=== PATIENT | female | born 1935 | race Caucasian/White ===

== ENCOUNTER 2016-08-17 09:11 | Inpatient (IN) | payer MEDICARE, OTHER ==
[2016-08-17 09:40] LABS: Mean Cell Volume 95.2 fl (78-100); Mean Corpuscular Hemoglobin 29.4 pg (26-32); Mean Platelet Volume 11.5 fl (6-9.5); Platelet Count 160 K/mm3 (150-450); Red Blood Count 3.57 M/mm3 (4.1-5.4); Red Cell Distribution Width 16.1 % (11.5-14.0); White Blood Count 6.3 K/mm3 (4.0-10.5)
--- NOTE | 2016-08-17 09:50 | XRAY ---
Indication: Cough and wheezing. Decreased oxygenation. Comparison: October 02, 2014 Portable chest again demonstrates cardiomegaly with left-sided AICD. There are now bibasilar infiltrates/atelectasis/effusion. Upper lungs clear. Bony thorax intact again with osteopenia and degenerative changes. Impression: New bibasilar infiltrates/atelectasis/effusion with stable cardiomegaly.
[2016-08-17 09:56] LABS: ALBUMIN 3.4 g/dL (3.4-5.0); ANION GAP 12.3 MEQ/L (5-15); BILIRUBIN,TOTAL 0.5 mg/dL (0.2-1.0); Carbon Dioxide 30.9 mEq/L (21-32); MAGNESIUM 1.6 mg/dL (1.8-2.4); Potassium 3.6 mEq/L (3.5-5.1); Total Protein 7.3 gm/dL (6.4-8.2)
[2016-08-17] MEDS ORDERED: PROVENTIL 2.5 MG/3 ML NEB IH PRN (10:42)
[2016-08-17] MEDS: PROVENTIL 2.5 MG/3 ML NEB IH SCH ×3 (11:00→20:15)
[2016-08-17] MEDS ORDERED: MEDICATION INTERVENTION MC PRN (11:35)
[2016-08-17] MEDS: ROCEPHIN 1 Gm-D5w 50 ml Bag** 1 G/50 ML IVPB IV SCH (11:38)
[2016-08-17] MEDS ORDERED: BUMEX 1 MG PO SCH (11:45)
[2016-08-17] MEDS: Zithromax 500 MG/ 250 ML NaCl Premix 250 ML IV SCH (12:12)
[2016-08-17] MEDS ORDERED: Lasix 40 MG/4 ML IV SCH (12:30)
[2016-08-17] MEDS: SYNTHROID 100 MCG PO SCH (12:58)
[2016-08-17] MEDS: Ditropan 5 MG PO SCH ×2 (12:58→21:41)
[2016-08-17] MEDS: ELIQUIS PO SCH ×2 (12:58→21:41)
[2016-08-17] MEDS: ZYLOPRIM 300 MG PO SCH (12:58)
[2016-08-17] MEDS: Actos 30 MG PO SCH (12:59)
[2016-08-17 13:43] LABS: ADD URINE CULTURE? NO (NO); COMPLETE URINE MICROSCOPIC? NO; Collection Type CLEAN CATCH; Ph 7.5 (5-6)
[2016-08-17] MEDS: solu-MEDROL 40 MG IV SCH ×2 (16:19→21:42)
--- NOTE | 2016-08-17 18:31 | PCM.HP ---
History of Present Illness - Chief Complaint Chief Complaint: Hypoxemia, CHF, cough History of Present Illness: is a 81 year old female who c/o 4-5 days of cough and wheezing. Last night she was unable to sleep due to the cough and she came to [facility], where she was noted to have an initial pulse ox of around 87% on RA, increased to 89% with a breathing treatment. she is feeling better now with her O2 on nasal cannula. Her CXR showed infiltrate vs atelectasis vs effusion. BNP was elevated. 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, she is unsure how), No Fever Respiratory: Cough, Short Of Breath, Wheezing All Other Systems: Reviewed and Negative Medications & Allergies Home Medications: Home Medication List Allopurinol 300 mg [Zyloprim 300 mg] 300 mg PO DAILY 09/30/12 [History Confirmed 08/17/16] Carvedilol 6.25 mg [Coreg 6.25 MG] 12.5 mg PO DAILY 09/30/12 [History Confirmed 08/17/16] Glipizide 5 mg PO DAILY 09/30/12 [History Confirmed 08/17/16] Potassium Chloride 20 Meq [Klor-Con 20 MEQ] 10 meq PO DAILY 09/30/12 [History Confirmed 08/17/16] Multivitamin W-Minerals/Lutein [Centrum Silver Tablet] 1 each PO DAILY 10/02/14 [History Confirmed 08/17/16] Perphenazine/Amitriptyline HCl [Perphen-Amitrip 2 mg-25 mg Tab] 1 each PO HS 01/08 [History Confirmed 08/17/16] Pioglitazone HCl [Actos] 15 mg PO DAILY 10/02/14 [History Confirmed 08/17/16] Solifenacin Succinate [Vesicare] 10 mg PO DAILY 10/02/14 [History Confirmed ] Bumetanide 1 mg PO DAILY 04/08/16 [History Confirmed 08/17/16] Apixaban [Eliquis] 2.5 mg PO BID 08/17/16 [History Confirmed 08/17/16] Levothyroxine Sodium 100 Mcg [Synthroid 100 Mcg] 100 mcg PO DAILY 08/17/16 [History Confirmed 08/17/16] Rosuvastatin Calcium [Crestor] 10 mg PO DAILY 08/17/16 [History Confirmed ] Allergies/Adverse Reactions: Allergies Allergy/AdvReac Type Severity Reaction Status Date / Time No Known Drug Allergies Allergy Verified 04/13/16 06:25 - Past Medical History Past Medical History: Yes Neurological History: No Pertinent History ENT History: Cataracts Cardiac History: Arrhythmia, Coronary Artery Disease, Hypertension Respiratory History: No Pertinent History Endocrine Medical History: Diabetes Type II, Hypothyroidism Musculoskelatal History: Arthritis GI Medical History: No Pertinent History History: Renal Disease Pyscho-Social History: No Pertinent History Reproductive Disorders: No Pertinent History Comment: Pt to see kidney doctor next month for possible kidney failure - Female History Are you now?: No - Past Surgical History Past Surgical History: Yes Neuro Surgical History: No Pertinent History Cardiac History: Internal Defibrillator, Pacemaker Respiratory Surgery: No Pertinent History GI Surgical History: Appendectomy Genitourinary Surgical Hx: No Pertinent History Musculskeletal Surgical Hx: No Pertinent History Female Surgical History: Tubal Ligation - Social History Smoking Status: Never smoker Exposure to second hand smoke: No Alcohol: None Drug Use: none - Physical Exam Vital Signs: Vital Signs - 24 hr Temp Pulse Resp BP BP Pulse Ox 08/17/16 16:25 60 132/65 08/17/16 15:31 97.8 F 82 20 147/68 78 L 08/17/16 14:40 84 20 96 08/17/16 11:48 97.8 F 90 18 145/67 7 L 08/17/16 10:43 90 18 96 08/17/16 10:30 163/70 08/17/16 10:12 97.9 F 99 H 20 88 L General Appearance: no apparent distress Neurologic Exam: alert, oriented x 3, cooperative, normal mood/affect Eye Exam: eyes nml inspection Neck Exam: normal inspection, No lymphadenopathy Respiratory Exam: diminished breath sounds, wheezing (exp throughout), No crackles/rales, No rhonchi Cardiovascular Exam: regular rate/rhythm, normal heart sounds, No murmur Back Exam: normal inspection, No CVA tenderness Extremity Exam: pedal edema (tr LE edema bilat) Results - Labs Lab/Micro Results: Accuchecks Date 08/17/16 Time 16:24 Accucheck Value: 122 Accucheck Value: 132 Lab Results-Last 24 Hours 08/17/16 08/17/16 08/17/16 Range/Units 06:00 09:18 09:18 WBC 6.3 (4.0-10.5) K/mm3 RBC 3.57 L (4.1-5.4) M/mm3 Hgb 10.5 L (12.0-16.0) gm/dl Hct 34.0 L (35-47) % MCV 95.2 (78-100) fl MCH 29.4 (26-32) pg MCHC 30.9 L (32-36) g/dl RDW 16.1 H (11.5-14.0) % Plt Count 160 (150-450) K/mm3 MPV 11.5 H (6-9.5) fl Sodium 143 (136-145) mEq/L Potassium 3.6 (3.5-5.1) mEq/L Chloride 103 (98-107) mEq/L Carbon Dioxide 30.9 (21-32) mEq/L Anion Gap 12.3 (5-15) MEQ/L BUN 19 (9-20) mg/dL Creatinine 1.24 (0.55-1.30) mg/dl Estimated GFR 44 ML/MIN Glucose 168 H (70-110) MG/DL Hemoglobin A1c (4.5-6.2) Calcium 8.5 (8.5-10.1) mg/dL Magnesium 1.6 L (1.8-2.4) mg/dL Total Bilirubin 0.5 (0.2-1.0) mg/dL AST 33 (15-37) U/L ALT 19 (12-78) U/L Alkaline Phosphatase 131 H (46-116) U/L NT-Pro-B Natriuret Pep 1351 H (0-450) pg/ml Serum Total Protein 7.3 (6.4-8.2) gm/dL Albumin 3.4 (3.4-5.0) g/dL Ur Collection Type Urine Color (YELLOW) Urine Appearance (CLEAR) Urine pH (5-6) Ur Specific [place] (1.005-1.025) Urine Protein (Negative) Urine Glucose (UA) (NEGATIVE) mg/dL Urine Ketones (NEGATIVE) Urine Nitrite (NEGATIVE) Urine Bilirubin (NEGATIVE) Urine Urobilinogen (0-1) mg/dL Urine WBC (Auto) (NEGATIVE) Urine RBC (Auto) (0-5) Allan/ul Specimen Received 08/17/16 08/17/16 Range/Units 10:00 12:47 WBC (4.0-10.5) K/mm3 RBC (4.1-5.4) M/mm3 Hgb (12.0-16.0) gm/dl Hct (35-47) % MCV (78-100) fl MCH (26-32) pg MCHC (32-36) g/dl RDW (11.5-14.0) % Plt Count (150-450) K/mm3 MPV (6-9.5) fl Sodium (136-145) mEq/L Potassium (3.5-5.1) mEq/L Chloride (98-107) mEq/L Carbon Dioxide (21-32) mEq/L Anion Gap (5-15) MEQ/L BUN (9-20) mg/dL Creatinine (0.55-1.30) mg/dl Estimated GFR ML/MIN Glucose (70-110) MG/DL Hemoglobin A1c 6.8 H (4.5-6.2) Calcium (8.5-10.1) mg/dL Magnesium (1.8-2.4) mg/dL Total Bilirubin (0.2-1.0) mg/dL AST (15-37) U/L ALT (12-78) U/L Alkaline Phosphatase (46-116) U/L NT-Pro-B Natriuret Pep (0-450) pg/ml Serum Total Protein (6.4-8.2) gm/dL Albumin (3.4-5.0) g/dL Ur Collection Type CLEAN CATCH Urine Color YELLOW (YELLOW) Urine Appearance CLEAR (CLEAR) Urine pH 7.5 (5-6) Ur Specific [place] 1.015 (1.005-1.025) Urine Protein NEGATIVE (Negative) Urine Glucose (UA) NEGATIVE (NEGATIVE) mg/dL Urine Ketones NEGATIVE (NEGATIVE) Urine Nitrite NEGATIVE (NEGATIVE) Urine Bilirubin NEGATIVE (NEGATIVE) Urine Urobilinogen 0.2 (0-1) mg/dL Urine WBC (Auto) NEGATIVE (NEGATIVE) Urine RBC (Auto) NEGATIVE (0-5) Allan/ul Specimen Received [id number] Accuchecks Date 08/17/16 Time 16:24 Accucheck Value: 122 Accucheck Value: 132 - Radiology Impressions Radiology Exams & Impressions: Radiology Procedures Category Date Time Status CHEST 2 VIEWS (PA AND LAT) Routine Exams 08/17/16 Completed CHEST 2 VIEWS (PA AND LAT) Routine Exams 08/18/16 12:00 Ordered ECHO W/2D AND DOPPLER [US] Routine Exams 08/17/16 11:30 Taken - Other Procedures and Tests Respiratory Therapy 08/17/16 10:14 Oxygen NASAL CANNULA 2 lpm 08/17/16 10:42 Respiratory Nebulizer Q4H 08/17/16 10:43 Respiratory Nebulizer PRN 08/17/16 11:06 RT Screen per Nursing Assess Assessment/Plan (1) Pneumonia Current Visit: Yes Status: Acute Qualifiers: Pneumonia type: due to unspecified organism Laterality: bilateral Lung location: lower lobe of lung Qualified Code(s): J18.9 - Pneumonia, unspecified organism Assessment & Plan: On IV rocephin and zithromax with IV solumedrol. On O2. Feeling better. Advised will probably be in for 2-3 days, depending on how she progresses. Code(s): J18.9 - PNEUMONIA, UNSPECIFIED ORGANISM (2) Congestive heart failure Current Visit: No Status: Acute Qualifiers: Congestive heart failure type: unspecified congestive heart failure type Congestive heart failure chronicity: acute on chronic Qualified Code(s): I50.9 - Heart failure, unspecified Assessment & Plan: at home takes Bumex. BNP was elevated. Will check bnp and CXR again tomorrow. IV lasix 40mg daily. Code(s): I50.9 - HEART FAILURE, UNSPECIFIED
[2016-08-17] MEDS: Zocor 10MG PO SCH (21:41)
[2016-08-17] MEDS ORDERED: PERPHENAZINE PO SCH (22:00)
[2016-08-17] MEDS ORDERED: [UNRECOGNIZED DRUG - OTHER] PO SCH (22:00)
[2016-08-17] MEDS ORDERED: AMITRIPTYLINE HCL PO SCH (22:00)
[2016-08-17] MEDS ORDERED: NON-FORMULARY ITEM (Apixaban [Eliquis] 2.5 MG) PO SCH (22:00)
[2016-08-17] MEDS: NovoLOG Insulin SQ PRN (22:36)
[2016-08-18 05:47] LABS: Mean Platelet Volume 11.4 fl (6-9.5); Platelet Count 161 K/mm3 (150-450); Red Blood Count 3.38 M/mm3 (4.1-5.4)
[2016-08-18 06:00] LABS: Mean Corpuscular Hemoglobin 29.2 pg (26-32)
[2016-08-18 06:08] LABS: ANION GAP 13.2 MEQ/L (5-15); Carbon Dioxide 29.5 mEq/L (21-32); Potassium 3.7 mEq/L (3.5-5.1)
[2016-08-18] MEDS: PROVENTIL 2.5 MG/3 ML NEB IH SCH ×4 (06:51→20:13)
[2016-08-18 07:24] LABS: Total Cells Counted 100
[2016-08-18 07:26] LABS: ANISOCYTOSIS 1+; Platelet Estimate NORMAL (NORMAL); Poikilocytosis 1+
[2016-08-18 07:28] LABS: Basophilic Stippling 1+
[2016-08-18] MEDS: NovoLOG Insulin SQ PRN ×2 (08:14→16:45)
--- NOTE | 2016-08-18 09:00 | PCM.NOTE ---
Date and Time: 08/18/16 0855 Subjective Assessment: She is having shortness of breath, increased. wheezing. carol po although she was unable to swallow her first bite of toast. - Review of Systems Constitutional: No Fever Respiratory: Cough, Wheezing Objective Exam General Appearance: no apparent distress, obese Neurologic Exam: alert, oriented x 3, cooperative Skin Exam: normal color, warm, dry Respiratory Exam: diminished breath sounds, wheezing (throughout), No crackles/ rales, No rhonchi Cardiovascular Exam: regular rate/rhythm, normal heart sounds, No murmur Extremity Exam: No pedal edema, No swelling OBJECTIVE DATA Vital Signs: Vital Signs - 24 hr Temp Pulse Resp BP BP Pulse Ox 08/18/16 07:43 98.4 F 106 H 24 145/67 96 08/18/16 06:53 108 H 24 98 08/18/16 05:39 98 H 22 94 L 08/18/16 04:00 98.0 F 102 H 22 172/72 93 L 08/18/16 00:00 98.5 F 100 H 26 H 189/87 95 08/17/16 20:18 97 H 22 97 08/17/16 20:00 97.8 F 93 H 22 157/71 145/67 92 L 08/17/16 16:25 60 132/65 08/17/16 15:31 97.8 F 82 20 147/68 78 L 08/17/16 14:40 84 20 96 08/17/16 11:48 97.8 F 90 18 145/67 7 L 08/17/16 10:43 90 18 96 08/17/16 10:30 163/70 08/17/16 10:12 97.9 F 99 H 20 88 L Oxygen-Last 24 hours O2 Percentage 2 Liters = 28% O2 Percentage 2 Liters = 28% O2 Percentage 2 Liters = 28% O2 Percentage 2 Liters = 28% Pain Assessment - Last Documented Pain Intensity 0 Pain Scale Used 0-10 Pain Scale Intake and Output: Intake & Output 08/15/16 08/16/16 08/17/16 08/18/16 11:59 11:59 11:59 11:59 Intake Total 1000 Output Total 2250 Balance -1250 Weight 82.236 kg 83.96 kg Lab Results: Accuchecks Date 08/17/16 Date 04/24/17 Time 22:00 Time 16:24 Accucheck Value: 236 Accucheck Value: 122 Accucheck Value: 132 Lab Results-Last 24 Hours 08/17/16 08/17/16 08/17/16 Range/Units 06:00 09:18 09:18 WBC 6.3 (4.0-10.5) K/mm3 RBC 3.57 L (4.1-5.4) M/mm3 Hgb 10.5 L (12.0-16.0) gm/dl Hct 34.0 L (35-47) % MCV 95.2 (78-100) fl MCH 29.4 (26-32) pg MCHC 30.9 L (32-36) g/dl RDW 16.1 H (11.5-14.0) % Plt Count 160 (150-450) K/mm3 MPV 11.5 H (6-9.5) fl Segmented Neutrophils (36.0-66.0) % Lymphocytes (Manual) (24-44) % Platelet Estimate (NORMAL) Poikilocytosis Basophilic Stippling Anisocytosis Sodium 143 (136-145) mEq/L Potassium 3.6 (3.5-5.1) mEq/L Chloride 103 (98-107) mEq/L Carbon Dioxide 30.9 (21-32) mEq/L Anion Gap 12.3 (5-15) MEQ/L BUN 19 (9-20) mg/dL Creatinine 1.24 (0.55-1.30) mg/dl Estimated GFR 44 ML/MIN Glucose 168 H (70-110) MG/DL Hemoglobin A1c (4.5-6.2) Calcium 8.5 (8.5-10.1) mg/dL Magnesium 1.6 L (1.8-2.4) mg/dL Total Bilirubin 0.5 (0.2-1.0) mg/dL AST 33 (15-37) U/L ALT 19 (12-78) U/L Alkaline Phosphatase 131 H (46-116) U/L NT-Pro-B Natriuret Pep 1351 H (0-450) pg/ml Serum Total Protein 7.3 (6.4-8.2) gm/dL Albumin 3.4 (3.4-5.0) g/dL Ur Collection Type Urine Color (YELLOW) Urine Appearance (CLEAR) Urine pH (5-6) Ur Specific [place] (1.005-1.025) Urine Protein (Negative) Urine Glucose (UA) (NEGATIVE) mg/dL Urine Ketones (NEGATIVE) Urine Nitrite (NEGATIVE) Urine Bilirubin (NEGATIVE) Urine Urobilinogen (0-1) mg/dL Urine WBC (Auto) (NEGATIVE) Urine RBC (Auto) (0-5) Allan/ul Specimen Received 08/17/16 08/17/16 08/18/16 Range/Units 10:00 12:47 05:25 WBC 5.0 (4.0-10.5) K/mm3 RBC 3.38 L (4.1-5.4) M/mm3 Hgb 9.9 L (12.0-16.0) gm/dl Hct 32.1 L (35-47) % MCV 95.0 (78-100) fl MCH 29.2 (26-32) pg MCHC 30.8 L (32-36) g/dl RDW 16.0 H (11.5-14.0) % Plt Count 161 (150-450) K/mm3 MPV 11.4 H (6-9.5) fl Segmented Neutrophils 94 H (36.0-66.0) % Lymphocytes (Manual) 6 L (24-44) % Platelet Estimate NORMAL (NORMAL) Poikilocytosis 1+ Basophilic Stippling 1+ Anisocytosis 1+ Sodium (136-145) mEq/L Potassium (3.5-5.1) mEq/L Chloride (98-107) mEq/L Carbon Dioxide (21-32) mEq/L Anion Gap (5-15) MEQ/L BUN (9-20) mg/dL Creatinine (0.55-1.30) mg/dl Estimated GFR ML/MIN Glucose (70-110) MG/DL Hemoglobin A1c 6.8 H (4.5-6.2) Calcium (8.5-10.1) mg/dL Magnesium (1.8-2.4) mg/dL Total Bilirubin (0.2-1.0) mg/dL AST (15-37) U/L ALT (12-78) U/L Alkaline Phosphatase (46-116) U/L NT-Pro-B Natriuret Pep (0-450) pg/ml Serum Total Protein (6.4-8.2) gm/dL Albumin (3.4-5.0) g/dL Ur Collection Type CLEAN CATCH Urine Color YELLOW (YELLOW) Urine Appearance CLEAR (CLEAR) Urine pH 7.5 (5-6) Ur Specific [place] 1.015 (1.005-1.025) Urine Protein NEGATIVE (Negative) Urine Glucose (UA) NEGATIVE (NEGATIVE) mg/dL Urine Ketones NEGATIVE (NEGATIVE) Urine Nitrite NEGATIVE (NEGATIVE) Urine Bilirubin NEGATIVE (NEGATIVE) Urine Urobilinogen 0.2 (0-1) mg/dL Urine WBC (Auto) NEGATIVE (NEGATIVE) Urine RBC (Auto) NEGATIVE (0-5) Allan/ul Specimen Received [id number] 08/18/16 Range/Units 05:25 WBC (4.0-10.5) K/mm3 RBC (4.1-5.4) M/mm3 Hgb (12.0-16.0) gm/dl Hct (35-47) % MCV (78-100) fl MCH (26-32) pg MCHC (32-36) g/dl RDW (11.5-14.0) % Plt Count (150-450) K/mm3 MPV (6-9.5) fl Segmented Neutrophils (36.0-66.0) % Lymphocytes (Manual) (24-44) % Platelet Estimate (NORMAL) Poikilocytosis Basophilic Stippling Anisocytosis Sodium 141 (136-145) mEq/L Potassium 3.7 (3.5-5.1) mEq/L Chloride 102 (98-107) mEq/L Carbon Dioxide 29.5 (21-32) mEq/L Anion Gap 13.2 (5-15) MEQ/L BUN 22 H (9-20) mg/dL Creatinine 1.11 (0.55-1.30) mg/dl Estimated GFR 50 ML/MIN Glucose 200 H (70-110) MG/DL Hemoglobin A1c (4.5-6.2) Calcium 8.0 L (8.5-10.1) mg/dL Magnesium (1.8-2.4) mg/dL Total Bilirubin (0.2-1.0) mg/dL AST (15-37) U/L ALT (12-78) U/L Alkaline Phosphatase (46-116) U/L NT-Pro-B Natriuret Pep 1752 H (0-450) pg/ml Serum Total Protein (6.4-8.2) gm/dL Albumin (3.4-5.0) g/dL Ur Collection Type Urine Color (YELLOW) Urine Appearance (CLEAR) Urine pH (5-6) Ur Specific [place] (1.005-1.025) Urine Protein (Negative) Urine Glucose (UA) (NEGATIVE) mg/dL Urine Ketones (NEGATIVE) Urine Nitrite (NEGATIVE) Urine Bilirubin (NEGATIVE) Urine Urobilinogen (0-1) mg/dL Urine WBC (Auto) (NEGATIVE) Urine RBC (Auto) (0-5) Allan/ul Specimen Received Radiology Exams: Radiology Procedures Category Date Time Status CHEST 2 VIEWS (PA AND LAT) Routine Exams 08/17/16 Completed CHEST 2 VIEWS (PA AND LAT) Routine Exams 08/18/16 12:00 Ordered ECHO W/2D AND DOPPLER [US] Routine Exams 08/17/16 11:30 Taken Assessment/Plan (1) Pneumonia Current Visit: Yes Status: Acute Qualifiers: Pneumonia type: due to unspecified organism Laterality: bilateral Lung location: lower lobe of lung Qualified Code(s): J18.9 - Pneumonia, unspecified organism Assessment & Plan: with excessive wheezing; will increase the steroid. on IV rocephina nd zithromax. Code(s): J18.9 - PNEUMONIA, UNSPECIFIED ORGANISM (2) Congestive heart failure Current Visit: No Status: Acute Qualifiers: Congestive heart failure type: unspecified congestive heart failure type Congestive heart failure chronicity: acute on chronic Qualified Code(s): I50.9 - Heart failure, unspecified Assessment & Plan: BNP elevated; will change IV lasix to IV bumex. Code(s): I50.9 - HEART FAILURE, UNSPECIFIED (3) Urinary retention Current Visit: Yes Status: Acute Assessment & Plan: possible; has not had much urine out. check u/s bladder, place trivedi if > 150cc urine present. If less than 150 cc present will consult urology. Code(s): R33.9 - RETENTION OF URINE, UNSPECIFIED
[2016-08-18] MEDS ORDERED: Ativan 1 MG PO PRN (09:01)
[2016-08-18] MEDS: Zithromax 500 MG/ 250 ML NaCl Premix 250 ML IV SCH (09:46)
[2016-08-18] MEDS: ELIQUIS PO SCH ×2 (09:46→21:17)
[2016-08-18] MEDS: Actos 30 MG PO SCH (09:46)
[2016-08-18] MEDS: Ditropan 5 MG PO SCH ×2 (09:47→21:17)
[2016-08-18] MEDS: ZYLOPRIM 300 MG PO SCH (09:47)
[2016-08-18] MEDS: COREG 12.5 MG PO SCH ×2 (09:47→21:17)
[2016-08-18] MEDS: SYNTHROID 100 MCG PO SCH (09:47)
[2016-08-18] MEDS ORDERED: Coreg 6.25 MG PO SCH (10:00)
[2016-08-18] MEDS ORDERED: NON-FORMULARY ITEM (Solifenacin Succinate [Vesicare] 10 MG) PO SCH (10:00)
[2016-08-18] MEDS ORDERED: NON-FORMULARY ITEM (Pioglitazone Hcl [Actos] 15 MG) PO SCH (10:00)
[2016-08-18] MEDS ORDERED: COREG 12.5 MG PO SCH (10:00)
[2016-08-18] MEDS ORDERED: NON-FORMULARY ITEM (Rosuvastatin Calcium [Crestor] 10 MG) PO SCH (10:00)
[2016-08-18] MEDS: BUMEX 1 MG IV SCH ×2 (10:02→16:45)
[2016-08-18] MEDS: Mucinex 600MG ER Tabs PO SCH ×2 (10:02→21:15)
[2016-08-18] MEDS: solu-MEDROL 125 MG IV SCH ×3 (10:03→21:18)
--- NOTE | 2016-08-18 12:30 | XRAY ---
Indication: Severe cough. Comparison: One day earlier. PA/lateral chest demonstrates slight worsening bibasilar infiltrates/atelectasis/effusion with stable cardiomegaly and left-sided AICD. No new cardiopulmonary abnormalities.
[2016-08-18] MEDS: ROCEPHIN 1 Gm-D5w 50 ml Bag** 1 G/50 ML IVPB IV SCH (12:33)
--- NOTE | 2016-08-18 13:33 | XRAY ---
Indication: Oliguria. Two-dimensional ultrasound of the urinary bladder performed. Comparison: None Urinary bladder normally distended with prevoid volume 338 cc. No suspicious bladder mass or wall thickening. Postvoid image demonstrates complete emptying. Impression: Negative urinary bladder sonogram.
[2016-08-18] MEDS ORDERED: BUMEX 1 MG IV ONE (16:45)
[2016-08-18] MEDS: Zocor 10MG PO SCH (21:17)
[2016-08-18] MEDS: PATIENT OWN MEDICATION PO SCH (21:23)
[2016-08-19] MEDS: solu-MEDROL 125 MG IV SCH ×3 (05:35→17:11)
[2016-08-19] MEDS: PROVENTIL 2.5 MG/3 ML NEB IH SCH ×4 (05:40→19:13)
[2016-08-19] MEDS: NovoLOG Insulin SQ PRN ×3 (08:08→22:40)
--- NOTE | 2016-08-19 10:00 | PCM.NOTE ---
Date and Time: 08/19/16954 Subjective Assessment: She is breathing better, off of her O2. Adolfo po. - Review of Systems Constitutional: No Fever Respiratory: Cough Objective Exam General Appearance: no apparent distress Neurologic Exam: alert, oriented x 3, cooperative Skin Exam: normal color, warm, dry Respiratory Exam: diminished breath sounds, No crackles/rales, No rhonchi, No wheezing Cardiovascular Exam: regular rate/rhythm, normal heart sounds, No murmur Gastrointestinal/Abdomen Exam: soft, normal bowel sounds, No tenderness OBJECTIVE DATA Vital Signs: Vital Signs - 24 hr Temp Pulse Resp BP Pulse Ox 08/19/16 08:56 92 L 08/19/16 08:00 23 08/19/16 07:59 97.8 F 82 23 145/76 95 08/19/16 05:40 16 08/19/16 04:00 98.7 F 98 H 21 145/73 92 L 08/19/16 00:00 98.1 F 58 L 17 120/60 91 L 08/18/16 20:13 84 22 95 08/18/16 20:00 97.9 F 86 17 154/69 94 L 08/18/16 16:08 86 18 93 L 08/18/16 16:00 18 08/18/16 15:20 98.2 F 62 18 134/63 93 L 08/18/16 12:00 22 08/18/16 11:42 98.2 F 91 H 18 139/67 94 L 08/18/16 10:30 95 H 22 96 Oxygen-Last 24 hours O2 Percentage 2 Liters = 28% O2 Percentage 2 Liters = 28% O2 Percentage 2 Liters = 28% O2 Percentage 2 Liters = 28% Pain Assessment - Last Documented Pain Intensity 0 Pain Scale Used 0-10 Pain Scale Intake and Output: Intake & Output 08/16/16 08/17/16 08/18/16 08/19/16 11:59 11:59 11:59 11:59 Intake Total 1480 1680 Output Total 2450 1488 Balance -970 192 Weight 82.236 kg 83.96 kg 82.962 kg Lab Results: Accuchecks Date 08/19/16 Date 08/19/16 Date 08/18/16 Date 08/18/16 Time 16:30 Time 11:30 Accucheck Value: 230 Accucheck Value: 200 Accucheck Value: 258 Accucheck Value: 190 Radiology Exams: Radiology Procedures Category Date Time Status BLADDER [US] Urgent Exams 08/18/16 09:00 Completed CHEST 2 VIEWS (PA AND LAT) Routine Exams 08/18/16 12:00 Completed ECHO W/2D AND DOPPLER [US] Routine Exams 08/17/16 11:30 Taken Assessment/Plan (1) Pneumonia Current Visit: Yes Status: Acute Qualifiers: Pneumonia type: due to unspecified organism Laterality: bilateral Lung location: lower lobe of lung Qualified Code(s): J18.9 - Pneumonia, unspecified organism Assessment & Plan: Finally starting to improve. Will leave steroid at current dose today and start decreasing tomorrow. I expect she will be here several more days. Code(s): J18.9 - PNEUMONIA, UNSPECIFIED ORGANISM (2) Congestive heart failure Current Visit: No Status: Acute Qualifiers: Congestive heart failure type: unspecified congestive heart failure type Congestive heart failure chronicity: acute on chronic Qualified Code(s): I50.9 - Heart failure, unspecified Assessment & Plan: Actually had quite a bit of urine out yesterday. Keep taking bumex BID IV here and recheck BNP in the morning. Code(s): I50.9 - HEART FAILURE, UNSPECIFIED
[2016-08-19] MEDS: Ditropan 5 MG PO SCH ×2 (10:01→21:57)
[2016-08-19] MEDS: ELIQUIS PO SCH ×2 (10:01→21:58)
[2016-08-19] MEDS: BUMEX 1 MG IV SCH ×2 (10:01→17:11)
[2016-08-19] MEDS: Actos 30 MG PO SCH (10:02)
[2016-08-19] MEDS: ZYLOPRIM 300 MG PO SCH (10:02)
[2016-08-19] MEDS: ROCEPHIN 1 Gm-D5w 50 ml Bag** 1 G/50 ML IVPB IV SCH (10:02)
[2016-08-19] MEDS: SYNTHROID 100 MCG PO SCH (10:02)
[2016-08-19] MEDS: Mucinex 600MG ER Tabs PO SCH ×2 (10:02→21:58)
[2016-08-19] MEDS: COREG 12.5 MG PO SCH ×2 (10:02→21:58)
[2016-08-19] MEDS: Zithromax 500 MG/ 250 ML NaCl Premix 250 ML IV SCH (10:03)
[2016-08-19] MEDS: Klor Con 10 MEQ PO SCH (11:22)
[2016-08-19] MEDS: Zocor 10MG PO SCH (21:59)
[2016-08-19] MEDS: PATIENT OWN MEDICATION PO SCH (21:59)
[2016-08-20] MEDS: solu-MEDROL 125 MG IV SCH ×4 (00:11→21:25)
[2016-08-20 06:07] LABS: BASOPHIL % 0.2 % (0.0-0.4); Granulocytes % 91.2 % (36.0-66.0); Lymphocytes % 6.6 % (24.0-44.0); Mean Cell Volume 95.5 fl (78-100); Mean Corpuscular Hemoglobin 29.9 pg (26-32); Platelet Count 199 K/mm3 (150-450); Red Blood Count 3.34 M/mm3 (4.1-5.4)
[2016-08-20 06:29] LABS: ANION GAP 11.1 MEQ/L (5-15); Carbon Dioxide 32.3 mEq/L (21-32); Potassium 3.6 mEq/L (3.5-5.1)
[2016-08-20] MEDS: PROVENTIL 2.5 MG/3 ML NEB IH SCH ×4 (06:32→19:39)
[2016-08-20] MEDS: NovoLOG Insulin SQ PRN ×3 (07:32→21:26)
--- NOTE | 2016-08-20 08:55 | PCM.NOTE ---
Date and Time: 08/20/16 0854 Subjective Assessment: States her breathing is better. Back on O2 per NC this morning. - Review of Systems Constitutional: No Fever Respiratory: Cough Objective Exam General Appearance: no apparent distress, obese Neurologic Exam: alert, oriented x 3, cooperative Skin Exam: normal color, warm, dry Respiratory Exam: diminished breath sounds, wheezing (faint, scattered), No crackles/rales, No rhonchi Cardiovascular Exam: regular rate/rhythm, normal heart sounds, No murmur Extremity Exam: No pedal edema, No swelling Back Exam: normal inspection OBJECTIVE DATA Vital Signs: Vital Signs - 24 hr Temp Pulse Resp BP Pulse Ox 08/20/16 08:00 97.5 F 74 20 134/61 96 08/20/16 06:33 75 20 97 08/20/16 04:00 98.7 F 74 15 131/66 94 L 08/20/16 00:00 98.5 F 87 16 132/67 94 L 08/19/16 20:00 98.1 F 93 H 17 128/61 94 L 08/19/16 19:13 92 H 24 95 08/19/16 16:00 97.6 F 88 18 130/62 97 08/19/16 15:53 18 08/19/16 14:51 87 18 94 L 08/19/16 11:49 97.5 F 88 18 142/73 91 L 08/19/16 11:05 91 H 20 92 L 08/19/16 08:56 92 L Oxygen-Last 24 hours O2 Percentage 3 Liters = 32% O2 Percentage 2 Liters = 28% O2 Percentage 2 Liters = 28% O2 Percentage 2 Liters = 28% O2 Percentage 2 Liters = 28% O2 Percentage 2 Liters = 28% Pain Assessment - Last Documented Pain Intensity 0 Pain Scale Used 0-10 Pain Scale Intake and Output: Intake & Output 08/17/16 08/18/16 08/19/16 08/20/16 11:59 11:59 11:59 11:59 Intake Total 1480 1680 1620 Output Total 2450 1488 1900 Balance -970 192 -280 Weight 82.236 kg 83.96 kg 82.962 kg 83.37 kg Lab Results: Accuchecks Date 08/20/16 Date 08/19/16 Date 08/19/16 Date 08/19/16 Time 07:33 Accucheck Value: 251 Accucheck Value: 272 Accucheck Value: 189 Accucheck Value: 265 Lab Results-Last 24 Hours 08/18/16 08/20/16 08/20/16 Range/Units 05:25 05:35 05:35 WBC 5.0 10.0 (4.0-10.5) K/mm3 RBC 3.38 L 3.34 L (4.1-5.4) M/mm3 Hgb 9.9 L 10.0 L (12.0-16.0) gm/dl Hct 32.1 L 31.9 L (35-47) % MCV 95.0 95.5 (78-100) fl MCH 29.2 29.9 (26-32) pg MCHC 30.8 L 31.3 L (32-36) g/dl RDW 16.0 H 16.0 H (11.5-14.0) % Plt Count 161 199 (150-450) K/mm3 MPV 11.4 H 12.0 H (6-9.5) fl Gran % 91.2 H (36.0-66.0) % Lymphocytes % 6.6 L (24.0-44.0) % Monocytes % 2.0 (0.0-12.0) % Eosinophils % 0.0 (0.00-5.0) % Basophils % 0.2 (0.0-0.4) % Segmented Neutrophils 94 H (36.0-66.0) % Lymphocytes (Manual) 6 L (24-44) % Basophils # 0.02 (0-0.4) Differential Comment ABNORMAL Platelet Estimate NORMAL (NORMAL) Poikilocytosis 1+ Basophilic Stippling 1+ Anisocytosis 1+ Sodium 143 (136-145) mEq/L Potassium 3.6 (3.5-5.1) mEq/L Chloride 103 (98-107) mEq/L Carbon Dioxide 32.3 H (21-32) mEq/L Anion Gap 11.1 (5-15) MEQ/L BUN 36 H (9-20) mg/dL Creatinine 1.17 (0.55-1.30) mg/dl Estimated GFR 47 ML/MIN Glucose 245 H (70-110) MG/DL Calcium 7.9 L (8.5-10.1) mg/dL NT-Pro-B Natriuret Pep 0391 H (0-450) pg/ml Radiology Exams: Radiology Procedures Category Date Time Status BLADDER [US] Urgent Exams 08/18/16 09:00 Completed CHEST 2 VIEWS (PA AND LAT) Routine Exams 08/18/16 12:00 Completed Assessment/Plan (1) Pneumonia Current Visit: Yes Status: Acute Qualifiers: Pneumonia type: due to unspecified organism Laterality: bilateral Lung location: lower lobe of lung Qualified Code(s): J18.9 - Pneumonia, unspecified organism Assessment & Plan: Will start decreasing the steroid. Lalyley here 2 more days. Code(s): J18.9 - PNEUMONIA, UNSPECIFIED ORGANISM (2) Congestive heart failure Current Visit: No Status: Acute Qualifiers: Congestive heart failure type: unspecified congestive heart failure type Congestive heart failure chronicity: acute on chronic Qualified Code(s): I50.9 - Heart failure, unspecified Assessment & Plan: Will return to her normal bumex dose of 1mg po daily; clinically she is doing well. Code(s): I50.9 - HEART FAILURE, UNSPECIFIED
[2016-08-20] MEDS: SYNTHROID 100 MCG PO SCH (09:09)
[2016-08-20] MEDS: Mucinex 600MG ER Tabs PO SCH ×2 (09:09→21:26)
[2016-08-20] MEDS: ZYLOPRIM 300 MG PO SCH (09:10)
[2016-08-20] MEDS: Ditropan 5 MG PO SCH ×2 (09:10→21:25)
[2016-08-20] MEDS: Klor Con 10 MEQ PO SCH (09:10)
[2016-08-20] MEDS: ELIQUIS PO SCH ×2 (09:11→21:23)
[2016-08-20] MEDS: COREG 12.5 MG PO SCH ×2 (09:16→21:24)
[2016-08-20] MEDS: BUMEX 1 MG PO SCH (09:16)
[2016-08-20] MEDS: ROCEPHIN 1 Gm-D5w 50 ml Bag** 1 G/50 ML IVPB IV SCH (09:17)
[2016-08-20] MEDS: Zithromax 500 MG/ 250 ML NaCl Premix 250 ML IV SCH (09:23)
[2016-08-20] MEDS: Actos 30 MG PO SCH (10:26)
[2016-08-20] MEDS: PATIENT OWN MEDICATION PO SCH (21:21)
[2016-08-20] MEDS: Zocor 10MG PO SCH (21:26)
[2016-08-21] MEDS ORDERED: TRANDATE 20 MG/5 ML SYRINGE IV ONE ×2 (04:55→09:45)
[2016-08-21] MEDS: solu-MEDROL 125 MG IV SCH (05:37)
[2016-08-21 05:52] LABS: Mean Cell Volume 94.8 fl (78-100); Mean Corpuscular Hemoglobin 29.2 pg (26-32); Mean Platelet Volume 12.3 fl (6-9.5); Platelet Count 195 K/mm3 (150-450); Red Blood Count 3.49 M/mm3 (4.1-5.4); Red Cell Distribution Width 16.3 % (11.5-14.0); White Blood Count 9.7 K/mm3 (4.0-10.5)
[2016-08-21 06:10] LABS: ANION GAP 13.8 MEQ/L (5-15); Carbon Dioxide 30.5 mEq/L (21-32); Potassium 3.4 mEq/L (3.5-5.1)
[2016-08-21] MEDS: PROVENTIL 2.5 MG/3 ML NEB IH SCH ×2 (07:04→10:40)
[2016-08-21] MEDS: NovoLOG Insulin SQ PRN (07:23)
[2016-08-21] MEDS ORDERED: Lantus Insulin SQ SCH (08:00)
[2016-08-21] MEDS: Klor Con 10 MEQ PO SCH (08:50)
[2016-08-21] MEDS: ZYLOPRIM 300 MG PO SCH (08:50)
[2016-08-21] MEDS: ELIQUIS PO SCH (08:51)
[2016-08-21] MEDS: BUMEX 1 MG PO SCH (08:51)
[2016-08-21] MEDS: Ditropan 5 MG PO SCH (08:51)
[2016-08-21] MEDS: SYNTHROID 100 MCG PO SCH (08:51)
[2016-08-21] MEDS: Actos 30 MG PO SCH (08:51)
[2016-08-21] MEDS: Mucinex 600MG ER Tabs PO SCH (08:52)
[2016-08-21] MEDS: COREG 12.5 MG PO SCH (08:52)
[2016-08-21] MEDS: Zithromax 500 MG/ 250 ML NaCl Premix 250 ML IV SCH (08:56)
--- NOTE | 2016-08-21 09:50 | XRAY ---
Indication: Short of breath. CHF. Comparison: July 29, 2016. PA/lateral chest demonstrates moderate clearing of the right lung base with tiny residual and stable left base infiltrate/atelectasis/effusion. Stable borderline cardiomegaly with left-sided AICD. No new cardiopulmonary abnormalities. Comment: Preliminary interpretation was made by [facility]. No discrepancy.
[2016-08-21] MEDS ORDERED: MORPHINE SULFATE 4 MG INJ IV ONE (10:48)
[2016-08-21 11:15] VITALS: O2SAT 97
[2016-08-21 13:44] VITALS: BP 80/46; PULSE 121
--- NOTE | 2016-08-24 11:25 | DS ---
ADMISSION DIAGNOSES: 1) Pneumonia. 2) Congestive heart failure. DISCHARGE DIAGNOSES: 1) BRADYCARDIA. 2) PNEUMONIA. 3) CONGESTIVE HEART FAILURE. HOSPITAL COURSE: This is an 81 year-old female patient of mine from [facility] who came into the hospital with the diagnosis of pneumonia. She was quite wheezy and after a couple of days of IV antibiotic and steroids she started to sound better. She had seen the nurse practitioner at [facility] and was hypoxemic during her visit. Her steroids were initially increased up to 125 mg IV and after a day of being stable they were to be decreased. That night she had a heart rate up into the 160's. Telemetry was put on the patient and EKG was done. It was notable that her pacemaker only fired once during the EKG. Heart rate at time was about 120. Her blood pressure was stable so she was given labetalol 10 mg x1 with a decrease in heart rate to around 100. She was stable until morning when I dropped by to discuss the situation with her. She did have some palpitations but otherwise no syncope. During the morning she was noted to have an elevated heart rate again up to about 136 beats/minute. IV labetalol was ordered again. When 5 mg of the labetalol had been given her heart rate dropped down to 38 and the labetalol was discontinued. Shortly after that the heart rate was 111. Blood pressures were in the 140's systolic. I discussed the situation briefly with Dr. Lanza, her almond huller, and he agreed that the pacemaker was likely malfunctioning. The patient was moved to the ICU and external pacing at 60 beats/minute was performed. However, her heart rate stayed in the 80's. She was quite comfortable. I spoke with the hospitalist from [facility] and he agreed to take the patient on transfer. Dr. Portillo, the patient's steam heating installer, was also notified. DISCHARGE PHYSICAL: Afebrile. Vital signs stable. Blood pressure 145 systolic. GENERAL: She is awake, alert, in no acute distress. No oxygen per nasal cannula. SKIN: Normal color, warm and dry. Normal turgor. HEENT: Head atraumatic, normocephalic. Eyes normal inspection. LUNGS: Respirations are easy. No respiratory distress. EXTREMITIES: Normal inspection. DISPOSITION: [facility]. DISCHARGE CONDITION: Fair.
== END 2016-08-21 12:10 | disposition short-term general hospital (02) | DRG 308 ==
LOC: LAB 09:11 → MED SURG 10:00 → OBSVTOIN 08-18 09:30 → ICU 08-21 10:40
PROVIDERS: ADMIT Family Medicine; ATTEND Family Medicine
DX: R00.1 Bradycardia, unspecified (principal); J18.9 Pneumonia, unspecified organism; I50.23 Acute on chronic systolic (congestive) heart failure; I10 Essential (primary) hypertension; I25.10 Atherosclerotic heart disease of native coronary artery without angina pectoris; E03.9 Hypothyroidism, unspecified; M19.90 Unspecified osteoarthritis, unspecified site; Z95.810 Presence of automatic (implantable) cardiac defibrillator; R33.9 Retention of urine, unspecified
CPT/HCPCS: 36415; 71020; 76705; 80048; 80053; 81002; 82962; 83036; 83735; 83880; 84484; 85025; 85027; 93005; 93306; 94640; 94760; G0378; J0456; J0696; J1940; J2270; J2920; J2930; A9270-GY

== ENCOUNTER 2016-12-01 09:58 | Emergency (ER) | payer MEDICARE, OTHER ==
--- NOTE | 2016-12-01 11:01 | ERPHSYRPT ---
- History of Present Illness Time Seen by Provider: 12/01/16 10:51 Source: patient, family Exam Limitations: no limitations Patient Subjective Stated Complaint: PT REPORTS FEELING SICK ALL OVER ET WEAK BEGINNING LAST NIGHT-STATES SHE STARTED ON INSULIN 2 DAYS AGO-REPORTS HER BLOOD SUGAR IS USUALLY OVER 200 BUT THIS MORNING WAS 187-DENIES FEVER-DENIES N/V/D- DENIES PAIN-REPORTS HER KIDNEY LABS HAVE BEEN ABNORMAL WELL Triage Nursing Assessment: PT PALE WARM ET [id number] QUESTIONS CORRECTLY-PUPILS RESPONSIVE-PT ABLE TO TRANSFER WITH ASSISTANCE OF ONE-MOVING ALL EXTREMITIES WITH MILD WEAKNESS-HAND COCOA ROOM OPERATOR EQUAL BILATERALLY-NO FACIAL DROOP NOTED-NO ARM DRIFT NOTED-RESP EASY ET NONLABORED-SPEAKING IN COMPLETE SENTENCES WITH EASE-ABD SOFT ET NONTENDER TO PALP Physician History: The patient is an 81-year-old female with her family complaining that she has been weak for about one day. She is diabetic and her blood sugar is usually over 200 but today it is 187. She denies nausea vomiting or diarrhea. Her past medical history is significant for high cholesterol, diabetes, gout, hypothyroidism, asthma, cardiac pacer, and congestive heart failure. Allergies/Adverse Reactions: No Known Drug Allergies Allergy (Verified 12/01/16 10:25) Home Medications: Allopurinol 300 mg [Zyloprim 300 mg] 300 mg PO DAILY 09/30/12 [History] Carvedilol 6.25 mg [Coreg 6.25 MG] 12.5 mg PO DAILY 09/30/12 [History] Glipizide 5 mg PO DAILY 09/30/12 [History] Potassium Chloride 20 Meq [Klor-Con 20 MEQ] 10 meq PO DAILY 09/30/12 [History] Multivitamin W-Minerals/Lutein [Centrum Silver Tablet] 1 each PO DAILY 10/02/14 [History] Perphenazine/Amitriptyline HCl [Perphen-Amitrip 2 mg-25 mg Tab] 1 each PO HS 01/08 [History] Bumetanide 1 mg PO DAILY 04/08/16 [History] Apixaban [Eliquis] 2.5 mg PO BID 08/17/16 [History] Levothyroxine Sodium 100 Mcg [Synthroid 100 Mcg] 100 mcg PO DAILY 08/17/16 [History] Rosuvastatin Calcium [Crestor] 10 mg PO DAILY 08/17/16 [History] Albuterol 2.5 mg/3 ml Neb [Proventil 2.5 mg/3 ml Neb] 2.5 mg IH UD [History] Buspirone HCl 5 mg [Buspar 5 mg] 5 mg PO BID 12/01/16 [History] Digoxin [Lanoxin] 125 mcg PO DAILY 12/01/16 [History] Furosemide 40 mg [Lasix 40 MG] 40 mg PO DAILY 12/01/16 [History] Oxybutynin Chloride 5 mg PO BID 12/01/16 [History] Sitagliptin Phosphate 50 MG [Januvia 50 MG] 50 mg PO DAILY 12/01/16 [ History] Hx Tetanus, Diphtheria Vaccination/Date Given: Yes Hx Influenza Vaccination/Date Given: No Hx Pneumococcal Vaccination/Date Given: No Immunizations Up to Date: Yes - Review of Systems Constitutional: Weakness Eyes: No Symptoms Ears, Nose, & Throat: No Symptoms Respiratory: No Cough, No Dyspnea Cardiac: No Chest Pain, No Edema, No Syncope Abdominal/Gastrointestinal: No Abdominal Pain, No Nausea, No Vomiting, No Diarrhea Genitourinary Symptoms: No Dysuria Musculoskeletal: No Back Pain, No Neck Pain Skin: No Rash Neurological: No Dizziness, No Focal Weakness, No Sensory Changes Psychological: No Symptoms Endocrine: No Symptoms Hematologic/Lymphatic: No Symptoms Immunological/Allergic: No Symptoms All Other Systems: Reviewed and Negative - Past Medical History Pertinent Past Medical History: Yes Neurological History: No Pertinent History ENT History: Cataracts Cardiac History: Arrhythmia, Coronary Artery Disease, Hypertension Respiratory History: No Pertinent History Endocrine Medical History: Diabetes Type II, Hypothyroidism Musculoskeletal History: Arthritis GI Medical History: No Pertinent History History: Renal Disease Psycho-Social History: No Pertinent History Female Reproductive Disorders: No Pertinent History Other Medical History: Pt to see kidney doctor next month for possible kidney failure - Past Surgical History Past Surgical History: Yes Neuro Surgical History: No Pertinent History Cardiac: Internal Defibrillator, Pacemaker Respiratory: No Pertinent History Gastrointestinal: Appendectomy Genitourinary: No Pertinent History Musculoskeletal: No Pertinent History Female Surgical History: Tubal Ligation - Social History Smoking Status: Never smoker Exposure to second hand smoke: No Drug Use: none Patient Lives Alone: No - Female History Hx Now: No - Nursing Vital Signs Nursing Vital Signs: Initial Vital Signs Pulse Rate 80 12/01/16 10:18 Respiratory Rate 20 12/01/16 10:18 Blood Pressure 144/65 12/01/16 10:18 O2 Sat by Pulse Oximetry 95 12/01/16 10:18 Pain Scale Pain Intensity 0 - Physical Exam General Appearance: no apparent distress, alert Eye Exam: PERRL/EOMI, eyes nml inspection Ears, Nose, Throat Exam: normal ENT inspection, TMs normal, pharynx normal, moist mucous membranes Neck Exam: normal inspection, non-tender, supple, full range of motion Respiratory Exam: normal breath sounds, lungs clear, No respiratory distress Cardiovascular Exam: regular rate/rhythm, normal heart sounds, normal peripheral pulses Gastrointestinal/Abdomen Exam: soft, normal bowel sounds, No tenderness, No mass Pelvic Exam: not done Rectal Exam: not done Back Exam: normal inspection, normal range of motion, No CVA tenderness, No vertebral tenderness Extremity Exam: normal inspection, normal range of motion, pelvis stable Neurologic Exam: alert, oriented x 3, cooperative, normal mood/affect, nml cerebellar function, nml station & gait, sensation nml, No motor deficits Skin Exam: normal color, warm, dry, No rash Lymphatic Exam: No adenopathy SpO2 Interpretation: normal SpO2: 95 Oxygen Delivery: Room Air - Course EKG Interpreted by Me: RATE (paced) - Radiology Exams Abdomen X-ray Interpretation: Teleradiologist Report (fecal stasis without obstruction per DR Lo.) Ordered Tests: Active Orders 24 hr Category Date Time Status EKG-ER Only STAT Care 12/01/16 11:01 Active IV Insertion STAT Care 12/01/16 11:01 Active KUB Stat Exams 12/01/16 11:02 Completed CBC W DIFF Stat Lab 12/01/16 12:15 Completed CMP Routine Lab 12/01/16 12:15 Completed CULTURE,URINE Stat Lab 12/01/16 13:45 Received LIPASE Routine Lab 12/01/16 12:15 Completed Lactic Acid Stat Lab 12/01/16 12:15 Completed Lactic Acid Stat Lab 12/01/16 14:40 Results Manual Differential NC Stat Lab 12/01/16 12:15 Completed TROPONIN Q3H Lab 12/01/16 12:15 Completed TROPONIN Q3H Lab 12/01/16 14:39 Received TROPONIN Q3H Lab 12/01/16 17:15 Ordered TROPONIN Q3H Lab 12/01/16 20:15 Ordered TROPONIN Q3H Lab 12/01/16 23:15 Ordered UA W/ MICROSCOPIC Stat Lab 12/01/16 13:45 Completed Medication Summary Generic Name Dose Route Start Last Admin Trade Name Yesica PRN Reason Stop Dose Admin Sodium Chloride 1,000 mls @ 100 mls/hr 12/01/16 11:15 12/01/16 12:08 Sodium Chloride 0.9% 1000 Ml IV 12/31/16 11:14 100 mls/hr .Q10H RAMYA Administration Lab/Rad Data: Laboratory Result Diagrams 12/01/16 12:15 12/01/16 12:15 Laboratory Results 12/01/16 12/01/16 12/01/16 Range/Units 14:40 13:45 12:15 WBC (4.0-10.5) K/mm3 RBC (4.1-5.4) M/mm3 Hgb (12.0-16.0) gm/dl Hct (35-47) % MCV (78-100) fl MCH (26-32) pg MCHC (32-36) g/dl RDW (11.5-14.0) % Plt Count (150-450) K/mm3 MPV (6-9.5) fl Segmented Neutrophils (36.0-66.0) % Band Neutrophils (0.0-2.0) % Lymphocytes (Manual) (24-44) % Monocytes (Manual) (0.0-12.0) % Eosinophils (Manual) (0.00-3.0) % Basophils (Manual) (0.0-1.0) % Differential Comment Platelet Estimate (NORMAL) Polychromasia Anisocytosis Sodium 140 (136-145) mEq/L Potassium 3.8 (3.5-5.1) mEq/L Chloride 101 (98-107) mEq/L Carbon Dioxide 31.5 (21-32) mEq/L Anion Gap 11.7 (5-15) MEQ/L BUN 13 (9-20) mg/dL Creatinine 1.42 H (0.55-1.30) mg/dl Estimated GFR 38 ML/MIN Glucose 265 H (70-110) MG/DL Lactic Acid 2.0 (0.4-2.0) Calcium 9.5 (8.5-10.1) mg/dL Total Bilirubin 0.50 (0.2-1.0) mg/dL AST 40 H (15-37) U/L ALT 32 (12-78) U/L Alkaline Phosphatase 106 (46-116) U/L Troponin I 0.021 (0.000-0.056) ng/ml Serum Total Protein 6.6 (6.4-8.2) gm/dL Albumin 3.1 L (3.4-5.0) g/dL Lipase 51 L (73-393) U/L Ur Collection Type CCMS Urine Color YELLOW (YELLOW) Urine Appearance CLEAR (CLEAR) Urine pH 7.0 (5-6) Ur Specific [place] 1.010 (1.005-1.025) Urine Protein NEGATIVE (Negative) Urine Ketones NEGATIVE (NEGATIVE) Urine Blood 5-10 (0-5) Allan/ul Urine Nitrite NEGATIVE (NEGATIVE) Urine Bilirubin NEGATIVE (NEGATIVE) Urine Urobilinogen NORMAL (0-1) mg/dL Ur Leukocyte Esterase 2+ (NEGATIVE) Urine Microscopic RBC 0-2 (0-2) /HPF Urine Microscopic WBC 5-10 (0-5) /HPF Ur Epithelial Cells FEW (FEW) /HPF Urine Bacteria FEW (NEGATIVE) /HPF Urine Glucose 250 (NEGATIVE) mg/dL Specimen Received 12-01-16 1355 12/01/16 12/01/16 Range/Units 12:15 12:15 WBC 9.6 (4.0-10.5) K/mm3 RBC 3.97 L (4.1-5.4) M/mm3 Hgb 10.7 L (12.0-16.0) gm/dl Hct 35.6 (35-47) % MCV 89.7 (78-100) fl MCH 26.9 (26-32) pg MCHC 30.1 L (32-36) g/dl RDW 17.5 H (11.5-14.0) % Plt Count 195 (150-450) K/mm3 MPV 12.1 H (6-9.5) fl Segmented Neutrophils 81 H (36.0-66.0) % Band Neutrophils 1 (0.0-2.0) % Lymphocytes (Manual) 11 L (24-44) % Monocytes (Manual) 2 (0.0-12.0) % Eosinophils (Manual) 3 (0.00-3.0) % Basophils (Manual) 2 H (0.0-1.0) % Differential Comment ABNORMAL Platelet Estimate NORMAL (NORMAL) Polychromasia 1+ Anisocytosis 1+ Sodium (136-145) mEq/L Potassium (3.5-5.1) mEq/L Chloride (98-107) mEq/L Carbon Dioxide (21-32) mEq/L Anion Gap (5-15) MEQ/L BUN (9-20) mg/dL Creatinine (0.55-1.30) mg/dl Estimated GFR ML/MIN Glucose (70-110) MG/DL Lactic Acid 2.6 H (0.4-2.0) Calcium (8.5-10.1) mg/dL Total Bilirubin (0.2-1.0) mg/dL AST (15-37) U/L ALT (12-78) U/L Alkaline Phosphatase (46-116) U/L Troponin I (0.000-0.056) ng/ml Serum Total Protein (6.4-8.2) gm/dL Albumin (3.4-5.0) g/dL Lipase (73-393) U/L Ur Collection Type Urine Color (YELLOW) Urine Appearance (CLEAR) Urine pH (5-6) Ur Specific [place] (1.005-1.025) Urine Protein (Negative) Urine Ketones (NEGATIVE) Urine Blood (0-5) Allan/ul Urine Nitrite (NEGATIVE) Urine Bilirubin (NEGATIVE) Urine Urobilinogen (0-1) mg/dL Ur Leukocyte Esterase (NEGATIVE) Urine Microscopic RBC (0-2) /HPF Urine Microscopic WBC (0-5) /HPF Ur Epithelial Cells (FEW) /HPF Urine Bacteria (NEGATIVE) /HPF Urine Glucose (NEGATIVE) mg/dL Specimen Received - Progress Progress: improved Counseled pt/family regarding: lab results, diagnosis, need for follow-up, rad results - Departure Time of Disposition: 14:59 Departure Disposition: Home Clinical Impression: Weakness Condition: Stable Critical Care Time: No Additional Instructions: You have weakness. You were given 250 ML of fluids by IV in the ER. Follow-up in one to 2 days.
[2016-12-01] MEDS ORDERED: Sodium Chloride 0.9% 1000 ML 1,000 ML IV SCH (11:15)
[2016-12-01] MEDS ORDERED: Sodium Chloride 0.9% 1000 ML 1,000 ML ONE (11:26)
--- NOTE | 2016-12-01 12:06 | XRAY ---
Indication: Intermittent left abdominal pain. Impression: None KUB demonstrates mild fecal debris predominantly in the transverse colon. No focal bowel dilatation, obstruction, or free air. Solid organs unremarkable. Scattered vascular calcifications. Osseous structures intact with osteopenia, multilevel degenerative spondylosis, and mild double curvature scoliosis. Lung bases demonstrates blunting of the left costophrenic angle and cardiomegaly with partially visualized pacer leads. Impression: Mild fecal stasis without obstruction. Incidental chronic findings detailed above.
[2016-12-01 12:21] LABS: Lactic Acid 2.6 (0.4-2.0); Mean Cell Volume 89.7 fl (78-100); Mean Corpuscular Hemoglobin 26.9 pg (26-32); Mean Platelet Volume 12.1 fl (6-9.5); Platelet Count 195 K/mm3 (150-450); Red Blood Count 3.97 M/mm3 (4.1-5.4); Red Cell Distribution Width 17.5 % (11.5-14.0); White Blood Count 9.6 K/mm3 (4.0-10.5)
[2016-12-01 12:54] LABS: ALBUMIN 3.1 g/dL (3.4-5.0); ANION GAP 11.7 MEQ/L (5-15); BILIRUBIN,TOTAL 0.5 mg/dL (0.2-1.0); Carbon Dioxide 31.5 mEq/L (21-32); Potassium 3.8 mEq/L (3.5-5.1); TROPONIN 0.021 ng/ml (0.000-0.056); Total Protein 6.6 gm/dL (6.4-8.2)
[2016-12-01 13:12] LABS: BAND 1 % (0.0-2.0); Basophil 2 % (0.0-1.0); Eosinophil 3 % (0.00-3.0); Total Cells Counted 100
[2016-12-01 13:13] LABS: ANISOCYTOSIS 1+; Platelet Estimate NORMAL (NORMAL); Polychromasia 1+
[2016-12-01 13:56] LABS: Collection Type CCMS
[2016-12-01 13:57] LABS: Bilirubin NEGATIVE (NEGATIVE); COMPLETE URINE MICROSCOPIC? YES; Glucose 250 mg/dL (NEGATIVE); Leukocyte Esterase 2+ (NEGATIVE)
[2016-12-01 13:58] LABS: ADD URINE CULTURE? YES (NO); Bacteria FEW /HPF (NEGATIVE); Epithelial Cells FEW /HPF (FEW)
[2016-12-01 14:26] VITALS: BP 143/62; PULSE 70
[2016-12-01 14:59] VITALS: O2SAT 95
== END 2016-12-01 15:16 | disposition home or self-care (01) ==
LOC: ED 09:58
DX: R53.1 Weakness (principal); E11.9 Type 2 diabetes mellitus without complications; E78.00 Pure hypercholesterolemia, unspecified; E03.9 Hypothyroidism, unspecified; I50.9 Heart failure, unspecified; Z95.0 Presence of cardiac pacemaker; J45.909 Unspecified asthma, uncomplicated; M1A.9XX0 Chronic gout, unspecified, without tophus (tophi); Z79.899 Other long term (current) drug therapy; Z79.84 Long term (current) use of oral hypoglycemic drugs; Z79.4 Long term (current) use of insulin; Z79.01 Long term (current) use of anticoagulants
CPT/HCPCS: 36000; 36415; 74000; 80053; 81000; 83605; 83690; 84484; 85025; 87086; 93005; 96360; 99284

== ENCOUNTER 2016-12-03 12:22 | Inpatient (IN) | payer MEDICARE, OTHER ==
[2016-12-03] MEDS: Sodium Chloride 0.9% 1000 ML 1,000 ML IV SCH ×2 (13:09→23:10)
[2016-12-03 13:21] LABS: Lactic Acid 2.9 (0.4-2.0)
[2016-12-03 13:45] LABS: Mean Cell Volume 89.5 fl (78-100); Mean Platelet Volume 11.8 fl (6-9.5); Platelet Count 214 K/mm3 (150-450); Red Blood Count 4.27 M/mm3 (4.1-5.4)
[2016-12-03 13:49] LABS: Mean Corpuscular Hemoglobin 27.1 pg (26-32)
[2016-12-03 14:23] LABS: ALBUMIN 3.4 g/dL (3.4-5.0); ANION GAP 16.8 MEQ/L (5-15); BILIRUBIN,TOTAL 0.7 mg/dL (0.2-1.0); Carbon Dioxide 28.6 mEq/L (21-32); Potassium 4.1 mEq/L (3.5-5.1)
[2016-12-03 14:26] LABS: Total Cells Counted 100
[2016-12-03 14:27] LABS: ANISOCYTOSIS 1+; Platelet Estimate NORMAL (NORMAL); Poikilocytosis 1+
--- NOTE | 2016-12-03 14:45 | XRAY ---
Exam: Two-view chest from 12/03/2016. Comparison: Two-view chest from 08/21/2016. Indication: Weakness, malaise. Findings: Upright PA and lateral chest films are submitted for evaluation. The heart size appears borderline to minimally enlarged representing no significant change. A left-sided cardiac pacemaker/AICD is seen with [address] One lead tip is in the projection of the right atrium, a second within the projection of the apex of the right ventricle, and a third within the projection of the coronary sinus. This is unchanged. Some granulomatous calcifications are seen within the jing, more prominent on the right than left. No other significant finding is seen within the jing or mediastinal structures. The pulmonary vascularity is within normal limits. The lungs are well expanded and appear mildly hyperinflated. No air space infiltrates, pneumothorax, or pleural fluid is seen. Prior bibasilar airspace disease on 08/21/2016 has resolved. There appears to be an old fracture deformity of the lateral aspect of the right first rib. It is also possible this represents a chronic rib anomaly. Some arthritic changes are seen within both shoulders representing no change. There is calcification within a lower thoracic disc. Diffuse bone demineralization, mild mid dorsal kyphosis, and some mild lower thoracic spondylosis are seen. Impression: 1. Prior bibasilar airspace disease, left greater than right, on 08/21/2016 has resolved. No acute cardiopulmonary disease is seen currently. 2. Borderline to minimal cardiomegaly without evidence of acute cardiac decompensation/heart failure. This is unchanged. I again see a left-sided cardiac pacemaker/AICD, as described above. 3. There is some mild hyperinflation of the lungs. Correlate clinically regarding COPD. 4. Skeletal findings as described above.
[2016-12-03 16:21] LABS: Lactic Acid 2.1 (0.4-2.0)
[2016-12-03] MEDS ORDERED: MEDICATION INTERVENTION MC PRN (16:42)
[2016-12-03] MEDS: NovoLOG Insulin SQ PRN (17:19)
[2016-12-03] MEDS ORDERED: Tums EX 750 MG PO PRN ×2 (19:16→19:39)
[2016-12-03] MEDS ORDERED: NON-FORMULARY ITEM (Apixaban [Eliquis] 2.5 MG) PO SCH (22:00)
[2016-12-03] MEDS ORDERED: [UNRECOGNIZED DRUG - OTHER] PO SCH (22:00)
[2016-12-03] MEDS ORDERED: PERPHENAZINE PO SCH (22:00)
[2016-12-03] MEDS ORDERED: AMITRIPTYLINE HCL PO SCH (22:00)
[2016-12-03] MEDS: ELIQUIS PO SCH (23:14)
[2016-12-03] MEDS: ZOCOR 20MG PO SCH (23:14)
[2016-12-03] MEDS: Coreg 6.25 MG PO SCH (23:15)
[2016-12-04 00:23] LABS: Bilirubin NEGATIVE (NEGATIVE); Blood TRACE NON-HEM Ery/ul (0-5); COMPLETE URINE MICROSCOPIC? YES; Collection Type CLEAN CATCH; Glucose NEGATIVE (NEGATIVE); Leukocyte Esterase 2+ (NEGATIVE)
[2016-12-04 00:32] LABS: Bacteria FEW /HPF (NEGATIVE); Epithelial Cells MODERATE /HPF (FEW); WBC >100 /HPF (0-5)
[2016-12-04 05:35] LABS: Mean Cell Volume 90.2 fl (78-100); Mean Platelet Volume 11.1 fl (6-9.5); Platelet Count 182 K/mm3 (150-450); Red Blood Count 3.67 M/mm3 (4.1-5.4); Red Cell Distribution Width 18.1 % (11.5-14.0); White Blood Count 10.3 K/mm3 (4.0-10.5)
[2016-12-04 05:39] LABS: Mean Corpuscular Hemoglobin 26.9 pg (26-32)
[2016-12-04 06:18] LABS: ANION GAP 11.8 MEQ/L (5-15); Carbon Dioxide 30.4 mEq/L (21-32); Potassium 3.7 mEq/L (3.5-5.1)
[2016-12-04] MEDS ORDERED: Tums EX 750 MG PO PRN (06:45)
[2016-12-04] MEDS: ROCEPHIN 1 Gm-D5w 50 ml Bag** 1 G/50 ML IVPB IV SCH ×2 (08:32→09:06)
--- NOTE | 2016-12-04 09:03 | PCM.NOTE ---
Date and Time: 12/04/16 08 Subjective Assessment: Admitted from office yesterday with increasing weakness and falls. Found to have worsening renal failure. Has not seen outpatient nephrology yet. She states she needs 2 sleeping pills at night instead of one. carol po. Has no other complaints. - Review of Systems Constitutional: Weakness, No Fever Objective Exam General Appearance: no apparent distress Neurologic Exam: alert, oriented x 3, cooperative, other ([place] as usual) Skin Exam: normal color, warm, dry Respiratory Exam: normal breath sounds, lungs clear, No crackles/rales, No rhonchi, No wheezing Cardiovascular Exam: regular rate/rhythm, normal heart sounds, No murmur Gastrointestinal/Abdomen Exam: soft, normal bowel sounds, No tenderness Extremity Exam: swelling (trace pretibial edema bilat) Back Exam: normal inspection OBJECTIVE DATA Vital Signs: Vital Signs - 24 hr Temp Pulse Resp BP Pulse Ox 12/04/16 08:05 98.9 F 77 17 117/54 95 12/04/16 04:00 97.7 F 79 24 127/60 91 L 12/04/16 00:00 98.0 F 80 20 104/62 93 L 12/03/16 20:00 98.7 F 72 16 106/54 93 L 12/03/16 16:00 97.5 F 70 17 107/59 92 L 12/03/16 12:55 97.7 F 80 20 112/57 92 L Pain Assessment - Last Documented Pain Intensity 0 Pain Scale Used 0-10 Pain Scale Intake and Output: Intake & Output 12/01/16 12/02/16 12/03/16 12/04/16 11:59 11:59 11:59 11:59 Intake Total 2586 Output Total 225 Balance 2361 Weight 79.197 kg Lab Results: Accuchecks Date 12/04/16 Date 12/04/16 Date 12/03/16 Time 07:30 Time 21:30 Time 16:57 Accucheck Value: 163 Accucheck Value: 175 Accucheck Value: 310 Lab Results-Last 24 Hours 12/03/16 12/03/16 12/03/16 Range/Units 13:00 13:00 13:01 WBC 13.0 H (4.0-10.5) K/mm3 RBC 4.27 (4.1-5.4) M/mm3 Hgb 11.6 L (12.0-16.0) gm/dl Hct 38.2 (35-47) % MCV 89.5 (78-100) fl MCH 27.1 (26-32) pg MCHC 30.4 L (32-36) g/dl RDW 18.0 H (11.5-14.0) % Plt Count 214 (150-450) K/mm3 MPV 11.8 H (6-9.5) fl Segmented Neutrophils 77 H (36.0-66.0) % Lymphocytes (Manual) 21 L (24-44) % Monocytes (Manual) 2 (0.0-12.0) % Differential Comment ABNORMAL Platelet Estimate NORMAL (NORMAL) Poikilocytosis 1+ Anisocytosis 1+ Sodium 139 (136-145) mEq/L Potassium 4.1 (3.5-5.1) mEq/L Chloride 98 (98-107) mEq/L Carbon Dioxide 28.6 (21-32) mEq/L Anion Gap 16.8 H (5-15) MEQ/L BUN 19 (9-20) mg/dL Creatinine 1.93 H (0.55-1.30) mg/dl Estimated GFR 26 ML/MIN Glucose 353 H (70-110) MG/DL Lactic Acid 2.9 H (0.4-2.0) Calcium 9.4 (8.5-10.1) mg/dL Total Bilirubin 0.70 (0.2-1.0) mg/dL AST 42 H (15-37) U/L ALT 30 (12-78) U/L Alkaline Phosphatase 107 (46-116) U/L Serum Total Protein 7.0 (6.4-8.2) gm/dL Albumin 3.4 (3.4-5.0) g/dL Ur Collection Type Urine Color (YELLOW) Urine Appearance (CLEAR) Urine pH (5-6) Ur Specific [place] (1.005-1.025) Urine Protein (Negative) Urine Ketones (NEGATIVE) Urine Blood (0-5) Allan/ul Urine Nitrite (NEGATIVE) Urine Bilirubin (NEGATIVE) Urine Urobilinogen (0-1) mg/dL Ur Leukocyte Esterase (NEGATIVE) Urine Microscopic RBC (0-2) /HPF Urine Microscopic WBC (0-5) /HPF Ur Epithelial Cells (FEW) /HPF Urine Bacteria (NEGATIVE) /HPF Urine Glucose (NEGATIVE) mg/dL Specimen Received 12/03/16 12/03/16 12/04/16 Range/Units 16:15 23:40 05:25 WBC 10.3 (4.0-10.5) K/mm3 RBC 3.67 L (4.1-5.4) M/mm3 Hgb 9.9 L (12.0-16.0) gm/dl Hct 33.1 L (35-47) % MCV 90.2 (78-100) fl MCH 26.9 (26-32) pg MCHC 29.9 L (32-36) g/dl RDW 18.1 H (11.5-14.0) % Plt Count 182 (150-450) K/mm3 MPV 11.1 H (6-9.5) fl Segmented Neutrophils (36.0-66.0) % Lymphocytes (Manual) (24-44) % Monocytes (Manual) (0.0-12.0) % Differential Comment Platelet Estimate (NORMAL) Poikilocytosis Anisocytosis Sodium (136-145) mEq/L Potassium (3.5-5.1) mEq/L Chloride (98-107) mEq/L Carbon Dioxide (21-32) mEq/L Anion Gap (5-15) MEQ/L BUN (9-20) mg/dL Creatinine (0.55-1.30) mg/dl Estimated GFR ML/MIN Glucose (70-110) MG/DL Lactic Acid 2.1 H (0.4-2.0) Calcium (8.5-10.1) mg/dL Total Bilirubin (0.2-1.0) mg/dL AST (15-37) U/L ALT (12-78) U/L Alkaline Phosphatase (46-116) U/L Serum Total Protein (6.4-8.2) gm/dL Albumin (3.4-5.0) g/dL Ur Collection Type CLEAN CATCH Urine Color YELLOW (YELLOW) Urine Appearance SLIGHTLY CLOUDY (CLEAR) Urine pH 5.0 (5-6) Ur Specific [place] 1.015 (1.005-1.025) Urine Protein NEGATIVE (Negative) Urine Ketones NEGATIVE (NEGATIVE) Urine Blood TRACE NON-HEM (0-5) Allan/ul Urine Nitrite NEGATIVE (NEGATIVE) Urine Bilirubin NEGATIVE (NEGATIVE) Urine Urobilinogen NORMAL (0-1) mg/dL Ur Leukocyte Esterase 2+ (NEGATIVE) Urine Microscopic RBC 0-2 (0-2) /HPF Urine Microscopic WBC >100 (0-5) /HPF Ur Epithelial Cells MODERATE (FEW) /HPF Urine Bacteria FEW (NEGATIVE) /HPF Urine Glucose NEGATIVE (NEGATIVE) mg/dL Specimen Received 12/03/16 5914 12/04/16 Range/Units 05:25 WBC (4.0-10.5) K/mm3 RBC (4.1-5.4) M/mm3 Hgb (12.0-16.0) gm/dl Hct (35-47) % MCV (78-100) fl MCH (26-32) pg MCHC (32-36) g/dl RDW (11.5-14.0) % Plt Count (150-450) K/mm3 MPV (6-9.5) fl Segmented Neutrophils (36.0-66.0) % Lymphocytes (Manual) (24-44) % Monocytes (Manual) (0.0-12.0) % Differential Comment Platelet Estimate (NORMAL) Poikilocytosis Anisocytosis Sodium 143 (136-145) mEq/L Potassium 3.7 (3.5-5.1) mEq/L Chloride 104 (98-107) mEq/L Carbon Dioxide 30.4 (21-32) mEq/L Anion Gap 11.8 (5-15) MEQ/L BUN 23 H (9-20) mg/dL Creatinine 1.66 H (0.55-1.30) mg/dl Estimated GFR 31 ML/MIN Glucose 163 H (70-110) MG/DL Lactic Acid (0.4-2.0) Calcium 8.9 (8.5-10.1) mg/dL Total Bilirubin (0.2-1.0) mg/dL AST (15-37) U/L ALT (12-78) U/L Alkaline Phosphatase (46-116) U/L Serum Total Protein (6.4-8.2) gm/dL Albumin (3.4-5.0) g/dL Ur Collection Type Urine Color (YELLOW) Urine Appearance (CLEAR) Urine pH (5-6) Ur Specific [place] (1.005-1.025) Urine Protein (Negative) Urine Ketones (NEGATIVE) Urine Blood (0-5) Allan/ul Urine Nitrite (NEGATIVE) Urine Bilirubin (NEGATIVE) Urine Urobilinogen (0-1) mg/dL Ur Leukocyte Esterase (NEGATIVE) Urine Microscopic RBC (0-2) /HPF Urine Microscopic WBC (0-5) /HPF Ur Epithelial Cells (FEW) /HPF Urine Bacteria (NEGATIVE) /HPF Urine Glucose (NEGATIVE) mg/dL Specimen Received Radiology Exams: Radiology Procedures Category Date Time Status CHEST 2 VIEWS (PA AND LAT) Urgent Exams 12/03/16 13:01 Completed Multi-Disciplinary Progress Notes: Multi-Disciplinary Progress Notes 12/03/16 16:25 (created 12/03/16 16:41) Respiratory Note by Jocelyne Lopez REFLEX LACTIC ACID CALLED TO DR. BROWN. NO ADDITIONAL LACTIC ORDERED AT THIS TIME. Initialized on 12/03/16 16:41 - END OF NOTE 12/03/16 13:25 (created 12/03/16 16:40) Respiratory Note by Jocelyne Lopez LACTIC ACID REPORTED TO DR. BROWN. REPEAT LACTIC TO BE DONE AFTER FLUID BOLUS. Initialized on 12/03/16 16:40 - END OF NOTE Assessment/Plan (1) Renal failure Current Visit: Yes Status: Acute Assessment & Plan: Some improvement in creatinine this morning. Nephrology was consulted; there have been EMR changes so apparently the consult did not go through last night. To consult today. (2) UTI (urinary tract infection) Current Visit: Yes Status: Acute Qualifiers: Urinary tract infection type: acute cystitis Assessment & Plan: Neg nitrites but many WBC on UA; will go ahead and treat while culture is pending. Could be contributing to weakness and falls. Code(s): N39.0 - URINARY TRACT INFECTION, SITE NOT SPECIFIED (3) Falls Current Visit: Yes Status: Acute Qualifiers: Encounter type: subsequent encounter Qualified Code(s): W19.XXXD - Unspecified fall, subsequent encounter Assessment & Plan: PT to eval today. I have discussed wiht pt's sons (ok on chart to discuss with ) that they would like pt to receive 24 hr in home care. They can afford this. pt and are quite resistant. i think this would be a huge benefit to both. Code(s): W19.XXXA - UNSPECIFIED FALL, INITIAL ENCOUNTER (4) Congestive heart failure Current Visit: No Status: Chronic Qualifiers: Congestive heart failure type: unspecified congestive heart failure type Congestive heart failure chronicity: chronic Qualified Code(s): I50.9 - Heart failure, unspecified Assessment & Plan: Rehydrating gently. I did stop her diuretic here. Code(s): I50.9 - HEART FAILURE, UNSPECIFIED (5) Weakness Current Visit: No Status: Acute Code(s): R53.1 - WEAKNESS
[2016-12-04] MEDS: ELAVIL 25 MG PO SCH ×2 (09:20→21:31)
[2016-12-04] MEDS: ELIQUIS PO SCH ×2 (09:59→21:30)
[2016-12-04] MEDS: ZYLOPRIM 300 MG PO SCH (09:59)
[2016-12-04] MEDS: Coreg 6.25 MG PO SCH ×2 (09:59→21:31)
[2016-12-04] MEDS: Klor Con 10 MEQ PO SCH (09:59)
[2016-12-04] MEDS: SYNTHROID 100 MCG PO SCH (09:59)
[2016-12-04] MEDS ORDERED: NON-FORMULARY ITEM (Rosuvastatin Calcium [Crestor] 10 MG) PO SCH (10:00)
[2016-12-04] MEDS: NovoLOG Insulin SQ PRN ×3 (11:50→21:37)
[2016-12-04] MEDS: Sodium Chloride 0.9% 1000 ML 1,000 ML IV SCH (11:50)
[2016-12-04] MEDS ORDERED: Artificial Tears 15 ML OP PRN (17:47)
[2016-12-04] MEDS: ZOCOR 20MG PO SCH (21:31)
[2016-12-05] MEDS: Sodium Chloride 0.9% 1000 ML 1,000 ML IV SCH ×2 (00:29→17:25)
[2016-12-05] MEDS: SYNTHROID 100 MCG PO SCH (09:48)
[2016-12-05] MEDS: ELIQUIS PO SCH ×2 (09:48→21:45)
[2016-12-05] MEDS: ZYLOPRIM 300 MG PO SCH (09:48)
[2016-12-05] MEDS: Klor Con 10 MEQ PO SCH (09:48)
[2016-12-05] MEDS: ROCEPHIN 1 Gm-D5w 50 ml Bag** 1 G/50 ML IVPB IV SCH (09:48)
[2016-12-05] MEDS: Coreg 6.25 MG PO SCH ×2 (09:48→21:45)
[2016-12-05 11:56] LABS: ANION GAP 13.6 MEQ/L (5-15); Carbon Dioxide 25.6 mEq/L (21-32); Potassium 3.9 mEq/L (3.5-5.1)
[2016-12-05] MEDS: NovoLOG Insulin SQ PRN ×3 (12:01→21:50)
[2016-12-05] MEDS: Colace 100 MG PO SCH ×2 (12:03→21:44)
--- NOTE | 2016-12-05 15:18 | PCM.NOTE ---
Date and Time: 12/05/16 1513 Subjective Assessment: She reports that she is weak and she is agreeable to going for rehab after discussion with Lexi Noble, physical therapist. Her son is at the bedside this AM and does not think she would be able to take care of herself at home. She reports she has not had a stool her since arriving. The ware cleaner reports he cannot see her until Wednesday here at [facility]. - Review of Systems Constitutional: Weakness Eyes: No Symptoms Ears, Nose, & Throat: No Symptoms Respiratory: No Symptoms Cardiac: No Symptoms Abdominal/Gastrointestinal: Constipation Genitourinary Symptoms: No Symptoms Musculoskeletal: No Symptoms Objective Exam General Appearance: no apparent distress, alert Neurologic Exam: alert, cooperative, normal mood/affect Skin Exam: normal color, warm, dry, No rash Respiratory Exam: normal breath sounds, lungs clear, No crackles/rales, No rhonchi, No wheezing Cardiovascular Exam: regular rate/rhythm, normal heart sounds, No murmur, No friction rub, No gallop Gastrointestinal/Abdomen Exam: soft, normal bowel sounds, No tenderness, No distention, No mass, No guarding Extremity Exam: other (no c/c/e) OBJECTIVE DATA Vital Signs: Vital Signs - 24 hr Temp Pulse Resp BP Pulse Ox 12/05/16 12:00 97.7 F 73 18 133/63 94 L 12/05/16 07:39 98.1 F 77 18 130/68 90 L 12/05/16 04:00 97.6 F 81 24 139/64 93 L 12/05/16 00:00 97.8 F 76 17 129/64 93 L 12/04/16 19:46 98.4 F 72 17 127/58 94 L 12/04/16 16:00 97.9 F 77 17 107/57 93 L Pain Assessment - Last Documented Pain Intensity 0 Pain Scale Used 0-10 Pain Scale Intake and Output: Intake & Output 12/03/16 12/04/16 12/05/16 12/06/16 06:59 06:59 06:59 06:59 Intake Total 2586 2145 240 Output Total 225 550 Balance 2361 1595 240 Weight 79.197 kg 79.197 kg Lab Results: Accuchecks Date 12/04/16 Date 12/04/16 Time 21:38 Time 16:30 Accucheck Value: 208 Accucheck Value: 150 Accucheck Value: 214 Accucheck Value: 237 Lab Results-Last 24 Hours 12/05/16 Range/Units 11:15 Sodium 142 (136-145) mEq/L Potassium 3.9 (3.5-5.1) mEq/L Chloride 107 (98-107) mEq/L Carbon Dioxide 25.6 (21-32) mEq/L Anion Gap 13.6 (5-15) MEQ/L BUN 18 (9-20) mg/dL Creatinine 1.30 (0.55-1.30) mg/dl Estimated GFR 42 ML/MIN Glucose 222 H (70-110) MG/DL Calcium 8.1 L (8.5-10.1) mg/dL Radiology Exams: Radiology Procedures Category Date Time Status Renal Ultrasound [KIDNEY] [US] Routine Exams 12/07/16 08:00 Ordered Multi-Disciplinary Progress Notes: Multi-Disciplinary Progress Notes 12/04/16 17:09 Case Management Note by Adeline Menon LEXI ARABELLA TALKED WITH PT ABOUT GOING TO A NH FOR REHAB AFTER HER STAY HERE TO MAKE HER STRONGER, AND THEN BE ABLE TO GO BACK HOME WITH HOME HEALTH CARE. SHE STATES SHE WOULD BE WILLING TO DO THAT IF WE THOUGHT IT WOULD HELP. BLAINERR PAPERWORK DONE AND IN CHART. Initialized on 12/04/16 17:09 - END OF NOTE Assessment/Plan (1) CKD (chronic kidney disease) stage 3, GFR 30-59 ml/min Current Visit: Yes Status: Acute Code(s): N18.3 - CHRONIC KIDNEY DISEASE, STAGE 3 (MODERATE) (2) Weakness Current Visit: Yes Status: Acute Code(s): R53.1 - WEAKNESS (3) Acute renal failure Current Visit: Yes Status: Acute Assessment & Plan: Improved with IV fluids. Still poor urine output. Will continue to monitor ins and outs. (4) Diabetes type 2, controlled Current Visit: Yes Status: Acute Qualifiers: Diabetes mellitus complication status: without complication Diabetes mellitus half-way insulin use: without half-way use Qualified Code(s): E11.9 - Type 2 diabetes mellitus without complications Assessment & Plan: Will check hgb A1C. Continue with sliding scale. If Hgb A1C is elevated, consider starting daily lantus. Code(s): E11.9 - TYPE 2 DIABETES MELLITUS WITHOUT COMPLICATIONS
[2016-12-05] MEDS: ZOCOR 20MG PO SCH (21:44)
[2016-12-05] MEDS: ELAVIL 25 MG PO SCH (21:45)
[2016-12-06] MEDS: Sodium Chloride 0.9% 1000 ML 1,000 ML IV SCH (05:59)
[2016-12-06 06:18] LABS: ANION GAP 11.7 MEQ/L (5-15); Carbon Dioxide 25.8 mEq/L (21-32); Potassium 3.9 mEq/L (3.5-5.1)
[2016-12-06] MEDS ORDERED: PROVENTIL COMMON CANISTER IH PRN (09:09)
[2016-12-06] MEDS ORDERED: Senokot-S Tablet PO PRN (09:09)
--- NOTE | 2016-12-06 09:18 | PCM.NOTE ---
Date and Time: 12/06/16912 Subjective Assessment: She states she still hasn't had a stool. She denies feeling like her chest is tight or wheezing. She continues to have weakness and trouble moving around her room without help. - Review of Systems Constitutional: No Symptoms Eyes: No Symptoms Ears, Nose, & Throat: No Symptoms Respiratory: No Symptoms Cardiac: No Symptoms Abdominal/Gastrointestinal: Constipation Genitourinary Symptoms: No Symptoms Musculoskeletal: No Symptoms Objective Exam General Appearance: no apparent distress, alert Neurologic Exam: alert, cooperative, normal mood/affect Skin Exam: normal color, warm, dry, No rash Respiratory Exam: normal breath sounds, lungs clear, airway intact, other (few scattered wheezes, equal breath sounds, no tachypnea), No crackles/rales, No rhonchi Cardiovascular Exam: regular rate/rhythm, normal heart sounds, No murmur, No friction rub, No gallop Gastrointestinal/Abdomen Exam: soft, normal bowel sounds, No tenderness, No distention, No mass, No guarding Extremity Exam: other (no c/c/e) OBJECTIVE DATA Vital Signs: Vital Signs - 24 hr Temp Pulse Resp BP Pulse Ox 12/06/16 07:13 98.1 F 88 18 135/65 100 12/06/16 04:00 97.8 F 83 24 126/60 96 12/05/16 23:38 97.6 F 84 24 127/60 92 L 12/05/16 19:59 97.8 F 73 18 123/65 94 L 12/05/16 16:00 97.6 F 70 20 121/63 96 12/05/16 12:00 97.7 F 73 18 133/63 94 L Pain Assessment - Last Documented Pain Intensity 0 Pain Scale Used 0-10 Pain Scale Intake and Output: Intake & Output 12/04/16 12/05/16 12/06/16 12/07/16 06:59 06:59 06:59 06:59 Intake Total 9997 2145 1693 Output Total 225 550 Balance 2361 1595 1693 Weight 79.197 kg 79.197 kg Lab Results: Accuchecks Date 12/05/16 Time 21:30 Accucheck Value: 169 Accucheck Value: 229 Accucheck Value: 224 Accucheck Value: 208 Lab Results-Last 24 Hours 12/05/16 12/06/16 12/06/16 Range/Units 11:15 05:25 05:25 Sodium 142 (136-145) mEq/L Potassium 3.9 (3.5-5.1) mEq/L Chloride 107 (98-107) mEq/L Carbon Dioxide 25.6 (21-32) mEq/L Anion Gap 13.6 (5-15) MEQ/L BUN 18 (9-20) mg/dL Creatinine 1.30 (0.55-1.30) mg/dl Estimated GFR 42 ML/MIN Glucose 222 H (70-110) MG/DL Hemoglobin A1c 8.0 H (4.5-6.2) Calcium 8.1 L (8.5-10.1) mg/dL Iron 42 L (50-175) ug/dl TIBC 380 (250-450) ug/dl Iron Saturation 11.6 L (20-39) % 12/06/16 Range/Units 05:25 Sodium 143 (136-145) mEq/L Potassium 3.9 (3.5-5.1) mEq/L Chloride 109 H (98-107) mEq/L Carbon Dioxide 25.8 (21-32) mEq/L Anion Gap 11.7 (5-15) MEQ/L BUN 15 (9-20) mg/dL Creatinine 1.02 (0.55-1.30) mg/dl Estimated GFR 55 ML/MIN Glucose 169 H (70-110) MG/DL Hemoglobin A1c (4.5-6.2) Calcium 7.7 L (8.5-10.1) mg/dL Iron (50-175) ug/dl TIBC (250-450) ug/dl Iron Saturation (20-39) % Radiology Exams: Radiology Procedures Category Date Time Status Renal Ultrasound [KIDNEY] [US] Routine Exams 12/07/16 08:00 Ordered Multi-Disciplinary Progress Notes: Multi-Disciplinary Progress Notes 12/05/16 16:26 Case Management Note by Adeline Menon DISCHARGE PLAN CONTINUES TO BE REHAB, SON STATES AT [facility]. CALLED AND SPOKE TO BILINGUAL MEDICAL ASSISTANT AT [facility] AND SHE STATES THAT NO ONE WILL BE ABLE TO COME TO VISIT PT UNTIL WEDNESDAY MORNING WILL CONTACT AGAIN ON WEDNESDAY AND SEND PAPERWORK. PRIMARY NURSE NOTIFIED. Initialized on 12/05/16 16:26 - END OF NOTE Assessment/Plan (1) CKD (chronic kidney disease) stage 3, GFR 30-59 ml/min Current Visit: Yes Status: Acute Assessment & Plan: Renal US ordered for tomorrow. Berry Picker Machine Operator consulted and said this weekend that he would see her Wednesday. Decrease IV fluids. Code(s): N18.3 - CHRONIC KIDNEY DISEASE, STAGE 3 (MODERATE) (2) Weakness Current Visit: Yes Status: Acute Assessment & Plan: Continue PT and plan for short term rehab stay at [facility]. Code(s): R53.1 - WEAKNESS (3) Acute renal failure Current Visit: Yes Status: Acute Assessment & Plan: Improved with IV fluids. (4) Diabetes type 2, controlled Current Visit: Yes Status: Acute Qualifiers: Diabetes mellitus complication status: without complication Diabetes mellitus exterminator helper termite insulin use: without correction use Qualified Code(s): E11.9 - Type 2 diabetes mellitus without complications Assessment & Plan: Restart glipizide 5 mg daily. Continue accu checks and sliding scale if needed. Code(s): E11.9 - TYPE 2 DIABETES MELLITUS WITHOUT COMPLICATIONS (5) Iron deficiency anemia Current Visit: Yes Status: Acute Assessment & Plan: ferrous sulfate 325 mg po bid started. Code(s): D50.9 - IRON DEFICIENCY ANEMIA, UNSPECIFIED (6) Constipation Current Visit: Yes Status: Acute Assessment & Plan: Tried docusate yesterday. Try docusate with senna today. Code(s): K59.00 - CONSTIPATION, UNSPECIFIED
[2016-12-06] MEDS: Glucotrol Xl 5 MG PO SCH (09:30)
[2016-12-06] MEDS: ZYLOPRIM 300 MG PO SCH (09:30)
[2016-12-06] MEDS: ELIQUIS PO SCH ×2 (09:30→21:04)
[2016-12-06] MEDS: SYNTHROID 100 MCG PO SCH (09:30)
[2016-12-06] MEDS: Klor Con 10 MEQ PO SCH (09:30)
[2016-12-06] MEDS: Coreg 6.25 MG PO SCH ×2 (09:30→21:10)
[2016-12-06] MEDS: FEOSOL 325 MG PO SCH ×3 (09:30→21:04)
[2016-12-06] MEDS: NovoLOG Insulin SQ PRN ×3 (12:51→22:43)
[2016-12-06] MEDS: ELAVIL 25 MG PO SCH (21:10)
[2016-12-06] MEDS: ZOCOR 20MG PO SCH (21:11)
[2016-12-07 05:43] LABS: ANION GAP 14.3 MEQ/L (5-15); Carbon Dioxide 23.5 mEq/L (21-32); Potassium 3.9 mEq/L (3.5-5.1)
[2016-12-07 07:43] VITALS: O2SAT 94
[2016-12-07] MEDS: NovoLOG Insulin SQ PRN (07:57)
--- NOTE | 2016-12-07 08:42 | PCM.DS ---
Discharge Summary Date of Admission: 12/03/16 12:24 Admitting Physician: FE BROWN Consults: Consults on Case 12/03/16 13:01 Consult Nephrology ROUTINE Primary Care Provider: FE BROWN Allergies Allergies No Known Drug Allergies Allergy (Verified 12/03/16 13:17) Hospital Summary - Hospital Course Hospital Course: Pt admitted with weakness and falls, renal failure (failed OP therapy) - also found to have possible UTI in hospital. She received therapy here but is still requiring assistance to be up out of bed. Her renal failure has improved with IV fluids. She is urinating quite frequently but unable to get accurate I/O. She is feeling better. She did agree to go to rehab at [place] and will be evaluated for same today. - Vitals & Intake/Output Vital Signs: Vital Signs Temperature 98.2 F 12/07/16 07:42 Pulse Rate 86 12/07/16 07:42 Respiratory Rate 18 12/07/16 07:42 Blood Pressure 158/81 12/07/16 07:42 O2 Sat by Pulse Oximetry 94 L 12/07/16 07:42 Intake & Output: Intake & Output 12/04/16 12/05/16 12/06/16 12/07/16 11:59 11:59 11:59 11:59 Intake Total 2586 2385 1453 883 Output Total 225 077 706 2797 Balance 2361 1835 1153 -167 Weight 79.197 kg 79.197 kg - Lab Result Diagrams: 12/04/16 05:25 12/07/16 05:23 Lab Results-Last 24 Hrs: Accuchecks Date 12/06/16 Date 12/06/16 Date 12/06/16 Time 21:30 Accucheck Value: 221 Accucheck Value: 225 Accucheck Value: 230 Lab Results-Last 24 Hours 12/07/16 Range/Units 05:23 Sodium 142 (136-145) mEq/L Potassium 3.9 (3.5-5.1) mEq/L Chloride 108 H (98-107) mEq/L Carbon Dioxide 23.5 (21-32) mEq/L Anion Gap 14.3 (5-15) MEQ/L BUN 14 (9-20) mg/dL Creatinine 0.95 (0.55-1.30) mg/dl Estimated GFR 60 ML/MIN Glucose 204 H (70-110) MG/DL Calcium 7.7 L (8.5-10.1) mg/dL Micro Results-Entire Visit: Microbiology 12/03/16 00:00 Urine Culture - Final Clean Catch Midstream MIXED HARSH; 3 OR MORE TYPES. NO PREDOMINANT ORGANISM. NO FURTHER WORKUP. PLEASE RESUBMIT IF CLINICALLY INDICATED. Accuchecks Date 12/06/16 Date 12/06/16 Date 12/06/16 Time 21:30 Accucheck Value: 221 Accucheck Value: 225 Accucheck Value: 230 - Radiology Exams Ordered Rad Exams-Entire Visit: Radiology Procedures Category Date Time Status Renal Ultrasound [KIDNEY] [US] Routine Exams 12/07/16 08:00 Ordered - Procedures and Test Procedures and Tests throughout Hospitalization: Therapy Orders & Screens 12/04/16 07:43 PT Eval & Treat (MD Order) Evaluate: Yes Treat: Yes Reason for Eval:: weakness Diagnosis: renal failure, DM, weakness, falls 12/06/16 10:48 Respiratory MDI PRN Comment: Diagnosis: renal failure, DM, weakness, falls Discharge Exam General Appearance: no apparent distress, obese Neurologic Exam: alert, oriented x 3 (when she awakes), cooperative, other ( initially somnolent; wakes to touch) Skin Exam: normal color, warm, dry Eye Exam: eyes nml inspection Respiratory Exam: normal breath sounds, lungs clear, No crackles/rales, No rhonchi, No wheezing Cardiovascular Exam: regular rate/rhythm, normal heart sounds, No murmur Gastrointestinal/Abdomen Exam: soft, No tenderness Extremity Exam: swelling (trace LE edema bilat. L hand edematous.) Final Diagnosis/Problem List - Final Discharge Diagnosis/Problem (1) Renal failure Current Visit: Yes Status: Acute Assessment & Plan: Acute on chronic, likely due to dehydration superimposed on hypertension; however pt to have renal u/s this morning. Much improved with IV fluids. Nephrology to consult today OR IF unable to come today, pt has appointment outpatient. (2) UTI (urinary tract infection) Current Visit: Yes Status: Resolved (3) Falls Current Visit: Yes Status: Acute Assessment & Plan: To rehab for therapy. (4) Congestive heart failure Current Visit: No Status: Chronic Assessment & Plan: stable. Decreasing her home bumex from 1mg po daily to 0.5mg po daily as dehydration seems to have played a part in the renal failure. (5) Weakness Current Visit: Yes Status: Acute - Discharge Disposition: Skilled Care @ [facility] Condition: Stable Prescriptions: New Polyvinyl Alcohol [Artificial Tears] 1 ml OP PRN PRN drops PRN Reason: Dry eyes Ferrous Sulfate 325 mg [Feosol 325 mg] 325 mg PO DAILY #30 tablet Albuterol Common Canister [Proventil Common Canister] 2 puff IH Q4H PRN PRN #1 unit PRN Reason: Shortness Of Breath Continue Glipizide 5 mg PO DAILY Allopurinol 300 mg [Zyloprim 300 mg] 300 mg PO DAILY Carvedilol 6.25 mg [Coreg 6.25 MG] 6.25 mg PO BID Perphenazine/Amitriptyline HCl [Perphen-Amitrip 2 mg-25 mg Tab] 1 each PO HS Multivitamin W-Minerals/Lutein [Centrum Silver Tablet] 1 each PO DAILY Rosuvastatin Calcium [Crestor] 10 mg PO DAILY Levothyroxine Sodium 100 Mcg [Synthroid 100 Mcg] 100 mcg PO DAILY Apixaban [Eliquis] 2.5 mg PO BID Potassium Chloride 10 Meq Tab* [Klor Con 10 MEQ] 10 meq PO DAILY Solifenacin Succinate [Vesicare] 10 mg PO DAILY Changed Bumetanide 0.5 mg PO DAILY #15 tablet Follow up with: FE BROWN [Primary Care Provider] - 1 Week Forms: Patient Portal Information
[2016-12-07] MEDS ORDERED: Ambien 10 MG PO SCH (10:15)
[2016-12-07] MEDS: ELIQUIS PO SCH (10:40)
[2016-12-07] MEDS: Glucotrol Xl 5 MG PO SCH (10:40)
[2016-12-07] MEDS: Klor Con 10 MEQ PO SCH (10:40)
[2016-12-07] MEDS: FEOSOL 325 MG PO SCH (10:40)
[2016-12-07] MEDS: SYNTHROID 100 MCG PO SCH (10:40)
[2016-12-07] MEDS: Coreg 6.25 MG PO SCH (10:40)
[2016-12-07] MEDS: ZYLOPRIM 300 MG PO SCH (10:40)
[2016-12-07 11:38] VITALS: BP 146/79; PULSE 93
--- NOTE | 2016-12-07 12:12 | XRAY ---
Indication: Renal failure. Two-dimensional renal sonogram performed. Comparison: May 01, 2016. Right kidney measures 9.6 x 4.8 x 5.0 cm and the left measures 9.7 x 4.7 x 5.0 cm. Again a few bilateral renal cysts, largest in the left lower pole measuring 2.9 cm. Largest right renal cyst is mid-lower pole measuring 2.6 cm. No solid renal mass, hydronephrosis, or perinephric fluid. Cortical medullary differentiation maintained without cortical thinning. Images of urinary bladder unremarkable. Ureteral jets not seen within the allotted exam time. Again incidental 2.3 cm gallstone. Impression: 1. Stable bilateral renal cysts. No solid renal mass or hydronephrosis. 2. Again gallstone.
== END 2016-12-07 14:50 | DRG 683 ==
LOC: MED SURG 12:24
PROVIDERS: ADMIT Family Medicine; ATTEND Family Medicine
DX: N17.9 Acute kidney failure, unspecified (principal); N39.0 Urinary tract infection, site not specified; I12.9 Hypertensive chronic kidney disease with stage 1 through stage 4 chronic kidney disease, or unspecified chronic kidney disease; N18.3 Chronic kidney disease, stage 3 (moderate); R29.6 Repeated falls; I50.9 Heart failure, unspecified; E86.0 Dehydration; R53.1 Weakness; E11.9 Type 2 diabetes mellitus without complications; M10.9 Gout, unspecified; M17.9 Osteoarthritis of knee, unspecified; E03.9 Hypothyroidism, unspecified; D50.9 Iron deficiency anemia, unspecified; K59.00 Constipation, unspecified; Z79.01 Long term (current) use of anticoagulants; Z79.899 Other long term (current) drug therapy
CPT/HCPCS: 36415; 71020; 76770; 80048; 80053; 81000; 82962; 83036; 83540; 83550; 83605; 85025; 85027; 87086; 94760; J0696; 97110-GP; A9270-GY

== ENCOUNTER 2017-01-22 08:25 | Inpatient (IN) | payer MEDICARE, OTHER ==
[2017-01-22] MEDS ORDERED: DUONEB 0.5-3 MG/3 ml Neb IH ONE ×2 (08:46→08:50)
[2017-01-22] MEDS ORDERED: CAPTOPRIL 25 MG PO ONE (08:46)
[2017-01-22] MEDS ORDERED: NITRO-BID 2% UD PACKETS ONE (08:47)
[2017-01-22] MEDS ORDERED: CAPTOPRIL 25 MG ONE (08:47)
[2017-01-22] MEDS ORDERED: NITRO-BID 2% UD PACKETS TOP ONE (08:49)
--- NOTE | 2017-01-22 08:55 | ERPHSYRPT ---
- History of Present Illness Time Seen by Provider: 01/22/17 08:43 Source: patient, family, old records Exam Limitations: clinical condition (dyspnes) Physician History: Patient with shortness progressing over the past 3 days; unable to sleep; no productive cough; sweats but no documented fever; no chest pain or nausea or vomiting; legs have been swelling; increased orthopnea; history of congestive heart failure; no travel; no exposures Timing/Duration: today (Worse), day(s) (3onset), worse Activities at Onset: rest Severity of Dyspnea-Max: severe Severity of Dyspnea-Current: severe Possible Cause: occasional episodes Modifying Factors: Improves With: nothing, lying down (exacerbates), oxygen ( helps) Associated Symptoms: constant, edema, insomnia, wheezing, ankle swelling, heaviness, sweating International travel in last 2 weeks: No Allergies/Adverse Reactions: No Known Drug Allergies Allergy (Verified 01/22/17 08:53) Home Medications: Allopurinol 300 mg [Zyloprim 300 mg] 300 mg PO DAILY 09/30/12 [History] Carvedilol 6.25 mg [Coreg 6.25 MG] 6.25 mg PO BID 09/30/12 [History] Glipizide 5 mg PO DAILY 09/30/12 [History] Multivitamin W-Minerals/Lutein [Centrum Silver Tablet] 1 each PO DAILY 10/02/14 [History] Perphenazine/Amitriptyline HCl [Perphen-Amitrip 2 mg-25 mg Tab] 1 each PO HS 01/08 [History] Apixaban [Eliquis] 2.5 mg PO BID 08/17/16 [History] Levothyroxine Sodium 100 Mcg [Synthroid 100 Mcg] 100 mcg PO DAILY 08/17/16 [History] Rosuvastatin Calcium [Crestor] 10 mg PO DAILY 08/17/16 [History] Potassium Chloride 10 Meq Tab* [Klor Con 10 MEQ] 10 meq PO DAILY 12/03/16 [ History] Solifenacin Succinate [Vesicare] 10 mg PO DAILY 12/03/16 [History] Hx Tetanus, Diphtheria Vaccination/Date Given: Yes Hx Influenza Vaccination/Date Given: No Hx Pneumococcal Vaccination/Date Given: No - Review of Systems Constitutional: No Symptoms Eyes: No Symptoms Ears, Nose, & Throat: No Symptoms Respiratory: Cyanosis, Dyspnea, Wheezing, No Cough Cardiac: Edema, Palpitations, Orthopnea, No Chest Pain, No Syncope Abdominal/Gastrointestinal: No Abdominal Pain, No Nausea, No Vomiting, No Diarrhea Genitourinary Symptoms: No Symptoms Musculoskeletal: Arthralgias, No Fall, No Injury Skin: No Symptoms Neurological: No Symptoms Psychological: No Symptoms Endocrine: No Symptoms Hematologic/Lymphatic: No Symptoms Immunological/Allergic: No Symptoms - Past Medical History Pertinent Past Medical History: Yes Neurological History: No Pertinent History ENT History: Cataracts Cardiac History: Arrhythmia, Coronary Artery Disease, Hypertension Respiratory History: No Pertinent History Endocrine Medical History: Diabetes Type II, Hypothyroidism Musculoskeletal History: Arthritis GI Medical History: No Pertinent History History: Renal Disease Psycho-Social History: No Pertinent History Female Reproductive Disorders: No Pertinent History Other Medical History: Pt to see kidney doctor next month for possible kidney failure - Past Surgical History Past Surgical History: Yes Neuro Surgical History: No Pertinent History Cardiac: Internal Defibrillator, Pacemaker Respiratory: No Pertinent History Gastrointestinal: Appendectomy Genitourinary: No Pertinent History Musculoskeletal: No Pertinent History Female Surgical History: Tubal Ligation - Social History Smoking Status: Never smoker Exposure to second hand smoke: No Alcohol Use: None Drug Use: none Patient Lives Alone: No Significant Family History: heart disease, hypertension - Female History Hx Now: No - Nursing Vital Signs Nursing Vital Signs: Initial Vital Signs Temperature 98.6 F 01/22/17 08:45 Pulse Rate 111 H 01/22/17 08:45 Respiratory Rate 28 H 01/22/17 08:45 Blood Pressure 172/96 01/22/17 08:45 O2 Sat by Pulse Oximetry 88 L 01/22/17 08:45 Pain Scale Pain Intensity 0 - Physical Exam General Appearance: severe distress (respiratory), alert, anxiety, obese Eye Exam: PERRL/EOMI, eyes nml inspection, No photophobia Ears, Nose, Throat Exam: hearing grossly normal, normal ENT inspection, normal pharynx Neck Exam: normal inspection, non-tender, supple, full range of motion, JVD, No meningismus, No carotid bruit Respiratory Exam: respiratory distress, airway intact, diminished breath sounds , crackles/rales, wheezing, No normal breath sounds, No chest tenderness, No lungs clear, No rhonchi, No stridor, No pleural rub Cardiovascular/Chest Exam: edema, JVD, tachycardia, irregular, No normal heart sounds (muffled), No regular rate/rhythm, No murmur Abdominal/Gastrointestinal Exam: soft, normal bowel sounds, No tenderness, No guarding, No rebound, No organomegaly Rectal Exam: deferred Extremity Exam: non-tender, normal range of motion, normal inspection, no calf tenderness, pedal edema (2+), slow capillary refill, No sylwia's sign Peripheral Pulses Exam: carotid (R): 3+, carotid (L): 3+, femoral (R): 3+, femoral (L): 3+, dorsalis-pedis (R): 2+, dorsalis-pedis (L): 2+ Neurologic Exam: alert, oriented x 3, cooperative, 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 technician II-XII nml as tested, normal mood/affect, sensation nml Skin Exam: normal color, warm, dry, cyanosis (initially; improved with oxygen), No rash Lymphatic Exam: No adenopathy SpO2 Interpretation: hypoxic, O2 applied SpO2: 88 (95 after O2) Oxygen Delivery: Nasal Cannula - Course Nursing assessment & vital signs reviewed: Yes EKG Interpreted by Me: A-fib, Left [place] Deviation, Left Bundle Branch Block ( ICLBBB), Non-specific ST Changes, Other (AF W RVR at 160) Rhythm Strip: Rate (160), Atrial Fibrillation, Atrial Flutter (WRVR) - Radiology Exams Chest X-ray Interpretation: Interpreted by me, Other (CHF and florrid Pulm Edema and pacemaker) Ordered Tests: Active Orders 24 hr Category Date Time Status Bedrest TOLERATED Activity 01/22/17 09:55 Ordered Up With Assistance TOLERATED Activity 01/22/17 09:51 Ordered Accucheck ACHS Care 01/22/17 09:51 Ordered Admission/Status Order ROUTINE Care 01/22/17 09:51 Ordered Floor Covering Contractor STAT Care 01/22/17 08:47 Active Catheter-Vallonia Husain Q6H Care 01/22/17 09:54 Ordered Code Status Order ROUTINE Care 01/22/17 09:51 Ordered EKG-ER Only STAT Care 01/22/17 08:46 Active Fall Protocol Q1H Care 01/22/17 09:55 Ordered IV Care Q6H Care 01/22/17 09:51 Ordered IV Insertion STAT Care 01/22/17 08:46 Active Implement CHF Pathway ROUTINE Care 01/22/17 09:51 Ordered Oxygen-ED Only NASAL CANNULA 2 lpm Care 01/22/17 08:46 Active Pulse Oximetry (ED) STAT Care 01/22/17 08:46 Active Telemetry ROUTINE Care 01/22/17 09:51 Ordered Weight,Daily 0600 Care 01/22/17 09:51 Ordered Consult Cardiology ROUTINE Cons 01/22/17 09:55 Ordered 1800 Calorie ADA Diet 01/22/17 Lunch Ordered CHEST 1 VIEW (PORTABLE) IN AM Exams 01/23/17 06:00 Ordered CHEST 1 VIEW (PORTABLE) Stat Exams 01/22/17 08:47 Completed BLOOD CULTURE Stat Lab 01/22/17 08:46 Received BMP AM.LAB Lab 01/23/17 04:00 Ordered CBC AM.LAB Lab 01/23/17 04:00 Ordered CBC W DIFF Stat Lab 01/22/17 09:00 Completed CMP Stat Lab 01/22/17 09:00 Completed D-DIMER QUANTITATION Stat Lab 01/22/17 09:00 Completed Lactic Acid Stat Lab 01/22/17 Results MAGNESIUM Stat Lab 01/22/17 09:00 Completed Manual Differential NC Stat Lab 01/22/17 09:00 Completed NT PRO BNP AM.LAB Lab 01/23/17 04:00 Ordered NT PRO BNP Stat Lab 01/22/17 09:00 Completed PROTIME WITH INR Stat Lab 01/22/17 09:00 Completed TROPONIN Q3H Lab 01/22/17 09:00 Completed TROPONIN Q3H Lab 01/22/17 12:00 Ordered TROPONIN Q3H Lab 01/22/17 15:00 Ordered TROPONIN Q3H Lab 01/22/17 18:00 Ordered TROPONIN Q3H Lab 01/22/17 21:00 Ordered Oxygen NASAL CANNULA 2 lpm RT 01/22/17 09:51 Ordered Peak Expiratory Flow Rate ONCE RT 01/22/17 08:46 Completed Respiratory Nebulizer STAT RT 01/22/17 08:48 Completed Transfer Order Routine Transfer 01/22/17 Ordered Medication Summary Generic Name Dose Route Start Last Admin Trade Name Freq PRN Reason Stop Dose Admin Sodium Chloride 1,000 mls @ 50 mls/hr 01/22/17 09:00 01/22/17 09:35 Sodium Chloride 0.9% 1000 Ml IV 02/21/17 08:59 50 mls/hr .Q20H RAMYA Administration Diltiazem HCl 100 mls @ 5 mls/hr 01/22/17 09:15 01/22/17 09:22 Cardizem Drip 100 Mg/100 Ml D5w IV 02/21/17 09:14 5 mg/hr .Q20H PRN 5 mls/hr HEART RATE/ A-FIB Administration Protocol 5 MG/HR Discontinued Medications Generic Name Dose Route Start Last Admin Trade Name Freq PRN Reason Stop Dose Admin Albuterol/Ipratropium 3 ml 01/22/17 08:46 01/22/17 08:55 Duoneb 0.5-3 Mg/3 Ml Neb IH 01/22/17 08:47 3 ml STAT ONE Administration Albuterol/Ipratropium Confirm 01/22/17 08:50 Duoneb 0.5-3 Mg/3 Ml Neb Administered 01/22/17 08:51 Dose 3 ml IH .STK-MED ONE Captopril 25 mg 01/22/17 08:46 01/22/17 09:00 Captopril 25 Mg PO 01/22/17 08:47 25 mg STAT ONE Administration Captopril Confirm 01/22/17 08:47 Captopril 25 Mg Administered 01/22/17 08:48 Dose 25 mg .ROUTE .STK-MED ONE Diltiazem HCl Confirm 01/22/17 09:08 Cardizem Iv 50 Mg/10 Ml Administered 01/22/17 09:09 Dose 50 mg IV .STK-MED ONE Diltiazem HCl 5 mg 01/22/17 09:15 01/22/17 09:23 Cardizem Iv 50 Mg/10 Ml IV 01/22/17 09:16 5 mg STAT ONE Administration Diltiazem HCl 5 mg 01/22/17 09:24 01/22/17 09:14 Cardizem Iv 50 Mg/10 Ml IV 01/22/17 09:25 5 mg STAT ONE Administration Diltiazem HCl Confirm 01/22/17 09:08 Cardizem Drip 100 Mg/100 Ml D5w Administered 01/22/17 09:09 Dose 100 mls @ ud IV .STK-MED ONE Nitroglycerin Confirm 01/22/17 08:47 Nitro-Bid 2% Ud Packets Administered 01/22/17 08:48 Dose 1 gm .ROUTE .STK-MED ONE Nitroglycerin 1 gm 01/22/17 08:49 01/22/17 08:53 Nitro-Bid 2% Ud Packets TOP 01/22/17 08:50 1 gm STAT ONE Administration Lab/Rad Data: Laboratory Result Diagrams 01/22/17 09:00 01/22/17 09:00 Laboratory Results 01/22/17 01/22/17 01/22/17 Range/Units Unknown 09:00 09:00 WBC (4.0-10.5) K/mm3 RBC (4.1-5.4) M/mm3 Hgb (12.0-16.0) gm/dl Hct (35-47) % MCV (78-100) fl MCH (26-32) pg MCHC (32-36) g/dl RDW (11.5-14.0) % Plt Count (150-450) K/mm3 MPV (6-9.5) fl Segmented Neutrophils (36.0-66.0) % Band Neutrophils (0.0-2.0) % Lymphocytes (Manual) (24-44) % Eosinophils (Manual) (0.00-3.0) % Differential Comment Platelet Estimate (NORMAL) INR 1.68 (0.8-3.0) D-Dimer 1177 H* (0-500) ng/mL Sodium (136-145) mEq/L Potassium (3.5-5.1) mEq/L Chloride (98-107) mEq/L Carbon Dioxide (21-32) mEq/L Anion Gap (5-15) MEQ/L BUN (9-20) mg/dL Creatinine (0.55-1.30) mg/dl Estimated GFR ML/MIN Glucose (70-110) MG/DL Lactic Acid 3.1 H (0.4-2.0) Calcium (8.5-10.1) mg/dL Magnesium (1.8-2.4) mg/dL Total Bilirubin (0.2-1.0) mg/dL AST (15-37) U/L ALT (12-78) U/L Alkaline Phosphatase (46-116) U/L Troponin I < 0.017 (0.000-0.056) ng/ml NT-Pro-B Natriuret Pep (0-450) pg/ml Serum Total Protein (6.4-8.2) gm/dL Albumin (3.4-5.0) g/dL 01/22/17 01/22/17 Range/Units 09:00 09:00 WBC 12.2 H (4.0-10.5) K/mm3 RBC 3.63 L (4.1-5.4) M/mm3 Hgb 10.2 L (12.0-16.0) gm/dl Hct 33.6 L (35-47) % MCV 92.6 (78-100) fl MCH 28.0 (26-32) pg MCHC 30.4 L (32-36) g/dl RDW 19.2 H (11.5-14.0) % Plt Count 227 (150-450) K/mm3 MPV 12.6 H (6-9.5) fl Segmented Neutrophils 84 H (36.0-66.0) % Band Neutrophils 2 (0.0-2.0) % Lymphocytes (Manual) 13 L (24-44) % Eosinophils (Manual) 1 (0.00-3.0) % Differential Comment NORMAL Platelet Estimate NORMAL (NORMAL) INR (0.8-3.0) D-Dimer (0-500) ng/mL Sodium 140 (136-145) mEq/L Potassium 4.8 (3.5-5.1) mEq/L Chloride 105 (98-107) mEq/L Carbon Dioxide 26.7 (21-32) mEq/L Anion Gap 13.3 (5-15) MEQ/L BUN 19 (9-20) mg/dL Creatinine 1.33 H (0.55-1.30) mg/dl Estimated GFR 41 ML/MIN Glucose 332 H (70-110) MG/DL Lactic Acid (0.4-2.0) Calcium 9.3 (8.5-10.1) mg/dL Magnesium 1.5 L (1.8-2.4) mg/dL Total Bilirubin 0.60 (0.2-1.0) mg/dL AST 33 (15-37) U/L ALT 27 (12-78) U/L Alkaline Phosphatase 108 (46-116) U/L Troponin I (0.000-0.056) ng/ml NT-Pro-B Natriuret Pep 2421 H (0-450) pg/ml Serum Total Protein 7.1 (6.4-8.2) gm/dL Albumin 3.3 L (3.4-5.0) g/dL reviewed - Progress Progress: improved (after meds), re-examined Air Movement: good (after treatment and meds), poor Progress Note: 01/22/17 09:00 placed on O2; IV started; Meds given; sats 88 on RA placed on 2 l O2 and improved to 95%; lactate 3.1; patient in florid PUlm Edema clincially and EKG shows AF w RVR so cannot push fluids at this time; family at bedside; will need to convert; will monitor and recheck ; labs and cxr pending 01/22/17 09:12 CXR shows CHF and Pul Edema; still in AF with RVR; will give Cardizem IV and monitor; prior EKG 12-01-16 was paced at 65; 01/22/17 09:14 gave resp treatment; helped a little sats 96% on 2 l after , peak flow pre 90; post 100 01/22/17 09:41 rechecked and much improved after Cardizem- pulse down to 98 and pacemaker kicked in; looking and feeling much better; D Dimer up at 1197 but renal function prevent CT for PE at this time; She is on anticoagulant already so shuld be ok; pBNP up at 2421; lytes ok BS up 332; Will continue to monitor and recheck; will consult Dr Soto for admission 01/22/17 09:58 Dr Soto consulted and will admit to ICU; bed requested; CArdizem drip reduced form 10 to 5 mg rate; patient much improved; Monitor paced at 98; color and BS much improved; VS improved; family at bedside; notified of admission Blood Culture(s) Obtained: Yes Discussed with : Charles (consulted and will admit to ICU) Will see patient in: hospital (full admit) Counseled pt/family regarding: lab results, diagnosis, need for follow-up, rad results - Departure Time of Disposition: 10:00 Departure Disposition: In-patient Admission (to ICU) Clinical Impression: Atrial fibrillation with RVR, CKD (chronic kidney disease) stage 3, GFR 30-59 ml/min, Diabetes type 2, controlled, Congestive heart failure, Elevated d-dimer , Elevated lactic acid level Condition: Critical Critical Care Time: Yes Critical Care Time(excluding separately billable procedures): 30-74 minutes Referrals: FE SOTO [Primary Care Provider] - Instructions: Heart Failure
[2017-01-22 08:57] LABS: Lactic Acid 3.1 (0.4-2.0)
[2017-01-22] MEDS ORDERED: CARDIZEM DRIP 100 MG/100 ML D5W 100 ML IV ONE (09:08)
[2017-01-22] MEDS ORDERED: Cardizem IV 50 MG/10 ML IV ONE ×3 (09:08→09:24)
[2017-01-22 09:13] LABS: Mean Cell Volume 92.6 fl (78-100); Mean Platelet Volume 12.6 fl (6-9.5); Platelet Count 227 K/mm3 (150-450); Red Blood Count 3.63 M/mm3 (4.1-5.4); Red Cell Distribution Width 19.2 % (11.5-14.0); White Blood Count 12.2 K/mm3 (4.0-10.5)
[2017-01-22] MEDS ORDERED: CARDIZEM DRIP 100 MG/100 ML D5W 100 ML IV PRN (09:15)
[2017-01-22 09:20] LABS: INR 1.68 (0.8-3.0); PROTIME 18.8 SECONDS (9.95-12.35)
--- NOTE | 2017-01-22 09:20 | XRAY ---
Exam: AP upright portable chest film from 0855 hours on 01/22/2017. Comparison: Two-view chest from 12/03/2016. Indication: Shortness of breath. Findings: The heart size is mildly enlarged. There is mild bilateral perihilar vascular prominence/congestion. Both hemidiaphragms are obscured which represents a new unfavorable change and appears to be due to bibasilar airspace disease and/or effusions. Overall, I believe the findings are consistent with development of mild CHF. However, I cannot exclude the possibility of pneumonia at the lung bases. The remainder of the lung roque appears clear. I again see a left-sided cardiac pacemaker/AICD representing no change. Some arthritic changes are noted within both shoulders. Impression: 1. Overall findings are consistent with interval development of mild CHF. Concomitant bibasilar pneumonic infiltrates cannot be excluded.
[2017-01-22 09:34] LABS: ALBUMIN 3.3 g/dL (3.4-5.0); ANION GAP 13.3 MEQ/L (5-15); BILIRUBIN,TOTAL 0.6 mg/dL (0.2-1.0); Carbon Dioxide 26.7 mEq/L (21-32); MAGNESIUM 1.5 mg/dL (1.8-2.4); Potassium 4.8 mEq/L (3.5-5.1); Total Protein 7.1 gm/dL (6.4-8.2)
[2017-01-22] MEDS: Sodium Chloride 0.9% 1000 ML 1,000 ML IV SCH (09:35)
[2017-01-22 09:45] LABS: BAND 2 % (0.0-2.0); Eosinophil 1 % (0.00-3.0); Platelet Estimate NORMAL (NORMAL); Total Cells Counted 100
[2017-01-22] MEDS ORDERED: Furosemide 100mg/10 ml Vial IV ONE ×2 (09:51→13:00)
[2017-01-22 13:52] LABS: Collection Type CATH; Leukocyte Esterase NEGATIVE (NEGATIVE)
[2017-01-22 13:53] LABS: Bacteria RARE /HPF (NEGATIVE); Bilirubin NEGATIVE (NEGATIVE); COMPLETE URINE MICROSCOPIC? YES; Epithelial Cells FEW /HPF (FEW); Glucose 250 mg/dL (NEGATIVE); Mucus SLIGHT /HPF (NEGATIVE)
[2017-01-22] MEDS ORDERED: POLYVINYL ALCOHOL OP PRN (14:51)
[2017-01-22] MEDS ORDERED: MEDICATION INTERVENTION MC PRN (15:09)
[2017-01-22] MEDS ORDERED: Artificial Tears 15 ML OP PRN (15:10)
[2017-01-22] MEDS: NITRO-BID 2% UD PACKETS TOP SCH ×2 (15:26→22:33)
[2017-01-22] MEDS ORDERED: PROVENTIL 2.5 MG/3 ML NEB IH PRN (16:56)
[2017-01-22] MEDS: ELIQUIS PO SCH (20:41)
[2017-01-22] MEDS: Lopressor 50 MG PO SCH (20:42)
[2017-01-22] MEDS: Ditropan 5 MG PO SCH (20:42)
[2017-01-22] MEDS: PATIENT OWN MEDICATION PO SCH ×2 (20:44→20:45)
[2017-01-22] MEDS ORDERED: BUSPAR 5 MG PO SCH (22:00)
[2017-01-22] MEDS ORDERED: NON-FORMULARY ITEM (Apixaban [Eliquis] 2.5 MG) PO SCH (22:00)
[2017-01-22] MEDS ORDERED: Coreg 6.25 MG PO SCH (22:00)
[2017-01-22] MEDS ORDERED: AMITRIPTYLINE HCL PO SCH (22:00)
[2017-01-22] MEDS ORDERED: BUSPIRONE HCL 7.5 MG PO SCH (22:00)
[2017-01-22] MEDS ORDERED: PERPHENAZINE PO SCH (22:00)
[2017-01-22] MEDS ORDERED: ZOCOR 20MG PO SCH (22:00)
[2017-01-22] MEDS ORDERED: [UNRECOGNIZED DRUG - OTHER] PO SCH (22:00)
[2017-01-23] MEDS: Sodium Chloride 0.9% 1000 ML 1,000 ML IV SCH (05:04)
[2017-01-23 06:05] LABS: Mean Platelet Volume 12.2 fl (6-9.5); Platelet Count 192 K/mm3 (150-450); Red Blood Count 3.17 M/mm3 (4.1-5.4); Red Cell Distribution Width 19.3 % (11.5-14.0); White Blood Count 11.1 K/mm3 (4.0-10.5)
[2017-01-23 06:23] LABS: Mean Corpuscular Hemoglobin 28.3 pg (26-32)
[2017-01-23 06:40] LABS: ANION GAP 10.7 MEQ/L (5-15); Carbon Dioxide 28.4 mEq/L (21-32); Potassium 4.1 mEq/L (3.5-5.1)
[2017-01-23] MEDS: NITRO-BID 2% UD PACKETS TOP SCH ×3 (06:52→20:50)
[2017-01-23] MEDS ORDERED: NON-FORMULARY ITEM (Rosuvastatin Calcium [Crestor] 10 MG) PO SCH (10:00)
[2017-01-23] MEDS ORDERED: FLUZONE HIGH-DOSE 2017-18 SYR IM ONE (10:00)
--- NOTE | 2017-01-23 10:22 | PCM.HP ---
History of Present Illness - Chief Complaint Chief Complaint: A-fib with RVR; CHF; elevated D-Dimer History of Present Illness: is a 81 year old female pt from [facility], recently at [facility] for rehab, who came into ER c/o 3d of not sleeping due to SOB. She was found to be in afib with RVR and with CHF exacerbation. Lasix was given x 1 and she was started on a cardizem drip, which decreased her heart rate quickly. She was admitted to the ICU and Dr. Lanza was consulted. He started her on metoprolol 50mg 1 po BID and she converted to sinus rhythm at 2200 last night. Pt had some chest pain last night, 8/10 L sided wiht SOB and diaphoresis. This morning she denies CP and SOB. Her d-dimer was elevated in the ER but a CT of the chest with contrast was not done due to her renal function. She does take Eliquis 5mg po BID faithfully at home. - Review of Systems Respiratory: Cough, Short Of Breath, Wheezing Cardiac: Chest Pain, Palpitations Musculoskeletal: Arthralgias Psychological: Anxiety All Other Systems: Reviewed and Negative Medications & Allergies Home Medications: Home Medication List Allopurinol 300 mg [Zyloprim 300 mg] 300 mg PO DAILY 09/30/12 [History Confirmed 01/22/17] Carvedilol 6.25 mg [Coreg 6.25 MG] 6.25 mg PO BID 09/30/12 [History Confirmed 01/22/17] Glipizide 10 mg PO DAILY 09/30/12 [History Confirmed 01/22/17] Multivitamin W-Minerals/Lutein [Centrum Silver Tablet] 1 each PO DAILY 10/02/14 [History Confirmed 01/22/17] Perphenazine/Amitriptyline HCl [Perphen-Amitrip 2 mg-25 mg Tab] 1 each PO HS 01/08 [History Confirmed 01/22/17] Apixaban [Eliquis] 2.5 mg PO BID 08/17/16 [History Confirmed 01/22/17] Levothyroxine Sodium 100 Mcg [Synthroid 100 Mcg] 100 mcg PO DAILY 08/17/16 [History Confirmed 01/22/17] Rosuvastatin Calcium [Crestor] 10 mg PO DAILY 08/17/16 [History Confirmed ] Potassium Chloride 10 Meq Tab* [Klor Con 10 MEQ] 10 meq PO DAILY 12/03/16 [ History Confirmed 01/22/17] Albuterol Common Canister [Proventil Common Canister] 2 puff IH Q4H PRN PRN #1 unit 12/07/16 [Rx Confirmed 01/22/17] Bumetanide 0.5 mg PO DAILY #15 tablet 12/07/16 [Rx Confirmed 01/22/17] Polyvinyl Alcohol [Artificial Tears] 1 ml OP PRN PRN drops 12/07/16 [Rx Confirmed 01/22/17] Liraglutide [Victoza 2-Thong] 1.2 mg SQ DAILY 01/22/17 [History Confirmed 01/22/17 ] Metformin HCl 500 mg [Glucophage 500 MG] 500 mg PO BIDWM 01/22/17 [ History Confirmed 01/22/17] Oxybutynin Chloride 1 tab PO BID 01/22/17 [History Confirmed 01/22/17] Sitagliptin Phosphate 50 MG [Januvia 50 MG] 100 mg PO DAILY 01/22/17 [ History Confirmed 01/22/17] Allergies/Adverse Reactions: Allergies Allergy/AdvReac Type Severity Reaction Status Date / Time No Known Drug Allergies Allergy Verified 01/22/17 08:53 - Past Medical History Past Medical History: Yes Neurological History: No Pertinent History ENT History: Cataracts Cardiac History: Arrhythmia, Coronary Artery Disease, Hypertension Respiratory History: CHF Endocrine Medical History: Diabetes Type II, Hypothyroidism Musculoskelatal History: Arthritis GI Medical History: No Pertinent History History: Renal Disease Pyscho-Social History: No Pertinent History Reproductive Disorders: No Pertinent History Comment: Pt to see kidney doctor next month for possible kidney failure - Female History Hx Last Menstrual Period: N/A - Past Surgical History Past Surgical History: Yes Neuro Surgical History: No Pertinent History Cardiac History: Internal Defibrillator, Pacemaker Respiratory Surgery: No Pertinent History GI Surgical History: Appendectomy Genitourinary Surgical Hx: No Pertinent History Musculskeletal Surgical Hx: No Pertinent History Female Surgical History: Tubal Ligation - Social History Smoking Status: Never smoker Exposure to second hand smoke: No Alcohol: None Drug Use: none Significant Family History: heart disease, hypertension - Physical Exam Vital Signs: Vital Signs - 24 hr Temp Pulse Resp BP Pulse Ox 01/23/17 08:33 88 01/23/17 07:47 87 20 95 01/23/17 07:00 87 24 125/70 98 01/23/17 06:54 73 20 114/62 96 01/23/17 04:00 98 F 69 16 112/62 95 01/23/17 02:00 98.2 F 78 20 91/54 93 L 01/23/17 00:01 81 01/22/17 22:00 77 18 99/61 96 01/22/17 20:00 97.9 F 109 H 20 132/69 95 01/22/17 16:56 78 20 97 01/22/17 16:00 98.3 F 95 H 27 H 118/72 97 01/22/17 12:00 97.5 F 98 H 28 H 105/74 97 01/22/17 11:15 97.5 F 106 H 23 100/58 94 L Oxygen-Last 24 hours O2 Percentage 2 Liters = 28% O2 Percentage 2 Liters = 28% O2 Percentage 2 Liters = 28% O2 Percentage 2 Liters = 28% O2 Percentage 2 Liters = 28% O2 Percentage 2 Liters = 28% O2 Percentage 2 Liters = 28% O2 Percentage 2 Liters = 28% O2 Percentage 2 Liters = 28% Oxygen Flowrate (L/min)-RT 2 Oxygen Flowrate (L/min)-RT 2 Oxygen Flowrate (L/min)-RT 2 Oxygen Flowrate (L/min)-RT 2 Oxygen Flowrate (L/min)-RT 2 Oxygen Flowrate (L/min)-RT 2 General Appearance: no apparent distress, alert, other (somewhat somnolent) Neurologic Exam: oriented x 3, cooperative Eye Exam: eyes nml inspection Ears, Nose, Throat Exam: moist mucous membranes Neck Exam: normal inspection, non-tender, No lymphadenopathy Respiratory Exam: lungs clear, diminished breath sounds, other (increased expiratory phase), No crackles/rales, No rhonchi, No wheezing Cardiovascular Exam: regular rate/rhythm, normal heart sounds, No murmur Gastrointestinal/Abdomen Exam: soft, normal bowel sounds, No tenderness, No distention, No mass Extremity Exam: swelling (trace pretibial edema bilaterally) Skin Exam: normal color, warm, dry Results - Labs Lab/Micro Results: Accuchecks Date 01/23/17 Date 01/22/17 Date 01/22/17 Date 01/22/17 Time 05:30 Time 21:00 Time 16:46 Time 12:16 Accucheck Value: 156 Accucheck Value: 156 Accucheck Value: 210 Lab Results-Last 24 Hours 01/22/17 01/22/17 01/22/17 Range/Units 10:57 12:15 12:21 WBC (4.0-10.5) K/mm3 RBC (4.1-5.4) M/mm3 Hgb (12.0-16.0) gm/dl Hct (35-47) % MCV (78-100) fl MCH (26-32) pg MCHC (32-36) g/dl RDW (11.5-14.0) % Plt Count (150-450) K/mm3 MPV (6-9.5) fl Sodium (136-145) mEq/L Potassium (3.5-5.1) mEq/L Chloride (98-107) mEq/L Carbon Dioxide (21-32) mEq/L Anion Gap (5-15) MEQ/L BUN (9-20) mg/dL Creatinine (0.55-1.30) mg/dl Estimated GFR ML/MIN Glucose (70-110) MG/DL Lactic Acid 1.8 (0.4-2.0) Calcium (8.5-10.1) mg/dL Troponin I 0.024 (0.000-0.056) ng/ml NT-Pro-B Natriuret Pep (0-450) pg/ml Ur Collection Type CATH Urine Color YELLOW (YELLOW) Urine Appearance CLEAR (CLEAR) Urine pH 5.0 (5-6) Ur Specific Weston 1.020 (1.005-1.025) Urine Protein NEGATIVE (Negative) Urine Ketones NEGATIVE (NEGATIVE) Urine Blood 5-10 (0-5) Allan/ul Urine Nitrite NEGATIVE (NEGATIVE) Urine Bilirubin NEGATIVE (NEGATIVE) Urine Urobilinogen NORMAL (0-1) mg/dL Ur Leukocyte Esterase NEGATIVE (NEGATIVE) Urine Microscopic RBC 0-2 (0-2) /HPF Urine Microscopic WBC 2-5 (0-5) /HPF Ur Epithelial Cells FEW (FEW) /HPF Urine Bacteria RARE (NEGATIVE) /HPF Hyaline Casts 5-10 (0-2) /LPF Urine Mucus SLIGHT (NEGATIVE) /HPF Urine Glucose 250 (NEGATIVE) mg/dL Digoxin (0.5-1.5) ng/ml Specimen Received 01/22/17 1300 01/22/17 01/22/17 01/22/17 Range/Units 15:25 15:25 18:05 WBC (4.0-10.5) K/mm3 RBC (4.1-5.4) M/mm3 Hgb (12.0-16.0) gm/dl Hct (35-47) % MCV (78-100) fl MCH (26-32) pg MCHC (32-36) g/dl RDW (11.5-14.0) % Plt Count (150-450) K/mm3 MPV (6-9.5) fl Sodium (136-145) mEq/L Potassium (3.5-5.1) mEq/L Chloride (98-107) mEq/L Carbon Dioxide (21-32) mEq/L Anion Gap (5-15) MEQ/L BUN (9-20) mg/dL Creatinine (0.55-1.30) mg/dl Estimated GFR ML/MIN Glucose (70-110) MG/DL Lactic Acid (0.4-2.0) Calcium (8.5-10.1) mg/dL Troponin I 0.026 0.023 (0.000-0.056) ng/ml NT-Pro-B Natriuret Pep (0-450) pg/ml Ur Collection Type Urine Color (YELLOW) Urine Appearance (CLEAR) Urine pH (5-6) Ur Specific Weston (1.005-1.025) Urine Protein (Negative) Urine Ketones (NEGATIVE) Urine Blood (0-5) Allan/ul Urine Nitrite (NEGATIVE) Urine Bilirubin (NEGATIVE) Urine Urobilinogen (0-1) mg/dL Ur Leukocyte Esterase (NEGATIVE) Urine Microscopic RBC (0-2) /HPF Urine Microscopic WBC (0-5) /HPF Ur Epithelial Cells (FEW) /HPF Urine Bacteria (NEGATIVE) /HPF Hyaline Casts (0-2) /LPF Urine Mucus (NEGATIVE) /HPF Urine Glucose (NEGATIVE) mg/dL Digoxin < 0.20 L (0.5-1.5) ng/ml Specimen Received 01/22/17 01/23/17 01/23/17 Range/Units 21:00 05:13 05:13 WBC 11.1 H (4.0-10.5) K/mm3 RBC 3.17 L (4.1-5.4) M/mm3 Hgb 9.0 L (12.0-16.0) gm/dl Hct 29.8 L (35-47) % MCV 94.0 (78-100) fl MCH 28.3 (26-32) pg MCHC 30.2 L (32-36) g/dl RDW 19.3 H (11.5-14.0) % Plt Count 192 (150-450) K/mm3 MPV 12.2 H (6-9.5) fl Sodium 143 (136-145) mEq/L Potassium 4.1 (3.5-5.1) mEq/L Chloride 108 H (98-107) mEq/L Carbon Dioxide 28.4 (21-32) mEq/L Anion Gap 10.7 (5-15) MEQ/L BUN 21 H (9-20) mg/dL Creatinine 1.10 (0.55-1.30) mg/dl Estimated GFR 51 ML/MIN Glucose 191 H (70-110) MG/DL Lactic Acid (0.4-2.0) Calcium 8.3 L (8.5-10.1) mg/dL Troponin I 0.031 (0.000-0.056) ng/ml NT-Pro-B Natriuret Pep 1338 H (0-450) pg/ml Ur Collection Type Urine Color (YELLOW) Urine Appearance (CLEAR) Urine pH (5-6) Ur Specific Weston (1.005-1.025) Urine Protein (Negative) Urine Ketones (NEGATIVE) Urine Blood (0-5) Allan/ul Urine Nitrite (NEGATIVE) Urine Bilirubin (NEGATIVE) Urine Urobilinogen (0-1) mg/dL Ur Leukocyte Esterase (NEGATIVE) Urine Microscopic RBC (0-2) /HPF Urine Microscopic WBC (0-5) /HPF Ur Epithelial Cells (FEW) /HPF Urine Bacteria (NEGATIVE) /HPF Hyaline Casts (0-2) /LPF Urine Mucus (NEGATIVE) /HPF Urine Glucose (NEGATIVE) mg/dL Digoxin (0.5-1.5) ng/ml Specimen Received Genterprets Date 01/23/17 Date 01/22/17 Date 01/22/17 Date 01/22/17 Time 05:30 Time 21:00 Time 16:46 Time 12:16 Accucheck Value: 156 Accucheck Value: 156 Accucheck Value: 210 - Other Procedures and Tests Respiratory Therapy 01/22/17 09:51 Oxygen NASAL CANNULA 2 lpm 01/22/17 16:56 Respiratory Nebulizer PRN Assessment/Plan (1) Atrial fibrillation with RVR Current Visit: Yes Status: Acute Assessment & Plan: Rate is controlled on metoprolol 50mg po BID; will keep her on this dose and transfer to [facility] floor for further treatment. Code(s): I48.91 - UNSPECIFIED ATRIAL FIBRILLATION (2) Elevated d-dimer Current Visit: Yes Status: Acute Assessment & Plan: Elevated and CT not done due to renal function. I did discuss the nonspecific nature of the d-dimer wiht the family. In my opinion, her SOB and CP were related to afib and CHF and we should not do the CT particularly since she is at high risk for renal damage from the dye and she has been faithfully taking her blood thinner. The family agrees. Code(s): R79.89 - OTHER SPECIFIED ABNORMAL FINDINGS OF BLOOD CHEMISTRY (3) Congestive heart failure Current Visit: Yes Status: Chronic Qualifiers: Congestive heart failure chronicity: acute on chronic Assessment & Plan: Better this morning but BNP still elevated; recheck her BNP tomorrow. Code(s): I50.9 - HEART FAILURE, UNSPECIFIED (4) CKD (chronic kidney disease) stage 3, GFR 30-59 ml/min Current Visit: Yes Status: Chronic Assessment & Plan: Seeing nephrology next week. Renal function has improved somewhat with IV fluids (Cr today 1.10; yesterday 1.33). Code(s): N18.3 - CHRONIC KIDNEY DISEASE, STAGE 3 (MODERATE) (5) Diabetes type 2, controlled Current Visit: Yes Status: Chronic Qualifiers: Diabetes mellitus complication status: with kidney complications Diabetes mellitus complication detail: with chronic kidney disease Diabetes mellitus half-way insulin use: without half-way use Chronic kidney disease stage: stage 3 (moderate) Qualified Code(s): E11.22 - Type 2 diabetes mellitus with diabetic chronic kidney disease; N18.3 - Chronic kidney disease, stage 3 ( moderate) Assessment & Plan: BS have been elevated at home, 200s, will observe here. After d/c she will keep a log and f/u with me in office (discussed with her son Luis Enrique today). Code(s): E11.9 - TYPE 2 DIABETES MELLITUS WITHOUT COMPLICATIONS (6) Elevated lactic acid level Current Visit: Yes Status: Resolved Code(s): R79.89 - OTHER SPECIFIED ABNORMAL FINDINGS OF BLOOD CHEMISTRY
[2017-01-23] MEDS: Januvia 50 MG PO SCH (10:44)
[2017-01-23] MEDS: Lopressor 50 MG PO SCH ×2 (10:44→20:50)
[2017-01-23] MEDS: Klor Con 10 MEQ PO SCH (10:44)
[2017-01-23] MEDS: Ditropan 5 MG PO SCH ×2 (10:44→20:50)
[2017-01-23] MEDS: SYNTHROID 100 MCG PO SCH (10:44)
[2017-01-23] MEDS: ELIQUIS PO SCH ×2 (10:44→20:49)
[2017-01-23] MEDS: ZYLOPRIM 300 MG PO SCH (10:45)
[2017-01-23] MEDS: BUMEX 1 MG PO SCH (10:52)
[2017-01-23] MEDS: NovoLOG Insulin SQ PRN (11:39)
--- NOTE | 2017-01-23 20:15 | XRAY ---
Indication: Short of breath. Comparison: One day earlier. Portable chest again demonstrates CHF as evidenced by cardiomegaly and vascular congestion unchanged. Bibasilar effusions appear minimally improved especially on the right. New subtle right upper lung airspace opacity.
[2017-01-23] MEDS: PATIENT OWN MEDICATION PO SCH ×2 (20:50→20:51)
[2017-01-24] MEDS: Sodium Chloride 0.9% 1000 ML 1,000 ML IV SCH (00:14)
[2017-01-24] MEDS: NITRO-BID 2% UD PACKETS TOP SCH ×3 (05:58→20:03)
[2017-01-24 07:09] LABS: Mean Cell Volume 95.4 fl (78-100); Mean Platelet Volume 12.3 fl (6-9.5); Platelet Count 200 K/mm3 (150-450); Red Blood Count 3.29 M/mm3 (4.1-5.4); Red Cell Distribution Width 19.3 % (11.5-14.0); White Blood Count 10.6 K/mm3 (4.0-10.5)
[2017-01-24 07:16] LABS: ANION GAP 12.1 MEQ/L (5-15); Carbon Dioxide 26.4 mEq/L (21-32); MAGNESIUM 1.6 mg/dL (1.8-2.4); Potassium 4.2 mEq/L (3.5-5.1)
[2017-01-24 07:19] LABS: Mean Corpuscular Hemoglobin 28.5 pg (26-32)
[2017-01-24] MEDS: Januvia 50 MG PO SCH (10:02)
[2017-01-24] MEDS: Lopressor 50 MG PO SCH ×2 (10:02→20:03)
[2017-01-24] MEDS: SYNTHROID 100 MCG PO SCH (10:02)
[2017-01-24] MEDS: ZYLOPRIM 300 MG PO SCH (10:02)
[2017-01-24] MEDS: Klor Con 10 MEQ PO SCH (10:03)
[2017-01-24] MEDS: ELIQUIS PO SCH ×2 (10:03→20:04)
[2017-01-24] MEDS: BUMEX 1 MG PO SCH (10:03)
[2017-01-24] MEDS: Ditropan 5 MG PO SCH ×2 (10:04→20:03)
--- NOTE | 2017-01-24 12:03 | PCM.NOTE ---
Date and Time: 01/24/17 1158 Subjective Assessment: She is feeling better this morning. Still on O2 per NC. Eating well. - Review of Systems Constitutional: No Fever Abdominal/Gastrointestinal: No Vomiting Objective Exam General Appearance: no apparent distress, alert Neurologic Exam: oriented x 3, cooperative Skin Exam: normal color, warm, dry Respiratory Exam: diminished breath sounds (fair to good air exchange), wheezing (faint scattered), No crackles/rales, No rhonchi Cardiovascular Exam: regular rate/rhythm, normal heart sounds, No murmur Gastrointestinal/Abdomen Exam: soft, normal bowel sounds, No tenderness OBJECTIVE DATA Vital Signs: Vital Signs - 24 hr Temp Pulse Resp BP Pulse Ox 01/24/17 11:30 97.9 F 84 25 H 112/65 95 01/24/17 08:00 97.3 F 90 24 128/76 92 L 01/24/17 07:32 80 20 98 01/24/17 05:00 98.3 F 92 H 21 121/81 98 01/24/17 03:00 86 21 123/70 94 L 01/23/17 23:00 88 27 H 122/80 98 01/23/17 19:00 84 209 H 116/71 97 01/23/17 15:00 98.0 F 92 H 12 103/61 97 Oxygen-Last 24 hours O2 Percentage 2 Liters = 28% O2 Percentage 2 Liters = 28% O2 Percentage 2 Liters = 28% O2 Percentage 2 Liters = 28% O2 Percentage 2 Liters = 28% O2 Percentage 2 Liters = 28% Pain Assessment - Last Documented Pain Scale Used 0-10 Pain Scale Intake and Output: Intake & Output 01/21/17 01/22/17 01/23/17 01/24/17 11:59 11:59 11:59 11:59 Intake Total 1795 Output Total 850 Balance 945 Weight 85.638 kg Lab Results: Accuchecks Date 01/24/17 Date 01/24/17 Date 01/23/17 Date 01/23/17 Time 11:29 Time 06:47 Time 22:09 Time 16:25 Accucheck Value: 182 Accucheck Value: 194 Accucheck Value: 170 Accucheck Value: 163 Lab Results-Last 24 Hours 01/23/17 01/24/17 01/24/17 Range/Units 14:10 05:20 05:20 WBC 10.6 H (4.0-10.5) K/mm3 RBC 3.29 L (4.1-5.4) M/mm3 Hgb 9.4 L (12.0-16.0) gm/dl Hct 31.4 L (35-47) % MCV 95.4 (78-100) fl MCH 28.5 (26-32) pg MCHC 29.9 L (32-36) g/dl RDW 19.3 H (11.5-14.0) % Plt Count 200 (150-450) K/mm3 MPV 12.3 H (6-9.5) fl Sodium 142 (136-145) mEq/L Potassium 4.2 (3.5-5.1) mEq/L Chloride 108 H (98-107) mEq/L Carbon Dioxide 26.4 (21-32) mEq/L Anion Gap 12.1 (5-15) MEQ/L BUN 23 H (9-20) mg/dL Creatinine 0.96 (0.55-1.30) mg/dl Estimated GFR 59 ML/MIN Glucose 204 H (70-110) MG/DL Calcium 7.8 L (8.5-10.1) mg/dL Magnesium 1.6 L (1.8-2.4) mg/dL Troponin I 0.018 (0.000-0.056) ng/ml NT-Pro-B Natriuret Pep 1502 H (0-450) pg/ml Assessment/Plan (1) Atrial fibrillation with RVR Current Visit: Yes Status: Acute Assessment & Plan: NSR now, on metoprolol BID. Code(s): I48.91 - UNSPECIFIED ATRIAL FIBRILLATION (2) Congestive heart failure Current Visit: Yes Status: Chronic Qualifiers: Congestive heart failure chronicity: acute on chronic Assessment & Plan: BNP elevated this morning. Discussed with pt and her the balance between hydrating the kidneys and avoiding CHF. Will increase bumex to 1 mg po daily and give lasix 20mg IV today x 1. If her CHF is improved, she may be well enough in the morning to go home tomorrow. Code(s): I50.9 - HEART FAILURE, UNSPECIFIED (3) CKD (chronic kidney disease) stage 3, GFR 30-59 ml/min Current Visit: Yes Status: Chronic Assessment & Plan: Cr 0.96 this morning. 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
[2017-01-24] MEDS ORDERED: Dulcolax 10 MG SUPP PR PRN (12:36)
[2017-01-24] MEDS ORDERED: Lasix 20 MG/2 ML IV ONE (13:00)
[2017-01-24] MEDS: Colace 100 MG PO PRN (13:29)
[2017-01-24] MEDS: PATIENT OWN MEDICATION PO SCH ×2 (20:05→20:06)
[2017-01-24] MEDS: NovoLOG Insulin SQ PRN (22:06)
[2017-01-25 06:19] LABS: Mean Cell Volume 92.9 fl (78-100); Mean Corpuscular Hemoglobin 28.8 pg (26-32); Mean Platelet Volume 11.9 fl (6-9.5); Platelet Count 208 K/mm3 (150-450); Red Cell Distribution Width 18.9 % (11.5-14.0); White Blood Count 12.2 K/mm3 (4.0-10.5)
[2017-01-25 06:57] LABS: ANION GAP 12.2 MEQ/L (5-15); Potassium 3.9 mEq/L (3.5-5.1)
[2017-01-25] MEDS: NITRO-BID 2% UD PACKETS TOP SCH (07:24)
[2017-01-25] MEDS: NovoLOG Insulin SQ PRN (08:11)
[2017-01-25] MEDS ORDERED: Lasix 40 MG/4 ML IV ONE (08:40)
--- NOTE | 2017-01-25 08:49 | PCM.DS ---
Discharge Summary Date of Admission: 01/22/17 10:28 Admitting Physician: FE BROWN Consults: Consults on Case 01/22/17 09:55 Consult Cardiology ROUTINE Primary Care Provider: FE BROWN Allergies Allergies No Known Drug Allergies Allergy (Verified 01/22/17 08:53) Hospital Summary - Hospital Course Hospital Course: Pt admitted through ER with 3 d of shortness of breath which prevented her from sleeping. She was found to be in afib with RVR. Initially she was on a cardizem drip, but Dr. Salazar ordered metoprolol 50mg po BID and she has been in normal sinus rhythm since then. She does have some CHF but clinically has improved - this morning she is feeling well, up and walking since yesterday with minimal shortness of breath. Her BNP is still elevated so I will give her 40mg IV lasix this morning and recheck a CXR. Plan is to send her home on higher dose of bumex (1mg po BID instead of 0.5mg po daily). - Vitals & Intake/Output Vital Signs: Vital Signs Temperature 98 F 01/25/17 04:00 Pulse Rate 84 01/25/17 04:00 Respiratory Rate 25 H 01/25/17 04:00 Blood Pressure 123/84 01/25/17 00:00 O2 Sat by Pulse Oximetry 97 01/25/17 04:00 Oxygen-Last Documented O2 Percentage 2 Liters = 28% Intake & Output: Intake & Output 01/22/17 01/23/17 01/24/17 01/25/17 11:59 11:59 11:59 11:59 Intake Total 1633 1795 1720 Output Total 0806 469 7735 Balance -317 945 160 Weight 81.828 kg 82.418 kg 85.638 kg 86.7 kg - Lab Result Diagrams: 01/25/17 05:45 01/25/17 05:45 Lab Results-Last 24 Hrs: Accuchecks Date 01/25/17 Date 01/24/17 Date 01/24/17 Date 01/24/17 Time 05:30 Time 21:50 Time 16:01 Time 11:29 Accucheck Value: 226 Accucheck Value: 193 Accucheck Value: 182 Lab Results-Last 24 Hours 01/25/17 01/25/17 Range/Units 05:45 05:45 WBC 12.2 H (4.0-10.5) K/mm3 RBC 3.40 L (4.1-5.4) M/mm3 Hgb 9.8 L (12.0-16.0) gm/dl Hct 31.6 L (35-47) % MCV 92.9 (78-100) fl MCH 28.8 (26-32) pg MCHC 31.0 L (32-36) g/dl RDW 18.9 H (11.5-14.0) % Plt Count 208 (150-450) K/mm3 MPV 11.9 H (6-9.5) fl Sodium 140 (136-145) mEq/L Potassium 3.9 (3.5-5.1) mEq/L Chloride 105 (98-107) mEq/L Carbon Dioxide 27.0 (21-32) mEq/L Anion Gap 12.2 (5-15) MEQ/L BUN 20 (9-20) mg/dL Creatinine 0.99 (0.55-1.30) mg/dl Estimated GFR 57 ML/MIN Glucose 203 H (70-110) MG/DL Calcium 8.1 L (8.5-10.1) mg/dL NT-Pro-B Natriuret Pep 2041 H (0-450) pg/ml Micro Results-Entire Visit: Microbiology 01/22/17 12:45 - Final Urine, Catheterized NO GROWTH Accuchecks Date 01/25/17 Date 01/24/17 Date 01/24/17 Date 01/24/17 Time 05:30 Time 21:50 Time 16:01 Time 11:29 Accucheck Value: 226 Accucheck Value: 193 Accucheck Value: 182 - Radiology Exams Ordered Rad Exams-Entire Visit: Radiology Procedures Category Date Time Status CHEST 1 VIEW (PORTABLE) Stat Exams 01/25/17 08:39 Ordered - Procedures and Test Procedures and Tests throughout Hospitalization: Therapy Orders & Screens 01/22/17 09:51 Oxygen NASAL CANNULA 2 lpm Comment: Diagnosis: Shortness of Breath 01/22/17 13:44 OT Screen per Nursing Assess Comment: Protocol Order Physician Instructions: Greater than 3 points order OT Admission Screening Reason For Exam: Triggered on Admission Diagnosis: A-fib with RVR; CHF; elevated D-Dimer Open Wound/Cellutlitis/Pressure Ulcers: No Acute Fx/ORIF/Change in wt bearing status: No Severe MUSCULOSKELETAL pain: No ADL Dysfunction: Yes Acute CVA w/Hemiparesis/Hemiplegia: No Decreased Functional Mobility/Strength: Yes Sprain/Strain: No Acute Post-op Mobility Dysfunction: No Total Points: 4 PT Screen per Nursing Assess ONCE Comment: Protocol Order Physician Instructions: Greater than 3 points order PT Admission Screenin Reason For Exam: Triggered on Admission Diagnosis: A-fib with RVR; CHF; elevated D-Dimer Open Wound/Cellutlitis/Pressure Ulcers: No Acute Fx/ORIF/Change in wt bearing status: No Severe MUSCULOSKELETAL pain: No ADL Dysfunction: Yes Acute CVA w/Hemiparesis/Hemiplegia: No Decreased Functional Mobility/Strength: Yes Sprain/Strain: No Acute Post-op Mobility Dysfunction: No Total Points: 4 RT Screen per Nursing Assess ONCE Comment: Protocol Order Physician Instructions: Greater than 3 points order RT Admission Screen Reason For Exam: Triggered on Admission Diagnosis: A-fib with RVR; CHF; elevated D-Dimer Diagnosis: A-fib with RVR; CHF; elevated D-Dimer Pneumonia: No Home O2: No Asthma: No CHF: Yes Home CPAP/BIPAP: No Home Nebs/MDI: Yes Total Points: 8 ST Screen per Nursing Assess once Comment: Protocol Order Physician Instructions: Greater than [address] Admission Screening Reason For Exam: Triggered on Admission Diagnosis: A-fib with RVR; CHF; elevated D-Dimer CVA/Dyshpagia/Aphasia: Yes Cognitive Deficits: No Dehydration/Nutrition Deficit: No Reflux: Yes Oral-Motor Difficulties: No Pneumonia: No Alf Resident: No Total Points: 8 01/22/17 16:56 Respiratory Nebulizer PRN Comment: Diagnosis: A-fib with RVR; CHF; elevated D-Dimer 01/24/17 12:37 PT Eval & Treat (MD Order) ROUTINE Evaluate: Yes Treat: Yes Reason for Eval:: deconditioning Diagnosis: A-fib with RVR; CHF; elevated D-Dimer Discharge Exam General Appearance: no apparent distress, alert Neurologic Exam: oriented x 3, cooperative Skin Exam: normal color, warm, dry Respiratory Exam: normal breath sounds, lungs clear, No crackles/rales, No rhonchi, No wheezing Cardiovascular Exam: regular rate/rhythm, normal heart sounds, No murmur Gastrointestinal/Abdomen Exam: soft, No tenderness, No distention Extremity Exam: swelling (1+ le edema bilat), No pedal edema Back Exam: normal inspection Final Diagnosis/Problem List - Final Discharge Diagnosis/Problem (1) Atrial fibrillation with RVR Current Visit: Yes Status: Acute Assessment & Plan: She is doing well on metoprolol. (2) Congestive heart failure Current Visit: Yes Status: Chronic Assessment & Plan: increase bumex to 1mg po BID at home. Check BMP and Mg on Wed or this week. 40mg IV lasix now. There was a question of R upper airspace opacity on CXR this weekend so will recheck that. (3) CKD (chronic kidney disease) stage 3, GFR 30-59 ml/min Current Visit: Yes Status: Chronic Assessment & Plan: Cr very good today and yesterday. (4) Diabetes type 2, controlled Current Visit: Yes Status: Chronic (5) Elevated lactic acid level Current Visit: Yes Status: Resolved - Discharge Disposition: Home, Self-Care Condition: Critical Prescriptions: New Metoprolol Tartrate 50 mg [Lopressor 50 MG] 50 mg PO BID #60 tablet Continue Glipizide 10 mg PO DAILY Allopurinol 300 mg [Zyloprim 300 mg] 300 mg PO DAILY Perphenazine/Amitriptyline HCl [Perphen-Amitrip 2 mg-25 mg Tab] 1 each PO HS Multivitamin W-Minerals/Lutein [Centrum Silver Tablet] 1 each PO DAILY Rosuvastatin Calcium [Crestor] 10 mg PO DAILY Levothyroxine Sodium 100 Mcg [Synthroid 100 Mcg] 100 mcg PO DAILY Apixaban [Eliquis] 2.5 mg PO BID Potassium Chloride 10 Meq Tab* [Klor Con 10 MEQ] 10 meq PO DAILY Polyvinyl Alcohol [Artificial Tears] 1 ml OP PRN PRN drops PRN Reason: Dry eyes Albuterol Common Canister [Proventil Common Canister] 2 puff IH Q4H PRN PRN #1 unit PRN Reason: Shortness Of Breath Liraglutide [Victoza 2-Thong] 1.2 mg SQ DAILY Metformin HCl 500 mg [Glucophage 500 MG] 500 mg PO BIDWM Oxybutynin Chloride 1 tab PO BID Sitagliptin Phosphate 50 MG [Apruvia 50 MG] 100 mg PO DAILY Changed Bumetanide 1 mg PO BID #60 tablet Discontinued Carvedilol 6.25 mg [Coreg 6.25 MG] 6.25 mg PO BID Instructions: Heart Failure Follow up with: NORI SALAZAR [ACTIVE STAFF] - 02/04/17 3:30 pm (At [facility] FE BROWN [Primary Care Provider] -
--- NOTE | 2017-01-25 09:00 | XRAY ---
Indication: Short of breath. CHF. Comparison: January 23, 2017. Portable chest again demonstrates cardiomegaly with interval slight worsening bibasilar effusions again favoring CHF. Previous right upper lung airspace opacity has cleared. No new cardiopulmonary abnormalities.
[2017-01-25] MEDS: ZYLOPRIM 300 MG PO SCH (09:38)
[2017-01-25] MEDS: ELIQUIS PO SCH (09:38)
[2017-01-25] MEDS: SYNTHROID 100 MCG PO SCH (09:38)
[2017-01-25] MEDS: Lopressor 50 MG PO SCH (09:38)
[2017-01-25] MEDS: Colace 100 MG PO PRN (09:38)
[2017-01-25] MEDS: Klor Con 10 MEQ PO SCH (09:38)
[2017-01-25] MEDS: Ditropan 5 MG PO SCH (09:38)
[2017-01-25] MEDS: Januvia 50 MG PO SCH (09:39)
[2017-01-25] MEDS ORDERED: BUMEX 1 MG PO SCH (10:00)
--- NOTE | 2017-01-25 10:34 | CONS ---
CONSULT DATE: 01/24/2017 BRIEF HISTORY: This is an 81 year-old female who was seen because of atrial fibrillation and also shortness of breath. The patient states that for the last three days prior to this admission she has been unable to sleep. She was also getting short of breath. The symptoms got worse for which reason she was brought to the emergency room of [facility] and subsequently admitted. On initial evaluation it was noted that she was in atrial fibrillation with rapid ventricular response. She was started on beta blockers and heart rate slowed down. At the time of examination she was feeling better. She is less short of breath. She denies any chest pains. Her initial BNP was elevated at 2,421 and after being given some diuretics this came down. Her troponin is insignificantly elevated. The patient has a history of atrial fibrillation and is currently anticoagulated. She has a pacemaker defibrillator in place. MEDICATIONS: Her home medications are Allopurinol, Eliquis, carvedilol which was changed to Lopressor, Glipizide, levothyroxine, Victoza, Metformin, oxybutynin, potassium, Crestor, Januvia. REVIEW OF SYSTEMS: PSYCHIATRIC NURSE PRACTITIONER: No prior history of stroke or seizure. RESPIRATORY: Occasional cough but no hemoptysis. GI: No history of peptic ulcer or colon disorder. : She has mild renal insufficiency. PERIPHERAL VASCULAR: No history of DVT or claudication. SOCIAL HISTORY: She is still pretty much independent but lives with her family. PHYSICAL EXAMINATION: Blood pressure 120/68 with a heart rate of 95, respirations 14. GENERAL: The patient is an elderly female who is alert and oriented who is not in any form of distress. HEENT: Nonicteric sclera. Pinkish conjunctivae. NECK: No significant JVD. CHEST: There are some basilar crackles. No rhonchi. CARDIAC: Heart tones are normal. There is a grade 2/6 mid systolic murmur. The rhythm is irregular. ABDOMEN: Soft with normal bowel sounds. EXTREMITIES: There is trace edema with decreased distal pulses. LAB DATA AND DIAGNOSTIC TESTS: EKG done on 01/22/2017 shows atrial fibrillation with rapid ventricular response. IMPRESSION: In essence the patient present with: 1) SHORTNESS OF BREATH ASSOCIATED WITH TACHYCARDIA: This most likely is secondary to congestive heart failure. Her left ventricular systolic function is normal since last echocardiogram so there may be some component of a diastolic dysfunction. She is currently compensated. Her heart rate is better control. Continue with beta blockers. Continue with anticoagulation. 2) DIABETES. 3) CHRONIC RENAL INSUFFICIENCY. 4) STATUS POST AICD DEFIBRILLATOR.
[2017-01-25 11:43] VITALS: BP 135/83; PULSE 98; O2SAT 98
== END 2017-01-25 11:45 | disposition home or self-care (01) | DRG 310 ==
LOC: ED 08:25 → ICU 10:28 → UNDOADMIN 10:28 → ICU 01-23 11:53 → UNDOADMIN 01-23 11:53
PROVIDERS: ADMIT Family Medicine; ATTEND Family Medicine
DX: I48.91 Unspecified atrial fibrillation (principal); I50.9 Heart failure, unspecified; I12.9 Hypertensive chronic kidney disease with stage 1 through stage 4 chronic kidney disease, or unspecified chronic kidney disease; N18.3 Chronic kidney disease, stage 3 (moderate); E11.9 Type 2 diabetes mellitus without complications; R74.0 Nonspecific elevation of levels of transaminase and lactic acid dehydrogenase [LDH]; R00.0 Tachycardia, unspecified; E03.9 Hypothyroidism, unspecified; F41.9 Anxiety disorder, unspecified; I25.10 Atherosclerotic heart disease of native coronary artery without angina pectoris; R79.89 Other specified abnormal findings of blood chemistry; Z95.810 Presence of automatic (implantable) cardiac defibrillator; Z79.01 Long term (current) use of anticoagulants; Z79.899 Other long term (current) drug therapy
CPT/HCPCS: 36000; 36415; 71010; 80048; 80053; 80162; 81000; 82962; 83605; 83735; 83880; 84484; 85025; 85027; 85379; 85610; 87040; 87086; 87631; 93005; 93041; 94150; 94640; 94760; 96360; 96365; 96374; 96375; 99285; G0008; J1940; 90662; A9270-GY

== ENCOUNTER 2017-01-31 16:48 | Emergency (ER) | payer MEDICARE, OTHER ==
--- NOTE | 2017-01-31 17:28 | ERPHSYRPT ---
- History of Present Illness Time Seen by Provider: 01/31/17 17:21 Source: patient, family Exam Limitations: no limitations Patient Subjective Stated Complaint: states has swelling to right side of neck since yesterday. also having dry mouth. Triage Nursing Assessment: right side of neck tender to touch. moderate swelling to right side of neck. Physician History: The patient is an 81-year-old female with her son complaining of worsening pain and swelling in her right jaw and neck since yesterday. She states that she has chronic dry mouth. She denies fever. Her past medical history is significant for chronic kidney disease, diabetes, anemia, a fit, congestive heart failure. Timing/Duration: yesterday Severity: moderate Modifying Factors: Improves With: nothing Associated Symptoms: denies symptoms Allergies/Adverse Reactions: No Known Drug Allergies Allergy (Verified 01/31/17 17:07) Home Medications: Allopurinol 300 mg [Zyloprim 300 mg] 300 mg PO DAILY 09/30/12 [History] Glipizide 10 mg PO DAILY 09/30/12 [History] Multivitamin W-Minerals/Lutein [Centrum Silver Tablet] 1 each PO DAILY 10/02/14 [History] Apixaban [Eliquis] 2.5 mg PO BID 08/17/16 [History] Levothyroxine Sodium 100 Mcg [Synthroid 100 Mcg] 100 mcg PO DAILY 08/17/16 [History] Rosuvastatin Calcium [Crestor] 10 mg PO DAILY 08/17/16 [History] Potassium Chloride 10 Meq Tab* [Klor Con 10 MEQ] 10 meq PO DAILY 12/03/16 [ History] Liraglutide [Victoza 2-Thong] 1.2 mg SQ DAILY 01/22/17 [History] Metformin HCl 500 mg [Glucophage 500 MG] 500 mg PO BIDWM 01/22/17 [History ] Oxybutynin Chloride 1 tab PO BID 01/22/17 [History] Sitagliptin Phosphate 50 MG [Januvia 50 MG] 100 mg PO DAILY 01/22/17 [ History] AMITRIPTYLINE HCL 50 mg Tab [AMITRIPTYLINE HCL 50 mg Tablet] 50 mg PO HS [History] Bumetanide 2 mg PO BID 01/31/17 [History] Magnesium Oxide 400 mg [Mag-Ox 400] 400 mg PO BID 01/31/17 [History] Hx Tetanus, Diphtheria Vaccination/Date Given: Yes Hx Influenza Vaccination/Date Given: Yes Hx Pneumococcal Vaccination/Date Given: Yes - Review of Systems Constitutional: No Symptoms, No Fever Eyes: No Symptoms Ears, Nose, & Throat: Other (jaw pain) Respiratory: No Cough, No Dyspnea Cardiac: No Chest Pain, No Edema, No Syncope Abdominal/Gastrointestinal: No Abdominal Pain, No Nausea, No Vomiting, No Diarrhea Genitourinary Symptoms: No Dysuria Musculoskeletal: No Back Pain, No Neck Pain Skin: No Rash Neurological: No Dizziness, No Focal Weakness, No Sensory Changes Psychological: No Symptoms Endocrine: No Symptoms Hematologic/Lymphatic: No Symptoms Immunological/Allergic: No Symptoms All Other Systems: Reviewed and Negative - Past Medical History Pertinent Past Medical History: Yes Neurological History: No Pertinent History ENT History: Cataracts Cardiac History: Arrhythmia, Coronary Artery Disease, Hypertension Respiratory History: CHF Endocrine Medical History: Diabetes Type II, Hypothyroidism Musculoskeletal History: Arthritis GI Medical History: No Pertinent History History: Renal Disease Psycho-Social History: No Pertinent History Female Reproductive Disorders: No Pertinent History Other Medical History: Pt to see kidney doctor next month for possible kidney failure - Past Surgical History Past Surgical History: Yes Neuro Surgical History: No Pertinent History Cardiac: Internal Defibrillator, Pacemaker Respiratory: No Pertinent History Gastrointestinal: Appendectomy Genitourinary: No Pertinent History Musculoskeletal: No Pertinent History Female Surgical History: Tubal Ligation - Social History Smoking Status: Never smoker Exposure to second hand smoke: No Alcohol Use: None Drug Use: none Patient Lives Alone: No Significant Family History: heart disease, hypertension - Female History Hx Now: No - Nursing Vital Signs Nursing Vital Signs: Initial Vital Signs Temperature 98.4 F 01/31/17 17:04 Pulse Rate 102 H 01/31/17 17:04 Respiratory Rate 18 01/31/17 17:04 Blood Pressure 107/56 01/31/17 17:04 O2 Sat by Pulse Oximetry 96 01/31/17 17:04 Pain Scale Pain Intensity [Right Neck] 10 Pain Intensity 10 - Physical Exam General Appearance: no apparent distress, alert Eye Exam: PERRL/EOMI, eyes nml inspection Ears, Nose, Throat Exam: pharynx normal, dry mucous membranes, other ( Examination of the oral cavity is unremarkable. Examination of the exterior region of the right lower jaw and right lateral neck reveals an area extending from the right mandible down the right neck about 3 cm with swelling and tenderness. The area is not erythematous.) Respiratory Exam: normal breath sounds, lungs clear, No respiratory distress Cardiovascular Exam: irregular Gastrointestinal/Abdomen Exam: soft, normal bowel sounds, No tenderness, No mass Pelvic Exam: not done Rectal Exam: not done Back Exam: normal inspection, normal range of motion, No CVA tenderness, No vertebral tenderness Extremity Exam: normal inspection, normal range of motion, pelvis stable Neurologic Exam: alert, oriented x 3, cooperative, normal mood/affect, nml cerebellar function, nml station & gait, sensation nml, No motor deficits Skin Exam: normal color, warm, dry, No rash Lymphatic Exam: No adenopathy SpO2 Interpretation: normal SpO2: 96 Oxygen Delivery: Room Air - Departure Time of Disposition: 17:37 Departure Disposition: Home Clinical Impression: Sialolithiasis of submandibular gland Condition: Stable Critical Care Time: No Referrals: FE BROWN [Primary Care Provider] - Additional Instructions: You have a plugged salivary gland on the right side. Use hard candy as often as possible today as well as apply a warm compress to the side of your face and neck. If the condition worsens, follow-up with your local doctor tomorrow or return to the ER.
[2017-01-31 18:03] VITALS: BP 129/76; PULSE 76; O2SAT 100
== END 2017-01-31 18:03 | disposition home or self-care (01) ==
LOC: ED 16:48
DX: K11.5 Sialolithiasis (principal)
CPT/HCPCS: 99281; 99283

== ENCOUNTER 2017-02-08 11:19 | Inpatient (IN) | payer MEDICARE, OTHER ==
[2017-02-08] MEDS ORDERED: Sodium Chloride 0.9% 10 ML FLUSH Syringe IV PRN (12:02)
[2017-02-08 13:10] LABS: Mean Cell Volume 91.6 fl (78-100); Mean Platelet Volume 11.3 fl (6-9.5); Platelet Count 263 K/mm3 (150-450); Red Blood Count 3.58 M/mm3 (4.1-5.4); Red Cell Distribution Width 17.7 % (11.5-14.0)
[2017-02-08 13:33] LABS: ALBUMIN 2.9 g/dL (3.4-5.0); ANION GAP 13.7 MEQ/L (5-15); BILIRUBIN,TOTAL 0.4 mg/dL (0.2-1.0); Carbon Dioxide 28.7 mEq/L (21-32); Potassium 4.1 mEq/L (3.5-5.1); Total Protein 6.5 gm/dL (6.4-8.2)
--- NOTE | 2017-02-08 13:37 | XRAY ---
Indication: CHF. Weakness. Comparison: February 05, 2017. PA/lateral chest again hyperinflated and clear with cardiomegaly and left-sided AICD/leads. No new/acute findings.
--- NOTE | 2017-02-08 13:40 | XRAY ---
Indication: Right facial swelling. Multiple contiguous images obtained through the neck without contrast as ordered. Cutaneous marker was placed over the region of interest. Comparison: None Patient is edentulous. Right cutaneous marker corresponds to enlarged edematous parotid gland with some stranding favoring parotiditis. A few centimeter/subcentimeter reactive right cervical lymph nodes. No pathologic cervical/supraclavicular lymphadenopathy. Submandibular glands are bilaterally symmetric. Supra-and infraglottic airway widely patent. Normal epiglottis. Visualized cervical spine intact with minimal C5-C6 degenerative changes. Visualized paranasal sinuses clear. Base of the brain and lung apices unremarkable. Partially visualized left cardiac pacer lead. Impression: Right parotiditis with a few reactive cervical lymph nodes. CT DI 11.47
[2017-02-08 13:50] LABS: Mean Corpuscular Hemoglobin 27.3 pg (26-32)
[2017-02-08 13:59] LABS: Eosinophil 1 % (0.00-3.0); Platelet Estimate NORMAL (NORMAL); Total Cells Counted 100
[2017-02-08] MEDS ORDERED: PHARMACY DOSING REQUIRED: VANCOMYCIN IV ONE (14:26)
[2017-02-08] MEDS ORDERED: VANCOCIN 1 GM VIAL*** 1 GM in Sodium Chloride 0.9% 250 ML 250 ML IV ONE (14:45)
[2017-02-08] MEDS: Sodium Chloride 0.9% 10 ML FLUSH Syringe IV SCH ×2 (15:32→21:27)
[2017-02-08] MEDS: FLAGYL 500 MG IVPB 500 MG/100 ML BAG IV SCH ×2 (17:08→21:25)
[2017-02-08] MEDS: Sodium Chloride 0.9% 1000 ML 1,000 ML IV SCH (17:08)
[2017-02-08] MEDS: Furosemide 100mg/10 ml Vial IV SCH (17:11)
[2017-02-08] MEDS ORDERED: PROVENTIL COMMON CANISTER IH PRN (18:00)
[2017-02-08] MEDS ORDERED: POLYVINYL ALCOHOL OP PRN (18:00)
[2017-02-08] MEDS ORDERED: Artificial Tears 15 ML OP PRN (18:09)
[2017-02-08 19:09] LABS: Collection Type CCMS
[2017-02-08 19:10] LABS: Bilirubin NEGATIVE (NEGATIVE); Blood NEGATIVE Ery/ul (0-5); COMPLETE URINE MICROSCOPIC? YES; Glucose NEGATIVE (NEGATIVE); Leukocyte Esterase 2+ (NEGATIVE); WBC 50-100 /HPF (0-5)
[2017-02-08 19:11] LABS: Bacteria FEW /HPF (NEGATIVE); Epithelial Cells FEW /HPF (FEW)
[2017-02-08] MEDS: Lopressor 50 MG PO SCH (21:26)
[2017-02-08] MEDS: MAG-OX 400 PO SCH (21:27)
[2017-02-08] MEDS: Ditropan 5 MG PO SCH (21:27)
[2017-02-09] MEDS ORDERED: Norco 10/325 MG Tablet PO PRN (00:38)
[2017-02-09] MEDS ORDERED: TYLENOL 325 MG PO PRN (00:40)
[2017-02-09 05:48] LABS: Mean Cell Volume 91.9 fl (78-100); Mean Corpuscular Hemoglobin 27.5 pg (26-32); Mean Platelet Volume 11.3 fl (6-9.5); Platelet Count 255 K/mm3 (150-450); Red Blood Count 3.45 M/mm3 (4.1-5.4); White Blood Count 13.9 K/mm3 (4.0-10.5)
[2017-02-09 06:01] LABS: ANION GAP 8.7 MEQ/L (5-15); Carbon Dioxide 31.3 mEq/L (21-32); Potassium 4.2 mEq/L (3.5-5.1)
[2017-02-09] MEDS: Sodium Chloride 0.9% 1000 ML 1,000 ML IV SCH (07:25)
[2017-02-09] MEDS: PROVENTIL COMMON CANISTER IH SCH (08:00)
--- NOTE | 2017-02-09 08:38 | PCM.NOTE ---
Date and Time: 02/09/17832 Subjective Assessment: Pt admitted from office yesterday with weakness and swelling of R neck. Found to have parotiditis with elevated WBC count and started on IV vancomycin and flagyl. She also has chronic CHF with elevated BNP. This morning she feels better, but has not been up out of bed. Tolerating po well. - Review of Systems Constitutional: No Fever Ears, Nose, & Throat: Throat Pain Objective Exam General Appearance: no apparent distress, alert Neurologic Exam: oriented x 3, cooperative Skin Exam: normal color, warm, dry Neck Exam: other (visible enlargement R preauricular area - hard to palpation with tenderness. no erythema or fluctuance. no exudate o rlesions.) Respiratory Exam: diminished breath sounds, No crackles/rales, No rhonchi, No wheezing Cardiovascular Exam: regular rate/rhythm, No murmur Gastrointestinal/Abdomen Exam: soft, normal bowel sounds, No tenderness, No distention, No mass Extremity Exam: normal inspection, No pedal edema, No swelling Back Exam: normal inspection OBJECTIVE DATA Vital Signs: Vital Signs - 24 hr Temp Pulse Resp BP Pulse Ox 02/09/17 07:33 98.1 F 83 17 115/59 97 02/09/17 04:00 98.8 F 80 18 118/86 99 02/09/17 00:00 98.4 F 87 18 115/57 100 02/08/17 20:00 97.7 F 84 19 111/61 98 02/08/17 19:51 87 20 99 02/08/17 16:00 98.1 F 76 18 117/58 99 02/08/17 13:50 97.8 F 86 20 115/58 98 02/08/17 11:46 98.2 F 94 H 20 128/75 97 Oxygen-Last 24 hours O2 Percentage 2 Liters = 28% O2 Percentage 2 Liters = 28% O2 Percentage 2 Liters = 28% O2 Percentage 2 Liters = 28% O2 Percentage 2 Liters = 28% O2 Percentage 2 Liters = 28% Pain Assessment - Last Documented Pain Intensity 8 Pain Scale Used 0-10 Pain Scale Intake and Output: Intake & Output 02/06/17 02/07/17 02/08/17 02/09/17 11:59 11:59 11:59 11:59 Intake Total 600 Output Total 1100 Balance -500 Weight 77.564 kg Lab Results: Accuchecks Date 02/08/17 Date 02/08/17 Time 16:20 Time 16:20 Accucheck Value: 195 Accucheck Value: 161 Accucheck Value: 144 Lab Results-Last 24 Hours 02/08/17 02/08/17 02/08/17 Range/Units 12:50 12:50 12:50 WBC 15.0 H (4.0-10.5) K/mm3 RBC 3.58 L (4.1-5.4) M/mm3 Hgb 9.8 L (12.0-16.0) gm/dl Hct 32.8 L (35-47) % MCV 91.6 (78-100) fl MCH 27.3 (26-32) pg MCHC 29.9 L (32-36) g/dl RDW 17.7 H (11.5-14.0) % Plt Count 263 (150-450) K/mm3 MPV 11.3 H (6-9.5) fl Segmented Neutrophils 90 H (36.0-66.0) % Lymphocytes (Manual) 6 L (24-44) % Monocytes (Manual) 3 (0.0-12.0) % Eosinophils (Manual) 1 (0.00-3.0) % Differential Comment NORMAL Platelet Estimate NORMAL (NORMAL) Sodium 139 (136-145) mEq/L Potassium 4.1 (3.5-5.1) mEq/L Chloride 101 (98-107) mEq/L Carbon Dioxide 28.7 (21-32) mEq/L Anion Gap 13.7 (5-15) MEQ/L BUN 23 H (9-20) mg/dL Creatinine 1.32 H (0.55-1.30) mg/dl Estimated GFR 41 ML/MIN Glucose 207 H (70-110) MG/DL Hemoglobin A1c 8.9 H (4.5-6.2) Calcium 8.6 (8.5-10.1) mg/dL Total Bilirubin 0.40 (0.2-1.0) mg/dL AST 30 (15-37) U/L ALT 24 (12-78) U/L Alkaline Phosphatase 135 H (46-116) U/L Troponin I (0.000-0.056) ng/ml NT-Pro-B Natriuret Pep 2167 H (0-450) pg/ml Serum Total Protein 6.5 (6.4-8.2) gm/dL Albumin 2.9 L (3.4-5.0) g/dL Ur Collection Type Urine Color (YELLOW) Urine Appearance (CLEAR) Urine pH (5-6) Ur Specific [place] (1.005-1.025) Urine Protein (Negative) Urine Ketones (NEGATIVE) Urine Blood (0-5) Allan/ul Urine Nitrite (NEGATIVE) Urine Bilirubin (NEGATIVE) Urine Urobilinogen (0-1) mg/dL Ur Leukocyte Esterase (NEGATIVE) Urine Microscopic WBC (0-5) /HPF Ur Epithelial Cells (FEW) /HPF Urine Bacteria (NEGATIVE) /HPF Urine Glucose (NEGATIVE) mg/dL Specimen Received 02/08/17 02/08/17 02/09/17 Range/Units 12:51 18:31 05:10 WBC 13.9 H (4.0-10.5) K/mm3 RBC 3.45 L (4.1-5.4) M/mm3 Hgb 9.5 L (12.0-16.0) gm/dl Hct 31.7 L (35-47) % MCV 91.9 (78-100) fl MCH 27.5 (26-32) pg MCHC 30.0 L (32-36) g/dl RDW 18.0 H (11.5-14.0) % Plt Count 255 (150-450) K/mm3 MPV 11.3 H (6-9.5) fl Segmented Neutrophils (36.0-66.0) % Lymphocytes (Manual) (24-44) % Monocytes (Manual) (0.0-12.0) % Eosinophils (Manual) (0.00-3.0) % Differential Comment Platelet Estimate (NORMAL) Sodium (136-145) mEq/L Potassium (3.5-5.1) mEq/L Chloride (98-107) mEq/L Carbon Dioxide (21-32) mEq/L Anion Gap (5-15) MEQ/L BUN (9-20) mg/dL Creatinine (0.55-1.30) mg/dl Estimated GFR ML/MIN Glucose (70-110) MG/DL Hemoglobin A1c (4.5-6.2) Calcium (8.5-10.1) mg/dL Total Bilirubin (0.2-1.0) mg/dL AST (15-37) U/L ALT (12-78) U/L Alkaline Phosphatase (46-116) U/L Troponin I < 0.017 (0.000-0.056) ng/ml NT-Pro-B Natriuret Pep (0-450) pg/ml Serum Total Protein (6.4-8.2) gm/dL Albumin (3.4-5.0) g/dL Ur Collection Type CCMS Urine Color YELLOW (YELLOW) Urine Appearance SLIGHTLY CLOUDY (CLEAR) Urine pH 6.0 (5-6) Ur Specific [place] 1.015 (1.005-1.025) Urine Protein NEGATIVE (Negative) Urine Ketones NEGATIVE (NEGATIVE) Urine Blood NEGATIVE (0-5) Allan/ul Urine Nitrite NEGATIVE (NEGATIVE) Urine Bilirubin NEGATIVE (NEGATIVE) Urine Urobilinogen NORMAL (0-1) mg/dL Ur Leukocyte Esterase 2+ (NEGATIVE) Urine Microscopic WBC 50-100 (0-5) /HPF Ur Epithelial Cells FEW (FEW) /HPF Urine Bacteria FEW (NEGATIVE) /HPF Urine Glucose NEGATIVE (NEGATIVE) mg/dL Specimen Received 02-08-17 1900 02/09/17 02/09/17 Range/Units 05:10 05:10 WBC (4.0-10.5) K/mm3 RBC (4.1-5.4) M/mm3 Hgb (12.0-16.0) gm/dl Hct (35-47) % MCV (78-100) fl MCH (26-32) pg MCHC (32-36) g/dl RDW (11.5-14.0) % Plt Count (150-450) K/mm3 MPV (6-9.5) fl Segmented Neutrophils (36.0-66.0) % Lymphocytes (Manual) (24-44) % Monocytes (Manual) (0.0-12.0) % Eosinophils (Manual) (0.00-3.0) % Differential Comment Platelet Estimate (NORMAL) Sodium 139 (136-145) mEq/L Potassium 4.2 (3.5-5.1) mEq/L Chloride 103 (98-107) mEq/L Carbon Dioxide 31.3 (21-32) mEq/L Anion Gap 8.7 (5-15) MEQ/L BUN 27 H (9-20) mg/dL Creatinine 1.39 H (0.55-1.30) mg/dl Estimated GFR 39 ML/MIN Glucose 147 H (70-110) MG/DL Hemoglobin A1c (4.5-6.2) Calcium 8.3 L (8.5-10.1) mg/dL Total Bilirubin (0.2-1.0) mg/dL AST (15-37) U/L ALT (12-78) U/L Alkaline Phosphatase (46-116) U/L Troponin I (0.000-0.056) ng/ml NT-Pro-B Natriuret Pep 1793 H (0-450) pg/ml Serum Total Protein (6.4-8.2) gm/dL Albumin (3.4-5.0) g/dL Ur Collection Type Urine Color (YELLOW) Urine Appearance (CLEAR) Urine pH (5-6) Ur Specific [place] (1.005-1.025) Urine Protein (Negative) Urine Ketones (NEGATIVE) Urine Blood (0-5) Allan/ul Urine Nitrite (NEGATIVE) Urine Bilirubin (NEGATIVE) Urine Urobilinogen (0-1) mg/dL Ur Leukocyte Esterase (NEGATIVE) Urine Microscopic WBC (0-5) /HPF Ur Epithelial Cells (FEW) /HPF Urine Bacteria (NEGATIVE) /HPF Urine Glucose (NEGATIVE) mg/dL Specimen Received Radiology Exams: Radiology Procedures Category Date Time Status CHEST 2 VIEWS (PA AND LAT) Routine Exams 02/08/17 12:50 Completed NECK WO CONTRAST [CT] Routine Exams 02/08/17 12:45 Completed Assessment/Plan (1) Parotiditis Current Visit: Yes Status: Acute Assessment & Plan: On IV vancomycin and flagyl. She will likely be here several more days. Code(s): K11.20 - SIALOADENITIS, UNSPECIFIED (2) UTI (urinary tract infection) Current Visit: Yes Status: Acute Qualifiers: Urinary tract infection type: acute cystitis Hematuria presence: without hematuria Qualified Code(s): N30.00 - Acute cystitis without hematuria Assessment & Plan: urine culture pending. Code(s): N39.0 - URINARY TRACT INFECTION, SITE NOT SPECIFIED (3) CHF (congestive heart failure) Current Visit: No Status: Acute Qualifiers: Congestive heart failure chronicity: acute on chronic Assessment & Plan: pro BNP is improved since admission. lung sounds are good. Code(s): I50.9 - HEART FAILURE, UNSPECIFIED (4) Weakness Current Visit: No Status: Acute Assessment & Plan: will have PT eval today. Code(s): R53.1 - WEAKNESS (5) CKD (chronic kidney disease) stage 3, GFR 30-59 ml/min Current Visit: No Status: Chronic Assessment & Plan: renal function is worse since we are diuresing her. If it worsens considerably we could consult Dr. Lee her territory business manager. She does have an outpatient appointment next week. Code(s): N18.3 - CHRONIC KIDNEY DISEASE, STAGE 3 (MODERATE) (6) Diabetes type 2, controlled Current Visit: No Status: Chronic Qualifiers: Diabetes mellitus complication status: with kidney complications Diabetes mellitus complication detail: with chronic kidney disease Diabetes mellitus buttermilk drier operator insulin use: without buttermilk drier operator use Chronic kidney disease stage: stage 3 (moderate) Qualified Code(s): E11.22 - Type 2 diabetes mellitus with diabetic chronic kidney disease; N18.3 - Chronic kidney disease, stage 3 ( moderate); N18.3 - Chronic kidney disease, stage 3 (moderate) Assessment & Plan: BS [id number] here. Code(s): E11.9 - TYPE 2 DIABETES MELLITUS WITHOUT COMPLICATIONS
[2017-02-09] MEDS ORDERED: OXYCODONE-ACETAMINOPHEN 10-325 PO PRN (09:00)
[2017-02-09] MEDS: Lopressor 50 MG PO SCH ×2 (09:26→21:21)
[2017-02-09] MEDS: Januvia 50 MG PO SCH (09:26)
[2017-02-09] MEDS: SYNTHROID 100 MCG PO SCH (09:26)
[2017-02-09] MEDS: ZYLOPRIM 300 MG PO SCH (09:26)
[2017-02-09] MEDS: MAG-OX 400 PO SCH ×2 (09:26→21:20)
[2017-02-09] MEDS: FLAGYL 500 MG IVPB 500 MG/100 ML BAG IV SCH ×4 (09:26→21:22)
[2017-02-09] MEDS: Ditropan 5 MG PO SCH ×2 (09:26→21:21)
[2017-02-09] MEDS: Klor Con 10 MEQ PO SCH (09:26)
[2017-02-09] MEDS: Furosemide 100mg/10 ml Vial IV SCH (09:28)
[2017-02-09] MEDS: ENOXAPARIN SODIUM SQ SCH (09:28)
[2017-02-09] MEDS: VANCOCIN 1 GM VIAL*** 0.75 GM in Sodium Chloride 0.9% 250 ML 250 ML IV SCH (11:20)
[2017-02-09] MEDS: Sodium Chloride 0.9% 10 ML FLUSH Syringe IV SCH ×3 (13:46→21:28)
[2017-02-10] MEDS: NovoLOG Insulin SQ PRN ×2 (00:07→17:59)
[2017-02-10] MEDS: Sodium Chloride 0.9% 1000 ML 1,000 ML IV SCH ×2 (01:30→16:33)
[2017-02-10] MEDS: PROVENTIL COMMON CANISTER IH SCH (07:09)
[2017-02-10 08:08] LABS: Mean Cell Volume 90.7 fl (78-100); Mean Corpuscular Hemoglobin 27.5 pg (26-32); Mean Platelet Volume 11.1 fl (6-9.5); Platelet Count 259 K/mm3 (150-450); Red Blood Count 3.67 M/mm3 (4.1-5.4); White Blood Count 11.9 K/mm3 (4.0-10.5)
[2017-02-10 08:15] LABS: Carbon Dioxide 27.8 mEq/L (21-32); Potassium 4.1 mEq/L (3.5-5.1)
--- NOTE | 2017-02-10 08:39 | PCM.NOTE ---
Date and Time: 02/10/17 0836 Subjective Assessment: Breathing is good. Still c/o throat pain. Thinks her neck feels a little bit better. Objective Exam General Appearance: no apparent distress, alert Neurologic Exam: oriented x 3, cooperative Skin Exam: normal color, warm, dry Neck Exam: other (Hard indistinct mass R neck, preauricular extending inferior to mandible. ttp) Respiratory Exam: normal breath sounds, No crackles/rales, No rhonchi, No wheezing Cardiovascular Exam: regular rate/rhythm, normal heart sounds, No murmur Extremity Exam: No pedal edema, No swelling OBJECTIVE DATA Vital Signs: Vital Signs - 24 hr Temp Pulse Resp BP Pulse Ox 02/10/17 07:35 97.3 F 95 H 16 118/57 94 L 02/10/17 07:14 92 H 18 94 L 02/10/17 04:00 97.6 F 96 H 18 98/56 94 L 02/10/17 00:00 97.6 F 90 14 123/68 92 L 02/09/17 20:20 98 02/09/17 20:00 97.8 F 88 18 115/60 96 02/09/17 16:00 98.3 F 96 H 18 123/69 96 02/09/17 11:25 97.9 F 86 18 105/56 96 Oxygen-Last 24 hours O2 Percentage 2 Liters = 28% O2 Percentage 2 Liters = 28% O2 Percentage 2 Liters = 28% O2 Percentage 2 Liters = 28% Pain Assessment - Last Documented Pain Intensity 8 Pain Scale Used 0-10 Pain Scale Intake and Output: Intake & Output 02/07/17 02/08/17 02/09/17 02/10/17 11:59 11:59 11:59 11:59 Intake Total 600 4786 Output Total 1100 750 Balance -500 4036 Weight 77.564 kg 78.789 kg 83.263 kg Lab Results: Accuchecks Date 02/10/17 Date 02/09/17 Time 07:30 Time 22:00 Accucheck Value: 165 Accucheck Value: 217 Accucheck Value: 200 Accucheck Value: 188 Lab Results-Last 24 Hours 02/10/17 Range/Units 07:45 WBC 11.9 H (4.0-10.5) K/mm3 RBC 3.67 L (4.1-5.4) M/mm3 Hgb 10.1 L (12.0-16.0) gm/dl Hct 33.3 L (35-47) % MCV 90.7 (78-100) fl MCH 27.5 (26-32) pg MCHC 30.3 L (32-36) g/dl RDW 18.0 H (11.5-14.0) % Plt Count 259 (150-450) K/mm3 MPV 11.1 H (6-9.5) fl Radiology Exams: Radiology Procedures Category Date Time Status CHEST 2 VIEWS (PA AND LAT) Routine Exams 02/08/17 12:50 Completed NECK WO CONTRAST [CT] Routine Exams 02/08/17 12:45 Completed Multi-Disciplinary Progress Notes: Multi-Disciplinary Progress Notes 02/09/17 09:55 (created 02/09/17 14:05) Case Management Note by Zoie Mejia DISCHARGE PLAN REVIEWED WITH PT AND . PT REPORTS THAT SHE COMPLETES ADL' S WITH ASSIST OF . REPORTS THAT PT IS ABLE TO GET IN/OUT OF BATH INDEPENDENTLY. HE DOES ASSIST WITH DRESSING. PT REPORTS THAT SHE TOILETS HERSELF. PT HAS ROLLATOR WALKER WITH SEAT AT HOME AND USES FOR AMBULATION. PT ALSO REPORTS THAT THEY HAVE A HIRED CAREGIVER THAT ASSISTS DAILY WELL. DISCUSSED AND ENCOURAGED C SERVICES FOR [facility] SUPPORT. DECLINED NEED AT THIS TIME. PT/ REPORTS THAT THEY PLAN TO RETURN HOME TO PRE EPISODIC LEVEL OF [facility]. DECLINED [facility] NEEDS FOR DISCHARGE. WILL CONTINUE TO FOLLOW AND ASSESS FOR ALL DC NEEDS. Initialized on 02/09/17 14:05 - END OF NOTE Assessment/Plan (1) Parotiditis Current Visit: Yes Status: Acute Assessment & Plan: Some minimal improvement. on vancomycin and flagyl. Code(s): K11.20 - SIALOADENITIS, UNSPECIFIED (2) UTI (urinary tract infection) Current Visit: Yes Status: Acute Qualifiers: Urinary tract infection type: acute cystitis Hematuria presence: without hematuria Qualified Code(s): N30.00 - Acute cystitis without hematuria Assessment & Plan: culture is pending. Code(s): N39.0 - URINARY TRACT INFECTION, SITE NOT SPECIFIED (3) CHF (congestive heart failure) Current Visit: No Status: Resolved Qualifiers: Congestive heart failure chronicity: acute on chronic Assessment & Plan: labs pending. breathing is good this morning and exam is benign. Code(s): I50.9 - HEART FAILURE, UNSPECIFIED (4) Weakness Current Visit: Yes Status: Acute Assessment & Plan: PT to get pt out of bed today Code(s): R53.1 - WEAKNESS (5) CKD (chronic kidney disease) stage 3, GFR 30-59 ml/min Current Visit: No Status: Chronic Code(s): N18.3 - CHRONIC KIDNEY DISEASE, STAGE 3 (MODERATE) (6) Diabetes type 2, controlled Current Visit: No Status: Chronic Qualifiers: Diabetes mellitus complication status: with kidney complications Diabetes mellitus complication detail: with chronic kidney disease Diabetes mellitus custodial insulin use: without exterminator termite use Chronic kidney disease stage: stage 3 (moderate) Qualified Code(s): E11.22 - Type 2 diabetes mellitus with diabetic chronic kidney disease; N18.3 - Chronic kidney disease, stage 3 ( moderate); N18.3 - Chronic kidney disease, stage 3 (moderate) Assessment & Plan: BS 144-200 Code(s): E11.9 - TYPE 2 DIABETES MELLITUS WITHOUT COMPLICATIONS
[2017-02-10] MEDS: Klor Con 10 MEQ PO SCH (08:53)
[2017-02-10] MEDS: ENOXAPARIN SODIUM SQ SCH (08:53)
[2017-02-10] MEDS: Januvia 50 MG PO SCH (08:53)
[2017-02-10] MEDS: ZYLOPRIM 300 MG PO SCH (08:53)
[2017-02-10] MEDS: Ditropan 5 MG PO SCH ×2 (08:53→22:44)
[2017-02-10] MEDS: SYNTHROID 100 MCG PO SCH (08:53)
[2017-02-10] MEDS: MAG-OX 400 PO SCH ×2 (08:53→22:44)
[2017-02-10] MEDS: Lopressor 50 MG PO SCH ×2 (08:54→22:44)
[2017-02-10] MEDS: Furosemide 100mg/10 ml Vial IV SCH (08:55)
[2017-02-10] MEDS: FLAGYL 500 MG IVPB 500 MG/100 ML BAG IV SCH ×4 (08:56→22:45)
[2017-02-10] MEDS: Nystatin SUSPENSION 60 ML PO SCH ×4 (09:07→22:45)
[2017-02-10] MEDS: VANCOCIN 1 GM VIAL*** 0.75 GM in Sodium Chloride 0.9% 250 ML 250 ML IV SCH (09:59)
[2017-02-10] MEDS: Sodium Chloride 0.9% 10 ML FLUSH Syringe IV SCH ×3 (09:59→22:54)
[2017-02-11] MEDS: Sodium Chloride 0.9% 10 ML FLUSH Syringe IV SCH (05:59)
[2017-02-11] MEDS: PROVENTIL COMMON CANISTER IH SCH (07:21)
--- NOTE | 2017-02-11 08:29 | PCM.NOTE ---
Date and Time: 02/11/17821 Subjective Assessment: Pt states she is feeling "better all over." Her son notes she was a little disoriented earlier, and had trouble handling her silverware so he fed her. She says the pain in the neck and the throat are both improved. Breathing is somewhat better. PT note states she still requires moderate assist at some activities. - Review of Systems Constitutional: No Fever Ears, Nose, & Throat: Throat Pain (improved) Objective Exam General Appearance: no apparent distress, alert Neurologic Exam: cooperative Skin Exam: warm, dry, other (mild purple macular discoloration base of mass R neck) Neck Exam: other (approx 10x6cm firm mass R lateral neck, pre-auricular extending to inferior to mandible. mildly ttp today.) Respiratory Exam: diminished breath sounds, No crackles/rales, No rhonchi, No wheezing Cardiovascular Exam: regular rate/rhythm, normal heart sounds, No murmur Gastrointestinal/Abdomen Exam: soft, normal bowel sounds, No tenderness Extremity Exam: No pedal edema, No swelling OBJECTIVE DATA Vital Signs: Vital Signs - 24 hr Temp Pulse Resp BP Pulse Ox 02/11/17 07:24 89 20 95 02/11/17 07:21 98 F 96 H 20 119/70 97 02/11/17 04:00 97.8 F 97 H 18 117/69 96 02/11/17 00:00 97.3 F 90 16 114/68 95 02/10/17 20:21 98.3 F 81 17 110/60 95 02/10/17 16:00 98.2 F 81 16 109/62 91 L 02/10/17 11:15 97.3 F 92 H 16 98/54 92 L Pain Assessment - Last Documented Pain Intensity 8 Pain Scale Used 0-10 Pain Scale Intake and Output: Intake & Output 02/08/17 02/09/17 02/10/17 02/11/17 11:59 11:59 11:59 11:59 Intake Total 600 5146 680 Output Total 1100 750 1 Balance -500 4396 679 Weight 77.564 kg 78.789 kg 83.263 kg 84.459 kg Lab Results: Accuchecks Date 02/10/17 Date 02/10/17 Date 02/10/17 Time 22:00 Time 16:30 Time 11:30 Accucheck Value: 198 Accucheck Value: 222 Accucheck Value: 181 Lab Results-Last 24 Hours 02/10/17 02/10/17 02/10/17 Range/Units 07:45 07:45 07:45 WBC 11.9 H (4.0-10.5) K/mm3 RBC 3.67 L (4.1-5.4) M/mm3 Hgb 10.1 L (12.0-16.0) gm/dl Hct 33.3 L (35-47) % MCV 90.7 (78-100) fl MCH 27.5 (26-32) pg MCHC 30.3 L (32-36) g/dl RDW 18.0 H (11.5-14.0) % Plt Count 259 (150-450) K/mm3 MPV 11.1 H (6-9.5) fl Sodium 136 (136-145) mEq/L Potassium 4.1 (3.5-5.1) mEq/L Chloride 102 (98-107) mEq/L Carbon Dioxide 27.8 (21-32) mEq/L Anion Gap 10.0 (5-15) MEQ/L BUN 26 H (9-20) mg/dL Creatinine 1.20 (0.55-1.30) mg/dl Estimated GFR 46 ML/MIN Glucose 170 H (70-110) MG/DL Calcium 8.3 L (8.5-10.1) mg/dL NT-Pro-B Natriuret Pep 1986 H (0-450) pg/ml Multi-Disciplinary Progress Notes: Multi-Disciplinary Progress Notes 02/10/17 17:19 Physical Therapy Note by Trish Louis PT. REPORTS NO C/O THIS DATE. DID NOTE DECREASED EDEMA R PAROTID AREA. PT. PERFORMED BED MOBILITY W/ MOD ASSIST. SIT TO STAND W/ MIN TO MOD ASSIST W/ MOD ASSIST TO SCOOT WELL. PT. AMBULATED ~30' X2 W/ ROLLER WALKER AND MIN/MOD ASSIST. PT. DID DEMO SHORTER STRIDE LENGTH AND TENDENCY TO SHUFFLE W/ HER GAIT TODAY MORE SO THAN YESTERDAY. CONT. W/ PT 5X/WK UNTIL D/C. TRISH LOUIS PT Initialized on 02/10/17 17:19 - END OF NOTE Assessment/Plan (1) Parotiditis Current Visit: Yes Status: Acute Assessment & Plan: day #4 of IV vancomycin and flagyl. She is having some mild improvement. No abscess on CT at admission. I will discuss with ENT today; they are willing to transfer if necessary. Code(s): K11.20 - SIALOADENITIS, UNSPECIFIED (2) UTI (urinary tract infection) Current Visit: Yes Status: Suspected Qualifiers: Urinary tract infection type: acute cystitis Hematuria presence: without hematuria Qualified Code(s): N30.00 - Acute cystitis without hematuria Assessment & Plan: UCx neg. Code(s): N39.0 - URINARY TRACT INFECTION, SITE NOT SPECIFIED (3) CHF (congestive heart failure) Current Visit: No Status: Resolved Qualifiers: Congestive heart failure chronicity: acute on chronic Assessment & Plan: Have been diuresing with 80mg IV lasix daily. Always balancing fluid status. Code(s): I50.9 - HEART FAILURE, UNSPECIFIED (4) Weakness Current Visit: Yes Status: Acute Assessment & Plan: PT recommends she come 5x/wk for therapy until discharge. She had therapy recently during short LTCF admission and was functionally doing great until this illness. Code(s): R53.1 - WEAKNESS (5) CKD (chronic kidney disease) stage 3, GFR 30-59 ml/min Current Visit: No Status: Chronic Assessment & Plan: recheck labs today. Code(s): N18.3 - CHRONIC KIDNEY DISEASE, STAGE 3 (MODERATE) (6) Diabetes type 2, controlled Current Visit: No Status: Chronic Qualifiers: Diabetes mellitus complication status: with kidney complications Diabetes mellitus complication detail: with chronic kidney disease Diabetes mellitus gang drill press operator insulin use: without gang drill press operator use Chronic kidney disease stage: stage 3 (moderate) Qualified Code(s): E11.22 - Type 2 diabetes mellitus with diabetic chronic kidney disease; N18.3 - Chronic kidney disease, stage 3 ( moderate); N18.3 - Chronic kidney disease, stage 3 (moderate) Assessment & Plan: BS 180s-200 here. Code(s): E11.9 - TYPE 2 DIABETES MELLITUS WITHOUT COMPLICATIONS
[2017-02-11 08:31] LABS: Mean Cell Volume 91.7 fl (78-100); Mean Corpuscular Hemoglobin 27.2 pg (26-32); Mean Platelet Volume 11.3 fl (6-9.5); Platelet Count 262 K/mm3 (150-450); Red Blood Count 3.75 M/mm3 (4.1-5.4); Red Cell Distribution Width 18.2 % (11.5-14.0); White Blood Count 13.5 K/mm3 (4.0-10.5)
[2017-02-11 08:50] LABS: ANION GAP 12.3 MEQ/L (5-15); Carbon Dioxide 25.2 mEq/L (21-32); Potassium 4.7 mEq/L (3.5-5.1)
[2017-02-11] MEDS ORDERED: TROUGH DRUG LEVELS IJ ONE (09:30)
[2017-02-11] MEDS: Sodium Chloride 0.9% 1000 ML 1,000 ML IV SCH (09:32)
[2017-02-11 09:40] LABS: ANISOCYTOSIS 1+; Poikilocytosis 1+; Total Cells Counted 100
[2017-02-11 09:41] LABS: Platelet Estimate NORMAL (NORMAL); Schistocytes 1+
[2017-02-11] MEDS: Furosemide 100mg/10 ml Vial IV SCH (09:52)
[2017-02-11] MEDS: MAG-OX 400 PO SCH ×2 (09:59→22:16)
[2017-02-11] MEDS: Januvia 50 MG PO SCH (09:59)
[2017-02-11] MEDS: ZYLOPRIM 300 MG PO SCH (09:59)
[2017-02-11] MEDS: Lopressor 50 MG PO SCH ×2 (09:59→22:17)
[2017-02-11] MEDS: Klor Con 10 MEQ PO SCH (10:00)
[2017-02-11] MEDS: SYNTHROID 100 MCG PO SCH (10:00)
[2017-02-11] MEDS: Ditropan 5 MG PO SCH ×2 (10:00→22:17)
[2017-02-11] MEDS: FLAGYL 500 MG IVPB 500 MG/100 ML BAG IV SCH ×4 (10:03→22:14)
[2017-02-11] MEDS: Nystatin SUSPENSION 60 ML PO SCH ×4 (10:06→22:15)
[2017-02-11] MEDS: ENOXAPARIN SODIUM SQ SCH (10:07)
[2017-02-11] MEDS: VANCOCIN 1 GM VIAL*** 0.75 GM in Sodium Chloride 0.9% 250 ML 250 ML IV SCH (11:45)
[2017-02-11] MEDS: NovoLOG Insulin SQ PRN (12:48)
[2017-02-11] MEDS ORDERED: Dulcolax 10 MG SUPP PR PRN (21:23)
[2017-02-12] MEDS: PROVENTIL COMMON CANISTER IH SCH ×3 (07:26→09:03)
--- NOTE | 2017-02-12 08:17 | PCM.NOTE ---
Date and Time: 02/12/17 08 Subjective Assessment: still with significant pain in the right neck with firm swelling no fevers tolerating po well very weak knees buckling if she tries to stand Objective Exam General Appearance: no apparent distress, obese Neurologic Exam: alert, oriented x 3 Skin Exam: warm, dry Ears, Nose, Throat Exam: dry mucous membranes (mild erythema of toungue), other (right parotid gland hard palpation of duct reveals no obvious stone the actual gland is very firm no fluctance appreciated no redness mildly warm) Neck Exam: supple Respiratory Exam: lungs clear Cardiovascular Exam: regular rate/rhythm, edema Gastrointestinal/Abdomen Exam: soft, normal bowel sounds, No tenderness Extremity Exam: pedal edema OBJECTIVE DATA Vital Signs: Vital Signs - 24 hr Temp Pulse Resp BP Pulse Ox 02/12/17 07:36 97.6 F 93 H 20 144/78 94 L 02/12/17 04:00 97.5 F 89 18 131/75 94 L 02/12/17 00:00 97.7 F 96 H 18 147/70 92 L 02/11/17 20:14 98.0 F 85 22 123/73 98 02/11/17 15:55 98.1 F 96 H 20 126/74 95 02/11/17 11:05 97.8 F 68 20 120/68 96 Pain Assessment - Last Documented Pain Intensity 8 Pain Scale Used 0-10 Pain Scale Intake and Output: Intake & Output 02/09/17 02/10/17 02/11/17 02/12/17 11:59 11:59 11:59 11:59 Intake Total 600 5146 1040 1324 Output Total 1100 750 1 1000 Balance -500 4396 1039 324 Weight 78.789 kg 83.263 kg 84.459 kg 88.904 kg Lab Results: Accuchecks Date 02/12/17 Date 02/11/17 Date 02/11/17 Date 02/11/17 Time 07:27 Time 16:30 Time 11:30 Accucheck Value: 176 Accucheck Value: 194 Accucheck Value: 168 Accucheck Value: 286 Lab Results-Last 24 Hours 02/11/17 02/11/17 02/11/17 Range/Units 08:25 08:25 08:25 WBC 13.5 H (4.0-10.5) K/mm3 RBC 3.75 L (4.1-5.4) M/mm3 Hgb 10.2 L (12.0-16.0) gm/dl Hct 34.4 L (35-47) % MCV 91.7 (78-100) fl MCH 27.2 (26-32) pg MCHC 29.7 L (32-36) g/dl RDW 18.2 H (11.5-14.0) % Plt Count 262 (150-450) K/mm3 MPV 11.3 H (6-9.5) fl Segmented Neutrophils 86 H (36.0-66.0) % Lymphocytes (Manual) 10 L (24-44) % Monocytes (Manual) 4 (0.0-12.0) % Differential Comment ABNORMAL Platelet Estimate NORMAL (NORMAL) Poikilocytosis 1+ Anisocytosis 1+ Schistocytes 1+ Sodium 137 (136-145) mEq/L Potassium 4.7 (3.5-5.1) mEq/L Chloride 104 (98-107) mEq/L Carbon Dioxide 25.2 (21-32) mEq/L Anion Gap 12.3 (5-15) MEQ/L BUN 25 H (9-20) mg/dL Creatinine 1.11 (0.55-1.30) mg/dl Estimated GFR 50 ML/MIN Glucose 175 H (70-110) MG/DL Calcium 7.9 L (8.5-10.1) mg/dL NT-Pro-B Natriuret Pep 1945 H (0-450) pg/ml Vancomycin Trough (10-20) UG/ML 02/11/17 Range/Units 08:45 WBC (4.0-10.5) K/mm3 RBC (4.1-5.4) M/mm3 Hgb (12.0-16.0) gm/dl Hct (35-47) % MCV (78-100) fl MCH (26-32) pg MCHC (32-36) g/dl RDW (11.5-14.0) % Plt Count (150-450) K/mm3 MPV (6-9.5) fl Segmented Neutrophils (36.0-66.0) % Lymphocytes (Manual) (24-44) % Monocytes (Manual) (0.0-12.0) % Differential Comment Platelet Estimate (NORMAL) Poikilocytosis Anisocytosis Schistocytes Sodium (136-145) mEq/L Potassium (3.5-5.1) mEq/L Chloride (98-107) mEq/L Carbon Dioxide (21-32) mEq/L Anion Gap (5-15) MEQ/L BUN (9-20) mg/dL Creatinine (0.55-1.30) mg/dl Estimated GFR ML/MIN Glucose (70-110) MG/DL Calcium (8.5-10.1) mg/dL NT-Pro-B Natriuret Pep (0-450) pg/ml Vancomycin Trough 10.6 (10-20) UG/ML Multi-Disciplinary Progress Notes: Multi-Disciplinary Progress Notes 02/11/17 19:26 Physical Therapy Note by Trish Dalton PT. REPORTS NO C/O PN. PT. SEEMS TO BE LESS LETHARGIC TODAY. PT. PERFORMED SIT TO STAND W/ MIN ASSIST. PT. AMBULATES ~15' W/ ROLLER WALKER AND MIN ASSIST. PT. HAS EPISODES OF LES "TREMORING" IF HER KNEES COULD BUCKLE WHEN STANDING AT TIMES. PT. WAS ABLE TO PERFORM SOME GENTLE LE STRENGTHENING AND ROM BUT HER ENDURANCE IS VERY LIMITED. WILL CONT. W/ PT 5X/WK UNTIL D/C. FEEL PT MAY EVENTUALLY NEED SNF STAY FOR REHAB D/T SLOW PROGRESS. TRISH DALTON, PT Initialized on 02/11/17 19:26 - END OF NOTE 02/11/17 10:11 Pharmacy Note by FIRER LOW PRESSURE,PHARM 02/08: Pharmacy to dose vancomycin for jaw cellulitis. Patient is a 81yof (77.6 kg SCr 1.32 CrCl 26). Loading dose 1g; maintenance 750mg q24h to produce a predicted peak of 27.2 mcg/ml and a predicted trough of 15.15 mcg/ml. Monitor BUN & SCr at least q3 days (more frequently if unstable. Trough to be checked Th02/11. Thank you! Addie education intern 02/11: Vanc trough 10.6mcg/ml. Dose increase to 1g q24h based on improved renal function (SCr 1.1). Trough to be checked on Mon 02/15 @ 0930. Thank you! bi Real intern Initialized on 02/11/17 10:11 - END OF NOTE 02/11/17 10:00 (created 02/11/17 10:55) Case Management Note by Zoie Mejia PT AND CONTINUE TO PLAN FOR PT TO RETURN HOME TO PRE EPISODIC LEVEL OF [facility]. DECLINED NEEDS FOR HHC SERVICES, THEY DO HAVE A HIRED CAREGIVER THAT COMES DAILY ON -. HAVE ALL NECESSARY EQUIP AT HOME. DECLINED ADDNL NEEDS. WILL FOLLOW FOR ALL DC NEEDS. Initialized on 02/11/17 10:55 - END OF NOTE Assessment/Plan (1) Parotiditis Current Visit: Yes Status: Acute Assessment & Plan: severe right supporitve Dr. Soto consulted Dr. Reynolds who recommended continued abx treatment will continue vanc + flagyl continue warm compressess and sour candy stop the oxybutynin and elavil to see if this can help increase secretions weight gain on lasix stop iv fluids monitor lytes Code(s): K11.20 - SIALOADENITIS, UNSPECIFIED (2) CKD (chronic kidney disease) stage 3, GFR 30-59 ml/min Current Visit: Yes Status: Chronic Code(s): N18.3 - CHRONIC KIDNEY DISEASE, STAGE 3 (MODERATE) (3) Diabetes type 2, controlled Current Visit: Yes Status: Chronic Qualifiers: Diabetes mellitus complication status: with kidney complications Diabetes mellitus complication detail: with chronic kidney disease Diabetes mellitus terminal carman insulin use: without terminal carman use Chronic kidney disease stage: stage 3 (moderate) Qualified Code(s): E11.22 - Type 2 diabetes mellitus with diabetic chronic kidney disease; N18.3 - Chronic kidney disease, stage 3 ( moderate); N18.3 - Chronic kidney disease, stage 3 (moderate) Code(s): E11.9 - TYPE 2 DIABETES MELLITUS WITHOUT COMPLICATIONS (4) Weakness Current Visit: Yes Status: Acute Code(s): R53.1 - WEAKNESS (5) Chronic congestive heart failure Current Visit: Yes Status: Chronic Qualifiers: Congestive heart failure type: diastolic Qualified Code(s): I50.32 - Chronic diastolic (congestive) heart failure Code(s): I50.9 - HEART FAILURE, UNSPECIFIED
[2017-02-12] MEDS: Sodium Chloride 0.9% 1000 ML 1,000 ML IV SCH (08:29)
[2017-02-12] MEDS: Sodium Chloride 0.9% 10 ML FLUSH Syringe IV SCH ×4 (08:29→22:09)
[2017-02-12] MEDS: Furosemide 100mg/10 ml Vial IV SCH (08:59)
[2017-02-12] MEDS: FLAGYL 500 MG IVPB 500 MG/100 ML BAG IV SCH ×4 (08:59→22:05)
[2017-02-12] MEDS: Lopressor 50 MG PO SCH ×2 (09:01→22:06)
[2017-02-12] MEDS: Klor Con 10 MEQ PO SCH (09:02)
[2017-02-12] MEDS: MAG-OX 400 PO SCH ×2 (09:02→22:06)
[2017-02-12] MEDS: Januvia 50 MG PO SCH (09:02)
[2017-02-12] MEDS: ZYLOPRIM 300 MG PO SCH (09:02)
[2017-02-12] MEDS: ENOXAPARIN SODIUM SQ SCH (09:03)
[2017-02-12] MEDS: Nystatin SUSPENSION 60 ML PO SCH ×4 (09:03→22:08)
[2017-02-12] MEDS: SYNTHROID 100 MCG PO SCH (09:03)
[2017-02-12] MEDS: VANCOCIN 1 GM VIAL*** 1 GM in Sodium Chloride 0.9% 250 ML 250 ML IV SCH (09:38)
[2017-02-12] MEDS: NovoLOG Insulin SQ PRN ×2 (17:03→23:30)
[2017-02-13 05:49] LABS: ANION GAP 12.1 MEQ/L (5-15); Carbon Dioxide 27.4 mEq/L (21-32)
[2017-02-13 05:50] LABS: Mean Cell Volume 90.7 fl (78-100); Mean Corpuscular Hemoglobin 27.5 pg (26-32); Mean Platelet Volume 11.2 fl (6-9.5); Platelet Count 270 K/mm3 (150-450); Red Blood Count 3.56 M/mm3 (4.1-5.4); Red Cell Distribution Width 18.2 % (11.5-14.0)
[2017-02-13 07:42] LABS: BAND 2 % (0.0-2.0); Total Cells Counted 100
[2017-02-13 07:43] LABS: ANISOCYTOSIS 1+; Platelet Estimate NORMAL (NORMAL); Poikilocytosis 1+; Polychromasia 1+
[2017-02-13 07:52] VITALS: BP 139/76
[2017-02-13] MEDS: Januvia 50 MG PO SCH (08:27)
[2017-02-13] MEDS: Klor Con 10 MEQ PO SCH (08:27)
[2017-02-13] MEDS: SYNTHROID 100 MCG PO SCH (08:27)
[2017-02-13] MEDS: Lopressor 50 MG PO SCH (08:27)
[2017-02-13] MEDS: Furosemide 100mg/10 ml Vial IV SCH (08:27)
[2017-02-13] MEDS: ENOXAPARIN SODIUM SQ SCH (08:28)
[2017-02-13] MEDS: FLAGYL 500 MG IVPB 500 MG/100 ML BAG IV SCH (08:28)
[2017-02-13] MEDS: ZYLOPRIM 300 MG PO SCH (08:28)
[2017-02-13] MEDS: MAG-OX 400 PO SCH (08:28)
[2017-02-13] MEDS: Nystatin SUSPENSION 60 ML PO SCH (08:29)
[2017-02-13] MEDS: VANCOCIN 1 GM VIAL*** 1 GM in Sodium Chloride 0.9% 250 ML 250 ML IV SCH (10:36)
--- NOTE | 2017-02-13 11:04 | PCM.DS ---
Discharge Summary Date of Admission: 02/08/17 11:19 Date of Discharge: 02/13/17 Admitting Physician: FE SOTO Primary Care Provider: FE SOTO Allergies Allergies No Known Drug Allergies Allergy (Verified 02/08/17 12:06) Hospital Summary - Hospital Course Hospital Course: She presented with weakness and pain in the neck and face and found to have infectious parotitis on the right. No stone identified. She had previously been evaluated and treated with warm compresses and candies but not improving and worsening and thus started on iv vanc + flagyl. CT neck showed parotitis no abscess(no contrast on CT) and some suspected reactive lymph nodes. She was reportedly improving on vanc and flagyl but still severe swelling and tenderness. Dr. Soto discussed case with ENT Dr. Reynolds who recommended continue medical therapy. We stopped her elavil and oxybutynin 02/12 and this seems to have helped her dry mouth on 02/13 will continue off for now. Will mash filter cloth changer to po flagyl and continue the vanc for now IV and swing bed for this and continued therapy for her significant weakness. - Vitals & Intake/Output Vital Signs: Vital Signs Temperature 97.4 F 02/13/17 07:51 Pulse Rate 82 02/13/17 07:51 Respiratory Rate 18 02/13/17 07:51 Blood Pressure 139/76 02/13/17 07:51 O2 Sat by Pulse Oximetry 95 02/13/17 07:51 Oxygen-Last Documented O2 Percentage 2 Liters = 28% Intake & Output: Intake & Output 02/10/17 02/11/17 02/12/17 02/13/17 11:59 11:59 11:59 11:59 Intake Total 5146 1040 2169 1350 Output Total 750 1 1000 500 Balance 4396 1039 1169 850 Weight 83.263 kg 84.459 kg 88.904 kg 89.358 kg - Lab Result Diagrams: 02/13/17 05:05 02/13/17 05:05 Lab Results-Last 24 Hrs: Accuchecks Date 02/13/17 Date 02/12/17 Date 02/12/17 Date 02/12/17 Time 07:30 Time 21:00 Time 16:30 Time 11:55 Accucheck Value: 151 Accucheck Value: 260 Accucheck Value: 275 Accucheck Value: 159 Lab Results-Last 24 Hours 02/13/17 02/13/17 Range/Units 05:05 05:05 WBC 12.0 H (4.0-10.5) K/mm3 RBC 3.56 L (4.1-5.4) M/mm3 Hgb 9.8 L (12.0-16.0) gm/dl Hct 32.3 L (35-47) % MCV 90.7 (78-100) fl MCH 27.5 (26-32) pg MCHC 30.3 L (32-36) g/dl RDW 18.2 H (11.5-14.0) % Plt Count 270 (150-450) K/mm3 MPV 11.2 H (6-9.5) fl Segmented Neutrophils 83 H (36.0-66.0) % Band Neutrophils 2 (0.0-2.0) % Lymphocytes (Manual) 8 L (24-44) % Monocytes (Manual) 7 (0.0-12.0) % Differential Comment ABNORMAL Platelet Estimate NORMAL (NORMAL) Polychromasia 1+ Poikilocytosis 1+ Anisocytosis 1+ Sodium 141 (136-145) mEq/L Potassium 4.0 (3.5-5.1) mEq/L Chloride 105 (98-107) mEq/L Carbon Dioxide 27.4 (21-32) mEq/L Anion Gap 12.1 (5-15) MEQ/L BUN 21 H (9-20) mg/dL Creatinine 1.06 (0.55-1.30) mg/dl Estimated GFR 53 ML/MIN Glucose 154 H (70-110) MG/DL Calcium 8.6 (8.5-10.1) mg/dL Micro Results-Entire Visit: Microbiology 02/08/17 18:30 Urine Culture - Final Clean Catch Midstream <10K NORMAL SKIN HARSH PROBABLE SKIN CONTAMINANT Accuchecks Date 02/13/17 Date 02/12/17 Date 02/12/17 Date 02/12/17 Time 07:30 Time 21:00 Time 16:30 Time 11:55 Accucheck Value: 151 Accucheck Value: 260 Accucheck Value: 275 Accucheck Value: 159 - Procedures and Test Procedures and Tests throughout Hospitalization: Therapy Orders & Screens 02/08/17 12:32 OT Screen per Nursing Assess Comment: Protocol Order Physician Instructions: Greater than 3 points order OT Admission Screening Reason For Exam: Triggered on Admission Diagnosis: CHF, Weakness, Neck Mass Open Wound/Cellutlitis/Pressure Ulcers: No Acute Fx/ORIF/Change in wt bearing status: Yes Severe MUSCULOSKELETAL pain: No ADL Dysfunction: Yes Acute CVA w/Hemiparesis/Hemiplegia: No Decreased Functional Mobility/Strength: Yes Sprain/Strain: No Acute Post-op Mobility Dysfunction: No Total Points: 9 PT Screen per Nursing Assess ONCE Comment: Protocol Order Physician Instructions: Greater than 3 points order PT Admission Screenin Reason For Exam: Triggered on Admission Diagnosis: CHF, Weakness, Neck Mass Open Wound/Cellutlitis/Pressure Ulcers: No Acute Fx/ORIF/Change in wt bearing status: Yes Severe MUSCULOSKELETAL pain: No ADL Dysfunction: Yes Acute CVA w/Hemiparesis/Hemiplegia: No Decreased Functional Mobility/Strength: Yes Sprain/Strain: No Acute Post-op Mobility Dysfunction: No Total Points: 9 ST Screen per Nursing Assess once Comment: Protocol Order Physician Instructions: Greater than [address] Admission Screening Reason For Exam: Triggered on Admission Diagnosis: CHF, Weakness, Neck Mass CVA/Dyshpagia/Aphasia: No Cognitive Deficits: No Dehydration/Nutrition Deficit: No Reflux: Yes Oral-Motor Difficulties: Yes Pneumonia: No Total Points: 6 02/08/17 12:45 EKG ROUTINE Comment: Diagnosis: CHF, Weakness, Neck Mass 02/08/17 14:47 Oxygen NASAL CANNULA 2 lpm Comment: Diagnosis: CHF, Weakness, Neck Mass 02/08/17 19:51 Respiratory MDI UD Comment: Diagnosis: CHF, Weakness, Neck Mass 02/09/17 08:32 PT Eval & Treat (MD Order) ROUTINE Evaluate: Yes Treat: Yes Reason for Eval:: recently rehabbed, now weak with parotid gland infection Diagnosis: CHF, Weakness, Neck Mass Discharge Exam General Appearance: no apparent distress, obese Neurologic Exam: alert, cooperative Skin Exam: warm, dry, No rash Ears, Nose, Throat Exam: moist mucous membranes, other (oral exam with mild erythema of tongue no palpable abnormality in the parotid duct and no obvious stone palpable. very firm tender right parotid gland posteriorly with no palpable abscess no warmth or redness currently.) Neck Exam: non-tender, supple Respiratory Exam: normal breath sounds Cardiovascular Exam: regular rate/rhythm Gastrointestinal/Abdomen Exam: soft, normal bowel sounds, tenderness Extremity Exam: normal inspection, No calf tenderness Final Diagnosis/Problem List - Final Discharge Diagnosis/Problem (1) Parotiditis Status: Acute (2) CKD (chronic kidney disease) stage 3, GFR 30-59 ml/min Status: Chronic (3) Diabetes type 2, controlled Status: Chronic (4) Weakness Status: Acute (5) Chronic congestive heart failure Status: Chronic - Discharge Discharge Date: 02/13/17 Disposition: Swing Bed @ [facility] Condition: Stable Prescriptions: No Action Glipizide 10 mg PO DAILY Allopurinol 300 mg [Zyloprim 300 mg] 300 mg PO DAILY Multivitamin W-Minerals/Lutein [Centrum Silver Tablet] 1 each PO DAILY Rosuvastatin Calcium [Crestor] 10 mg PO DAILY Levothyroxine Sodium 100 Mcg [Synthroid 100 Mcg] 100 mcg PO DAILY Apixaban [Eliquis] 2.5 mg PO BID Potassium Chloride 10 Meq Tab* [Klor Con 10 MEQ] 10 meq PO DAILY Polyvinyl Alcohol [Artificial Tears] 1 ml OP PRN PRN drops PRN Reason: Dry eyes Albuterol Common Canister [Proventil Common Canister] 2 puff IH Q4H PRN PRN #1 unit PRN Reason: Shortness Of Breath Liraglutide [Victoza 2-Thong] 1.2 mg SQ DAILY Metformin HCl 500 mg [Glucophage 500 MG] 500 mg PO BIDWM Oxybutynin Chloride 5 mg PO BID Sitagliptin Phosphate 50 MG [Januvia 50 MG] 100 mg PO DAILY AMITRIPTYLINE HCL 50 mg Tab [AMITRIPTYLINE HCL 50 mg Tablet] 50 mg PO HS Bumetanide 2 mg PO BID Magnesium Oxide 400 mg [Mag-Ox 400] 400 mg PO BID Metoprolol Tartrate 50 mg [Lopressor 50 MG] 75 mg PO BID Nitrofurantoin Monohyd/M-Cryst [Macrobid 100 mg Capsule] 100 mg PO BID Follow up with: FE SOTO [Primary Care Provider] - 1 Week
[2017-02-13 11:24] VITALS: PULSE 84; O2SAT 96
[2017-02-13] MEDS: PROVENTIL COMMON CANISTER IH SCH (11:25)
== END 2017-02-13 11:40 | disposition swing bed (61) | DRG 155 ==
LOC: MED SURG 11:19
PROVIDERS: ADMIT Family Medicine; ATTEND Family Medicine
DX: K11.20 Sialoadenitis, unspecified (principal); N39.0 Urinary tract infection, site not specified; N18.3 Chronic kidney disease, stage 3 (moderate); I12.9 Hypertensive chronic kidney disease with stage 1 through stage 4 chronic kidney disease, or unspecified chronic kidney disease; E11.22 Type 2 diabetes mellitus with diabetic chronic kidney disease; Z79.4 Long term (current) use of insulin; R53.1 Weakness; I48.91 Unspecified atrial fibrillation; Z79.01 Long term (current) use of anticoagulants; I50.9 Heart failure, unspecified; M10.9 Gout, unspecified; E03.9 Hypothyroidism, unspecified; R22.1 Localized swelling, mass and lump, neck; G47.00 Insomnia, unspecified; B37.9 Candidiasis, unspecified; Z79.899 Other long term (current) drug therapy
CPT/HCPCS: 36415; 70490; 71020; 80048; 80053; 80202; 81000; 82962; 83036; 83880; 84484; 85025; 85027; 87086; 93005; 94640; 94760; J1650; J1940; J3370; 97110-GP; A9270-GY

== ENCOUNTER 2017-02-13 10:51 | Inpatient (IN) | payer MEDICARE, OTHER ==
[2017-02-13] MEDS ORDERED: POLYVINYL ALCOHOL OP PRN (12:06)
[2017-02-13] MEDS ORDERED: PROVENTIL COMMON CANISTER IH PRN (12:06)
[2017-02-13] MEDS ORDERED: Artificial Tears 15 ML OP PRN (12:18)
[2017-02-13] MEDS ORDERED: Sodium Chloride 0.9% 10 ML FLUSH Syringe IV PRN (12:18)
[2017-02-13] MEDS ORDERED: OXYCODONE-ACETAMINOPHEN 10-325 PO PRN (12:22)
[2017-02-13] MEDS ORDERED: Dulcolax 10 MG SUPP PR PRN (12:22)
[2017-02-13] MEDS ORDERED: TYLENOL 325 MG PO PRN (12:22)
[2017-02-13] MEDS: Nystatin SUSPENSION 60 ML PO SCH ×3 (12:32→22:19)
[2017-02-13] MEDS: NovoLOG Insulin SQ PRN ×3 (12:32→22:21)
[2017-02-13] MEDS: Flagyl 500 MG PO SCH ×2 (14:44→22:18)
[2017-02-13] MEDS: Sodium Chloride 0.9% 10 ML FLUSH Syringe IV SCH ×2 (14:45→23:57)
[2017-02-13] MEDS: BUMEX 1 MG PO SCH (17:13)
[2017-02-13] MEDS ORDERED: NON-FORMULARY ITEM (Apixaban [Eliquis] 2.5 MG) PO SCH (22:00)
[2017-02-13] MEDS: MAG-OX 400 PO SCH (22:18)
[2017-02-13] MEDS: ELIQUIS PO SCH (22:18)
[2017-02-13] MEDS: Lopressor 50 MG PO SCH (23:55)
[2017-02-14] MEDS: Flagyl 500 MG PO SCH ×3 (06:33→22:44)
[2017-02-14] MEDS: Sodium Chloride 0.9% 10 ML FLUSH Syringe IV SCH ×3 (06:34→22:50)
[2017-02-14] MEDS: PROVENTIL COMMON CANISTER IH SCH (07:28)
[2017-02-14] MEDS: BUMEX 1 MG PO SCH ×2 (09:40→16:46)
[2017-02-14] MEDS: Klor Con 10 MEQ PO SCH (09:40)
[2017-02-14] MEDS: ELIQUIS PO SCH ×2 (09:40→22:44)
[2017-02-14] MEDS: SYNTHROID 100 MCG PO SCH (09:40)
[2017-02-14] MEDS: Januvia 50 MG PO SCH (09:40)
[2017-02-14] MEDS: ZYLOPRIM 300 MG PO SCH (09:41)
[2017-02-14] MEDS: Lopressor 50 MG PO SCH ×2 (09:41→22:44)
[2017-02-14] MEDS: MAG-OX 400 PO SCH ×2 (09:41→22:44)
[2017-02-14] MEDS: VANCOCIN 1 GM VIAL*** 1 GM in Sodium Chloride 0.9% 250 ML 250 ML IV SCH (09:45)
[2017-02-14] MEDS: Nystatin SUSPENSION 60 ML PO SCH ×4 (09:51→22:51)
[2017-02-14] MEDS ORDERED: Aplisol ID SCH (10:00)
[2017-02-14] MEDS: NovoLOG Insulin SQ PRN ×2 (16:46→23:03)
[2017-02-15] MEDS: Flagyl 500 MG PO SCH ×3 (06:19→21:25)
[2017-02-15] MEDS: Sodium Chloride 0.9% 10 ML FLUSH Syringe IV SCH ×3 (06:37→21:26)
[2017-02-15] MEDS: PROVENTIL COMMON CANISTER IH SCH (07:50)
[2017-02-15] MEDS ORDERED: TROUGH DRUG LEVELS IJ ONE (09:30)
[2017-02-15] MEDS: ELIQUIS PO SCH ×2 (09:33→21:23)
[2017-02-15] MEDS: SYNTHROID 100 MCG PO SCH (09:35)
[2017-02-15] MEDS: Januvia 50 MG PO SCH (09:36)
[2017-02-15] MEDS: Klor Con 10 MEQ PO SCH (09:36)
[2017-02-15] MEDS: BUMEX 1 MG PO SCH ×2 (09:37→17:10)
[2017-02-15] MEDS: Lopressor 50 MG PO SCH ×2 (09:38→21:23)
[2017-02-15] MEDS: MAG-OX 400 PO SCH ×2 (09:39→21:25)
[2017-02-15] MEDS: ZYLOPRIM 300 MG PO SCH (09:39)
[2017-02-15] MEDS: Nystatin SUSPENSION 60 ML PO SCH ×4 (09:40→21:26)
[2017-02-15] MEDS: VANCOCIN 1 GM VIAL*** 1 GM in Sodium Chloride 0.9% 250 ML 250 ML IV SCH (10:32)
[2017-02-15] MEDS: NovoLOG Insulin SQ PRN (17:10)
[2017-02-16] MEDS: Sodium Chloride 0.9% 10 ML FLUSH Syringe IV SCH ×2 (06:24→13:47)
[2017-02-16] MEDS: Flagyl 500 MG PO SCH ×3 (06:24→23:15)
[2017-02-16] MEDS: PROVENTIL COMMON CANISTER IH SCH (07:01)
[2017-02-16] MEDS: VANCOCIN 1 GM VIAL*** 1.25 GM in Sodium Chloride 0.9% 250 ML 250 ML IV SCH (11:31)
[2017-02-16] MEDS: BUMEX 1 MG PO SCH ×2 (11:34→17:23)
[2017-02-16] MEDS: ELIQUIS PO SCH ×2 (11:35→23:20)
[2017-02-16] MEDS: Lopressor 50 MG PO SCH ×2 (11:35→23:16)
[2017-02-16] MEDS: SYNTHROID 100 MCG PO SCH (11:35)
[2017-02-16] MEDS: Januvia 50 MG PO SCH (11:35)
[2017-02-16] MEDS: ZYLOPRIM 300 MG PO SCH (11:35)
[2017-02-16] MEDS: Nystatin SUSPENSION 60 ML PO SCH ×4 (11:36→23:23)
[2017-02-16] MEDS: Klor Con 10 MEQ PO SCH (11:36)
[2017-02-16] MEDS: MAG-OX 400 PO SCH ×2 (11:36→23:17)
[2017-02-16] MEDS: NovoLOG Insulin SQ PRN ×2 (11:37→23:25)
[2017-02-17] MEDS: PROVENTIL COMMON CANISTER IH SCH (06:51)
[2017-02-17] MEDS: Flagyl 500 MG PO SCH ×3 (07:02→20:48)
--- NOTE | 2017-02-17 07:45 | PCM.NOTE ---
Date and Time: 02/17/17 0740 Subjective Assessment: Pt is feeling much better, working with PT, less pain R neck and no throat pain. Adolfo po well. Not sleeping well as the amitriptylene was discontinued. - Review of Systems Constitutional: No Fever Abdominal/Gastrointestinal: No Diarrhea Objective Exam General Appearance: no apparent distress, alert Neurologic Exam: oriented x 3, cooperative Skin Exam: normal color, warm, dry Neck Exam: other (decreased enlargement of R neck. There is still a hard preauricular area extending to the R mandible (approx 4x7 cm), nttp, no erythema , no fluctuance) OBJECTIVE DATA Vital Signs: Vital Signs - 24 hr Temp Pulse Resp BP Pulse Ox 02/17/17 06:53 92 H 18 97 02/16/17 20:45 18 02/16/17 20:00 98.0 F 95 H 17 142/73 92 L 02/16/17 16:36 98.4 F 95 H 22 125/57 96 Pain Assessment - Last Documented Pain Intensity 0 Pain Scale Used 0-10 Pain Scale Intake and Output: Intake & Output 02/14/17 02/15/17 02/16/17 02/17/17 11:59 11:59 11:59 11:59 Intake Total 6994 080 0822 1560 Output Total 2950 2375 900 1000 Balance -1170 -1635 620 560 Weight 84.935 kg 83.416 kg 82.236 kg Lab Results: Accuchecks Date 02/17/17 Date 02/16/17 Date 02/16/17 Time 22:00 Time 16:30 Time 11:30 Accucheck Value: 299 Accucheck Value: 262 Accucheck Value: 229 Assessment/Plan (1) Parotiditis Current Visit: No Status: Acute Assessment & Plan: Pt still on IV vancomycin and po flagyl. Much improved! She will likely need to stay on antibiotics for another 1-2 weeks. WIll monitor progress closely. Code(s): K11.20 - SIALOADENITIS, UNSPECIFIED (2) Weakness Current Visit: No Status: Acute Assessment & Plan: Improved. I will speak with therapy regarding their prognosis for discharge to home. Code(s): R53.1 - WEAKNESS (3) CKD (chronic kidney disease) stage 3, GFR 30-59 ml/min Current Visit: No Status: Chronic Assessment & Plan: recheck labs. Code(s): N18.3 - CHRONIC KIDNEY DISEASE, STAGE 3 (MODERATE) (4) Chronic congestive heart failure Current Visit: No Status: Chronic Qualifiers: Code(s): I50.9 - HEART FAILURE, UNSPECIFIED (5) Diabetes type 2, controlled Current Visit: No Status: Chronic Qualifiers: Diabetes mellitus complication status: with kidney complications Diabetes mellitus complication detail: with nephropathy Diabetes mellitus ferry terminal agent insulin use: unspecified ferry terminal agent insulin use status Qualified Code(s): E11.21 - Type 2 diabetes mellitus with diabetic nephropathy Assessment & Plan: BS 180s to 200s. WIll add 10 units lantus. Code(s): E11.9 - TYPE 2 DIABETES MELLITUS WITHOUT COMPLICATIONS
[2017-02-17] MEDS: Nystatin SUSPENSION 60 ML PO SCH ×4 (08:08→20:48)
[2017-02-17] MEDS: MAG-OX 400 PO SCH ×2 (08:09→20:48)
[2017-02-17] MEDS: ZYLOPRIM 300 MG PO SCH (08:09)
[2017-02-17] MEDS: BUMEX 1 MG PO SCH ×2 (08:09→16:55)
[2017-02-17] MEDS: Lopressor 50 MG PO SCH ×2 (08:09→20:48)
[2017-02-17] MEDS: Lantus Insulin SQ SCH (08:10)
[2017-02-17] MEDS: SYNTHROID 100 MCG PO SCH (08:10)
[2017-02-17] MEDS: Klor Con 10 MEQ PO SCH (08:10)
[2017-02-17] MEDS: ELIQUIS PO SCH ×2 (08:10→20:47)
[2017-02-17 08:35] LABS: Mean Cell Volume 89.3 fl (78-100); Mean Corpuscular Hemoglobin 27.1 pg (26-32); Mean Platelet Volume 10.2 fl (6-9.5); Platelet Count 276 K/mm3 (150-450); Red Blood Count 3.65 M/mm3 (4.1-5.4); Red Cell Distribution Width 18.2 % (11.5-14.0); White Blood Count 12.5 K/mm3 (4.0-10.5)
[2017-02-17 08:48] LABS: ANION GAP 10.3 MEQ/L (5-15); Carbon Dioxide 32.7 mEq/L (21-32); Potassium 3.2 mEq/L (3.5-5.1)
[2017-02-17] MEDS: VANCOCIN 1 GM VIAL*** 1.25 GM in Sodium Chloride 0.9% 250 ML 250 ML IV SCH (09:22)
[2017-02-17] MEDS: Januvia 50 MG PO SCH (09:22)
[2017-02-17] MEDS: NovoLOG Insulin SQ PRN ×2 (11:48→16:56)
[2017-02-17] MEDS: Sodium Chloride 0.9% 10 ML FLUSH Syringe IV SCH (21:13)
[2017-02-18] MEDS: Flagyl 500 MG PO SCH (05:55)
[2017-02-18] MEDS: PROVENTIL COMMON CANISTER IH SCH (06:23)
[2017-02-18 07:29] VITALS: BP 128/66; PULSE 95; O2SAT 95
[2017-02-18] MEDS: Lantus Insulin SQ SCH (08:11)
--- NOTE | 2017-02-18 08:34 | PCM.DS ---
Discharge Summary Date of Admission: 02/13/17 11:40 Admitting Physician: FE BROWN Primary Care Provider: FE BROWN Allergies Allergies No Known Drug Allergies Allergy (Verified 02/08/17 12:06) Hospital Summary - Hospital Course Hospital Course: Pt admitted to swing bed with parotitis and weakness. She has been on IV vancomycin and po flagyl. Her neck is feeling much better. Physical therapy is progressing well. Blood sugars have been elevated and she was started on a small amount of lantus with no low sugars. Hgb around 9.9 (unknown etiology) - will do hemoccult at home. Home on po augmentin and f/u in 1 week. - Vitals & Intake/Output Vital Signs: Vital Signs Temperature 98 F 02/18/17 07:29 Pulse Rate 95 H 02/18/17 07:29 Respiratory Rate 18 02/18/17 07:29 Blood Pressure 128/66 02/18/17 07:29 O2 Sat by Pulse Oximetry 95 02/18/17 07:29 Intake & Output: Intake & Output 02/15/17 02/16/17 02/17/17 02/18/17 11:59 11:59 11:59 11:59 Intake Total 740 1520 1940 1000 Output Total 2375 900 1000 500 Balance -1635 620 940 500 Weight 83.416 kg 82.236 kg 82.1 kg 82.236 kg - Lab Result Diagrams: 02/17/17 08:31 02/17/17 08:31 Lab Results-Last 24 Hrs: Accuchecks Date 02/17/17 Date 02/17/17 Date 02/17/17 Time 21:00 Time 16:30 Time 11:30 Accucheck Value: 247 Accucheck Value: 205 Accucheck Value: 345 Lab Results-Last 24 Hours 02/17/17 02/17/17 Range/Units 08:31 08:31 WBC 12.5 H (4.0-10.5) K/mm3 RBC 3.65 L (4.1-5.4) M/mm3 Hgb 9.9 L (12.0-16.0) gm/dl Hct 32.6 L (35-47) % MCV 89.3 (78-100) fl MCH 27.1 (26-32) pg MCHC 30.4 L (32-36) g/dl RDW 18.2 H (11.5-14.0) % Plt Count 276 (150-450) K/mm3 MPV 10.2 H (6-9.5) fl Sodium 140 (136-145) mEq/L Potassium 3.2 L (3.5-5.1) mEq/L Chloride 100 (98-107) mEq/L Carbon Dioxide 32.7 H (21-32) mEq/L Anion Gap 10.3 (5-15) MEQ/L BUN 15 (9-20) mg/dL Creatinine 1.05 (0.55-1.30) mg/dl Estimated GFR 53 ML/MIN Glucose 191 H (70-110) MG/DL Calcium 8.5 (8.5-10.1) mg/dL Micro Results-Entire Visit: Accuchecks Date 02/17/17 Date 02/17/17 Date 02/17/17 Time 21:00 Time 16:30 Time 11:30 Accucheck Value: 247 Accucheck Value: 205 Accucheck Value: 345 - Procedures and Test Procedures and Tests throughout Hospitalization: Therapy Orders & Screens 02/13/17 11:56 Oxygen NASAL CANNULA 2 lpm Comment: Diagnosis: chf,parotiditis 02/13/17 11:57 PT Eval & Treat (MD Order) ROUTINE Evaluate: Yes Treat: Yes Reason for Eval:: swingbed deconditioning r/t chf,parotiditis Diagnosis: deconditioning r/t chf,parotiditis 02/15/17 20:35 Respiratory MDI UD Comment: ALBUTEROL 2P DAILY Diagnosis: deconditioning r/t chf,parotiditis Discharge Exam General Appearance: no apparent distress, alert Neurologic Exam: oriented x 3, cooperative Skin Exam: normal color, warm, dry Neck Exam: other (firm mass R lateral neck preauricular area approx 3x5 cm) Respiratory Exam: diminished breath sounds, wheezing (faint scattered), No crackles/rales, No rhonchi Cardiovascular Exam: regular rate/rhythm, normal heart sounds Gastrointestinal/Abdomen Exam: soft, normal bowel sounds, No tenderness, No distention, No mass Extremity Exam: No pedal edema, No swelling Back Exam: normal inspection Final Diagnosis/Problem List - Final Discharge Diagnosis/Problem (1) Parotiditis Current Visit: No Status: Acute Assessment & Plan: Much improved. Will send her home on po augmentin for 10d - she will f/u with me in 1 week. (2) Weakness Current Visit: No Status: Acute Assessment & Plan: She is doing much better. Will continue PT outpatient 2-3x/wk for the next 1 mo if possible. (3) CKD (chronic kidney disease) stage 3, GFR 30-59 ml/min Current Visit: No Status: Chronic Assessment & Plan: Renal function stable. (4) Chronic congestive heart failure Current Visit: No Status: Chronic Assessment & Plan: Stable. (5) Diabetes type 2, controlled Current Visit: No Status: Chronic Assessment & Plan: Started 10 units of lantus; they will need education to make sure they can take it at home. Will increase slowly as needed (stay on 10 units for now). (6) Anemia Current Visit: Yes Status: Acute Assessment & Plan: stable. Likely due to chronic renal disease, but will have her do hemoccult x 3 at home; if negative will consider iron studies and start her on iron. - Discharge Disposition: Home, Self-Care Condition: Stable Prescriptions: New Amoxicillin/Potassium Clav [Augmentin 875 mg (Amox Tr-K Clv 875-125 mg)] 1 each PO BID #20 tablet Insulin Glargine [Lantus Insulin] 10 unit SQ DAILY #1 unit Continue Allopurinol 300 mg [Zyloprim 300 mg] 300 mg PO DAILY Multivitamin W-Minerals/Lutein [Centrum Silver Tablet] 1 each PO DAILY Rosuvastatin Calcium [Crestor] 10 mg PO DAILY Levothyroxine Sodium 100 Mcg [Synthroid 100 Mcg] 100 mcg PO DAILY Apixaban [Eliquis] 2.5 mg PO BID Polyvinyl Alcohol [Artificial Tears] 1 ml OP PRN PRN drops PRN Reason: Dry eyes Albuterol Common Canister [Proventil Common Canister] 2 puff IH Q4H PRN PRN #1 unit PRN Reason: Shortness Of Breath Oxybutynin Chloride 5 mg PO BID Sitagliptin Phosphate 50 MG [Januvia 50 MG] 100 mg PO DAILY Bumetanide 2 mg PO BID Magnesium Oxide 400 mg [Mag-Ox 400] 400 mg PO BID Metoprolol Tartrate 50 mg [Lopressor 50 MG] 75 mg PO BID Changed Potassium Chloride 10 Meq Tab* [Klor Con 10 MEQ] 10 meq PO BID #60 tab Follow up with: FE BROWN [Primary Care Provider] - 1 Week Forms: Patient Portal Information
[2017-02-18] MEDS ORDERED: Klor Con 10 MEQ PO SCH (10:00)
[2017-02-18] MEDS: ELIQUIS PO SCH (10:05)
[2017-02-18] MEDS: Januvia 50 MG PO SCH (10:05)
[2017-02-18] MEDS: MAG-OX 400 PO SCH (10:06)
[2017-02-18] MEDS: BUMEX 1 MG PO SCH (10:06)
[2017-02-18] MEDS: SYNTHROID 100 MCG PO SCH (10:06)
[2017-02-18] MEDS: Lopressor 50 MG PO SCH (10:06)
[2017-02-18] MEDS: ZYLOPRIM 300 MG PO SCH (10:06)
[2017-02-18] MEDS: Nystatin SUSPENSION 60 ML PO SCH (10:07)
[2017-02-18] MEDS: VANCOCIN 1 GM VIAL*** 1.25 GM in Sodium Chloride 0.9% 250 ML 250 ML IV SCH (12:02)
[2017-02-19] MEDS ORDERED: TROUGH DRUG LEVELS IJ ONE (09:30)
[2017-02-25] MEDS ORDERED: Aplisol ID SCH (10:00)
== END 2017-02-18 10:35 | disposition home or self-care (01) | DRG 156 ==
LOC: MED SURG 11:40
PROVIDERS: ADMIT Family Medicine; ATTEND Family Medicine
DX: K11.20 Sialoadenitis, unspecified (principal); R53.1 Weakness; N18.9 Chronic kidney disease, unspecified; I50.9 Heart failure, unspecified; E11.9 Type 2 diabetes mellitus without complications; D64.9 Anemia, unspecified; Z79.899 Other long term (current) drug therapy
CPT/HCPCS: 36415; 80048; 80202; 82962; 85027; 94640; 94760; J3370; 97110-GP; A9270-GY

== ENCOUNTER 2017-03-05 09:48 | Inpatient (IN) | payer MEDICARE, OTHER ==
[2017-03-05] MEDS ORDERED: Sodium Chloride 0.9% 1000 ML 1,000 ML IV STA (10:03)
[2017-03-05] MEDS ORDERED: DUONEB 0.5-3 MG/3 ml Neb IH ONE ×2 (10:06→10:18)
--- NOTE | 2017-03-05 10:10 | ERPHSYRPT ---
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, no chest pain, lives at home, not on oxygen, no fever Timing/Duration: today, intermittent Aspirin Treatment Today: no aspirin today Allergies/Adverse Reactions: No Known Drug Allergies Allergy (Verified 02/08/17 12:06) Home Medications: Allopurinol 300 mg [Zyloprim 300 mg] 300 mg PO DAILY 09/30/12 [History] Multivitamin W-Minerals/Lutein [Centrum Silver Tablet] 1 each PO DAILY 10/02/14 [History] Apixaban [Eliquis] 2.5 mg PO BID 08/17/16 [History] Levothyroxine Sodium 100 Mcg [Synthroid 100 Mcg] 100 mcg PO DAILY 08/17/16 [History] Rosuvastatin Calcium [Crestor] 10 mg PO DAILY 08/17/16 [History] Oxybutynin Chloride 5 mg PO BID 01/22/17 [History] Sitagliptin Phosphate 50 MG [Januvia 50 MG] 100 mg PO DAILY 01/22/17 [ History] Magnesium Oxide 400 mg [Mag-Ox 400] 400 mg PO BID 01/31/17 [History] Metoprolol Tartrate 50 mg [Lopressor 50 MG] 75 mg PO BID 02/08/17 [History ] Hx Tetanus, Diphtheria Vaccination/Date Given: Yes Hx Influenza Vaccination/Date Given: Yes Hx Pneumococcal Vaccination/Date Given: Yes - Review of Systems Constitutional: Weakness, No Fever Eyes: No Symptoms Ears, Nose, & Throat: No Symptoms Respiratory: Dyspnea Cardiac: No Chest Pain Abdominal/Gastrointestinal: No Symptoms Musculoskeletal: No Back Pain Skin: No Skin Lesions Neurological: No Focal Weakness Psychological: No Symptoms - Past Medical History Pertinent Past Medical History: Yes Neurological History: No Pertinent History ENT History: Cataracts Cardiac History: Arrhythmia, Coronary Artery Disease, Hypertension Respiratory History: CHF Endocrine Medical History: Diabetes Type II, Hypothyroidism Musculoskeletal History: Arthritis GI Medical History: No Pertinent History History: Renal Disease, Other Psycho-Social History: No Pertinent History Female Reproductive Disorders: No Pertinent History Other Medical History: Pt diagnosis with UTI Wednesday02/05/17 - Past Surgical History Past Surgical History: Yes Neuro Surgical History: No Pertinent History Cardiac: Internal Defibrillator, Pacemaker Respiratory: No Pertinent History Gastrointestinal: Appendectomy Genitourinary: No Pertinent History Musculoskeletal: No Pertinent History Female Surgical History: Tubal Ligation - Social History Smoking Status: Never smoker Exposure to second hand smoke: No Alcohol Use: None Drug Use: none Patient Lives Alone: No Significant Family History: heart disease, hypertension - Female History Hx Now: No - Nursing Vital Signs Nursing Vital Signs: Initial Vital Signs Respiratory Rate 19 03/05/17 09:58 O2 Sat by Pulse Oximetry 96 03/05/17 09:58 Pain Scale Pain Intensity 0 - Physical Exam General Appearance: no apparent distress Eye Exam: PERRL/EOMI Ears, Nose, Throat Exam: dry mucous membranes Neck Exam: normal inspection Respiratory Exam: wheezing, No stridor Cardiovascular Exam: regular rate/rhythm Gastrointestinal/Abdomen Exam: soft, No tenderness Extremity Exam: pelvis stable, No pedal edema Neurologic Exam: alert, oriented x 3, cooperative Skin Exam: normal color, warm, dry - Course Nursing assessment & vital signs reviewed: Yes EKG Interpreted by Me: Other (paced in Ventricle 72, similar to 03/02/17) - Radiology Exams Chest X-ray Interpretation: Discussed w/ radiologist, Negative - CT Exams Chest CT Interpretation: Discussed w/radiologist, Other (perfusion scan shows left apical perfusion defect) Ordered Tests: Active Orders 24 hr Category Date Time Status Design Engineering Intern STAT Care 03/05/17 10:04 Active EKG-ER Only STAT Care 03/05/17 10:03 Active IV Insertion STAT Care 03/05/17 10:03 Active CHEST 1 VIEW (PORTABLE) Stat Exams 03/05/17 10:04 Completed PULMONARY PERF PARTICULATE [NUCMED] Stat Exams 03/05/17 11:54 Completed CBC W DIFF Stat Lab 03/05/17 10:25 Completed CMP Stat Lab 03/05/17 10:25 Completed D-DIMER QUANTITATION Stat Lab 03/05/17 10:25 Completed Lactic Acid Stat Lab 03/05/17 10:21 Completed Lactic Acid Stat Lab 03/05/17 12:28 Results Manual Differential NC Stat Lab 03/05/17 10:25 Completed NT PRO BNP Stat Lab 03/05/17 10:25 Completed PROTIME WITH INR Stat Lab 03/05/17 10:25 Completed TROPONIN Q3H Lab 03/05/17 10:25 Completed TROPONIN Q3H Lab 03/05/17 13:47 Completed TROPONIN Q3H Lab 03/05/17 16:15 Ordered TROPONIN Q3H Lab 03/05/17 19:15 Ordered TROPONIN Q3H Lab 03/05/17 22:15 Ordered Respiratory Nebulizer STAT RT 03/05/17 10:06 Completed Transfer Order Routine Transfer 03/05/17 Ordered Medication Summary Discontinued Medications Generic Name Dose Route Start Last Admin Trade Name Freq PRN Reason Stop Dose Admin Albuterol/Ipratropium 3 ml 03/05/17 10:06 03/05/17 10:20 Duoneb 0.5-3 Mg/3 Ml Neb IH 03/05/17 10:07 3 ml STAT ONE Administration Albuterol/Ipratropium Confirm 03/05/17 10:18 Duoneb 0.5-3 Mg/3 Ml Neb Administered 03/05/17 10:19 Dose 3 ml IH .STK-MED ONE Sodium Chloride 1,000 mls @ 999 mls/hr 03/05/17 10:03 03/05/17 10:27 Sodium Chloride 0.9% 1000 Ml IV 03/05/17 11:03 999 mls/hr .Q1H1M STA Administration Sodium Chloride Confirm 03/05/17 10:24 Sodium Chloride 0.9% 1000 Ml Administered 03/05/17 10:25 Dose 1,000 mls @ ud .ROUTE .STK-MED ONE Insulin Human Regular 2 unit 03/05/17 11:48 03/05/17 12:02 Novolin R IV 03/05/17 11:49 2 unit STAT ONE Administration Insulin Human Regular Confirm 03/05/17 11:59 Novolin R Administered 03/05/17 12:00 Dose 2 unit .ROUTE .STK-MED ONE Lab/Rad Data: Laboratory Result Diagrams 03/05/17 10:25 03/05/17 10:25 Laboratory Results 03/05/17 03/05/17 03/05/17 Range/Units 13:47 12:28 10:25 WBC (4.0-10.5) K/mm3 RBC (4.1-5.4) M/mm3 Hgb (12.0-16.0) gm/dl Hct (35-47) % MCV (78-100) fl MCH (26-32) pg MCHC (32-36) g/dl RDW (11.5-14.0) % Plt Count (150-450) K/mm3 MPV (6-9.5) fl Segmented Neutrophils (36.0-66.0) % Band Neutrophils (0.0-2.0) % Lymphocytes (Manual) (24-44) % Monocytes (Manual) (0.0-12.0) % Eosinophils (Manual) (0.00-3.0) % Differential Comment Atypical Lymphocytes % Platelet Estimate (NORMAL) Anisocytosis INR (0.8-3.0) D-Dimer (0-500) ng/mL Sodium (136-145) mEq/L Potassium (3.5-5.1) mEq/L Chloride (98-107) mEq/L Carbon Dioxide (21-32) mEq/L Anion Gap (5-15) MEQ/L BUN (9-20) mg/dL Creatinine (0.55-1.30) mg/dl Estimated GFR ML/MIN Glucose (70-110) MG/DL Lactic Acid 1.9 (0.4-2.0) Calcium (8.5-10.1) mg/dL Total Bilirubin (0.2-1.0) mg/dL AST (15-37) U/L ALT (12-78) U/L Alkaline Phosphatase (46-116) U/L Troponin I 0.028 0.026 (0.000-0.056) ng/ml NT-Pro-B Natriuret Pep (0-450) pg/ml Serum Total Protein (6.4-8.2) gm/dL Albumin (3.4-5.0) g/dL 03/05/17 03/05/17 03/05/17 Range/Units 10:25 10:25 10:25 WBC 12.0 H (4.0-10.5) K/mm3 RBC 4.33 (4.1-5.4) M/mm3 Hgb 11.8 L (12.0-16.0) gm/dl Hct 38.8 (35-47) % MCV 89.6 (78-100) fl MCH 27.2 (26-32) pg MCHC 30.4 L (32-36) g/dl RDW 18.4 H (11.5-14.0) % Plt Count 203 (150-450) K/mm3 MPV 12.3 H (6-9.5) fl Segmented Neutrophils 72 H (36.0-66.0) % Band Neutrophils 2 (0.0-2.0) % Lymphocytes (Manual) 16 L (24-44) % Monocytes (Manual) 6 (0.0-12.0) % Eosinophils (Manual) 3 (0.00-3.0) % Differential Comment ABNORMAL Atypical Lymphocytes 1 % Platelet Estimate NORMAL (NORMAL) Anisocytosis 1+ INR 1.43 (0.8-3.0) D-Dimer 746 H* (0-500) ng/mL Sodium 139 (136-145) mEq/L Potassium 3.7 (3.5-5.1) mEq/L Chloride 103 (98-107) mEq/L Carbon Dioxide 28.5 (21-32) mEq/L Anion Gap 11.4 (5-15) MEQ/L BUN 33 H (9-20) mg/dL Creatinine 1.37 H (0.55-1.30) mg/dl Estimated GFR 39 ML/MIN Glucose 310 H (70-110) MG/DL Lactic Acid (0.4-2.0) Calcium 8.4 L (8.5-10.1) mg/dL Total Bilirubin 0.40 (0.2-1.0) mg/dL AST 66 H (15-37) U/L ALT 71 (12-78) U/L Alkaline Phosphatase 97 (46-116) U/L Troponin I (0.000-0.056) ng/ml NT-Pro-B Natriuret Pep 2834 H (0-450) pg/ml Serum Total Protein 6.8 (6.4-8.2) gm/dL Albumin 2.8 L (3.4-5.0) g/dL 03/05/17 Range/Units 10:21 WBC (4.0-10.5) K/mm3 RBC (4.1-5.4) M/mm3 Hgb (12.0-16.0) gm/dl Hct (35-47) % MCV (78-100) fl MCH (26-32) pg MCHC (32-36) g/dl RDW (11.5-14.0) % Plt Count (150-450) K/mm3 MPV (6-9.5) fl Segmented Neutrophils (36.0-66.0) % Band Neutrophils (0.0-2.0) % Lymphocytes (Manual) (24-44) % Monocytes (Manual) (0.0-12.0) % Eosinophils (Manual) (0.00-3.0) % Differential Comment Atypical Lymphocytes % Platelet Estimate (NORMAL) Anisocytosis INR (0.8-3.0) D-Dimer (0-500) ng/mL Sodium (136-145) mEq/L Potassium (3.5-5.1) mEq/L Chloride (98-107) mEq/L Carbon Dioxide (21-32) mEq/L Anion Gap (5-15) MEQ/L BUN (9-20) mg/dL Creatinine (0.55-1.30) mg/dl Estimated GFR ML/MIN Glucose (70-110) MG/DL Lactic Acid 2.3 H (0.4-2.0) Calcium (8.5-10.1) mg/dL Total Bilirubin (0.2-1.0) mg/dL AST (15-37) U/L ALT (12-78) U/L Alkaline Phosphatase (46-116) U/L Troponin I (0.000-0.056) ng/ml NT-Pro-B Natriuret Pep (0-450) pg/ml Serum Total Protein (6.4-8.2) gm/dL Albumin (3.4-5.0) g/dL - Progress Progress: re-examined Air Movement: good Progress Note: 03/05/17 15:48 will discontinue elequis prophylaxis in favor of lovenox for probable PE Discussed with DrYanique: Jhonatan Will see patient in: hospital (observation) Counseled pt/family regarding: lab results, diagnosis, rad results - Departure Time of Disposition: 15:49 Departure Disposition: Observation Clinical Impression: Pulmonary embolism Qualifiers: Pulmonary embolism type: other Chronicity: acute Acute cor pulmonale presence: without acute cor pulmonale Qualified Code(s): I26.99 - Other pulmonary embolism without acute cor pulmonale Condition: Stable Critical Care Time: No Referrals: FE BROWN [Primary Care Provider] - Additional Instructions: admit and treatment d/w Dr Allan Hastings
[2017-03-05] MEDS ORDERED: Sodium Chloride 0.9% 1000 ML 1,000 ML ONE (10:24)
[2017-03-05 10:28] LABS: Lactic Acid 2.3 (0.4-2.0)
--- NOTE | 2017-03-05 10:30 | XRAY ---
Indication: Short of breath and weakness. Comparison: 3 days ago. Portable chest less inflated today and remains clear with again left-sided AICD. Heart is not enlarged for AP portable technique. No new/acute cardiopulmonary findings.
[2017-03-05 11:08] LABS: Mean Cell Volume 89.6 fl (78-100); Mean Corpuscular Hemoglobin 27.2 pg (26-32); Mean Platelet Volume 12.3 fl (6-9.5); Platelet Count 203 K/mm3 (150-450); Red Blood Count 4.33 M/mm3 (4.1-5.4); Red Cell Distribution Width 18.4 % (11.5-14.0)
[2017-03-05 11:15] LABS: ATYPICAL LYMPHS 1 %; BAND 2 % (0.0-2.0); Eosinophil 3 % (0.00-3.0); Total Cells Counted 100
[2017-03-05 11:16] LABS: ANISOCYTOSIS 1+; Platelet Estimate NORMAL (NORMAL)
[2017-03-05 11:19] LABS: INR 1.43 (0.8-3.0)
[2017-03-05 11:29] LABS: ALBUMIN 2.8 g/dL (3.4-5.0); ANION GAP 11.4 MEQ/L (5-15); BILIRUBIN,TOTAL 0.4 mg/dL (0.2-1.0); Carbon Dioxide 28.5 mEq/L (21-32); Potassium 3.7 mEq/L (3.5-5.1); Total Protein 6.8 gm/dL (6.4-8.2)
[2017-03-05] MEDS ORDERED: NovoLIN R IV ONE (11:48)
[2017-03-05] MEDS ORDERED: NovoLIN R ONE (11:59)
[2017-03-05 14:04] LABS: Lactic Acid 1.9 (0.4-2.0)
--- NOTE | 2017-03-05 15:06 | XRAY ---
Indication: Short of breath. Elevated d-dimer. CHF. Renal insufficiency. Patient could not tolerate ventilation portion of the exam and was not performed after discussion with the ordering clinician. Patient received 5.5 mCi of technetium 99 microaggregated albumin for the perfusion portion of the exam. Multiplanar images obtained. Comparison: None There is a moderate sized perfusion defect in the left apex anteriorly. No other perfusion defects in either lung. Impression: Left apical anterior segmental perfusion defect.
[2017-03-05] MEDS ORDERED: PROVENTIL 2.5 MG/3 ML NEB IH PRN (16:39)
[2017-03-05] MEDS ORDERED: TYLENOL 325 MG PO PRN (16:39)
[2017-03-05] MEDS ORDERED: ENOXAPARIN SODIUM SQ SCH (18:00)
[2017-03-05] MEDS ORDERED: Artificial Tears 15 ML OP PRN (19:17)
[2017-03-05] MEDS ORDERED: Lopressor 50 MG PO SCH (22:00)
[2017-03-05] MEDS: Augmentin 875-125 Tablet PO SCH (22:02)
[2017-03-05] MEDS: BUMEX 1 MG PO SCH (22:05)
[2017-03-05] MEDS: ELIQUIS PO SCH (22:05)
[2017-03-05] MEDS: Klor Con 10 MEQ PO SCH (22:05)
[2017-03-05] MEDS: ZOCOR 20MG PO SCH (22:05)
[2017-03-05] MEDS: ELAVIL 25 MG PO SCH (22:05)
[2017-03-05] MEDS: Ditropan 5 MG PO SCH (22:06)
[2017-03-05] MEDS: MAG-OX 400 PO SCH (22:06)
[2017-03-05] MEDS: NovoLOG Insulin SQ PRN (22:36)
[2017-03-06 06:19] LABS: BASOPHIL % 0.5 % (0.0-0.4); Eosinophil % 2.1 % (0.00-5.0); Lymphocytes % 15.8 % (24.0-44.0); Mean Cell Volume 88.7 fl (78-100); Mean Corpuscular Hemoglobin 26.8 pg (26-32); Mean Platelet Volume 12.1 fl (6-9.5); Monocytes % 9.6 % (0.0-12.0); Platelet Count 186 K/mm3 (150-450); Red Blood Count 4.59 M/mm3 (4.1-5.4); Red Cell Distribution Width 18.6 % (11.5-14.0); White Blood Count 10.9 K/mm3 (4.0-10.5)
[2017-03-06 06:24] LABS: INR 1.98 (0.8-3.0); PROTIME 22.2 SECONDS (9.95-12.35)
[2017-03-06 06:56] LABS: ALBUMIN 2.8 g/dL (3.4-5.0); ANION GAP 8.6 MEQ/L (5-15); BILIRUBIN,TOTAL 0.7 mg/dL (0.2-1.0); Carbon Dioxide 31.4 mEq/L (21-32); Potassium 3.3 mEq/L (3.5-5.1); Total Protein 6.7 gm/dL (6.4-8.2)
[2017-03-06] MEDS ORDERED: PROVENTIL COMMON CANISTER IH PRN (08:49)
[2017-03-06] MEDS: Augmentin 875-125 Tablet PO SCH ×2 (09:19→21:21)
[2017-03-06] MEDS: Klor Con 10 MEQ PO SCH ×2 (09:20→21:04)
[2017-03-06] MEDS: BUMEX 1 MG PO SCH ×3 (09:20→21:04)
[2017-03-06] MEDS: MAG-OX 400 PO SCH ×2 (09:20→21:04)
[2017-03-06] MEDS: Ditropan 5 MG PO SCH ×2 (09:20→21:05)
[2017-03-06] MEDS: Lopressor 50 MG PO SCH ×2 (09:20→21:05)
[2017-03-06] MEDS: Lopressor 25MG Tab PO SCH ×2 (09:20→21:03)
[2017-03-06] MEDS: ELIQUIS PO SCH ×2 (09:21→21:05)
[2017-03-06] MEDS: Januvia 50 MG PO SCH (09:26)
[2017-03-06] MEDS: Lantus Insulin SQ SCH (09:26)
[2017-03-06] MEDS: ZYLOPRIM 300 MG PO SCH (09:26)
[2017-03-06] MEDS: SYNTHROID 100 MCG PO SCH (09:26)
[2017-03-06] MEDS ORDERED: Lopressor 50 MG PO SCH (10:00)
[2017-03-06] MEDS: Sodium Chloride 0.9% 1000 ML 1,000 ML IV SCH (16:16)
[2017-03-06] MEDS: NovoLOG Insulin SQ PRN (16:58)
[2017-03-06] MEDS ORDERED: Zofran 4 MG/2 ML VIAL IV PRN (20:10)
[2017-03-06] MEDS: ZOCOR 20MG PO SCH (21:05)
[2017-03-06] MEDS: ELAVIL 25 MG PO SCH (21:06)
[2017-03-07] MEDS: NovoLOG Insulin SQ PRN ×4 (07:54→22:13)
[2017-03-07] MEDS: Augmentin 875-125 Tablet PO SCH ×2 (09:10→22:11)
[2017-03-07] MEDS: Ditropan 5 MG PO SCH ×2 (09:13→22:11)
[2017-03-07] MEDS: BUMEX 1 MG PO SCH ×3 (09:13→22:11)
[2017-03-07] MEDS: ELIQUIS PO SCH ×2 (09:13→22:11)
[2017-03-07] MEDS: Januvia 50 MG PO SCH (09:14)
[2017-03-07] MEDS: Klor Con 10 MEQ PO SCH ×2 (09:14→22:11)
[2017-03-07] MEDS: Lopressor 50 MG PO SCH ×2 (09:15→22:12)
[2017-03-07] MEDS: Lopressor 25MG Tab PO SCH ×2 (09:15→22:12)
[2017-03-07] MEDS: SYNTHROID 100 MCG PO SCH (09:16)
[2017-03-07] MEDS: MAG-OX 400 PO SCH ×2 (09:16→22:13)
[2017-03-07] MEDS: ZYLOPRIM 300 MG PO SCH (09:16)
[2017-03-07] MEDS: Lantus Insulin SQ SCH (11:11)
[2017-03-07] MEDS: Sodium Chloride 0.9% 1000 ML 1,000 ML IV SCH (12:55)
[2017-03-07] MEDS: ELAVIL 25 MG PO SCH (22:11)
[2017-03-07] MEDS: ZOCOR 20MG PO SCH (22:13)
[2017-03-08 05:26] LABS: Mean Cell Volume 89.9 fl (78-100); Mean Platelet Volume 12.2 fl (6-9.5); Platelet Count 149 K/mm3 (150-450); Red Blood Count 3.96 M/mm3 (4.1-5.4); Red Cell Distribution Width 18.7 % (11.5-14.0); White Blood Count 11.4 K/mm3 (4.0-10.5)
[2017-03-08 05:43] LABS: Mean Corpuscular Hemoglobin 27.2 pg (26-32)
[2017-03-08 05:58] LABS: ALBUMIN 2.5 g/dL (3.4-5.0); ANION GAP 10.1 MEQ/L (5-15); BILIRUBIN,TOTAL 0.8 mg/dL (0.2-1.0); Carbon Dioxide 30.7 mEq/L (21-32); Potassium 3.5 mEq/L (3.5-5.1); Total Protein 6.3 gm/dL (6.4-8.2)
--- NOTE | 2017-03-08 09:01 | PCM.NOTE ---
Date and Time: 03/08/17 0856 Subjective Assessment: She is somnolent this morning; will wake briefly, denies pain. Oriented to place and person, knows it is Wednesday but unable to supply the date. She slept well overnight on 25mg amitriptylene. She did have a run of PVCs overnight. - Review of Systems Constitutional: No Fever Respiratory: Cough Objective Exam General Appearance: no apparent distress, other (somnolent) Neurologic Exam: cooperative, other (wakes while sitting up and with voice; closes eyes after answering questions) Skin Exam: normal color, warm, dry Neck Exam: normal inspection Respiratory Exam: lungs clear, diminished breath sounds, No crackles/rales, No rhonchi, No wheezing Cardiovascular Exam: regular rate/rhythm, normal heart sounds, other (distant heart sounds), No murmur Extremity Exam: No pedal edema, No swelling Back Exam: normal inspection OBJECTIVE DATA Vital Signs: Vital Signs - 24 hr Temp Pulse Resp BP Pulse Ox 03/08/17 08:00 12 03/08/17 07:19 97.5 F 88 12 119/71 92 L 03/08/17 07:00 82 18 97 03/08/17 04:00 98.6 F 88 20 114/71 98 03/07/17 23:50 99.3 F 84 22 120/69 97 03/07/17 21:42 94 H 20 98 03/07/17 20:00 98.1 F 97 H 18 108/57 98 03/07/17 16:00 97.7 F 72 20 118/68 100 03/07/17 11:32 97.8 F 71 20 130/68 97 Oxygen-Last 24 hours O2 Percentage 2 Liters = 28% O2 Percentage 2 Liters = 28% O2 Percentage 2 Liters = 28% O2 Percentage 2 Liters = 28% Pain Assessment - Last Documented Pain Scale Used 0-10 Pain Scale Intake and Output: Intake & Output 03/05/17 03/06/17 03/07/17 03/08/17 11:59 11:59 11:59 11:59 Intake Total 60 2719 Output Total 400 900 Balance -340 1819 Lab Results: Accuchecks Date 03/08/17 Date 03/08/17 Time 08:51 Time 05:30 Accucheck Value: 196 Accucheck Value: 249 Accucheck Value: 258 Accucheck Value: 246 Lab Results-Last 24 Hours 03/08/17 03/08/17 Range/Units 05:10 05:10 WBC 11.4 H (4.0-10.5) K/mm3 RBC 3.96 L (4.1-5.4) M/mm3 Hgb 10.8 L (12.0-16.0) gm/dl Hct 35.6 (35-47) % MCV 89.9 (78-100) fl MCH 27.2 (26-32) pg MCHC 30.3 L (32-36) g/dl RDW 18.7 H (11.5-14.0) % Plt Count 149 L (150-450) K/mm3 MPV 12.2 H (6-9.5) fl Sodium 142 (136-145) mEq/L Potassium 3.5 (3.5-5.1) mEq/L Chloride 105 (98-107) mEq/L Carbon Dioxide 30.7 (21-32) mEq/L Anion Gap 10.1 (5-15) MEQ/L BUN 23 H (9-20) mg/dL Creatinine 1.16 (0.55-1.30) mg/dl Estimated GFR 48 ML/MIN Glucose 213 H (70-110) MG/DL Calcium 8.1 L (8.5-10.1) mg/dL Total Bilirubin 0.80 (0.2-1.0) mg/dL AST 26 (15-37) U/L ALT 34 (12-78) U/L Alkaline Phosphatase 77 (46-116) U/L NT-Pro-B Natriuret Pep 1444 H (0-450) pg/ml Serum Total Protein 6.3 L (6.4-8.2) gm/dL Albumin 2.5 L (3.4-5.0) g/dL Assessment/Plan (1) Somnolence Current Visit: Yes Status: Acute Assessment & Plan: O2 sat wnl, repeat BS 196. She was more awake after she sat up, was aware of and responding to conversation in the room for the next few minutes after that. If she does not wake up closer to lunch time, would CT the head. (2) Chronic congestive heart failure Current Visit: No Status: Chronic Qualifiers: Assessment & Plan: Consult cardiology today; family pulled me aside, they are interested in starting to see the new doctor, Dr. Ruiz at [facility]. Will try tele cardiology consult today. Code(s): I50.9 - HEART FAILURE, UNSPECIFIED (3) Cough Current Visit: No Status: Acute Assessment & Plan: she is on augmentin for possible pneumonia at last admission. Code(s): R05 - COUGH (4) Weakness Current Visit: No Status: Acute Assessment & Plan: will plan on swing bed/rehab for pt Code(s): R53.1 - WEAKNESS (5) Diabetes type 2, controlled Current Visit: No Status: Chronic Qualifiers: Diabetes mellitus complication status: with kidney complications Diabetes mellitus complication detail: with chronic kidney disease Diabetes mellitus penitentiary insulin use: without long term care phlebotomist use Chronic kidney disease stage: stage 3 (moderate) Qualified Code(s): E11.22 - Type 2 diabetes mellitus with diabetic chronic kidney disease; N18.3 - Chronic kidney disease, stage 3 ( moderate); N18.3 - Chronic kidney disease, stage 3 (moderate) Assessment & Plan: BS still elevated here, will increase lantus to 20 units daily. Code(s): E11.9 - TYPE 2 DIABETES MELLITUS WITHOUT COMPLICATIONS (6) CKD (chronic kidney disease) stage 3, GFR 30-59 ml/min Current Visit: No Status: Chronic Assessment & Plan: renal function improved this morning. Code(s): N18.3 - CHRONIC KIDNEY DISEASE, STAGE 3 (MODERATE)
[2017-03-08] MEDS: Augmentin 875-125 Tablet PO SCH ×2 (09:42→21:19)
[2017-03-08] MEDS: SYNTHROID 100 MCG PO SCH (09:43)
[2017-03-08] MEDS: BUMEX 1 MG PO SCH ×3 (09:43→21:19)
[2017-03-08] MEDS: Lopressor 25MG Tab PO SCH ×2 (09:44→21:24)
[2017-03-08] MEDS: Lopressor 50 MG PO SCH ×2 (09:44→21:24)
[2017-03-08] MEDS: ZYLOPRIM 300 MG PO SCH (09:45)
[2017-03-08] MEDS: Januvia 50 MG PO SCH (09:45)
[2017-03-08] MEDS: Ditropan 5 MG PO SCH ×2 (09:46→21:21)
[2017-03-08] MEDS: MAG-OX 400 PO SCH ×2 (09:46→21:25)
[2017-03-08] MEDS: Klor Con 10 MEQ PO SCH ×2 (09:46→21:22)
[2017-03-08] MEDS: ELIQUIS PO SCH ×2 (09:47→21:22)
[2017-03-08] MEDS: Sodium Chloride 0.9% 1000 ML 1,000 ML IV SCH (10:00)
[2017-03-08] MEDS: Lantus Insulin SQ SCH (10:05)
[2017-03-08] MEDS: NovoLOG Insulin SQ PRN ×4 (10:06→22:02)
[2017-03-08] MEDS: ELAVIL 25 MG PO SCH (21:21)
[2017-03-08] MEDS: ZOCOR 20MG PO SCH (21:25)
[2017-03-09] MEDS: Sodium Chloride 0.9% 1000 ML 1,000 ML IV SCH (07:08)
--- NOTE | 2017-03-09 08:56 | PCM.NOTE ---
Date and Time: 03/09/17 0851 Subjective Assessment: Pt is alert this morning, oriented to month but not year. Eating this morning. - Review of Systems Constitutional: No Fever Respiratory: Cough Objective Exam General Appearance: no apparent distress, alert Neurologic Exam: alert, cooperative Skin Exam: normal color, warm, dry Respiratory Exam: lungs clear, diminished breath sounds, No crackles/rales, No rhonchi, No wheezing Cardiovascular Exam: regular rate/rhythm, normal heart sounds, No murmur Extremity Exam: No pedal edema, No swelling Back Exam: normal inspection OBJECTIVE DATA Vital Signs: Vital Signs - 24 hr Temp Pulse Resp BP Pulse Ox 03/09/17 04:00 20 03/09/17 03:00 98.2 F 82 20 109/59 98 03/09/17 00:00 22 03/08/17 23:00 97.4 F 85 22 135/60 96 03/08/17 20:24 95 H 14 97 03/08/17 20:00 16 03/08/17 19:00 97.9 F 89 26 H 104/59 91 L 03/08/17 15:29 22 03/08/17 14:49 98 F 90 22 122/74 94 L 03/08/17 11:58 97.5 F 85 20 107/59 96 03/08/17 11:39 12 Oxygen-Last 24 hours O2 Percentage 2 Liters = 28% Pain Assessment - Last Documented Pain Scale Used 0-10 Pain Scale Intake and Output: Intake & Output 03/06/17 03/07/17 03/08/17 03/09/17 11:59 11:59 11:59 11:59 Intake Total 60 2719 1422 Output Total 400 1600 450 Balance -340 1119 972 Lab Results: Accuchecks Date 03/08/17 Date 03/08/17 Date 03/08/17 Time 22:00 Time 11:29 Accucheck Value: 152 Accucheck Value: 239 Accucheck Value: 260 Accucheck Value: 219 Lab Results-Last 24 Hours 03/08/17 Range/Units 05:00 Troponin I 0.027 (0.000-0.056) ng/ml Assessment/Plan (1) Chronic congestive heart failure Current Visit: No Status: Chronic Qualifiers: Assessment & Plan: Seeing DR. Ruiz today, thank you! Code(s): I50.9 - HEART FAILURE, UNSPECIFIED (2) Cough Current Visit: No Status: Acute Code(s): R05 - COUGH (3) Weakness Current Visit: No Status: Acute Assessment & Plan: PT to eval/tx. Code(s): R53.1 - WEAKNESS (4) Diabetes type 2, controlled Current Visit: No Status: Chronic Qualifiers: Diabetes mellitus complication status: with kidney complications Diabetes mellitus complication detail: with chronic kidney disease Diabetes mellitus ad terminal makeup operator insulin use: without ad terminal makeup operator use Chronic kidney disease stage: stage 3 (moderate) Qualified Code(s): E11.22 - Type 2 diabetes mellitus with diabetic chronic kidney disease; N18.3 - Chronic kidney disease, stage 3 ( moderate); N18.3 - Chronic kidney disease, stage 3 (moderate) Assessment & Plan: increased her lantus yesterday/today. Code(s): E11.9 - TYPE 2 DIABETES MELLITUS WITHOUT COMPLICATIONS (5) CKD (chronic kidney disease) stage 3, GFR 30-59 ml/min Current Visit: No Status: Chronic Assessment & Plan: recheck tomorrow. Code(s): N18.3 - CHRONIC KIDNEY DISEASE, STAGE 3 (MODERATE) (6) Somnolence Current Visit: Yes Status: Resolved
[2017-03-09] MEDS: Januvia 50 MG PO SCH (10:28)
[2017-03-09] MEDS: Lopressor 25MG Tab PO SCH ×2 (10:28→21:39)
[2017-03-09] MEDS: Ditropan 5 MG PO SCH ×2 (10:28→21:39)
[2017-03-09] MEDS: ZYLOPRIM 300 MG PO SCH (10:28)
[2017-03-09] MEDS: MAG-OX 400 PO SCH ×2 (10:28→21:39)
[2017-03-09] MEDS: Klor Con 10 MEQ PO SCH ×2 (10:29→21:39)
[2017-03-09] MEDS: Lopressor 50 MG PO SCH ×2 (10:29→21:38)
[2017-03-09] MEDS: BUMEX 1 MG PO SCH (10:29)
[2017-03-09] MEDS: Lantus Insulin SQ SCH (10:29)
[2017-03-09] MEDS: ELIQUIS PO SCH ×2 (10:29→21:38)
[2017-03-09] MEDS: SYNTHROID 100 MCG PO SCH (10:29)
[2017-03-09] MEDS: Augmentin 875-125 Tablet PO SCH ×2 (10:35→21:37)
[2017-03-09] MEDS: NovoLOG Insulin SQ PRN ×2 (12:05→17:30)
[2017-03-09] MEDS: ENTRESTO 49 MG-51 MG TABLET PO SCH ×2 (15:25→22:07)
[2017-03-09] MEDS: Aldactone 25 MG PO SCH (15:25)
[2017-03-09] MEDS: BUMEX 1 MG IV SCH ×2 (15:25→21:45)
[2017-03-09] MEDS: ELAVIL 25 MG PO SCH (21:39)
[2017-03-09] MEDS: ZOCOR 20MG PO SCH (21:39)
[2017-03-09] MEDS: Sodium Chloride 0.9% 10 ML FLUSH Syringe IV SCH (22:16)
[2017-03-10 05:43] LABS: Mean Cell Volume 89.5 fl (78-100); Mean Platelet Volume 11.9 fl (6-9.5); Platelet Count 130 K/mm3 (150-450); Red Blood Count 4.11 M/mm3 (4.1-5.4); Red Cell Distribution Width 18.6 % (11.5-14.0); White Blood Count 11.7 K/mm3 (4.0-10.5)
[2017-03-10 05:49] LABS: Mean Corpuscular Hemoglobin 27.2 pg (26-32)
[2017-03-10 06:04] LABS: ANION GAP 9.2 MEQ/L (5-15); Carbon Dioxide 29.9 mEq/L (21-32); Potassium 3.2 mEq/L (3.5-5.1)
--- NOTE | 2017-03-10 08:28 | PCM.NOTE ---
Date and Time: 03/10/17822 Subjective Assessment: Pt with no complaints about her breathing. She is sitting up ready to eat. - Review of Systems Constitutional: No Fever Respiratory: Cough Objective Exam General Appearance: no apparent distress, obese Neurologic Exam: alert, cooperative Skin Exam: normal color, warm, dry Respiratory Exam: diminished breath sounds, No crackles/rales, No rhonchi, No wheezing Cardiovascular Exam: regular rate/rhythm, normal heart sounds, No murmur ( distant heart sounds) Gastrointestinal/Abdomen Exam: soft, No tenderness, No distention Extremity Exam: No pedal edema, No swelling OBJECTIVE DATA Vital Signs: Vital Signs - 24 hr Temp Pulse Resp BP Pulse Ox 03/10/17 07:37 97.8 F 87 17 119/65 98 03/10/17 07:14 80 16 95 03/10/17 04:00 98.2 F 77 16 95/54 96 03/10/17 00:00 98.7 F 78 16 90/55 93 L 03/09/17 23:00 18 03/09/17 21:02 90 18 94 L 03/09/17 20:00 18 03/09/17 19:00 98.0 F 90 16 118/56 97 03/09/17 15:00 97.9 F 97 H 22 114/66 96 03/09/17 11:00 97.8 F 82 20 113/61 98 Pain Assessment - Last Documented Pain Scale Used 0-10 Pain Scale Intake and Output: Intake & Output 03/07/17 03/08/17 03/09/17 03/10/17 11:59 11:59 11:59 11:59 Intake Total 60 2719 1422 570 Output Total 400 3081 371 0111 Balance -340 1119 972 -1030 Weight 68.946 kg Lab Results: Accuchecks Date 03/09/17 Time 22:00 Accucheck Value: 258 Accucheck Value: 241 Lab Results-Last 24 Hours 03/10/17 03/10/17 03/10/17 Range/Units 05:35 05:35 05:35 WBC 11.7 H (4.0-10.5) K/mm3 RBC 4.11 (4.1-5.4) M/mm3 Hgb 11.2 L (12.0-16.0) gm/dl Hct 36.8 (35-47) % MCV 89.5 (78-100) fl MCH 27.2 (26-32) pg MCHC 30.4 L (32-36) g/dl RDW 18.6 H (11.5-14.0) % Plt Count 130 L (150-450) K/mm3 MPV 11.9 H (6-9.5) fl Sodium 141 (136-145) mEq/L Potassium 3.2 L (3.5-5.1) mEq/L Chloride 105 (98-107) mEq/L Carbon Dioxide 29.9 (21-32) mEq/L Anion Gap 9.2 (5-15) MEQ/L BUN 15 (9-20) mg/dL Creatinine 1.13 (0.55-1.30) mg/dl Estimated GFR 49 ML/MIN Glucose 168 H (70-110) MG/DL Calcium 8.2 L (8.5-10.1) mg/dL Magnesium 2.0 (1.8-2.4) mg/dL Assessment/Plan (1) Acute on chronic systolic (congestive) heart failure Current Visit: Yes Status: Acute Assessment & Plan: Appreciate Dr. Ruiz's note and medicine changes. pt on Entresto. Code(s): I50.23 - ACUTE ON CHRONIC SYSTOLIC (CONGESTIVE) HEART FAILURE (2) Pulmonary embolism Current Visit: Yes Status: Acute Qualifiers: Pulmonary embolism type: other Chronicity: acute Acute cor pulmonale presence: without acute cor pulmonale Qualified Code(s): I26.99 - Other pulmonary embolism without acute cor pulmonale Assessment & Plan: Stable, on eliquis. Code(s): I26.99 - OTHER PULMONARY EMBOLISM WITHOUT ACUTE COR PULMONALE (3) Cough Current Visit: No Status: Acute Assessment & Plan: improved Code(s): R05 - COUGH (4) Weakness Current Visit: No Status: Acute Assessment & Plan: consult PT. Code(s): R53.1 - WEAKNESS (5) Diabetes type 2, controlled Current Visit: No Status: Chronic Qualifiers: Diabetes mellitus complication status: with kidney complications Diabetes mellitus complication detail: with chronic kidney disease Diabetes mellitus physician office assistant insulin use: without physician office assistant use Chronic kidney disease stage: stage 3 (moderate) Qualified Code(s): E11.22 - Type 2 diabetes mellitus with diabetic chronic kidney disease; N18.3 - Chronic kidney disease, stage 3 ( moderate); N18.3 - Chronic kidney disease, stage 3 (moderate) Assessment & Plan: Increased lantus Code(s): E11.9 - TYPE 2 DIABETES MELLITUS WITHOUT COMPLICATIONS (6) CKD (chronic kidney disease) stage 3, GFR 30-59 ml/min Current Visit: No Status: Chronic Assessment & Plan: recheck labs in a.m., doing very well here. Code(s): N18.3 - CHRONIC KIDNEY DISEASE, STAGE 3 (MODERATE)
--- NOTE | 2017-03-10 08:51 | CONS ---
CONSULT DATE: 03/09/2017 REASON FOR CONSULT: Congestive heart failure. HISTORY: Cesia Peres is an 81 year-old female with a history of chronic systolic congestive heart failure, nonischemic cardiomyopathy status post ICD placement and atrial fibrillation on Eliquis therapy. She has had multiple recent readmissions to [facility] with decompensated congestive heart failure. This most recent visit she presented with intermittent atypical chest pain as well as progressive dyspnea on exertion, orthopnea, paroxysmal nocturnal dyspnea, abdominal distention and early satiety as well as lower extremity edema and was found to have an elevated D-dimer. She subsequently underwent VQ scan which demonstrated a perfusion defect in the left anterior apical segment. Her Eliquis has been increased to 10 mg b.i.d. and she has been otherwise stable. She was also initiated on IV diuretic and has been doing reasonably well. However she is still having significant dyspnea on exertion with NYHA class IIIb. Currently she denies any chest pain and her daughter and son as well as are at the bedside during interview. After discussion with family it is clear that the patient does not add much salt to her diet. However, she does eat multiple high sodium foods including can soups and prepared meals as well as high salt content food multiple times a week. In addition, she does not limit her fluid intake and drinks "many glasses of water" daily. REVIEW OF SYSTEMS: Fourteen system review performed. Pertinent positives mentioned above otherwise negative. CURRENT MEDICATIONS: Reviewed. See MAR for full details. ALLERGIES: NKDA. PAST MEDICAL HISTORY: Chronic systolic congestive heart failure, nonischemic cardiomyopathy status post ICD placement, atrial fibrillation on Eliquis as an outpatient, hypothyroidism, hypertension, diabetes. SOCIAL HISTORY: She is and lives with her . She has two sons and a [id number] who are very active in her care. She lives at home with her . Her children do visit her frequently and help with medication management as well as food. She is a lifelong nonsmoker. She denies any alcohol or illicit drug use. FAMILY HISTORY: Her mother of lung cancer. Father of cancer. She had multiple siblings, two brothers and one sister all of which had lung cancer. PHYSICAL EXAMINATION: Vital signs reviewed. Systolic blood pressures having been ranging 110 to 120's. She is saturating greater than 90% on supplemental O2. GENERAL: She is obese. She is conversant, pleasant and in no acute distress. HEENT: Eyes - Nonicteric sclera. Conjunctivae normal. Hearing grossly intact. No nasal discharge. NECK: Supple, full range of motion. No thyromegaly. RESPIRATORY: Modest effort. No accessory muscle use. Normal chest wall excursion. There are bibasilar crackles. CVS: Irregularly irregular. There are no appreciable murmurs, rubs or gallops. Heart sounds are distant. There are no carotid bruits. There is positive hepatojugular reflex with moderately elevated JVD. There is 1+ bilateral lower extremity edema. GI: Soft, nontender, nondistended. No rebound or guarding. MUSCULOSKELETAL: Normal muscle bulk and tone. No clubbing or cyanosis. SKIN: Warm, well perfused. No rashes. PSYCH: Alert, oriented x4. Appropriate insight and judgement. Normal mood and affect. NEURO: Grossly nonfocal. LAB DATA AND TESTS: Reviewed. White blood cell count 11.4, hemoglobin 10.8, PLT 149,000. Creatinine 1.16, potassium 3.5. NT-proBNP 1,444 which is reduced as compared to admission which was over 2,000. Albumin 2.5. IMPRESSION: 1) ACUTE ON CHRONIC SYSTOLIC CONGESTIVE HEART FAILURE: Based on history the patient has been on increasing doses of diuretics over the past six months. In July 2016, she was on Bumex 1 mg daily. Currently she is requiring 2 mg t.i.d. and has had multiple recurrent admissions. After discussion with the family, I feel that there are multiple barriers for good outpatient management including lack of complete understanding of heart failure. I spent 45 minutes counseling the patient regarding the importance of salt restricting and fluid restricting her diet as to maintain euvolemia. I also advised daily weight monitoring and if she gains more than 3 pounds in a day or 5 pounds in a week she is to call me or Dr. Soto regarding weight gain and instructions on how to adjust diuretics. After I answered all the patient's questions as well as her family's questions, they did verbalize understanding and I advised them that there would be further education provided by nursing staff and my office would be willing to provide any further education as well and I am always free to discuss over the phone. I do feel that she is at higher risk for readmission. However based on ongoing medical therapy there is room for additional therapy. Her blood pressure is normal thus will initiate Entresto - one p.o. b.i.d. starting today as well as adding Spironolactone 25 mg daily as a potassium sparing diuretic to add to her optimal heart failure regimen. I will also transition Bumex back to 2 mg IV t.i.d. just for one to two days to further augment diuresis and will monitor renal function and potassium daily. 2) ACUTE PULMONARY EMBOLISM: Based on VQ scan and elevated D-dimer, there is significant concern for a left anterior apical pulmonary embolism. I agree with increasing dose of Eliquis to 10 mg b.i.d. x7 days and then reduce to 5 mg b.i.d. Of note based on her age and renal function 2.5 mg b.i.d. Eliquis for thromboembolism prophylaxis for atrial fibrillation is reasonable. However considering she now has acute pulmonary embolism 5 mg b.i.d. is the dose indicated for at least the next three months. 3) ATRIAL FIBRILLATION: She was placed on Eliquis 2.5 mg b.i.d., see dose adjustment recommendations above. 4) NONISCHEMIC CARDIOMYOPATHY STATUS POST ICD: It is unclear which company device the patient has. As she is at high risk for readmission, I have suggested that if she does have a [employer] device she may be a candidate to be enrolled in the [employer] [place] program which is specifically designed for high risk congestive heart failure patients. I will follow up with next interrogation or have the family bring her device card into to determine which company device she has. In addition, I will plan to follow up with her in two weeks on Wednesday in the a.m. at the [facility] for close follow up. I do advise that she continue diuresis for one to two more days and transition the patient to oral diuretic therapy to insure that she is still negative prior to discharge. Also advised daily weights, strict input and output and as noted above daily renal function electrolyte management. Thank you Dr. Huggins and Dr. Soto for allowing me to participate in the care of this patient.
[2017-03-10] MEDS: Klor Con 10 MEQ PO SCH ×2 (08:59→21:51)
[2017-03-10] MEDS: Lopressor 25MG Tab PO SCH ×2 (08:59→21:51)
[2017-03-10] MEDS: MAG-OX 400 PO SCH ×2 (08:59→21:52)
[2017-03-10] MEDS: Lopressor 50 MG PO SCH ×2 (08:59→21:51)
[2017-03-10] MEDS: ZYLOPRIM 300 MG PO SCH (08:59)
[2017-03-10] MEDS: Ditropan 5 MG PO SCH ×2 (08:59→21:52)
[2017-03-10] MEDS: ELIQUIS PO SCH ×2 (08:59→21:51)
[2017-03-10] MEDS: SYNTHROID 100 MCG PO SCH (08:59)
[2017-03-10] MEDS: Januvia 50 MG PO SCH (08:59)
[2017-03-10] MEDS: Aldactone 25 MG PO SCH (08:59)
[2017-03-10] MEDS: BUMEX 1 MG IV SCH ×3 (09:00→21:50)
[2017-03-10] MEDS: Augmentin 875-125 Tablet PO SCH ×2 (09:00→21:51)
[2017-03-10] MEDS: Lantus Insulin SQ SCH (09:00)
[2017-03-10] MEDS: ENTRESTO 49 MG-51 MG TABLET PO SCH ×2 (09:01→21:52)
[2017-03-10] MEDS: NovoLOG Insulin SQ PRN ×3 (11:30→21:34)
[2017-03-10] MEDS: ELAVIL 25 MG PO SCH (21:52)
[2017-03-10] MEDS: ZOCOR 20MG PO SCH (21:52)
[2017-03-10] MEDS: Sodium Chloride 0.9% 10 ML FLUSH Syringe IV SCH (21:59)
[2017-03-11] MEDS: Sodium Chloride 0.9% 10 ML FLUSH Syringe IV SCH ×2 (00:33→05:59)
[2017-03-11 06:38] LABS: ANION GAP 8.3 MEQ/L (5-15); Carbon Dioxide 28.9 mEq/L (21-32); Potassium 3.3 mEq/L (3.5-5.1)
[2017-03-11 08:10] VITALS: BP 108/59; PULSE 82; O2SAT 98
--- NOTE | 2017-03-11 08:38 | PCM.DS ---
Discharge Summary Date of Admission: 03/07/17 09:55 Admitting Physician: ESTEPHANIE MUNIZ Consults: Consults on Case 03/08/17 08:55 Tele-Health Consult ROUTINE 03/08/17 09:01 Consult Tele-Health [Tele-Health Consult] Primary Care Provider: FE BROWN Allergies Allergies No Known Drug Allergies Allergy (Verified 02/08/17 12:06) Hospital Summary - Hospital Course Hospital Course: Pt admitted SOB, found to have PE and CHF exacerbation. Started on po eliquis. Dr. Bhavik Ruiz was consulted and she was started on Entresto. Has mild hypkalemia. On po augmentin for previously existing respiratory infection. She has been having PT for generalized weakness and falls. Has Stage III renal failure which is stable. Today she is breathing well, eating well, no complaints this morning. - Vitals & Intake/Output Vital Signs: Vital Signs Temperature 97.8 F 03/11/17 08:00 Pulse Rate 82 03/11/17 08:00 Respiratory Rate 18 03/11/17 08:00 Blood Pressure 108/59 03/11/17 08:00 O2 Sat by Pulse Oximetry 98 03/11/17 08:00 Oxygen-Last Documented O2 Percentage 2 Liters = 28% Intake & Output: Intake & Output 03/08/17 03/09/17 03/10/17 03/11/17 11:59 11:59 11:59 11:59 Intake Total 2719 1422 570 500 Output Total 0140 426 0283 700 Balance 1119 972 -1030 -200 Weight 68.946 kg - Lab Result Diagrams: 03/10/17 05:35 03/11/17 05:58 Lab Results-Last 24 Hrs: Accuchecks Date 03/11/17 Date 03/10/17 Date 03/10/17 Date 03/10/17 Time 07:30 Time 22:00 Time 16:30 Time 11:30 Accucheck Value: 169 Accucheck Value: 233 Accucheck Value: 219 Accucheck Value: 331 Lab Results-Last 24 Hours 03/11/17 Range/Units 05:58 Sodium 139 (136-145) mEq/L Potassium 3.3 L (3.5-5.1) mEq/L Chloride 105 (98-107) mEq/L Carbon Dioxide 28.9 (21-32) mEq/L Anion Gap 8.3 (5-15) MEQ/L BUN 16 (9-20) mg/dL Creatinine 1.23 (0.55-1.30) mg/dl Estimated GFR 44 ML/MIN Glucose 169 H (70-110) MG/DL Calcium 8.2 L (8.5-10.1) mg/dL Magnesium 2.0 (1.8-2.4) mg/dL Micro Results-Entire Visit: Accuchecks Date 03/11/17 Date 03/10/17 Date 03/10/17 Date 03/10/17 Time 07:30 Time 22:00 Time 16:30 Time 11:30 Accucheck Value: 169 Accucheck Value: 233 Accucheck Value: 219 Accucheck Value: 331 - Procedures and Test Procedures and Tests throughout Hospitalization: Therapy Orders & Screens 03/10/17 08:23 PT Eval & Treat (MD Order) ROUTINE Evaluate: Yes Treat: Yes Reason for Eval:: deconditioning Diagnosis: CHF Discharge Exam General Appearance: no apparent distress, alert Neurologic Exam: cooperative, normal mood/affect Skin Exam: normal color, warm, dry Respiratory Exam: diminished breath sounds, wheezing (faint scattered), No crackles/rales, No rhonchi Cardiovascular Exam: regular rate/rhythm, normal heart sounds, No murmur Final Diagnosis/Problem List - Final Discharge Diagnosis/Problem (1) Acute on chronic systolic (congestive) heart failure Current Visit: Yes Status: Acute Assessment & Plan: Pt is on entresto, clinically doing very well. (2) Pulmonary embolism Current Visit: Yes Status: Acute Assessment & Plan: On eliquis bid. (3) Cough Current Visit: No Status: Acute Assessment & Plan: no complaint this morning. On augmentin for previously existing respiratory infection. (4) Weakness Current Visit: No Status: Acute Assessment & Plan: discharge to swing bed for continued therapy. Pt with multiple falls and admissions in the past few months. (5) Diabetes type 2, controlled Current Visit: No Status: Chronic (6) CKD (chronic kidney disease) stage 3, GFR 30-59 ml/min Current Visit: No Status: Chronic - Discharge Disposition: Swing Bed @ [facility] Condition: Stable Prescriptions: No Action Allopurinol 300 mg [Zyloprim 300 mg] 300 mg PO DAILY Multivitamin W-Minerals/Lutein [Centrum Silver Tablet] 1 each PO DAILY Rosuvastatin Calcium [Crestor] 10 mg PO DAILY Levothyroxine Sodium 100 Mcg [Synthroid 100 Mcg] 100 mcg PO DAILY Apixaban [Eliquis] 2.5 mg PO BID Polyvinyl Alcohol [Artificial Tears] 1 ml OP PRN PRN drops PRN Reason: Dry eyes Albuterol Common Canister [Proventil Common Canister] 2 puff IH Q4H PRN PRN #1 unit PRN Reason: Shortness Of Breath Oxybutynin Chloride 5 mg PO BID Sitagliptin Phosphate 50 MG [Januvia 50 MG] 100 mg PO DAILY Magnesium Oxide 400 mg [Mag-Ox 400] 400 mg PO BID Metoprolol Tartrate 50 mg [Lopressor 50 MG] 75 mg PO BID Amoxicillin/Potassium Clav [Augmentin 875 mg (Amox Tr-K Clv 875-125 mg)] 1 each PO BID #20 tablet Potassium Chloride 10 Meq Tab* [Klor Con 10 MEQ] 10 meq PO BID #60 tab Amitriptyline HCl 25 mg [Elavil 25 mg] 25 mg PO HS #30 tablet Bumetanide 2 mg PO TID #90 tablet Insulin Glargine [Lantus Insulin] 15 unit SQ DAILY #1 unit Instructions: Two Gram Sodium Diet, Heart Failure, Fluid Restricted Diet, Keep Track of Your Weight When You Have Heart Failure Additional Instructions: admit and treatment d/w Dr Allan Muniz Follow up with Dr[facility]Prashant Ruiz at [facility] on 03/23/17@ 9 a.m. Follow up with: FE BROWN [Primary Care Provider] - GAGE RUIZ MD [CONSULTING PHYSICIAN] - 03/23/17 9:00 am (FOR ANY QUESTIONS PAGE ) Forms: Patient Portal Information
[2017-03-11] MEDS: Januvia 50 MG PO SCH (09:41)
[2017-03-11] MEDS: Aldactone 25 MG PO SCH (09:42)
[2017-03-11] MEDS: ELIQUIS PO SCH (09:42)
[2017-03-11] MEDS: SYNTHROID 100 MCG PO SCH (09:42)
[2017-03-11] MEDS: Lopressor 50 MG PO SCH (09:42)
[2017-03-11] MEDS: Ditropan 5 MG PO SCH (09:42)
[2017-03-11] MEDS: Lopressor 25MG Tab PO SCH (09:42)
[2017-03-11] MEDS: ZYLOPRIM 300 MG PO SCH (09:42)
[2017-03-11] MEDS: Augmentin 875-125 Tablet PO SCH (09:43)
[2017-03-11] MEDS: BUMEX 1 MG IV SCH (09:43)
[2017-03-11] MEDS: Lantus Insulin SQ SCH (09:44)
[2017-03-11] MEDS: MAG-OX 400 PO SCH (09:44)
[2017-03-11] MEDS: ENTRESTO 49 MG-51 MG TABLET PO SCH (09:44)
[2017-03-11] MEDS ORDERED: Klor Con 10 MEQ PO SCH (10:00)
== END 2017-03-11 10:45 | disposition swing bed (61) | DRG 291 ==
LOC: ED 09:48 → MED SURG 16:12 → OBSVTOIN 03-07 09:55
PROVIDERS: ADMIT Family Medicine; ATTEND Family Medicine
DX: I50.23 Acute on chronic systolic (congestive) heart failure (principal); I26.99 Other pulmonary embolism without acute cor pulmonale; I42.9 Cardiomyopathy, unspecified; I50.84 End stage heart failure; I48.91 Unspecified atrial fibrillation; Z79.01 Long term (current) use of anticoagulants; E11.22 Type 2 diabetes mellitus with diabetic chronic kidney disease; N18.3 Chronic kidney disease, stage 3 (moderate); R53.1 Weakness; E03.9 Hypothyroidism, unspecified; Z80.1 Family history of malignant neoplasm of trachea, bronchus and lung
CPT/HCPCS: 36000; 36415; 71010; 78580; 80048; 80053; 82962; 83605; 83735; 83880; 83970; 84484; 85025; 85027; 85379; 85610; 90791; 93005; 93041; 93268; 93306; 94640; 94760; 96372; 99285; A9540; G0378; J1650; J2405; A9270-GY

== ENCOUNTER 2017-03-11 10:35 | Inpatient (IN) | payer MEDICARE, OTHER ==
[2017-03-11] MEDS ORDERED: Sodium Chloride 0.9% 10 ML FLUSH Syringe IV PRN (11:19)
[2017-03-11] MEDS ORDERED: PROVENTIL 2.5 MG/3 ML NEB IH PRN (11:23)
[2017-03-11] MEDS ORDERED: PROVENTIL COMMON CANISTER IH PRN (11:23)
[2017-03-11] MEDS ORDERED: TYLENOL 325 MG PO PRN (11:23)
[2017-03-11] MEDS ORDERED: Artificial Tears 15 ML OP PRN (11:24)
[2017-03-11] MEDS ORDERED: Zofran 4 MG/2 ML VIAL IV PRN (11:24)
[2017-03-11] MEDS: NovoLOG Insulin SQ PRN ×2 (12:13→21:36)
[2017-03-11] MEDS: Sodium Chloride 0.9% 10 ML FLUSH Syringe IV SCH ×2 (15:49→20:56)
[2017-03-11] MEDS: BUMEX 1 MG IV SCH ×2 (15:49→20:55)
[2017-03-11] MEDS ORDERED: ELIQUIS ONE (19:32)
[2017-03-11] MEDS ORDERED: ELAVIL 25 MG ONE (19:32)
[2017-03-11] MEDS ORDERED: Ditropan 5 MG ONE (19:32)
[2017-03-11] MEDS ORDERED: Klor Con 10 MEQ PO ONE (19:32)
[2017-03-11] MEDS ORDERED: MAG-OX 400 ONE (19:33)
[2017-03-11] MEDS ORDERED: Lopressor 50 MG ONE (19:33)
[2017-03-11] MEDS ORDERED: ZOCOR 20MG ONE (19:33)
[2017-03-11] MEDS ORDERED: Lopressor 25MG Tab ONE (19:33)
[2017-03-11] MEDS: ELAVIL 25 MG PO SCH (20:54)
[2017-03-11] MEDS: Lopressor 25MG Tab PO SCH (20:54)
[2017-03-11] MEDS: ZOCOR 20MG PO SCH (20:54)
[2017-03-11] MEDS: Ditropan 5 MG PO SCH (20:54)
[2017-03-11] MEDS: MAG-OX 400 PO SCH (20:54)
[2017-03-11] MEDS: Lopressor 50 MG PO SCH (20:54)
[2017-03-11] MEDS: ELIQUIS PO SCH (20:54)
[2017-03-11] MEDS: Klor Con 10 MEQ PO SCH (20:55)
[2017-03-11] MEDS: Augmentin 875-125 Tablet PO SCH (20:56)
[2017-03-11] MEDS: ENTRESTO 49 MG-51 MG TABLET PO SCH (20:56)
[2017-03-12] MEDS: Sodium Chloride 0.9% 10 ML FLUSH Syringe IV SCH (05:58)
[2017-03-12] MEDS: MAG-OX 400 PO SCH ×2 (09:36→21:11)
[2017-03-12] MEDS: Lopressor 50 MG PO SCH ×2 (09:36→21:11)
[2017-03-12] MEDS: Aldactone 25 MG PO SCH (09:36)
[2017-03-12] MEDS: Klor Con 10 MEQ PO SCH ×2 (09:36→21:11)
[2017-03-12] MEDS: SYNTHROID 100 MCG PO SCH (09:36)
[2017-03-12] MEDS: ZYLOPRIM 300 MG PO SCH (09:36)
[2017-03-12] MEDS: Lopressor 25MG Tab PO SCH ×2 (09:37→21:13)
[2017-03-12] MEDS: Ditropan 5 MG PO SCH ×2 (09:37→21:11)
[2017-03-12] MEDS: Augmentin 875-125 Tablet PO SCH ×2 (09:37→21:12)
[2017-03-12] MEDS: BUMEX 1 MG IV SCH ×2 (09:37→10:58)
[2017-03-12] MEDS: Januvia 50 MG PO SCH (09:37)
[2017-03-12] MEDS: ELIQUIS PO SCH ×2 (09:37→21:12)
[2017-03-12] MEDS: Lantus Insulin SQ SCH (09:38)
[2017-03-12] MEDS: ENTRESTO 49 MG-51 MG TABLET PO SCH ×2 (09:38→21:13)
[2017-03-12] MEDS ORDERED: Aplisol ID SCH (10:00)
[2017-03-12] MEDS: BUMEX 1 MG PO SCH ×3 (11:17→21:11)
[2017-03-12] MEDS: NovoLOG Insulin SQ PRN ×2 (11:28→21:10)
[2017-03-12] MEDS: ZOCOR 20MG PO SCH (21:11)
[2017-03-12] MEDS: ELAVIL 25 MG PO SCH (21:12)
[2017-03-13] MEDS: MAG-OX 400 PO SCH ×2 (09:01→21:37)
[2017-03-13] MEDS: BUMEX 1 MG PO SCH ×3 (09:01→21:37)
[2017-03-13] MEDS: Aldactone 25 MG PO SCH (09:01)
[2017-03-13] MEDS: ZYLOPRIM 300 MG PO SCH (09:02)
[2017-03-13] MEDS: Ditropan 5 MG PO SCH ×2 (09:03→21:37)
[2017-03-13] MEDS: Lopressor 25MG Tab PO SCH ×2 (09:03→21:37)
[2017-03-13] MEDS: Augmentin 875-125 Tablet PO SCH ×2 (09:03→21:37)
[2017-03-13] MEDS: Klor Con 10 MEQ PO SCH ×2 (09:04→21:37)
[2017-03-13] MEDS: Januvia 50 MG PO SCH (09:05)
[2017-03-13] MEDS: ELIQUIS PO SCH ×2 (09:05→21:37)
[2017-03-13] MEDS: Lopressor 50 MG PO SCH ×2 (09:07→21:37)
[2017-03-13] MEDS: Lantus Insulin SQ SCH (09:07)
[2017-03-13] MEDS: ENTRESTO 49 MG-51 MG TABLET PO SCH ×2 (09:07→21:37)
[2017-03-13] MEDS: SYNTHROID 100 MCG PO SCH (09:07)
[2017-03-13] MEDS: NovoLOG Insulin SQ PRN ×2 (11:39→21:39)
[2017-03-13] MEDS: ELAVIL 25 MG PO SCH (21:37)
[2017-03-13] MEDS: ZOCOR 20MG PO SCH (21:37)
[2017-03-14] MEDS: NovoLOG Insulin SQ PRN ×4 (07:32→22:02)
[2017-03-14] MEDS: Januvia 50 MG PO SCH (09:46)
[2017-03-14] MEDS: Lopressor 50 MG PO SCH ×2 (09:47→21:24)
[2017-03-14] MEDS: Lantus Insulin SQ SCH (09:47)
[2017-03-14] MEDS: Klor Con 10 MEQ PO SCH ×2 (09:47→21:24)
[2017-03-14] MEDS: BUMEX 1 MG PO SCH ×3 (09:47→21:24)
[2017-03-14] MEDS: Ditropan 5 MG PO SCH ×2 (09:47→21:24)
[2017-03-14] MEDS: ELIQUIS PO SCH ×2 (09:47→21:24)
[2017-03-14] MEDS: Aldactone 25 MG PO SCH (09:48)
[2017-03-14] MEDS: MAG-OX 400 PO SCH ×2 (09:48→21:24)
[2017-03-14] MEDS: ZYLOPRIM 300 MG PO SCH (09:48)
[2017-03-14] MEDS: SYNTHROID 100 MCG PO SCH (09:48)
[2017-03-14] MEDS: ENTRESTO 49 MG-51 MG TABLET PO SCH ×2 (09:49→21:25)
[2017-03-14] MEDS: Lopressor 25MG Tab PO SCH (09:49)
[2017-03-14] MEDS: Augmentin 875-125 Tablet PO SCH ×2 (09:49→21:25)
[2017-03-14] MEDS: ZOCOR 20MG PO SCH (21:24)
[2017-03-14] MEDS: ELAVIL 25 MG PO SCH (21:24)
[2017-03-15] MEDS: NovoLOG Insulin SQ PRN ×3 (08:28→23:44)
[2017-03-15] MEDS: SYNTHROID 100 MCG PO SCH (10:56)
[2017-03-15] MEDS: ELIQUIS PO SCH ×2 (10:56→22:03)
[2017-03-15] MEDS: Aldactone 25 MG PO SCH (10:56)
[2017-03-15] MEDS: Klor Con 10 MEQ PO SCH ×2 (10:56→22:02)
[2017-03-15] MEDS: BUMEX 1 MG PO SCH ×3 (10:56→22:02)
[2017-03-15] MEDS: MAG-OX 400 PO SCH ×2 (10:56→22:02)
[2017-03-15] MEDS: ZYLOPRIM 300 MG PO SCH (10:56)
[2017-03-15] MEDS: Augmentin 875-125 Tablet PO SCH ×2 (10:57→22:02)
[2017-03-15] MEDS: Lantus Insulin SQ SCH (10:57)
[2017-03-15] MEDS: Januvia 50 MG PO SCH (10:57)
[2017-03-15] MEDS: ENTRESTO 49 MG-51 MG TABLET PO SCH ×2 (10:57→22:09)
[2017-03-15] MEDS: Ditropan 5 MG PO SCH ×2 (10:57→22:02)
[2017-03-15] MEDS: Lopressor 50 MG PO SCH ×2 (10:57→22:03)
[2017-03-15] MEDS ORDERED: Tums EX 750 MG PO PRN (16:00)
[2017-03-15] MEDS: ZOCOR 20MG PO SCH (22:02)
[2017-03-15] MEDS: ELAVIL 25 MG PO SCH (22:03)
[2017-03-16] MEDS: NovoLOG Insulin SQ PRN ×3 (07:14→21:54)
[2017-03-16] MEDS: MAG-OX 400 PO SCH ×2 (08:49→21:47)
[2017-03-16] MEDS: ZYLOPRIM 300 MG PO SCH (08:49)
[2017-03-16] MEDS: ELIQUIS PO SCH ×2 (08:49→21:48)
[2017-03-16] MEDS: Ditropan 5 MG PO SCH ×2 (08:50→21:50)
[2017-03-16] MEDS: Klor Con 10 MEQ PO SCH ×2 (08:50→21:57)
[2017-03-16] MEDS: BUMEX 1 MG PO SCH ×3 (08:50→21:47)
[2017-03-16] MEDS: Augmentin 875-125 Tablet PO SCH ×2 (08:50→21:48)
[2017-03-16] MEDS: SYNTHROID 100 MCG PO SCH (08:50)
[2017-03-16] MEDS: Aldactone 25 MG PO SCH (08:50)
[2017-03-16] MEDS: Januvia 50 MG PO SCH (08:50)
[2017-03-16] MEDS: Lantus Insulin SQ SCH (08:51)
[2017-03-16] MEDS: ENTRESTO 49 MG-51 MG TABLET PO SCH ×2 (08:51→21:49)
[2017-03-16] MEDS: Lopressor 50 MG PO SCH ×2 (08:59→21:49)
[2017-03-16] MEDS: ELAVIL 25 MG PO SCH (21:48)
[2017-03-16] MEDS: ZOCOR 20MG PO SCH (21:48)
[2017-03-17] MEDS: NovoLOG Insulin SQ PRN (07:42)
[2017-03-17 07:43] VITALS: BP 101/58; PULSE 95
[2017-03-17 08:08] VITALS: O2SAT 94
[2017-03-17 08:42] LABS: Mean Cell Volume 89.6 fl (78-100); Mean Platelet Volume 11.8 fl (6-9.5); Platelet Count 191 K/mm3 (150-450); Red Blood Count 4.52 M/mm3 (4.1-5.4); Red Cell Distribution Width 19.4 % (11.5-14.0); White Blood Count 9.7 K/mm3 (4.0-10.5)
[2017-03-17] MEDS: Januvia 50 MG PO SCH (09:06)
[2017-03-17] MEDS: ELIQUIS PO SCH (09:06)
[2017-03-17] MEDS: ZYLOPRIM 300 MG PO SCH (09:06)
[2017-03-17] MEDS: Aldactone 25 MG PO SCH (09:06)
[2017-03-17] MEDS: SYNTHROID 100 MCG PO SCH (09:07)
[2017-03-17] MEDS: Ditropan 5 MG PO SCH (09:07)
[2017-03-17] MEDS: BUMEX 1 MG PO SCH (09:07)
[2017-03-17] MEDS: Klor Con 10 MEQ PO SCH (09:07)
[2017-03-17] MEDS: MAG-OX 400 PO SCH (09:07)
[2017-03-17] MEDS: Lopressor 50 MG PO SCH (09:07)
[2017-03-17] MEDS: ENTRESTO 49 MG-51 MG TABLET PO SCH (09:08)
[2017-03-17] MEDS: Lantus Insulin SQ SCH (09:08)
--- NOTE | 2017-03-17 09:10 | PCM.DS ---
Discharge Summary Date of Admission: 03/11/17 10:45 Admitting Physician: FE BROWN Primary Care Provider: FE BROWN Allergies Allergies No Known Drug Allergies Allergy (Verified 03/11/17 11:06) Hospital Summary - Hospital Course Hospital Course: Pt admitted to acute care stay with weakness, SOB, and a fall, found to have a PE and started on Eliquis. She was admitted to swing bed for continueing treatment and rehab. Was on po augmentin for upper respiratory infection. She was started on Lantus recently for elevated BS/uncontrolled DM. Her BS are improved somewhat, still in elida 200s, on 25 units Lantus daily. She is doing well with rehab. She is breathing well, no complaints. She denies any dizziness or lightheadedness, despite having some bp in 100s systolic (pt on bumex, entresto, and spironolactone). Adolfo po well. Ready to d/c home today. - Vitals & Intake/Output Vital Signs: Vital Signs Temperature 98.0 F 03/17/17 07:42 Pulse Rate 95 H 03/17/17 07:42 Respiratory Rate 20 03/17/17 07:42 Blood Pressure 101/58 03/17/17 07:42 O2 Sat by Pulse Oximetry 94 L 03/17/17 08:06 Intake & Output: Intake & Output 03/14/17 03/15/17 03/16/17 03/17/17 11:59 11:59 11:59 11:59 Intake Total 970 1000 1280 820 Output Total 1375 1500 600 Balance -405 -500 1280 220 Weight 68.583 kg 69.031 kg 75.16 kg 74.117 kg - Lab Result Diagrams: 03/17/17 08:25 Lab Results-Last 24 Hrs: Accuchecks Date 03/16/17 Date 03/16/17 Time 22:00 Time 11:30 Accucheck Value: 221 Accucheck Value: 294 Accucheck Value: 264 Lab Results-Last 24 Hours 03/17/17 Range/Units 08:25 WBC 9.7 (4.0-10.5) K/mm3 RBC 4.52 (4.1-5.4) M/mm3 Hgb 12.2 (12.0-16.0) gm/dl Hct 40.5 (35-47) % MCV 89.6 (78-100) fl MCH 27.0 (26-32) pg MCHC 30.1 L (32-36) g/dl RDW 19.4 H (11.5-14.0) % Plt Count 191 (150-450) K/mm3 MPV 11.8 H (6-9.5) fl Micro Results-Entire Visit: Accuchecks Date 03/16/17 Date 03/16/17 Time 22:00 Time 11:30 Accucheck Value: 221 Accucheck Value: 294 Accucheck Value: 264 - Procedures and Test Procedures and Tests throughout Hospitalization: Therapy Orders & Screens 03/11/17 11:10 PT Eval & Treat ( Order) ROUTINE Evaluate: Yes Treat: Yes Reason for Eval:: Deconditioning Diagnosis: Deconditioning r/t CHF, PE 03/11/17 12:00 OT Screen per Nursing Assess Comment: Protocol Order Physician Instructions: Greater than 3 points order OT Admission Screening Reason For Exam: Triggered on Admission Diagnosis: Deconditioning r/t CHF, PE Open Wound/Cellutlitis/Pressure Ulcers: No Acute Fx/ORIF/Change in wt bearing status: No Severe MUSCULOSKELETAL pain: No ADL Dysfunction: Yes Acute CVA w/Hemiparesis/Hemiplegia: No Decreased Functional Mobility/Strength: Yes Sprain/Strain: No Acute Post-op Mobility Dysfunction: No Total Points: 4 PT Screen per Nursing Assess ONCE Comment: Protocol Order Physician Instructions: Greater than 3 points order PT Admission Screenin Reason For Exam: Triggered on Admission Diagnosis: Deconditioning r/t CHF, PE Open Wound/Cellutlitis/Pressure Ulcers: No Acute Fx/ORIF/Change in wt bearing status: No Severe MUSCULOSKELETAL pain: No ADL Dysfunction: Yes Acute CVA w/Hemiparesis/Hemiplegia: No Decreased Functional Mobility/Strength: Yes Sprain/Strain: No Acute Post-op Mobility Dysfunction: No Total Points: 4 03/11/17 20:40 neb [Respiratory Nebulizer] PRN Comment: ALBUTEROL Q4PRN Diagnosis: Deconditioning r/t CHF, PE Discharge Exam General Appearance: no apparent distress, alert, obese Neurologic Exam: oriented x 3, cooperative Skin Exam: normal color, warm, dry Eye Exam: eyes nml inspection Neck Exam: normal inspection, non-tender, other (no masses), No lymphadenopathy Respiratory Exam: lungs clear, diminished breath sounds, No crackles/rales, No rhonchi, No wheezing Cardiovascular Exam: regular rate/rhythm, normal heart sounds, No murmur Gastrointestinal/Abdomen Exam: soft, normal bowel sounds, No tenderness, No distention, No mass, No guarding, No rebound Extremity Exam: normal inspection, No pedal edema, No swelling Back Exam: normal inspection, No rash Final Diagnosis/Problem List - Final Discharge Diagnosis/Problem (1) Pulmonary embolism Current Visit: No Status: Acute Assessment & Plan: Home on Eliquis. Doing well. Pt was on Eliquis 2.5mg po BID prior to her admission with PE, so sending her home on 5mg po BID. F/u with morgue librarian outpatient. (2) Diabetes type 2, uncontrolled Current Visit: Yes Status: Acute Assessment & Plan: Home on 25 units lantus daily and will adjust as needed. f/u with me in 1 wk. (3) Acute on chronic systolic (congestive) heart failure Current Visit: No Status: Acute Assessment & Plan: Home on bumex 2mg po TID. Cardiology was consulted acutely and they started pt on metoprolol and spironolactone, as well as Entresto. Pt going home on all 3 meds, as well as bumex. (4) Atypical pneumonia Current Visit: No Status: Acute Assessment & Plan: treated; augmentin stopped today. (5) Weakness Current Visit: No Status: Acute Assessment & Plan: much better with therapy. Home and continue therapy at home daily. (6) CKD (chronic kidney disease) stage 3, GFR 30-59 ml/min Current Visit: No Status: Chronic Assessment & Plan: recheck labs today. - Discharge Disposition: Home, Self-Care Condition: Stable Prescriptions: New Spironolactone 25 mg [Aldactone 25 MG] 25 mg PO DAILY #30 tablet Apixaban [Eliquis] 5 mg PO BID #60 tablet Sacubitril/Valsartan [Entresto 49 mg-51 mg Tablet] 0.5 each PO BID #15 tablet Potassium Chloride 10 Meq Tab* [Klor Con 10 MEQ] 20 meq PO BID #60 tab Insulin Glargine [Lantus Insulin] 25 unit SQ DAILY #3 pen Continue Allopurinol 300 mg [Zyloprim 300 mg] 300 mg PO DAILY Multivitamin W-Minerals/Lutein [Centrum Silver Tablet] 1 each PO DAILY Rosuvastatin Calcium [Crestor] 10 mg PO DAILY Levothyroxine Sodium 100 Mcg [Synthroid 100 Mcg] 100 mcg PO DAILY Polyvinyl Alcohol [Artificial Tears] 1 ml OP PRN PRN drops PRN Reason: Dry eyes Albuterol Common Canister [Proventil Common Canister] 2 puff IH Q4H PRN PRN #1 unit PRN Reason: Shortness Of Breath Oxybutynin Chloride 5 mg PO BID Sitagliptin Phosphate 50 MG [Januvia 50 MG] 100 mg PO DAILY Magnesium Oxide 400 mg [Mag-Ox 400] 400 mg PO BID Metoprolol Tartrate 50 mg [Lopressor 50 MG] 75 mg PO BID Amitriptyline HCl 25 mg [Elavil 25 mg] 25 mg PO HS #30 tablet Bumetanide 2 mg PO TID #90 tablet Discontinued Apixaban [Eliquis] 2.5 mg PO BID Amoxicillin/Potassium Clav [Augmentin 875 mg (Amox Tr-K Clv 875-125 mg)] 1 each PO BID #20 tablet Potassium Chloride 10 Meq Tab* [Klor Con 10 MEQ] 10 meq PO BID #60 tab Insulin Glargine [Lantus Insulin] 15 unit SQ DAILY #1 unit Follow up with: FE BROWN [Primary Care Provider] - 1 Week GAGE CHURCHILL MD [CONSULTING PHYSICIAN] - 03/23/17 9:00 am ([facility])
[2017-03-17 09:26] LABS: ANION GAP 13.4 MEQ/L (5-15); Carbon Dioxide 28.4 mEq/L (21-32); Potassium 5.1 mEq/L (3.5-5.1)
[2017-03-23] MEDS ORDERED: Aplisol ID SCH (10:00)
== END 2017-03-17 10:30 | disposition home or self-care (01) | DRG 175 ==
LOC: UNDOADMOB 10:45 → MED SURG 10:45 → EDSTATUS 10:55
PROVIDERS: ADMIT Family Medicine; ATTEND Family Medicine
DX: I26.99 Other pulmonary embolism without acute cor pulmonale (principal); I50.23 Acute on chronic systolic (congestive) heart failure; J18.9 Pneumonia, unspecified organism; Z79.01 Long term (current) use of anticoagulants; E11.65 Type 2 diabetes mellitus with hyperglycemia; Z79.4 Long term (current) use of insulin; R53.1 Weakness; N18.3 Chronic kidney disease, stage 3 (moderate)
CPT/HCPCS: 36415; 80048; 82962; 85027; 94760; 97110-GP; A9270-GY

== ENCOUNTER 2017-03-19 13:02 | Inpatient (IN) | payer MEDICARE, OTHER ==
--- NOTE | 2017-03-19 14:53 | ERPHSYRPT ---
- History of Present Illness Time Seen by Provider: 03/19/17 14:49 Source: patient, family Exam Limitations: no limitations Patient Subjective Stated Complaint: increased weakness in last day or so, unable to ambulate without assist x 2 Triage Nursing Assessment: increased weakness, x 2 assist to get to bed, no known fevers, pale per family members Physician History: The patient is an 81-year-old female with family complaining of increased weakness and being unable to ambulate even with a walker today. Her family is staying with her because her is currently in the hospital. Her family is unable to provide the assistance she needs for walking. She collapsed twice at home even with her family trying to support her. She denies fever or chills. She's had intermittent chest pain lasting just a few seconds. She currently has no chest pain. Her past medical history is significant for renal failure, diabetes, A. fib, defib/pacemaker, anemia, pulmonary embolism, congestive heart failure, sepsis, and gout. Timing/Duration: today Severity: severe Modifying Factors: Improves With: nothing Associated Symptoms: chest pain Allergies/Adverse Reactions: No Known Drug Allergies Allergy (Verified 03/11/17 11:06) Home Medications: Allopurinol 300 mg [Zyloprim 300 mg] 300 mg PO DAILY 09/30/12 [History] Multivitamin W-Minerals/Lutein [Centrum Silver Tablet] 1 each PO DAILY 10/02/14 [History] Levothyroxine Sodium 100 Mcg [Synthroid 100 Mcg] 100 mcg PO DAILY 08/17/16 [History] Rosuvastatin Calcium [Crestor] 10 mg PO DAILY 08/17/16 [History] Oxybutynin Chloride 5 mg PO BID 01/22/17 [History] Sitagliptin Phosphate 50 MG [Januvia 50 MG] 100 mg PO DAILY 01/22/17 [ History] Magnesium Oxide 400 mg [Mag-Ox 400] 400 mg PO BID 01/31/17 [History] Metoprolol Tartrate 50 mg [Lopressor 50 MG] 75 mg PO BID 02/08/17 [History ] Hx Tetanus, Diphtheria Vaccination/Date Given: No Hx Influenza Vaccination/Date Given: Yes Hx Pneumococcal Vaccination/Date Given: Yes Immunizations Up to Date: Yes - Review of Systems Constitutional: Weakness Eyes: No Symptoms Ears, Nose, & Throat: No Symptoms Respiratory: No Cough, No Dyspnea Cardiac: Chest Pain Abdominal/Gastrointestinal: No Abdominal Pain, No Nausea, No Vomiting, No Diarrhea Genitourinary Symptoms: No Dysuria Musculoskeletal: No Back Pain, No Neck Pain Skin: No Rash Neurological: No Dizziness, No Focal Weakness, No Sensory Changes Psychological: No Symptoms Endocrine: No Symptoms Hematologic/Lymphatic: No Symptoms Immunological/Allergic: No Symptoms All Other Systems: Reviewed and Negative - Past Medical History Pertinent Past Medical History: Yes Neurological History: No Pertinent History ENT History: Cataracts Cardiac History: Arrhythmia, Coronary Artery Disease, Hypertension Respiratory History: CHF Endocrine Medical History: Diabetes Type II, Hypothyroidism Musculoskeletal History: Arthritis GI Medical History: No Pertinent History History: Renal Disease, Other Psycho-Social History: No Pertinent History Female Reproductive Disorders: No Pertinent History Other Medical History: Pt diagnosis with UTI Wednesday02/05/17 - Past Surgical History Past Surgical History: Yes Neuro Surgical History: No Pertinent History Cardiac: Internal Defibrillator, Pacemaker Respiratory: No Pertinent History Gastrointestinal: Appendectomy Genitourinary: No Pertinent History Musculoskeletal: No Pertinent History Female Surgical History: Tubal Ligation - Social History Smoking Status: Never smoker Exposure to second hand smoke: Yes Alcohol Use: None Drug Use: none Patient Lives Alone: No Significant Family History: heart disease, hypertension - Female History Hx Now: No - Nursing Vital Signs Nursing Vital Signs: Initial Vital Signs Temperature 97.8 F 03/19/17 13:40 Pulse Rate 100 H 03/19/17 13:40 Respiratory Rate 22 03/19/17 13:40 Blood Pressure 84/50 03/19/17 13:40 O2 Sat by Pulse Oximetry 100 03/19/17 13:40 Pain Scale Pain Intensity 0 - Physical Exam General Appearance: mild distress Eye Exam: PERRL/EOMI, eyes nml inspection Ears, Nose, Throat Exam: normal ENT inspection, TMs normal, pharynx normal, moist mucous membranes Neck Exam: normal inspection, non-tender, supple, full range of motion Respiratory Exam: normal breath sounds, lungs clear, No respiratory distress Cardiovascular Exam: regular rate/rhythm, normal heart sounds, normal peripheral pulses Gastrointestinal/Abdomen Exam: soft, normal bowel sounds, No tenderness, No mass Pelvic Exam: not done Rectal Exam: not done Back Exam: normal inspection, normal range of motion, No CVA tenderness, No vertebral tenderness Extremity Exam: normal inspection, normal range of motion, pelvis stable Neurologic Exam: alert, oriented x 3, cooperative, normal mood/affect, nml cerebellar function, nml station & gait, sensation nml, No motor deficits Skin Exam: normal color, warm, dry, No rash Lymphatic Exam: No adenopathy SpO2 Interpretation: normal SpO2: 98 Oxygen Delivery: Room Air - Course EKG Interpreted by Me: RATE (paced, no change to prior EKG of 03/05/17.) - Radiology Exams Chest X-ray Interpretation: Interpreted by me, Negative (comp AP chest 03/05/17.) Ordered Tests: Active Orders 24 hr Category Date Time Status Dry Goods Clerk STAT Care 03/19/17 13:57 Active EKG-ER Only STAT Care 03/19/17 13:57 Active IV Insertion STAT Care 03/19/17 13:57 Active CHEST 1 VIEW (PORTABLE) Stat Exams 03/19/17 14:54 Taken BLOOD CULTURE Stat Lab 03/19/17 15:05 Received CBC W DIFF Stat Lab 03/19/17 14:55 Completed CMP Stat Lab 03/19/17 14:55 Completed CULTURE,URINE Stat Lab 03/19/17 15:59 Received NT PRO BNP Stat Lab 03/19/17 14:55 Completed Potassium (Lab Test) [Potassium] Stat Lab 03/19/17 15:57 Completed TROPONIN Stat Lab 03/19/17 14:55 Completed UA W/ MICROSCOPIC Stat Lab 03/19/17 15:59 Completed Medication Summary Generic Name Dose Route Start Last Admin Trade Name Freq PRN Reason Stop Dose Admin Ceftriaxone Sodium/Dextrose 1 g in 50 mls @ 100 mls/hr 03/19/17 16:44 Rocephin 1 Gm-D5w 50 Ml Bag IV 03/19/17 17:13 STAT STA Discontinued Medications Generic Name Dose Route Start Last Admin Trade Name Freq PRN Reason Stop Dose Admin Sodium Polystyrene Sulfonate 30 g 03/19/17 16:40 Kayexylate 15 Gm/60 Ml PO 03/19/17 16:41 STAT ONE Lab/Rad Data: Laboratory Result Diagrams 03/19/17 14:55 03/19/17 15:57 Laboratory Results 03/19/17 03/19/17 03/19/17 Range/Units 15:59 15:57 14:55 WBC (4.0-10.5) K/mm3 RBC (4.1-5.4) M/mm3 Hgb (12.0-16.0) gm/dl Hct (35-47) % MCV (78-100) fl MCH (26-32) pg MCHC (32-36) g/dl RDW (11.5-14.0) % Plt Count (150-450) K/mm3 MPV (6-9.5) fl Gran % (36.0-66.0) % Lymphocytes % (24.0-44.0) % Monocytes % (0.0-12.0) % Eosinophils % (0.00-5.0) % Basophils % (0.0-0.4) % Basophils # (0-0.4) Sodium (136-145) mEq/L Potassium 5.8 H (3.5-5.1) mEq/L Chloride (98-107) mEq/L Carbon Dioxide (21-32) mEq/L Anion Gap (5-15) MEQ/L BUN (9-20) mg/dL Creatinine (0.55-1.30) mg/dl Estimated GFR ML/MIN Glucose (70-110) MG/DL Calcium (8.5-10.1) mg/dL Total Bilirubin (0.2-1.0) mg/dL AST (15-37) U/L ALT (12-78) U/L Alkaline Phosphatase (46-116) U/L Troponin I < 0.017 (0.000-0.056) ng/ml NT-Pro-B Natriuret Pep (0-450) pg/ml Serum Total Protein (6.4-8.2) gm/dL Albumin (3.4-5.0) g/dL Ur Collection Type CATH Urine Color YELLOW (YELLOW) Urine Appearance HAZY (CLEAR) Urine pH 7.0 (5-6) Ur Specific Garber 1.005 (1.005-1.025) Urine Protein NEGATIVE (Negative) Urine Ketones NEGATIVE (NEGATIVE) Urine Blood NEGATIVE (0-5) Allan/ul Urine Nitrite NEGATIVE (NEGATIVE) Urine Bilirubin NEGATIVE (NEGATIVE) Urine Urobilinogen NORMAL (0-1) mg/dL Ur Leukocyte Esterase LARGE (NEGATIVE) Urine Microscopic RBC 0-2 (0-2) /HPF Urine Microscopic WBC 50-100 (0-5) /HPF Ur Epithelial Cells MANY (FEW) /HPF Urine Bacteria MODERATE (NEGATIVE) /HPF Hyaline Casts 0-2 (0-2) /LPF Urine Culture Reflexed YES (NO) Urine Glucose NEGATIVE (NEGATIVE) mg/dL Specimen Received 03/19/17 1625 03/19/17 03/19/17 Range/Units 14:55 14:55 WBC 10.3 (4.0-10.5) K/mm3 RBC 4.26 (4.1-5.4) M/mm3 Hgb 11.6 L (12.0-16.0) gm/dl Hct 37.8 (35-47) % MCV 88.7 (78-100) fl MCH 27.2 (26-32) pg MCHC 30.7 L (32-36) g/dl RDW 18.8 H (11.5-14.0) % Plt Count 244 (150-450) K/mm3 MPV 11.6 H (6-9.5) fl Gran % 83.1 H (36.0-66.0) % Lymphocytes % 10.5 L (24.0-44.0) % Monocytes % 5.2 (0.0-12.0) % Eosinophils % 0.5 (0.00-5.0) % Basophils % 0.7 (0.0-0.4) % Basophils # 0.07 (0-0.4) Sodium 135 L (136-145) mEq/L Potassium 5.8 H (3.5-5.1) mEq/L Chloride 98 (98-107) mEq/L Carbon Dioxide 25.7 (21-32) mEq/L Anion Gap 17.7 H (5-15) MEQ/L BUN 45 H (9-20) mg/dL Creatinine 2.39 H (0.55-1.30) mg/dl Estimated GFR 21 ML/MIN Glucose 234 H (70-110) MG/DL Calcium 10.0 (8.5-10.1) mg/dL Total Bilirubin 0.50 (0.2-1.0) mg/dL AST 33 (15-37) U/L ALT 30 (12-78) U/L Alkaline Phosphatase 147 H (46-116) U/L Troponin I (0.000-0.056) ng/ml NT-Pro-B Natriuret Pep 1745 H (0-450) pg/ml Serum Total Protein 6.9 (6.4-8.2) gm/dL Albumin 2.8 L (3.4-5.0) g/dL Ur Collection Type Urine Color (YELLOW) Urine Appearance (CLEAR) Urine pH (5-6) Ur Specific Garber (1.005-1.025) Urine Protein (Negative) Urine Ketones (NEGATIVE) Urine Blood (0-5) Allan/ul Urine Nitrite (NEGATIVE) Urine Bilirubin (NEGATIVE) Urine Urobilinogen (0-1) mg/dL Ur Leukocyte Esterase (NEGATIVE) Urine Microscopic RBC (0-2) /HPF Urine Microscopic WBC (0-5) /HPF Ur Epithelial Cells (FEW) /HPF Urine Bacteria (NEGATIVE) /HPF Hyaline Casts (0-2) /LPF Urine Culture Reflexed (NO) Urine Glucose (NEGATIVE) mg/dL Specimen Received - Progress Progress: unchanged Discussed with : Charles Will see patient in: hospital (observation) Counseled pt/family regarding: lab results, diagnosis, rad results - Departure Time of Disposition: 16:49 Departure Disposition: Home Clinical Impression: Weakness, UTI (urinary tract infection), Hyperkalemia Condition: Stable Critical Care Time: No Referrals: FE SOTO [Primary Care Provider] - Additional Instructions: You are being admitted per Dr. Soto for weakness, high potassium, and a UTI. You were given Kayexalate 30 g orally and Rocephin 1 g by IV in the ER.
[2017-03-19 15:02] LABS: BASOPHIL % 0.7 % (0.0-0.4); Eosinophil % 0.5 % (0.00-5.0); Granulocytes % 83.1 % (36.0-66.0); Lymphocytes % 10.5 % (24.0-44.0); Mean Cell Volume 88.7 fl (78-100); Mean Corpuscular Hemoglobin 27.2 pg (26-32); Mean Platelet Volume 11.6 fl (6-9.5); Monocytes % 5.2 % (0.0-12.0); Platelet Count 244 K/mm3 (150-450); Red Blood Count 4.26 M/mm3 (4.1-5.4); Red Cell Distribution Width 18.8 % (11.5-14.0); White Blood Count 10.3 K/mm3 (4.0-10.5)
[2017-03-19 15:22] LABS: ALBUMIN 2.8 g/dL (3.4-5.0); ANION GAP 17.7 MEQ/L (5-15); BILIRUBIN,TOTAL 0.5 mg/dL (0.2-1.0); Carbon Dioxide 25.7 mEq/L (21-32); Total Protein 6.9 gm/dL (6.4-8.2)
[2017-03-19 15:23] LABS: Potassium 5.8 mEq/L (3.5-5.1)
[2017-03-19 16:33] LABS: Bilirubin NEGATIVE (NEGATIVE); Blood NEGATIVE Ery/ul (0-5); COMPLETE URINE MICROSCOPIC? YES; Collection Type CATH; Glucose NEGATIVE (NEGATIVE); Leukocyte Esterase LARGE (NEGATIVE)
[2017-03-19 16:36] LABS: Bacteria MODERATE /HPF (NEGATIVE); Epithelial Cells MANY /HPF (FEW); WBC 50-100 /HPF (0-5)
[2017-03-19 16:37] LABS: ADD URINE CULTURE? YES (NO); Hyaline Casts 0-2 /LPF (0-2)
[2017-03-19] MEDS ORDERED: Kayexylate 15 GM/60 ML PO ONE (16:40)
[2017-03-19] MEDS ORDERED: ROCEPHIN 1 Gm-D5w 50 ml Bag** 1 G/50 ML IVPB IV STA (16:44)
[2017-03-19] MEDS ORDERED: ROCEPHIN 1 Gm-D5w 50 ml Bag** 1 G/50 ML IVPB IV ONE (16:45)
[2017-03-19] MEDS ORDERED: Zofran 4 MG/2 ML VIAL IV PRN (17:22)
[2017-03-19] MEDS: Sodium Chloride 0.9% 1000 ML 1,000 ML IV SCH (18:28)
[2017-03-19] MEDS ORDERED: Artificial Tears 15 ML OP PRN (20:27)
[2017-03-19] MEDS ORDERED: Lopressor 25MG Tab ONE (21:48)
[2017-03-19] MEDS: MAG-OX 400 PO SCH (21:54)
[2017-03-19] MEDS: ELAVIL 25 MG PO SCH (21:54)
[2017-03-19] MEDS: Ditropan 5 MG PO SCH (21:54)
[2017-03-19] MEDS ORDERED: Lopressor 50 MG PO SCH (22:00)
[2017-03-19] MEDS ORDERED: Kayexylate 15 GM/60 ML PO SCH (22:00)
[2017-03-19] MEDS ORDERED: ELIQUIS PO SCH (22:00)
--- NOTE | 2017-03-19 22:04 | XRAY ---
Indication: Weakness. Comparison: March 05, 2017. Portable chest remains clear again with left-sided AICD. Heart and mediastinal structures within normal limits. No new/acute findings.
[2017-03-19] MEDS: KEFZOL 1 GM/50 ML PREMIX** 1 GM/50 ML IVPB IV SCH (22:20)
[2017-03-20] MEDS: Sodium Chloride 0.9% 1000 ML 1,000 ML IV SCH ×2 (05:26→22:06)
[2017-03-20] MEDS: KEFZOL 1 GM/50 ML PREMIX** 1 GM/50 ML IVPB IV SCH ×3 (05:26→22:02)
[2017-03-20 05:47] LABS: BASOPHIL % 0.6 % (0.0-0.4); Eosinophil % 0.9 % (0.00-5.0); Lymphocytes % 19.4 % (24.0-44.0); Mean Platelet Volume 10.5 fl (6-9.5); Monocytes % 8.1 % (0.0-12.0); Platelet Count 240 K/mm3 (150-450); Red Blood Count 3.92 M/mm3 (4.1-5.4); Red Cell Distribution Width 18.9 % (11.5-14.0); White Blood Count 8.8 K/mm3 (4.0-10.5)
[2017-03-20 06:07] LABS: Mean Corpuscular Hemoglobin 27.5 pg (26-32)
[2017-03-20 06:13] LABS: ANION GAP 16.2 MEQ/L (5-15); Carbon Dioxide 23.1 mEq/L (21-32); Potassium 3.6 mEq/L (3.5-5.1)
[2017-03-20] MEDS: Lopressor 25MG Tab PO SCH ×2 (10:27→22:12)
[2017-03-20] MEDS: ELIQUIS PO SCH ×2 (10:28→22:09)
[2017-03-20] MEDS: Ditropan 5 MG PO SCH ×2 (10:28→22:12)
[2017-03-20] MEDS: Lopressor 50 MG PO SCH ×2 (10:28→22:13)
[2017-03-20] MEDS: MAG-OX 400 PO SCH ×2 (10:28→22:13)
[2017-03-20] MEDS ORDERED: PROVENTIL COMMON CANISTER IH PRN (11:26)
[2017-03-20] MEDS ORDERED: Lantus Insulin SQ SCH (11:30)
[2017-03-20] MEDS ORDERED: Lantus Insulin SQ ONE (11:45)
[2017-03-20] MEDS: ZYLOPRIM 300 MG PO SCH (12:10)
[2017-03-20] MEDS: SYNTHROID 100 MCG PO SCH (12:10)
[2017-03-20] MEDS: ZOCOR 20MG PO SCH (12:10)
[2017-03-20] MEDS: THERAGRAN MULTIVITAMIN PO SCH (12:10)
[2017-03-20] MEDS: NovoLOG Insulin SQ PRN ×2 (12:10→22:13)
[2017-03-20] MEDS: ELAVIL 25 MG PO SCH (22:12)
[2017-03-21] MEDS: KEFZOL 1 GM/50 ML PREMIX** 1 GM/50 ML IVPB IV SCH ×3 (05:40→20:56)
[2017-03-21] MEDS: Lantus Insulin SQ SCH (07:30)
[2017-03-21] MEDS: MAG-OX 400 PO SCH ×2 (09:41→20:55)
[2017-03-21] MEDS: ZOCOR 20MG PO SCH (09:41)
[2017-03-21] MEDS: ZYLOPRIM 300 MG PO SCH (09:41)
[2017-03-21] MEDS: ELIQUIS PO SCH ×2 (09:41→20:54)
[2017-03-21] MEDS: Ditropan 5 MG PO SCH ×2 (09:41→20:55)
[2017-03-21] MEDS: SYNTHROID 100 MCG PO SCH (09:41)
[2017-03-21] MEDS: Lopressor 25MG Tab PO SCH ×2 (09:41→20:55)
[2017-03-21] MEDS: Lopressor 50 MG PO SCH ×2 (09:41→20:56)
[2017-03-21] MEDS: THERAGRAN MULTIVITAMIN PO SCH (09:41)
[2017-03-21 09:53] LABS: ANION GAP 11.1 MEQ/L (5-15); Carbon Dioxide 28.1 mEq/L (21-32); Potassium 3.5 mEq/L (3.5-5.1)
[2017-03-21] MEDS ORDERED: NON-FORMULARY ITEM (Multivitamin W-Minerals/Lutein [Centrum Silver Tablet] 1 EACH) PO SCH (10:00)
[2017-03-21] MEDS ORDERED: NON-FORMULARY ITEM (Rosuvastatin Calcium [Crestor] 10 MG) PO SCH (10:00)
--- NOTE | 2017-03-21 10:49 | PCM.NOTE ---
Date and Time: 03/21/17 1044 Subjective Assessment: SCO status confirmed with the patient while her was sitting next to her. She reports her appetite has been good. She denies dizziness or lightheadedness. - Review of Systems Constitutional: Weakness Eyes: No Symptoms Ears, Nose, & Throat: No Symptoms Respiratory: No Symptoms Cardiac: No Symptoms Abdominal/Gastrointestinal: No Symptoms Genitourinary Symptoms: No Symptoms Musculoskeletal: No Symptoms Objective Exam General Appearance: no apparent distress, alert, other (sitting in a chair in her 's hospital room) Neurologic Exam: alert, cooperative, normal mood/affect Skin Exam: normal color, warm, dry, No rash Respiratory Exam: normal breath sounds, lungs clear, No crackles/rales, No rhonchi, No wheezing Cardiovascular Exam: regular rate/rhythm, normal heart sounds, No murmur, No friction rub, No gallop Gastrointestinal/Abdomen Exam: soft, normal bowel sounds, No tenderness, No distention, No mass Extremity Exam: other (no c/c/e) OBJECTIVE DATA Vital Signs: Vital Signs - 24 hr Temp Pulse Resp BP Pulse Ox 03/21/17 07:01 97.7 F 68 20 99/58 97 03/21/17 03:55 97.6 F 86 16 88/51 95 03/21/17 00:00 98.0 F 83 24 118/63 95 03/20/17 20:50 94 L 03/20/17 20:47 81 20 94 L 03/20/17 19:41 97.6 F 85 22 110/58 94 L 03/20/17 16:07 97.8 F 68 18 98/58 96 03/20/17 12:05 97.8 F 78 20 118/58 96 Pain Assessment - Last Documented Pain Intensity 8 Pain Scale Used 0-10 Pain Scale Intake and Output: Intake & Output 03/19/17 03/20/17 03/21/17 03/22/17 06:59 06:59 06:59 06:59 Intake Total 480 2113 360 Output Total 094 009 4606 Balance -270 3373 -840 Weight 72.756 kg Lab Results: Accuchecks Date 03/21/17 Date 03/21/17 Date 03/20/17 Date 03/20/17 Time 07:30 Time 22:00 Time 16:30 Time 11:30 Accucheck Value: 137 Accucheck Value: 225 Accucheck Value: 146 Accucheck Value: 266 Lab Results-Last 24 Hours 03/21/17 Range/Units 09:34 Sodium 144 (136-145) mEq/L Potassium 3.5 (3.5-5.1) mEq/L Chloride 108 H (98-107) mEq/L Carbon Dioxide 28.1 (21-32) mEq/L Anion Gap 11.1 (5-15) MEQ/L BUN 30 H (9-20) mg/dL Creatinine 1.55 H (0.55-1.30) mg/dl Estimated GFR 34 ML/MIN Glucose 192 H (70-110) MG/DL Calcium 8.2 L (8.5-10.1) mg/dL Assessment/Plan (1) Acute renal failure Current Visit: Yes Status: Acute Assessment & Plan: Her creatinine has improved. I have continued to hold her bumex, entresto ( contains arb), and spironolactone. Wire Stockkeeper consulted. (2) UTI (urinary tract infection) Current Visit: Yes Status: Acute Assessment & Plan: Culture with gram neg organism, ID and sensitivity pending. Continue IV antibiotics. Code(s): N39.0 - URINARY TRACT INFECTION, SITE NOT SPECIFIED (3) History of pulmonary embolism Current Visit: Yes Status: Acute Assessment & Plan: Continue anticoagulation. Her dose has been adjusted for her renal failure. Code(s): Z86.711 - PERSONAL HISTORY OF PULMONARY EMBOLISM (4) Weakness Current Visit: Yes Status: Acute Assessment & Plan: Will need discharge planning. Code(s): R53.1 - WEAKNESS (5) Diabetes mellitus Current Visit: Yes Status: Acute Qualifiers: Diabetes mellitus type: type 2 Diabetes mellitus complication status: without complication Assessment & Plan: I lowered her lantus dose due to her renal failure. Continue to monitor. Code(s): E11.9 - TYPE 2 DIABETES MELLITUS WITHOUT COMPLICATIONS
[2017-03-21] MEDS: NovoLOG Insulin SQ PRN ×2 (16:50→20:56)
[2017-03-21] MEDS: ELAVIL 25 MG PO SCH (20:56)
[2017-03-22] MEDS: KEFZOL 1 GM/50 ML PREMIX** 1 GM/50 ML IVPB IV SCH (06:05)
[2017-03-22] MEDS: ELIQUIS PO SCH ×2 (08:22→21:16)
[2017-03-22] MEDS: THERAGRAN MULTIVITAMIN PO SCH (08:22)
[2017-03-22] MEDS: ZYLOPRIM 300 MG PO SCH (08:22)
[2017-03-22] MEDS: Ditropan 5 MG PO SCH ×2 (08:22→21:16)
[2017-03-22] MEDS: MAG-OX 400 PO SCH ×2 (08:22→21:17)
[2017-03-22] MEDS: ZOCOR 20MG PO SCH (08:22)
[2017-03-22] MEDS: SYNTHROID 100 MCG PO SCH (08:22)
[2017-03-22] MEDS: Lopressor 50 MG PO SCH ×2 (08:23→21:17)
[2017-03-22] MEDS: Lopressor 25MG Tab PO SCH ×2 (08:23→21:17)
[2017-03-22] MEDS: Lantus Insulin SQ SCH (08:23)
--- NOTE | 2017-03-22 08:54 | PCM.NOTE ---
Date and Time: 03/22/17 0848 Subjective Assessment: Her breathing is good. She has no complaints. Walked down the raines ok yesterday. Objective Exam General Appearance: no apparent distress, obese Neurologic Exam: alert, cooperative Skin Exam: normal color, warm, dry Respiratory Exam: diminished breath sounds, No crackles/rales, No rhonchi, No wheezing Cardiovascular Exam: regular rate/rhythm, normal heart sounds, No murmur Extremity Exam: No pedal edema, No swelling Back Exam: normal inspection OBJECTIVE DATA Vital Signs: Vital Signs - 24 hr Temp Pulse Resp BP Pulse Ox 03/22/17 07:08 97.8 F 78 20 102/58 96 03/22/17 06:55 95 03/22/17 04:10 98.5 F 76 17 96/54 95 03/21/17 23:48 98.6 F 76 16 100/54 94 L 03/21/17 19:40 98.3 F 86 22 116/58 94 L 03/21/17 19:00 86 22 95 03/21/17 16:30 98 F 70 20 112/58 97 03/21/17 11:02 97.8 F 78 20 106/70 96 Pain Assessment - Last Documented Pain Intensity 0 Pain Scale Used 0-10 Pain Scale Intake and Output: Intake & Output 03/19/17 03/20/17 03/21/17 03/22/17 11:59 11:59 11:59 11:59 Intake Total 905 1774 Output Total 1200 300 Balance -295 1474 Lab Results: Accuchecks Date 03/22/17 Date 03/21/17 Date 03/21/17 Date 03/21/17 Time 07:30 Time 21:00 Time 16:30 Time 11:30 Accucheck Value: 126 Accucheck Value: 218 Accucheck Value: 255 Accucheck Value: 186 Lab Results-Last 24 Hours 03/21/17 Range/Units 09:34 Sodium 144 (136-145) mEq/L Potassium 3.5 (3.5-5.1) mEq/L Chloride 108 H (98-107) mEq/L Carbon Dioxide 28.1 (21-32) mEq/L Anion Gap 11.1 (5-15) MEQ/L BUN 30 H (9-20) mg/dL Creatinine 1.55 H (0.55-1.30) mg/dl Estimated GFR 34 ML/MIN Glucose 192 H (70-110) MG/DL Calcium 8.2 L (8.5-10.1) mg/dL Assessment/Plan (1) UTI (urinary tract infection) Current Visit: Yes Status: Acute Qualifiers: Urinary tract infection type: acute cystitis Hematuria presence: without hematuria Qualified Code(s): N30.00 - Acute cystitis without hematuria Assessment & Plan: Pseudomonas - was not being treated adeautely (on first gen cephalosporin) - changed to cefepime. Should be treated at least 3d on cefepime. Code(s): N39.0 - URINARY TRACT INFECTION, SITE NOT SPECIFIED (2) Weakness Current Visit: Yes Status: Acute Assessment & Plan: PT to eval pt today. Code(s): R53.1 - WEAKNESS (3) CKD (chronic kidney disease) stage 3, GFR 30-59 ml/min Current Visit: No Status: Chronic Assessment & Plan: recheck today. She was on entresto, bumex, and spironolactone with worsening of renal function. Will need to restart some of her meds today/tomorrow. Code(s): N18.3 - CHRONIC KIDNEY DISEASE, STAGE 3 (MODERATE) (4) Diabetes type 2, controlled Current Visit: No Status: Chronic Qualifiers: Diabetes mellitus complication status: with kidney complications Diabetes mellitus complication detail: with chronic kidney disease Diabetes mellitus vermin exterminator insulin use: without halfway use Chronic kidney disease stage: stage 3 (moderate) Qualified Code(s): E11.22 - Type 2 diabetes mellitus with diabetic chronic kidney disease; N18.3 - Chronic kidney disease, stage 3 ( moderate); N18.3 - Chronic kidney disease, stage 3 (moderate) Assessment & Plan: BS 100s-lower 200s here. Code(s): E11.9 - TYPE 2 DIABETES MELLITUS WITHOUT COMPLICATIONS (5) History of pulmonary embolism Current Visit: Yes Status: Acute Assessment & Plan: on Eliquis Code(s): Z86.711 - PERSONAL HISTORY OF PULMONARY EMBOLISM
[2017-03-22 09:07] LABS: Mean Cell Volume 92.1 fl (78-100); Mean Platelet Volume 11.1 fl (6-9.5); Platelet Count 209 K/mm3 (150-450); Red Blood Count 3.53 M/mm3 (4.1-5.4); Red Cell Distribution Width 19.2 % (11.5-14.0); White Blood Count 6.1 K/mm3 (4.0-10.5)
[2017-03-22 09:31] LABS: Mean Corpuscular Hemoglobin 27.7 pg (26-32)
[2017-03-22] MEDS: MAXIPIME 1 GM** 1 G in Dextrose 5%/Water IV Soln. 100ML PLUS BAG 100 ML IV SCH ×2 (10:01→21:18)
[2017-03-22] MEDS: Sodium Chloride 0.9% 1000 ML 1,000 ML IV SCH (10:06)
--- NOTE | 2017-03-22 10:18 | HP ---
HISTORY OF PRESENT ILLNESS: This is an 81 year-old lady who was recently discharged from our hospital on 03/17/2017 and readmitted 03/19/2017. Her two sons are at the bedside. The patient reports she just felt weak, had some chest pain that is gone now but was dull as well as back pain and neck pain and her knees felt like they wanted to give out on her. She reports she had a good appetite here and no nausea or vomiting. She usually uses a walker at home. In the past she has done rehab both in a swing-bed here and at [facility]. She also complained of some left groin pain yesterday. The patient when she was discharged on 03/17/2017 had new medications of metoprolol, Spironolactone, Entresto and was also continued on Bumex all these for congestive heart failure under the guidance of Dr. Phillip Ruiz, Parts Administrator. The patient's family is asking about a swing-bed for possible rehab given her weakness. REVIEW OF SYSTEMS: As noted in the history of present illness. No fever. No lower extremity edema. No rashes. PAST MEDICAL HISTORY: Chronic kidney disease stage III, congestive heart failure systolic, diabetes mellitus type 2, gout, hyperlipidemia, hypothyroidism, history of pulmonary embolism diagnosed on 03/17/2017 admission, depression. PAST SURGICAL HISTORY: Appendectomy, tubal ligation, cataract surgery on her eye. MEDICATIONS: Albuterol 2 puffs every four hours as needed, Allopurinol 300 mg p.o. daily, amitriptyline 25 mg p.o. q.h.s., Eliquis 5 mg p.o. b.i.d., bumetanide 2 mg p.o. t.i.d., Lantus 25 units daily, levothyroxine 100 mcg daily, magnesium oxide 400 mg b.i.d., metoprolol tartrate 75 mg p.o. b.i.d., multivitamin 1 tablet daily, oxybutynin 5 mg b.i.d., artificial tears as needed, potassium chloride 20 mEq b.i.d., Crestor 10 mg daily, Entresto 49 mg/51 mg one half tablet b.i.d., Januvia 100 mg daily, Spironolactone 25 mg daily. ALLERGIES: NKDA. SOCIAL HISTORY: She is and lives with her . No tobacco or alcohol use. FAMILY HISTORY: Her mother is and had cancer. Her father is and had myocardial infarction in his 60's. PHYSICAL EXAMINATION: VITAL SIGNS: Temperature current 97.8F, temperature max 98.0F, heart rate 78 to 110, respiratory rate 18 to 30, blood pressure 84 to 122 over 44 to 65 currently 118/58. Of note, her blood pressure was 84/50 when she came in. Weight on admission 72.7 kg. Oxygen saturation 96 to 100% on room air. GENERAL: The patient is a pleasant talkative lady sitting up in no acute distress. CVS: She has a regular rate and rhythm. No murmurs, gallops or rubs are appreciated. CHEST: Clear to auscultation bilaterally. No crackles or wheezes. ABDOMEN: Soft, nontender, nondistended with normal bowel sounds. EXTREMITIES: No clubbing, cyanosis or edema. SKIN: Warm, dry and intact. LABORATORY DATA AND TESTS: On admission her creatinine was 2.39 with potassium of 5.8. Repeat creatinine 2.44 with a potassium 3.6. Hemoglobin 10.8. UA revealed moderate bacteria, 50-100 white blood cells. Urine culture growing gram negative with ID and sensitivity pending. ASSESSMENT AND PLAN: 1) ACUTE RENAL FAILURE WITH HISTORY OF CHRONIC KIDNEY DISEASE STAGE III. She has been started on IV fluids. Her creatinine continues to be elevated. Consult was ordered for her doors prefitter. I have held her Entresto, Spironolactone and Bumex at this time, will continue with gentle IV fluids. She is taking some fluids orally. 2) HYPERKALEMIA: This has resolved with the dose of Kayexalate and holding her oral potassium, will continue to hold her oral potassium. 3) URINARY TRACT INFECTION: She has been started on cefazolin and will continue this as urine culture is lab growing gram negative organism. 4) HISTORY OF PULMONARY EMBOLISM: Given her decrease in renal function changed her Eliquis to 2.5 mg p.o. b.i.d. 5) GENERALIZED WEAKNESS: I will ask data recovery planner to look into possible rehabilitation for this patient.
[2017-03-22 11:21] LABS: ANION GAP 11.7 MEQ/L (5-15); Potassium 3.9 mEq/L (3.5-5.1)
[2017-03-22] MEDS: NovoLOG Insulin SQ PRN ×2 (11:37→16:50)
[2017-03-22] MEDS: ELAVIL 25 MG PO SCH (21:16)
[2017-03-23] MEDS: TYLENOL 325 MG PO PRN ×2 (04:10→09:04)
[2017-03-23] MEDS: Lantus Insulin SQ SCH (07:58)
[2017-03-23 08:19] LABS: Mean Cell Volume 91.7 fl (78-100); Mean Platelet Volume 10.2 fl (6-9.5); Platelet Count 214 K/mm3 (150-450); Red Blood Count 3.51 M/mm3 (4.1-5.4); Red Cell Distribution Width 19.2 % (11.5-14.0); White Blood Count 6.7 K/mm3 (4.0-10.5)
[2017-03-23 08:36] LABS: Mean Corpuscular Hemoglobin 27.3 pg (26-32)
--- NOTE | 2017-03-23 08:44 | PCM.NOTE ---
Date and Time: 03/23/17 0840 Subjective Assessment: She did not sleep at all last night. Her son notes that she sleeps during the day a lot. Adolfo po well. - Review of Systems Constitutional: No Fever Abdominal/Gastrointestinal: No Vomiting Objective Exam General Appearance: no apparent distress, alert, anxiety Neurologic Exam: oriented x 3, cooperative Skin Exam: normal color, warm, dry Respiratory Exam: normal breath sounds, lungs clear, wheezing (slight intermittent), No crackles/rales, No rhonchi Cardiovascular Exam: regular rate/rhythm, normal heart sounds, No murmur Gastrointestinal/Abdomen Exam: soft, normal bowel sounds, No tenderness, No distention, No mass OBJECTIVE DATA Vital Signs: Vital Signs - 24 hr Temp Pulse Resp BP Pulse Ox 03/23/17 07:00 97.8 F 83 18 128/65 94 L 03/23/17 05:00 97.6 F 84 24 128/78 98 03/23/17 01:00 98.6 F 77 24 134/58 98 03/22/17 21:00 97.9 F 64 26 H 97/53 98 03/22/17 20:48 83 20 95 03/22/17 17:00 99.9 F 85 18 107/55 98 03/22/17 11:07 97.8 F 72 22 106/70 96 03/22/17 09:14 18 95 Pain Assessment - Last Documented Pain Intensity 8 Pain Scale Used [facility] Intake and Output: Intake & Output 03/20/17 03/21/17 03/22/17 03/23/17 11:59 11:59 11:59 11:59 Intake Total 905 2014 1494 Output Total 1200 850 Balance -295 1164 1494 Lab Results: Accuchecks Date 03/22/17 Date 03/22/17 Time 16:30 Time 11:30 Accucheck Value: 200 Accucheck Value: 213 Accucheck Value: 209 Lab Results-Last 24 Hours 03/22/17 03/22/17 03/23/17 Range/Units 08:45 08:45 08:10 WBC 6.1 6.7 (4.0-10.5) K/mm3 RBC 3.53 L 3.51 L (4.1-5.4) M/mm3 Hgb 9.8 L 9.6 L (12.0-16.0) gm/dl Hct 32.5 L 32.2 L (35-47) % MCV 92.1 91.7 (78-100) fl MCH 27.7 27.3 (26-32) pg MCHC 30.2 L 29.8 L (32-36) g/dl RDW 19.2 H 19.2 H (11.5-14.0) % Plt Count 209 214 (150-450) K/mm3 MPV 11.1 H 10.2 H (6-9.5) fl Sodium 144 (136-145) mEq/L Potassium 3.9 (3.5-5.1) mEq/L Chloride 108 H (98-107) mEq/L Carbon Dioxide 28.0 (21-32) mEq/L Anion Gap 11.7 (5-15) MEQ/L BUN 19 (9-20) mg/dL Creatinine 1.34 H (0.55-1.30) mg/dl Estimated GFR 40 ML/MIN Glucose 188 H (70-110) MG/DL Calcium 8.6 (8.5-10.1) mg/dL Multi-Disciplinary Progress Notes: Multi-Disciplinary Progress Notes 03/23/17 08:34 Case Management Note by Zoie Mejia SPOKE WITH ANABELA AT [facility], PLAN FOR TRANSITION TO REHAB TOMORROW, PT NEEDS ONE MORE DAY OF IV ABX. ANABELA REPORTS THAT BED WILL BE AVAILABLE WHEN MD READY FOR DISCHARGE. Initialized on 03/23/17 08:34 - END OF NOTE 03/22/17 17:36 Physical Therapy Note by Lexi Noble SCREEN ONLY D/C PLAN IS TO ON LICENSE OF [facility] TOMORROW FOR EXTENDED REHAB STAY TO MAXIMIZE POTENTIAL FOR SAFE PERMANENT RETURN HOME. PATIENT DID AMBULATE IN THE HALLWAY WITH ARM-HELD ASSIST OF 1 USING THE ROLLER WALKER, AND EXECUTED FUNCTIONAL TRANSFERS IN/OUT OF BED AND ON/OFF TOILET WITH MINIMAL ASSIST. HER O2 SATS ON ROOM AIR DURING AND AFTER EXERTION WERE 94-98%. Initialized on 03/22/17 17:36 - END OF NOTE 03/22/17 10:35 (created 03/22/17 15:57) Case Management Note by Zoie Mejia REFERRAL CALLED TO [facility]. PASRR PAPERWORK COMPLETE PER FELICIA [address]RE[address]. Initialized on 03/22/17 15:57 - END OF NOTE 03/22/17 10:00 (created 03/22/17 15:51) Case Management Note by Zoie Mejia SONS X 2 AT BEDSIDE, DISCUSSING DISCHARGE PLANNING WITH PT. PT REPORTS THAT SHE IS AGREEABLE TO GO TO ME FOR REHAB STAY, SHORT TERM, WITH A GOAL TO RETURN HOME BEFORE [place]. SON REPORTS THAT THEY REQUEST A REFERRAL BE MADE TO [facility] WITH THE PLAN TO BE FOR PT TO TRANSITION TO REHAB ON DISCHARGE. Initialized on 03/22/17 15:51 - END OF NOTE 03/22/17 08:55 (created 03/22/17 15:47) Case Management Note by Zoie Mejia DISCHARGE PLAN REVIEWED AGAIN WITH PT. ENCOURAGED REHAB STAY, DISCUSSED FREQUENT READMISSIONS - DECONDITIONING, AND THE NEED TO HAVE SOME EXTENDED REHAB PRIOR TO RETURNING HOME. LEXI NOBLE, PHYSICAL THERAPIST, ALSO DISCUSSED WITH PT AND ENCOURAGED REHAB STAY FOR STRENGTHENING. PT IS RESISTANT, BUT STATES, "I GUESS I DON'T HAVE ANY OTHER CHOICE." ENCOURAGED PT TO DISCUSS WITH HER FAMILY. WILL FOLLOW FOR ALL DC NEEDS. Initialized on 03/22/17 15:47 - END OF NOTE Assessment/Plan (1) UTI (urinary tract infection) Current Visit: Yes Status: Acute Qualifiers: Urinary tract infection type: acute cystitis Hematuria presence: without hematuria Qualified Code(s): N30.00 - Acute cystitis without hematuria Assessment & Plan: Pseudomonas - changed antbiotics yesterday. To LTCF tomorrow after IV antibiotics. Code(s): N39.0 - URINARY TRACT INFECTION, SITE NOT SPECIFIED (2) Weakness Current Visit: Yes Status: Acute Assessment & Plan: Being discharged to LTCF. Code(s): R53.1 - WEAKNESS (3) CKD (chronic kidney disease) stage 3, GFR 30-59 ml/min Current Visit: No Status: Chronic Code(s): N18.3 - CHRONIC KIDNEY DISEASE, STAGE 3 (MODERATE) (4) Diabetes type 2, controlled Current Visit: No Status: Chronic Qualifiers: Diabetes mellitus complication status: with kidney complications Diabetes mellitus complication detail: with chronic kidney disease Diabetes mellitus exterminator helper insulin use: without correction use Chronic kidney disease stage: stage 3 (moderate) Qualified Code(s): E11.22 - Type 2 diabetes mellitus with diabetic chronic kidney disease; N18.3 - Chronic kidney disease, stage 3 ( moderate); N18.3 - Chronic kidney disease, stage 3 (moderate) Code(s): E11.9 - TYPE 2 DIABETES MELLITUS WITHOUT COMPLICATIONS (5) History of pulmonary embolism Current Visit: Yes Status: Acute Code(s): Z86.711 - PERSONAL HISTORY OF PULMONARY EMBOLISM (6) Insomnia Current Visit: Yes Status: Acute Assessment & Plan: with anxiety and poor sleep hygiene. Will increase her TCA back to her baseline level (50mg qhs). Code(s): G47.00 - INSOMNIA, UNSPECIFIED
[2017-03-23] MEDS: Lopressor 25MG Tab PO SCH ×2 (09:05→21:23)
[2017-03-23] MEDS: SYNTHROID 100 MCG PO SCH (09:05)
[2017-03-23] MEDS: ZYLOPRIM 300 MG PO SCH (09:05)
[2017-03-23] MEDS: Lopressor 50 MG PO SCH ×2 (09:05→21:23)
[2017-03-23] MEDS: ELIQUIS PO SCH ×2 (09:06→21:44)
[2017-03-23] MEDS: THERAGRAN MULTIVITAMIN PO SCH (09:06)
[2017-03-23] MEDS: MAG-OX 400 PO SCH ×2 (09:06→21:22)
[2017-03-23] MEDS: ZOCOR 20MG PO SCH (09:06)
[2017-03-23] MEDS: Ditropan 5 MG PO SCH ×2 (09:07→21:22)
[2017-03-23] MEDS: MAXIPIME 1 GM** 1 G in Dextrose 5%/Water IV Soln. 100ML PLUS BAG 100 ML IV SCH ×2 (09:07→21:44)
[2017-03-23] MEDS: ENTRESTO 49 MG-51 MG TABLET PO SCH ×2 (10:12→21:23)
[2017-03-23 11:04] LABS: ANION GAP 12.7 MEQ/L (5-15); Carbon Dioxide 24.6 mEq/L (21-32); Potassium 4.6 mEq/L (3.5-5.1)
[2017-03-23] MEDS: Sodium Chloride 0.9% 1000 ML 1,000 ML IV SCH (11:17)
--- NOTE | 2017-03-23 13:04 | CONS ---
CONSULT DATE: 03/23/2017 REASON FOR CONSULT: Cardiomyopathy and chronic congestive heart failure. HISTORY: Cesia Peres is an 81 year-old white female with a history of chronic systolic congestive heart failure, nonischemic cardiomyopathy status post ICD placement, atrial fibrillation on Eliquis therapy. She has had numerous recent admissions to [facility]. I saw her two weeks ago in the hospital and we adjusted her medications including addition of Entresto and Spironolactone. She was also at that visit found to have a positive VQ scan and was started on Eliquis 10 mg b.i.d. which is being adjusted based on renal function and age recently. She had been doing reasonably well and her weight was stable for two days at home. However, her got sick and was admitted to the hospital with diverticulitis and then she became reportedly more symptomatic. When she was admitted she was found to have an increased creatinine above her baseline as well as abnormal potassium. Her Entresto had been held and Spironolactone was discontinued. Bumex was also held as there was some thought that she may be over diuresed. Over the past few days her renal function is significantly improved with a creatinine down to 1.3 and potassium improved as well. She was resumed on Entresto this morning by Dr. Soto and Spironolactone continued to be held. She reports that her weight was stable for two days at home. She denied any dizziness but has chronic shortness of breath but she has been walking with a walker and has been doing relatively well with NYJ Class III symptoms. Her son and [id number] are at the bedside and report that she had been otherwise feeling relatively well although she had some leg cramping prior to admission. We had an extensive discussion regarding strategies to reduce heart failure admissions including aggressive sodium restriction and fluid restriction which the patient and her family report she was trying to follow. She is overall doing much better and plan is to transfer to rehab possibly tomorrow. PAST MEDICAL HISTORY: Chronic systolic congestive heart failure. Non-ischemic cardiomyopathy status post biventricular ICD placement [employer] generator. Atrial fibrillation on Eliquis. Recent positive VQ scan consistent with pulmonary embolism also being treated with Eliquis. Hypothyroidism, hypertension, diabetes. PAST SURGICAL HISTORY: CURRENT MEDICATIONS: Reviewed. See EMR for full details of notes. Spironolactone has been discontinued. Bumex has been held. She was resumed on Entresto one half of a 49/51 mg pill twice a day. She is also on Eliquis 2.5 mg b.i.d. All other medications as noted in the EMR. ALLERGIES: NKDA. SOCIAL HISTORY: She is and lives with her but has multiple frequent readmissions for heart failure. She has two sons and a [id number] who are very active in her care. No alcohol, tobacco or illicit drug use. FAMILY HISTORY: Mother of lung cancer. Father of cancer. Multiple siblings, two brothers and one sister all of which had lung cancer. REVIEW OF SYSTEMS: Fourteen systems review performed pertinent positives noted in the history of present illness otherwise negative. PHYSICAL EXAMINATION: Vital signs reviewed. GENERAL: Obese, conversant, pleasant in no acute distress sitting in her chair eating lunch. HEENT: Eyes - Nonicteric sclera, conjunctivae normal. ENT: Hearing grossly intact. No nasal discharge. NECK: Supple, full range of motion. No thyromegaly. RESPIRATORY: Modest effort, no accessory muscle use, no crackles. There are faint diffuse wheezing. CVS: Regular rate and rhythm. No appreciable murmurs, rubs or gallops. Distant heart sounds. No carotid bruits. JVP is mildly elevated. EXTREMITIES: There is no significant lower extremity edema. GI: The abdomen is soft, nontender, nondistended. No rebound or guarding. MUSCULOSKELETAL: Normal muscle bulk and tone. No clubbing or cyanosis. SKIN: Warm, well perfused. No rashes. PSYCH: Alert and oriented x4, appropriate judgment, normal mean affect. NEURO: Grossly nonfocal. LAB DATA AND TESTS: Reviewed. Her creatinine is 1.34, potassium 4.6. White blood cell count 6.7, hemoglobin 9.6, PLT count 214,000. ICD interrogation from 02/23/2017 demonstrates normally functioning dual chamber ICD with 18 nonspecific episodes of tachycardia consistent with atrial fibrillation with rapid ventricular response, biventricular pacing decreased to 81%. IMPRESSION: 1) CHRONIC SYSTOLIC CONGESTIVE HEART FAILURE: Currently the patient appears to be near euvolemic. Her Bumex has been held. She was previously on 1 mg daily in July. However she was requiring significantly elevated doses during recent hospitalizations. She was initiated on Entresto therapy which I presume has improved her inherent diuresis as she came in with acute kidney injury and appeared to be hypovolemic with associated hyperkalemia. I agree with holding Bumex for now as she appears to be well compensated and restarting Entresto at low dose, will need to monitor her potassium carefully. Will check labs at least every other day and monitor for increases in potassium. I also agree with holding Spironolactone as she had an episode of hyperkalemia and her potassium is above 4.5 thus would only use Entresto at this time. I would also check weight daily and if her weight begins to rise would resume Bumex at 1 mg daily and adjust to maintain her weight. When she is transferred to rehab I would recommend checking her labs at least two to three times a week until we have reached steady weight and if there are any adjustments with Entresto will repeat labs in one week after adjustment. Thus at this point agree with continuing Entresto b.i.d. Hold the Bumex with plan to resume if the weight increases and monitoring renal function and potassium carefully. If she continues to demonstrate significant heart failure symptoms with readmissions the addition of digoxin may be considered as this may help reduce hospitalizations in the future. However this would have to be done carefully as her renal function is variable and it could lead to highly variable digoxin levels. 2) RECENT PULMONARY EMBOLISM: The patient is currently on Eliquis 2.5 mg b.i.d. which can be continued for both atrial fibrillation, thromboembolism prophylaxis and treatment of pulmonary embolism. 3) HISTORY OF ATRIAL FIBRILLATION: She is on Eliquis as noted above. 4) NONISCHEMIC CARDIOMYOPATHY STATUS POST BIVENTRICULAR ICD: Recent device interrogation demonstrated normally functioning device. However, her amount of biventricular pacing had reduced to 81%. In the future we may need to adjust medical therapy to insure more consistent biventricular pacing. It is of note that she is on metoprolol tartrate b.i.d. and if necessary could consider transition to carvedilol if her blood pressure tolerates for potentially more aggressive heart failure management but this can be done as an outpatient.
[2017-03-23] MEDS: NovoLOG Insulin SQ PRN ×2 (16:57→21:26)
[2017-03-23] MEDS ORDERED: Sodium Chloride 0.9% 10 ML FLUSH Syringe IV PRN (17:54)
[2017-03-23] MEDS: BUMEX 1 MG PO SCH (18:24)
[2017-03-23] MEDS: Sodium Chloride 0.9% 10 ML FLUSH Syringe IV SCH (21:25)
[2017-03-24 06:26] LABS: ALBUMIN 2.3 g/dL (3.4-5.0); ANION GAP 12.1 MEQ/L (5-15); BILIRUBIN,TOTAL 0.4 mg/dL (0.2-1.0); Carbon Dioxide 25.9 mEq/L (21-32); MAGNESIUM 1.7 mg/dL (1.8-2.4); Potassium 4.5 mEq/L (3.5-5.1); Total Protein 5.8 gm/dL (6.4-8.2)
[2017-03-24] MEDS: Sodium Chloride 0.9% 10 ML FLUSH Syringe IV SCH (07:33)
[2017-03-24] MEDS: ZOCOR 20MG PO SCH (08:31)
[2017-03-24] MEDS: SYNTHROID 100 MCG PO SCH (08:31)
[2017-03-24] MEDS: Lopressor 25MG Tab PO SCH (08:31)
[2017-03-24] MEDS: Ditropan 5 MG PO SCH (08:31)
[2017-03-24] MEDS: MAG-OX 400 PO SCH (08:31)
[2017-03-24] MEDS: Lantus Insulin SQ SCH (08:31)
[2017-03-24] MEDS: ELIQUIS PO SCH (08:31)
[2017-03-24] MEDS: ZYLOPRIM 300 MG PO SCH (08:32)
[2017-03-24] MEDS: THERAGRAN MULTIVITAMIN PO SCH (08:32)
[2017-03-24] MEDS: Lopressor 50 MG PO SCH (08:32)
[2017-03-24] MEDS: ENTRESTO 49 MG-51 MG TABLET PO SCH (08:32)
[2017-03-24] MEDS: BUMEX 1 MG PO SCH (08:32)
--- NOTE | 2017-03-24 08:53 | PCM.DS ---
Discharge Summary Date of Admission: 03/20/17 17:30 Admitting Physician: FE BROWN Consults: Consults on Case 03/22/17 17:14 Consult Physician ROUTINE Primary Care Provider: FE BROWN Allergies Allergies No Known Drug Allergies Allergy (Verified 03/19/17 18:18) Hospital Summary - Hospital Course Hospital Course: Pt admitted with weakness and fall, CHF. Had hyperkalemia and UTI (started on IV cephalosporin but found to have pseudomonas and abd changed - will go home on cipro). Her spironolactone and bumex were held. Entresto was held. She was rehydrated, potassium normalized, and entresto was restarted. Dr. Bhavik Ruiz consulted, thank you, and would like labs 2d after discharge and at least 2-3x/ wk. He advised restart bumex at 1mg/d if weight increased. Dr. Schultz wanted to go ahead and restart bumex. Pt is stable, walking well, exam benign, going to LTCF today. - Vitals & Intake/Output Vital Signs: Vital Signs Temperature 98.4 F 03/24/17 07:00 Pulse Rate 89 03/24/17 07:00 Respiratory Rate 18 03/24/17 07:00 Blood Pressure 125/65 03/24/17 07:00 O2 Sat by Pulse Oximetry 93 L 03/24/17 07:10 Intake & Output: Intake & Output 03/21/17 03/22/17 03/23/17 03/24/17 11:59 11:59 11:59 11:59 Intake Total 905 2014 1494 1206 Output Total 1200 850 Balance -295 1164 1494 1206 Weight 72.756 kg - Lab Result Diagrams: 03/23/17 08:10 03/24/17 05:18 Lab Results-Last 24 Hrs: Accuchecks Date 03/23/17 Date 03/23/17 Date 03/23/17 Time 22:00 Time 16:30 Time 11:30 Accucheck Value: 210 Accucheck Value: 218 Accucheck Value: 144 Lab Results-Last 24 Hours 03/23/17 03/24/17 Range/Units 08:10 05:18 Sodium 142 144 (136-145) mEq/L Potassium 4.6 4.5 (3.5-5.1) mEq/L Chloride 109 H 110 H (98-107) mEq/L Carbon Dioxide 24.6 25.9 (21-32) mEq/L Anion Gap 12.7 12.1 (5-15) MEQ/L BUN 15 13 (9-20) mg/dL Creatinine 1.34 H 1.13 (0.55-1.30) mg/dl Estimated GFR 40 49 ML/MIN Glucose 152 H 130 H (70-110) MG/DL Calcium 8.9 8.5 (8.5-10.1) mg/dL Magnesium 1.7 L (1.8-2.4) mg/dL Total Bilirubin 0.40 (0.2-1.0) mg/dL AST 24 (15-37) U/L ALT 11 L (12-78) U/L Alkaline Phosphatase 127 H (46-116) U/L Serum Total Protein 5.8 L (6.4-8.2) gm/dL Albumin 2.3 L (3.4-5.0) g/dL Micro Results-Entire Visit: Accuchecks Date 03/23/17 Date 03/23/17 Date 03/23/17 Time 22:00 Time 16:30 Time 11:30 Accucheck Value: 210 Accucheck Value: 218 Accucheck Value: 144 - Procedures and Test Procedures and Tests throughout Hospitalization: Therapy Orders & Screens 03/20/17 19:56 Respiratory MDI PRN Comment: Diagnosis: WEAKNESS, UTI, HYPERKALEMIA Discharge Exam General Appearance: no apparent distress, alert Neurologic Exam: oriented x 3, cooperative, other (KLAMATH as usual) Skin Exam: normal color, warm, dry Eye Exam: eyes nml inspection Respiratory Exam: lungs clear, diminished breath sounds, wheezing (faint scattered), No crackles/rales, No rhonchi Cardiovascular Exam: regular rate/rhythm, normal heart sounds, No murmur Gastrointestinal/Abdomen Exam: soft, normal bowel sounds, No tenderness Extremity Exam: No pedal edema, No swelling Final Diagnosis/Problem List - Final Discharge Diagnosis/Problem (1) UTI (urinary tract infection) Current Visit: Yes Status: Acute Assessment & Plan: Home on cipro to complete 7d of abx. (2) Weakness Current Visit: Yes Status: Acute Assessment & Plan: improved. Therapy at LTCF. (3) CKD (chronic kidney disease) stage 3, GFR 30-59 ml/min Current Visit: No Status: Chronic (4) Diabetes type 2, controlled Current Visit: No Status: Chronic Assessment & Plan: BS 146 to lower 200s; on 10 units lantus daily. Will continue this for now, may need to be adjusted on her diet at [facility]. (5) History of pulmonary embolism Current Visit: Yes Status: Acute Assessment & Plan: on eliquis 5mg po BID. (6) Insomnia Current Visit: Yes Status: Acute Assessment & Plan: increased her amitriptylene yesterday and she did not complain this morning. - Discharge Disposition: Skilled Care @ [facility] Condition: Stable Prescriptions: New Ciprofloxacin HCl [Cipro] 250 mg PO BID #8 tablet Continue Allopurinol 300 mg [Zyloprim 300 mg] 300 mg PO DAILY Multivitamin W-Minerals/Lutein [Centrum Silver Tablet] 1 each PO DAILY Rosuvastatin Calcium [Crestor] 10 mg PO DAILY Levothyroxine Sodium 100 Mcg [Synthroid 100 Mcg] 100 mcg PO DAILY Polyvinyl Alcohol [Artificial Tears] 1 ml OP PRN PRN drops PRN Reason: Dry eyes Albuterol Common Canister [Proventil Common Canister] 2 puff IH Q4H PRN PRN #1 unit PRN Reason: Shortness Of Breath Oxybutynin Chloride 5 mg PO BID Sitagliptin Phosphate 50 MG [Januvia 50 MG] 100 mg PO DAILY Magnesium Oxide 400 mg [Mag-Ox 400] 400 mg PO BID Metoprolol Tartrate 50 mg [Lopressor 50 MG] 75 mg PO BID Amitriptyline HCl 25 mg [Elavil 25 mg] 25 mg PO HS #30 tablet Spironolactone 25 mg [Aldactone 25 MG] 25 mg PO DAILY #30 tablet Apixaban [Eliquis] 5 mg PO BID #60 tablet Sacubitril/Valsartan [Entresto 49 mg-51 mg Tablet] 0.5 each PO BID #15 tablet Changed Bumetanide 1 mg PO DAILY #30 tablet Potassium Chloride 10 Meq Tab* [Klor Con 10 MEQ] 10 meq PO BID #60 tab Insulin Glargine [Lantus Insulin] 10 unit SQ DAILY #3 pen Additional Instructions: please call Dr. Lee/Dr. Baylee Schultz's office for any leg swelling after discharge. Follow up with: NUVIA LEE [CONSULTING PHYSICIAN] - 04/05/17 12:00 pm ([facility]) FE BROWN [Primary Care Provider] -
--- NOTE | 2017-03-24 09:38 | CONS ---
CONSULT DATE: 03/23/17 REASON FOR CONSULTATION: Acute renal failure, hyperkalemia. HISTORY OF PRESENT ILLNESS: Ms. Peres is a pleasant 81 y/o female, with significant history of congestive heart failure (systolic), diabetes type 2, chronic kidney disease stage III, and hyperlipidemia, admitted for history of fall. She was feeling weak and tired. At the time of presentation, her creatinine was elevated. She was found to be in a volume depleted state. She was on Bumex 2 mg PO tid as well as she had hyperkalemia. Bumex was discontinued, given IV fluids. Her serum creatinine is much better. This evening, she denies any nausea, vomiting, headache, chest pain, shortness of breath, swelling, rash, fever, chills, constipation, diarrhea, dizziness, lightheadedness, and focal weakness. REVIEW OF SYSTEMS: All other 12 Review of Systems were negative except in HPI. PAST MEDICAL HISTORY: Chronic kidney disease stage III, congestive heart failure (systolic), diabetes type 2, hypothyroidism, hyperlipidemia, history of pulmonary embolism, depression. PAST SURGICAL HISTORY: Appendectomy, tubal ligation, cataract surgery. CURRENT MEDICATIONS: Allopurinol 300 mg tablet daily, amitriptyline 50 mg tablet daily, Eliquis 2.5 mg bid, Lantus 10 units daily, Synthroid 100 mcg tablet daily, magnesium oxide 400 mg bid, metoprolol tartrate 25 mg bid, metoprolol 50 mg bid, multivitamins 1 tab daily, oxybutynin 5 mg PO bid, Entresto 49/51 mg tablet 1/2 tablet bid, simvastatin 20 mg tablet daily, Cefepime 1 Gm daily. FAMILY HISTORY: No one has kidney disease. Her mother had cancer. Father of myocardial infarction in 60s. PHYSICAL EXAMINATION: VITALS: Temperature 97.6, pulse 84, respiratory rate 24, BP 128/78. GENERAL: Alert, oriented, not in distress. HEENT: Oral mucosa moist. NECK: Supple. CHEST: Chest was clear on auscultation. HEART: S1 and S2 normal. No rub. ABDOMEN: Soft, nontender. Bowel sounds present. EXTREMITIES: No edema. No clubbing. No cyanosis. STRAP MACHINE OPERATOR: No focal deficit. LABORATORY DATA: Creatinine 1.34, BUN 15, sodium 142, potassium 4.6, CO2 24.6, calcium 8.9, Hgb 9.6, platelets 214. ASSESSMENT AND PLAN: 1. ACUTE RENAL FAILURE MOST LIKELY SECONDARY TO VOLUME DEPLETION. Renal function much better with IV fluids. I will discontinue IV fluids since she has history of congestive heart failure. Will monitor renal function closely. 2. HISTORY OF CARDIOMYOPATHY. She was on Bumex 2 mg PO tid. I will restart Bumex, but lower dose. Will start Bumex 1 mg PO bid. Will monitor volume status closely. If she starts developing swelling or gains more than 3 pounds, increase Bumex to 2 mg PO bid. Will need close follow-up. She has been started on Entresto also. Agree with discontinuing spironolactone due to hyperkalemia. 3. HYPERKALEMIA SECONDARY TO SPIRONOLACTONE PLUS ENTRESTO PLUS POTASSIUM SUPPLEMENT. She was on potassium chloride 20 mEq bid. Serum potassium much better. Continue to hold spironolactone and potassium supplement. 4. URINARY TRACT INFECTION. She is on Cefepime. Urine culture pending. UA suggestive of urinary tract infection. 5. 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 Continue to monitor renal function. She should avoid high salt and high phosphorus diet. She should avoid processed food and nonsteroidal anti-inflammatory drugs. 6. HISTORY OF FALL. She will need rehab. 7. HISTORY OF PULMONARY EMBOLISM ON ELIQUIS. Since renal function is better, increase Eliquis to 5 mg PO bid. Thank you for giving me the opportunity to participate in the care of this patient.
[2017-03-24 11:30] VITALS: BP 129/59; PULSE 87; O2SAT 96
== END 2017-03-24 12:30 | DRG 690 ==
LOC: ED 13:02 → MED SURG 17:06 → OBSVTOIN 03-20 17:30
PROVIDERS: ADMIT Family Medicine; ATTEND Family Medicine
DX: N30.00 Acute cystitis without hematuria (principal); I50.20 Unspecified systolic (congestive) heart failure; N17.9 Acute kidney failure, unspecified; I42.9 Cardiomyopathy, unspecified; I50.84 End stage heart failure; R53.1 Weakness; E11.22 Type 2 diabetes mellitus with diabetic chronic kidney disease; N18.3 Chronic kidney disease, stage 3 (moderate); Z86.711 Personal history of pulmonary embolism; G47.00 Insomnia, unspecified; Z79.899 Other long term (current) drug therapy; M10.9 Gout, unspecified; E78.5 Hyperlipidemia, unspecified; E03.9 Hypothyroidism, unspecified; F32.9 Major depressive disorder, single episode, unspecified; Z79.01 Long term (current) use of anticoagulants; E87.5 Hyperkalemia
CPT/HCPCS: 36000; 36415; 71010; 80048; 80053; 81000; 82962; 83735; 83880; 84132; 84484; 85025; 85027; 87040; 87077; 87086; 87186; 93005; 93041; 93268; 94760; 96365; 99285; G0378; J0690; J0692; J0696; P9612; A9270-GY

== ENCOUNTER 2017-06-23 08:47 | Inpatient (IN) | payer MEDICARE, OTHER ==
[2017-06-23] MEDS ORDERED: DUONEB 0.5-3 MG/3 ml Neb IH ONE (14:13)
[2017-06-23] MEDS: DUONEB 0.5-3 MG/3 ml Neb IH SCH ×3 (14:15→21:53)
[2017-06-23] MEDS ORDERED: Sodium Chloride 0.9% 500 ML 500 ML IV ONE (14:40)
[2017-06-23 15:32] LABS: Hemoglobin 12.2 gm/dl (12.0-16.0); Mean Cell Volume 96.5 fl (78-100); Mean Corpuscular Hgb Concent. 31.3 g/dl (32-36); Mean Platelet Volume 11.5 fl (6-9.5); Platelet Count 158 K/mm3 (150-450); Red Blood Count 4.04 M/mm3 (4.1-5.4); Red Cell Distribution Width 15.6 % (11.5-14.0); White Blood Count 4.9 K/mm3 (4.0-10.5)
[2017-06-23 15:38] LABS: Mean Corpuscular Hemoglobin 30.1 pg (26-32)
[2017-06-23] MEDS ORDERED: Sodium Chloride 0.9% 1000 ML 1,000 ML ONE (15:49)
--- NOTE | 2017-06-23 15:56 | XRAY ---
Indication: Weakness. Influenza A. Comparison: March 19, 2017. Portable chest demonstrates new left base infiltrate versus atelectasis. Right lung clear. Heart is not enlarged for AP portable technique with stable left-sided AICD. Bony thorax intact again with osteopenia, degenerative changes, and scoliosis. Impression: New left base infiltrate/atelectasis. Correlate clinically.
[2017-06-23 16:08] LABS: Eosinophil 4 % (0.00-3.0); Lymphocytes 22 % (24-44); Monocyte 3 % (0.0-12.0); Neutrophils 71 % (36.0-66.0); Platelet Estimate NORMAL (NORMAL); Total Cells Counted 100
[2017-06-23 16:36] LABS: ALBUMIN 2.9 g/dL (3.4-5.0); ALKALINE PHOSPHATASE 105 U/L (46-116); ANION GAP 14.8 MEQ/L (5-15); BLOOD UREA NITROGEN 30 mg/dL (9-20); CHLORIDE 106 mEq/L (98-107); Calcium 8.1 mg/dL (8.5-10.1); Carbon Dioxide 29.9 mEq/L (21-32); Creatinine 1 1.87 mg/dl (0.55-1.30); Glucose 189 MG/DL (70-110); NT PRO BNP 1090 pg/ml (0-450); PREALBUMIN 18.4 mg/dL (18.0-35.7); Potassium 4.2 mEq/L (3.5-5.1); SGOT/AST 26 U/L (15-37); SGPT/ALT 21 U/L (12-78); SODIUM 147 mEq/L (136-145); Total Protein 6.6 gm/dL (6.4-8.2)
--- NOTE | 2017-06-23 16:37 | PCM.HP ---
History of Present Illness - Chief Complaint Chief Complaint: Flu A History of Present Illness: is a 81 year old female pt of mine from [facility], hx CHF, afib, renal failure, DM, and PE (on Eliquis) who came in with weakness and SOB directly today. Her was diagnosed with influenza 3d ago and she was put on Tamiflu. She has a non productive cough and no fever. Tolerating po. she lives at home wiht her and her sons help them quite a bit; today her son could not lift her to help her walk at all. She required several people to assist her into the bed here at the hospital. Her O2 sat was 77% on room air on admission. She is now in the 90s on 5L face mask. Her CXR showed some infiltrate so antibiotics have been started. Blood cultures pending. Lactate normal. - Review of Systems Constitutional: Fatigue, Weakness, No Fever Respiratory: Cough, Short Of Breath Cardiac: Chest Pain (with cough) Abdominal/Gastrointestinal: Nausea, Vomiting Musculoskeletal: No Myalgias Psychological: Anxiety All Other Systems: Reviewed and Negative Medications & Allergies Home Medications: Home Medication List Allopurinol 300 mg [Zyloprim 300 mg] 300 mg PO DAILY 09/30/12 [History Confirmed 06/23/17] Multivitamin W-Minerals/Lutein [Centrum Silver Tablet] 1 each PO DAILY 10/02/14 [History Confirmed 06/23/17] Levothyroxine Sodium 100 Mcg [Synthroid 100 Mcg] 100 mcg PO DAILY 08/17/16 [History Confirmed 06/23/17] Rosuvastatin Calcium [Crestor] 10 mg PO DAILY 08/17/16 [History Confirmed ] Albuterol Common Canister [Proventil Common Canister] 2 puff IH Q4H PRN PRN #1 unit 12/07/16 [Rx Confirmed 06/23/17] Polyvinyl Alcohol [Artificial Tears] 1 ml OP PRN PRN drops 12/07/16 [Rx Confirmed 06/23/17] Oxybutynin Chloride 5 mg PO BID 01/22/17 [History Confirmed 06/23/17] Sitagliptin Phosphate 50 MG [Januvia 50 MG] 100 mg PO DAILY 01/22/17 [ History Confirmed 06/23/17] Magnesium Oxide 400 mg [Mag-Ox 400] 400 mg PO BID 01/31/17 [History Confirmed 06/23/17] Metoprolol Tartrate 50 mg [Lopressor 50 MG] 75 mg PO BID 02/08/17 [ History Confirmed 06/23/17] Apixaban [Eliquis] 5 mg PO BID #60 tablet 03/17/17 [Rx Confirmed 06/23/17] Sacubitril/Valsartan [Entresto 49 mg-51 mg Tablet] 0.5 each PO BID #15 tablet [Rx Confirmed 06/23/17] Amitriptyline HCl 25 mg [Elavil 25 mg] 50 mg PO HS #30 tablet 03/24/17 [ Rx Confirmed 06/23/17] Bumetanide 1 mg PO DAILY #30 tablet 03/24/17 [Rx Confirmed 06/23/17] Insulin Glargine [Lantus Insulin] 10 unit SQ DAILY #3 pen 03/24/17 [Rx Confirmed 06/23/17] Potassium Chloride 10 Meq Tab* [Klor Con 10 MEQ] 10 meq PO BID #60 tab [Rx Confirmed 06/23/17] Allergies/Adverse Reactions: Allergies Allergy/AdvReac Type Severity Reaction Status Date / Time No Known Drug Allergies Allergy Verified 03/19/17 18:18 - Past Medical History Past Medical History: Yes Neurological History: No Pertinent History ENT History: Cataracts Cardiac History: Arrhythmia, Coronary Artery Disease, Hypertension Respiratory History: CHF Endocrine Medical History: Diabetes Type II, Hypothyroidism Musculoskelatal History: Arthritis, Fractures GI Medical History: No Pertinent History History: Renal Disease, Other Pyscho-Social History: No Pertinent History Reproductive Disorders: No Pertinent History Comment: Pt diagnosis with UTI Wednesday02/05/17 - Female History Are you now?: No - Past Surgical History Past Surgical History: Yes Neuro Surgical History: No Pertinent History Cardiac History: Internal Defibrillator, Pacemaker Respiratory Surgery: No Pertinent History GI Surgical History: Appendectomy Genitourinary Surgical Hx: No Pertinent History Musculskeletal Surgical Hx: Orthopedic Surgery Female Surgical History: Tubal Ligation - Social History Smoking Status: Never smoker Exposure to second hand smoke: No Alcohol: None Drug Use: none Significant Family History: heart disease, hypertension - Physical Exam Vital Signs: Vital Signs - 24 hr Temp Pulse Resp BP Pulse Ox 06/23/17 16:01 94 L 06/23/17 15:55 96 06/23/17 15:03 98.9 F 98 H 28 H 98/61 92 L 06/23/17 14:33 98 H 28 H 92 L Oxygen-Last 24 hours O2 Percentage 5 Liters = 40% General Appearance: no apparent distress, alert Neurologic Exam: cooperative, other ([place] as usual) Eye Exam: eyes nml inspection Ears, Nose, Throat Exam: moist mucous membranes Respiratory Exam: diminished breath sounds, rhonchi (scattered throughout), wheezing (scattered throughout), No crackles/rales Cardiovascular Exam: regular rate/rhythm, No normal heart sounds (distant, difficult to auscultate) Gastrointestinal/Abdomen Exam: soft, normal bowel sounds, No tenderness, No distention, No mass, No guarding, No rebound Extremity Exam: normal inspection, No pedal edema, No swelling Skin Exam: normal color, warm, dry, No rash Results - Labs Lab/Micro Results: Lab Results-Last 24 Hours 06/23/17 06/23/17 Range/Units 14:50 15:10 WBC 4.9 (4.0-10.5) K/mm3 RBC 4.04 L (4.1-5.4) M/mm3 Hgb 12.2 (12.0-16.0) gm/dl Hct 39.0 (35-47) % MCV 96.5 (78-100) fl MCH 30.1 (26-32) pg MCHC 31.3 L (32-36) g/dl RDW 15.6 H (11.5-14.0) % Plt Count 158 (150-450) K/mm3 MPV 11.5 H (6-9.5) fl Segmented Neutrophils 71 H (36.0-66.0) % Lymphocytes (Manual) 22 L (24-44) % Monocytes (Manual) 3 (0.0-12.0) % Eosinophils (Manual) 4 H (0.00-3.0) % Differential Comment NORMAL Platelet Estimate NORMAL (NORMAL) Lactic Acid 1.6 (0.4-2.0) - Radiology Impressions Radiology Exams & Impressions: Radiology Procedures Category Date Time Status CHEST 1 VIEW (PORTABLE) Stat Exams 06/23/17 14:45 Completed - Other Procedures and Tests Respiratory Therapy 06/23/17 14:31 Oxygen OXYMASK-LPM 4% 06/23/17 15:00 Respiratory Nebulizer Q4H Assessment/Plan (1) Acute respiratory distress Current Visit: Yes Status: Acute Assessment & Plan: Much improved, on O2, receiving albuterol nebs. Code(s): R06.03 - ACUTE RESPIRATORY DISTRESS (2) Influenza B Current Visit: Yes Status: Acute Assessment & Plan: on tamiflu. isolation. Code(s): J10.1 - FLU DUE TO OTH IDENT INFLUENZA VIRUS W OTH RESP MANIFEST (3) Pneumonia Current Visit: Yes Status: Acute Qualifiers: Pneumonia type: due to unspecified organism Laterality: left Lung location: lower lobe of lung Qualified Code(s): J18.1 - Lobar pneumonia, unspecified organism Assessment & Plan: on rocephin and zithromax Code(s): J18.9 - PNEUMONIA, UNSPECIFIED ORGANISM (4) History of pulmonary embolism Current Visit: No Status: Acute Assessment & Plan: on Eliquis Code(s): Z86.711 - PERSONAL HISTORY OF PULMONARY EMBOLISM (5) Weakness Current Visit: No Status: Acute Assessment & Plan: as she recovers, will evaluate the need for rehab. Code(s): R53.1 - WEAKNESS (6) CKD (chronic kidney disease) stage 3, GFR 30-59 ml/min Current Visit: No Status: Chronic Assessment & Plan: labs pending Code(s): N18.3 - CHRONIC KIDNEY DISEASE, STAGE 3 (MODERATE) (7) Chronic congestive heart failure Current Visit: No Status: Chronic Qualifiers: Qualified Code(s): I50.22 - Chronic systolic (congestive) heart failure Assessment & Plan: doing great on entresto. Code(s): I50.9 - HEART FAILURE, UNSPECIFIED (8) Diabetes type 2, controlled Current Visit: No Status: Chronic Qualifiers: Diabetes mellitus complication status: with kidney complications Diabetes mellitus complication detail: with chronic kidney disease Diabetes mellitus intermediate designer insulin use: without long-term use Chronic kidney disease stage: stage 3 (moderate) Qualified Code(s): E11.22 - Type 2 diabetes mellitus with diabetic chronic kidney disease; N18.3 - Chronic kidney disease, stage 3 ( moderate); N18.3 - Chronic kidney disease, stage 3 (moderate) Assessment & Plan: lynne navarro/hs Code(s): E11.9 - TYPE 2 DIABETES MELLITUS WITHOUT COMPLICATIONS
[2017-06-23 16:41] LABS: TROPONIN < 0.017 ng/ml (0.000-0.056)
[2017-06-23] MEDS: Zithromax 500 MG/ 250 ML NaCl Premix 500 MG/250 ML IVPB IV SCH (17:31)
[2017-06-23] MEDS: ROCEPHIN 1 Gm-D5w 50 ml Bag** 1 G/50 ML IVPB IV SCH (17:32)
[2017-06-23] MEDS: ENTRESTO 49 MG-51 MG TABLET PO SCH (21:02)
[2017-06-23] MEDS: Lopressor 50 MG PO SCH (21:05)
[2017-06-23] MEDS: MAG-OX 400 PO SCH (21:08)
[2017-06-23] MEDS: Klor Con 10 MEQ PO SCH (21:08)
[2017-06-23] MEDS: ELIQUIS PO SCH (21:08)
[2017-06-24] MEDS: DUONEB 0.5-3 MG/3 ml Neb IH SCH ×5 (01:52→17:44)
[2017-06-24] MEDS: Sodium Chloride 0.9% 1000 ML 1,000 ML IV SCH ×3 (04:33→22:48)
[2017-06-24 04:45] LABS: Appearance CLOUDY (CLEAR); Bilirubin NEGATIVE (NEGATIVE); Blood 250 Ery/ul (0-5); Glucose NEGATIVE (NEGATIVE); Ketones NEGATIVE (NEGATIVE); Leukocyte Esterase 2+ (NEGATIVE); Nitrite POSITIVE (NEGATIVE); Protein,Urine Dip TRACE (Negative); Urobilinogen NORMAL mg/dL (0-1)
[2017-06-24 04:46] LABS: Bacteria MANY /HPF (NEGATIVE); Epithelial Cells MANY /HPF (FEW); Mucus MANY /HPF (NEGATIVE); WBC 25-50 /HPF (0-5)
[2017-06-24] MEDS ORDERED: POLYVINYL ALCOHOL OP PRN (07:11)
[2017-06-24] MEDS ORDERED: Artificial Tears 15 ML OP PRN (07:18)
[2017-06-24 08:38] LABS: Hematocrit 37.4 % (35-47); Hemoglobin 11.7 gm/dl (12.0-16.0); Mean Cell Volume 96.1 fl (78-100); Mean Corpuscular Hgb Concent. 31.3 g/dl (32-36); Platelet Count 157 K/mm3 (150-450); Red Blood Count 3.89 M/mm3 (4.1-5.4); Red Cell Distribution Width 15.7 % (11.5-14.0); White Blood Count 6.2 K/mm3 (4.0-10.5)
--- NOTE | 2017-06-24 08:51 | PCM.NOTE ---
Date and Time: 06/24/17846 Subjective Assessment: Pt did wean off the oxygen. Adolfo po well. Objective Exam General Appearance: no apparent distress, obese Neurologic Exam: alert, cooperative, normal mood/affect Skin Exam: normal color, warm, dry, No rash Respiratory Exam: diminished breath sounds, wheezing (scattered), No crackles/ rales, No rhonchi Cardiovascular Exam: regular rate/rhythm, normal heart sounds, No murmur Extremity Exam: normal inspection, No pedal edema, No swelling Back Exam: normal inspection, No rash OBJECTIVE DATA Vital Signs: Vital Signs - 24 hr Temp Pulse Resp BP Pulse Ox 06/24/17 07:57 98.0 F 91 H 16 131/71 98 06/24/17 07:00 94 H 18 96 06/24/17 04:00 97.7 F 93 H 21 122/60 100 06/24/17 01:54 102 H 22 100 06/24/17 00:00 98.1 F 92 H 18 103/64 98 06/23/17 21:53 91 H 22 100 06/23/17 20:00 97.9 F 89 16 83/49 98 06/23/17 17:30 94 H 16 96 06/23/17 16:01 94 L 06/23/17 16:00 98.7 F 90 20 100/62 92 L 06/23/17 15:55 96 06/23/17 15:03 98.9 F 98 H 28 H 98/61 92 L 06/23/17 14:33 98 H 28 H 92 L Oxygen-Last 24 hours O2 Percentage 3 Liters = 32% O2 Percentage 3 Liters = 32% O2 Percentage 5 Liters = 40% Pain Assessment - Last Documented Pain Intensity 0 Pain Scale Used 0-10 Pain Scale Intake and Output: Intake & Output 06/21/17 06/22/17 06/23/17 06/24/17 11:59 11:59 11:59 11:59 Intake Total 1807 Output Total 300 Balance 1507 Weight 79.37 kg Lab Results: Lab Results-Last 24 Hours 06/23/17 06/23/17 06/23/17 Range/Units 04:27 14:50 15:10 WBC 4.9 (4.0-10.5) K/mm3 RBC 4.04 L (4.1-5.4) M/mm3 Hgb 12.2 (12.0-16.0) gm/dl Hct 39.0 (35-47) % MCV 96.5 (78-100) fl MCH 30.1 (26-32) pg MCHC 31.3 L (32-36) g/dl RDW 15.6 H (11.5-14.0) % Plt Count 158 (150-450) K/mm3 MPV 11.5 H (6-9.5) fl Segmented Neutrophils 71 H (36.0-66.0) % Lymphocytes (Manual) 22 L (24-44) % Monocytes (Manual) 3 (0.0-12.0) % Eosinophils (Manual) 4 H (0.00-3.0) % Differential Comment NORMAL Platelet Estimate NORMAL (NORMAL) Sodium (136-145) mEq/L Potassium (3.5-5.1) mEq/L Chloride (98-107) mEq/L Carbon Dioxide (21-32) mEq/L Anion Gap (5-15) MEQ/L BUN (9-20) mg/dL Creatinine (0.55-1.30) mg/dl Estimated GFR ML/MIN Glucose (70-110) MG/DL Lactic Acid 1.6 (0.4-2.0) Calcium (8.5-10.1) mg/dL Magnesium (1.8-2.4) mg/dL Total Bilirubin (0.2-1.0) mg/dL AST (15-37) U/L ALT (12-78) U/L Alkaline Phosphatase (46-116) U/L Troponin I (0.000-0.056) ng/ml NT-Pro-B Natriuret Pep (0-450) pg/ml Serum Total Protein (6.4-8.2) gm/dL Albumin (3.4-5.0) g/dL Prealbumin (18.0-35.7) mg/dL Ur Collection Type VOID Urine Color YELLOW (YELLOW) Urine Appearance CLOUDY (CLEAR) Urine pH 5.0 (5-6) Ur Specific Dillon 1.020 (1.005-1.025) Urine Protein TRACE (Negative) Urine Ketones NEGATIVE (NEGATIVE) Urine Blood 250 (0-5) Allan/ul Urine Nitrite POSITIVE (NEGATIVE) Urine Bilirubin NEGATIVE (NEGATIVE) Urine Urobilinogen NORMAL (0-1) mg/dL Ur Leukocyte Esterase 2+ (NEGATIVE) Urine Microscopic RBC 10-15 (0-2) /HPF Urine Microscopic WBC 25-50 (0-5) /HPF Ur Epithelial Cells MANY (FEW) /HPF Urine Bacteria MANY (NEGATIVE) /HPF Urine Mucus MANY (NEGATIVE) /HPF Urine Glucose NEGATIVE (NEGATIVE) mg/dL Specimen Received 06/24/17 0430 06/23/17 06/24/17 Range/Units 15:10 08:35 WBC 6.2 (4.0-10.5) K/mm3 RBC 3.89 L (4.1-5.4) M/mm3 Hgb 11.7 L (12.0-16.0) gm/dl Hct 37.4 (35-47) % MCV 96.1 (78-100) fl MCH 30.0 (26-32) pg MCHC 31.3 L (32-36) g/dl RDW 15.7 H (11.5-14.0) % Plt Count 157 (150-450) K/mm3 MPV 11.0 H (6-9.5) fl Segmented Neutrophils (36.0-66.0) % Lymphocytes (Manual) (24-44) % Monocytes (Manual) (0.0-12.0) % Eosinophils (Manual) (0.00-3.0) % Differential Comment Platelet Estimate (NORMAL) Sodium 147 H (136-145) mEq/L Potassium 4.2 (3.5-5.1) mEq/L Chloride 106 (98-107) mEq/L Carbon Dioxide 29.9 (21-32) mEq/L Anion Gap 14.8 (5-15) MEQ/L BUN 30 H (9-20) mg/dL Creatinine 1.87 H (0.55-1.30) mg/dl Estimated GFR 27 ML/MIN Glucose 189 H (70-110) MG/DL Lactic Acid (0.4-2.0) Calcium 8.1 L (8.5-10.1) mg/dL Magnesium 2.1 (1.8-2.4) mg/dL Total Bilirubin 0.30 (0.2-1.0) mg/dL AST 26 (15-37) U/L ALT 21 (12-78) U/L Alkaline Phosphatase 105 (46-116) U/L Troponin I < 0.017 (0.000-0.056) ng/ml NT-Pro-B Natriuret Pep 1090 H (0-450) pg/ml Serum Total Protein 6.6 (6.4-8.2) gm/dL Albumin 2.9 L (3.4-5.0) g/dL Prealbumin 18.4 (18.0-35.7) mg/dL Ur Collection Type Urine Color (YELLOW) Urine Appearance (CLEAR) Urine pH (5-6) Ur Specific Dillon (1.005-1.025) Urine Protein (Negative) Urine Ketones (NEGATIVE) Urine Blood (0-5) Allan/ul Urine Nitrite (NEGATIVE) Urine Bilirubin (NEGATIVE) Urine Urobilinogen (0-1) mg/dL Ur Leukocyte Esterase (NEGATIVE) Urine Microscopic RBC (0-2) /HPF Urine Microscopic WBC (0-5) /HPF Ur Epithelial Cells (FEW) /HPF Urine Bacteria (NEGATIVE) /HPF Urine Mucus (NEGATIVE) /HPF Urine Glucose (NEGATIVE) mg/dL Specimen Received Radiology Exams: Radiology Procedures Category Date Time Status CHEST 1 VIEW (PORTABLE) Stat Exams 06/23/17 14:45 Completed Assessment/Plan (1) Acute respiratory distress Current Visit: Yes Status: Resolved Code(s): R06.03 - ACUTE RESPIRATORY DISTRESS (2) Influenza B Current Visit: Yes Status: Acute Assessment & Plan: with some wheezing; will add steroid IV. Code(s): J10.1 - FLU DUE TO OTH IDENT INFLUENZA VIRUS W OTH RESP MANIFEST (3) Pneumonia Current Visit: Yes Status: Acute Qualifiers: Pneumonia type: due to unspecified organism Laterality: left Lung location: lower lobe of lung Qualified Code(s): J18.1 - Lobar pneumonia, unspecified organism Assessment & Plan: On rocephin and zithromax. Code(s): J18.9 - PNEUMONIA, UNSPECIFIED ORGANISM (4) History of pulmonary embolism Current Visit: No Status: Acute Assessment & Plan: on Eliquis Code(s): Z86.711 - PERSONAL HISTORY OF PULMONARY EMBOLISM (5) Weakness Current Visit: No Status: Acute Assessment & Plan: consult PT. Code(s): R53.1 - WEAKNESS (6) CKD (chronic kidney disease) stage 3, GFR 30-59 ml/min Current Visit: No Status: Chronic Assessment & Plan: will recheck lab today. Code(s): N18.3 - CHRONIC KIDNEY DISEASE, STAGE 3 (MODERATE) (7) Chronic congestive heart failure Current Visit: No Status: Chronic Qualifiers: Qualified Code(s): I50.22 - Chronic systolic (congestive) heart failure Assessment & Plan: add bumex back in. Code(s): I50.9 - HEART FAILURE, UNSPECIFIED (8) Diabetes type 2, controlled Current Visit: No Status: Chronic Qualifiers: Diabetes mellitus complication status: with kidney complications Diabetes mellitus complication detail: with chronic kidney disease Diabetes mellitus vermin exterminator insulin use: without vermin exterminator use Chronic kidney disease stage: stage 3 (moderate) Qualified Code(s): E11.22 - Type 2 diabetes mellitus with diabetic chronic kidney disease; N18.3 - Chronic kidney disease, stage 3 ( moderate); N18.3 - Chronic kidney disease, stage 3 (moderate) Assessment & Plan: rechecking. Code(s): E11.9 - TYPE 2 DIABETES MELLITUS WITHOUT COMPLICATIONS
[2017-06-24 08:58] LABS: ANION GAP 13.5 MEQ/L (5-15); Calcium 7.9 mg/dL (8.5-10.1); Carbon Dioxide 25.6 mEq/L (21-32); Creatinine 1 1.38 mg/dl (0.55-1.30); Potassium 4.2 mEq/L (3.5-5.1)
[2017-06-24] MEDS ORDERED: NON-FORMULARY ITEM (Rosuvastatin Calcium [Crestor] 10 MG) PO SCH (10:00)
[2017-06-24] MEDS ORDERED: BUMEX 1 MG PO SCH (10:00)
[2017-06-24] MEDS: ROCEPHIN 1 Gm-D5w 50 ml Bag** 1 G/50 ML IVPB IV SCH (11:45)
[2017-06-24] MEDS: Januvia 50 MG PO SCH (11:46)
[2017-06-24] MEDS: Lopressor 50 MG PO SCH ×2 (11:46→22:09)
[2017-06-24] MEDS: ZYLOPRIM 300 MG PO SCH (11:46)
[2017-06-24] MEDS: SYNTHROID 100 MCG PO SCH (11:47)
[2017-06-24] MEDS: ELIQUIS PO SCH ×2 (11:47→22:09)
[2017-06-24] MEDS: MAG-OX 400 PO SCH ×2 (11:47→22:08)
[2017-06-24] MEDS: Klor Con 10 MEQ PO SCH ×2 (11:47→22:08)
[2017-06-24] MEDS: ENTRESTO 49 MG-51 MG TABLET PO SCH ×2 (11:48→22:08)
[2017-06-24] MEDS: Lantus Insulin SQ SCH (11:48)
[2017-06-24] MEDS: ZOCOR 20MG PO SCH (11:49)
[2017-06-24] MEDS: solu-MEDROL 40 MG IV SCH ×2 (11:50→16:57)
[2017-06-24] MEDS: Zithromax 500 MG/ 250 ML NaCl Premix 500 MG/250 ML IVPB IV SCH (12:30)
[2017-06-24] MEDS ORDERED: NovoLOG Insulin ONE (17:12)
[2017-06-24] MEDS: NovoLOG Insulin SQ PRN ×2 (17:12→22:11)
[2017-06-25] MEDS: solu-MEDROL 40 MG IV SCH ×3 (00:21→16:56)
[2017-06-25] MEDS: DUONEB 0.5-3 MG/3 ml Neb IH SCH ×7 (00:24→21:47)
[2017-06-25 06:01] LABS: Hematocrit 35.9 % (35-47); Hemoglobin 11.4 gm/dl (12.0-16.0); Mean Cell Volume 94.7 fl (78-100); Mean Corpuscular Hgb Concent. 31.8 g/dl (32-36); Mean Platelet Volume 11.4 fl (6-9.5); Platelet Count 165 K/mm3 (150-450); Red Blood Count 3.79 M/mm3 (4.1-5.4); Red Cell Distribution Width 15.4 % (11.5-14.0); White Blood Count 7.2 K/mm3 (4.0-10.5)
[2017-06-25 06:31] LABS: ANION GAP 15.7 MEQ/L (5-15); Calcium 8.1 mg/dL (8.5-10.1); Carbon Dioxide 22.7 mEq/L (21-32); Creatinine 1 1.26 mg/dl (0.55-1.30); Potassium 4.5 mEq/L (3.5-5.1)
--- NOTE | 2017-06-25 08:55 | PCM.NOTE ---
Date and Time: 06/25/1751 Subjective Assessment: She is a bit "goofy" this morning per her family; sleeping currently. Has been carol po. - Review of Systems Constitutional: No Fever Respiratory: Short Of Breath Objective Exam General Appearance: no apparent distress, obese, other (wakes to touch, falls to sleep again after exam) Neurologic Exam: cooperative, other (oriented to time, not to place) Skin Exam: normal color, warm, dry, No rash Respiratory Exam: normal breath sounds, crackles/rales (bilat bases), wheezing ( scattered throughout), No rhonchi Cardiovascular Exam: regular rate/rhythm, normal heart sounds, No murmur Gastrointestinal/Abdomen Exam: soft, No tenderness Back Exam: normal inspection, No rash OBJECTIVE DATA Vital Signs: Vital Signs - 24 hr Temp Pulse Resp BP Pulse Ox 06/25/17 08:00 98.4 F 109 H 20 134/81 97 06/25/17 06:37 97 H 22 97 06/25/17 04:00 97.9 F 86 18 129/70 95 06/25/17 03:50 95 H 18 96 06/25/17 00:29 83 20 98 06/24/17 23:47 98.4 F 83 20 121/89 97 06/24/17 19:43 98.5 F 102 H 17 137/70 95 06/24/17 17:46 108 H 18 96 06/24/17 16:00 98.0 F 90 16 126/70 95 06/24/17 14:34 96 H 20 95 06/24/17 12:00 98.2 F 90 16 128/72 98 06/24/17 10:23 104 H 22 97 Oxygen-Last 24 hours O2 Percentage 3 Liters = 32% Pain Assessment - Last Documented Pain Intensity 0 Pain Scale Used 0-10 Pain Scale Intake and Output: Intake & Output 06/22/17 06/23/17 06/24/17 06/25/17 11:59 11:59 11:59 11:59 Intake Total 2287 1827 Output Total 300 1600 Balance 1986 227 Weight 79.37 kg Lab Results: Accuchecks Date 06/24/17 Accucheck Value: 366 Lab Results-Last 24 Hours 06/24/17 06/24/17 06/25/17 Range/Units 08:35 08:35 05:57 WBC 7.2 (4.0-10.5) K/mm3 RBC 3.79 L (4.1-5.4) M/mm3 Hgb 11.4 L (12.0-16.0) gm/dl Hct 35.9 (35-47) % MCV 94.7 (78-100) fl MCH 30.0 (26-32) pg MCHC 31.8 L (32-36) g/dl RDW 15.4 H (11.5-14.0) % Plt Count 165 (150-450) K/mm3 MPV 11.4 H (6-9.5) fl Sodium 144 (136-145) mEq/L Potassium 4.2 (3.5-5.1) mEq/L Chloride 109 H (98-107) mEq/L Carbon Dioxide 25.6 (21-32) mEq/L Anion Gap 13.5 (5-15) MEQ/L BUN 26 H (9-20) mg/dL Creatinine 1.38 H (0.55-1.30) mg/dl Estimated GFR 39 ML/MIN Glucose 143 H (70-110) MG/DL Hemoglobin A1c 7.7 H (4.5-6.2) Calcium 7.9 L (8.5-10.1) mg/dL 06/25/17 Range/Units 05:57 WBC (4.0-10.5) K/mm3 RBC (4.1-5.4) M/mm3 Hgb (12.0-16.0) gm/dl Hct (35-47) % MCV (78-100) fl MCH (26-32) pg MCHC (32-36) g/dl RDW (11.5-14.0) % Plt Count (150-450) K/mm3 MPV (6-9.5) fl Sodium 141 (136-145) mEq/L Potassium 4.5 (3.5-5.1) mEq/L Chloride 107 (98-107) mEq/L Carbon Dioxide 22.7 (21-32) mEq/L Anion Gap 15.7 H (5-15) MEQ/L BUN 26 H (9-20) mg/dL Creatinine 1.26 (0.55-1.30) mg/dl Estimated GFR 43 ML/MIN Glucose 348 H (70-110) MG/DL Hemoglobin A1c (4.5-6.2) Calcium 8.1 L (8.5-10.1) mg/dL Radiology Exams: Radiology Procedures Category Date Time Status CHEST 1 VIEW (PORTABLE) Stat Exams 06/23/17 14:45 Completed Assessment/Plan (1) Influenza B Current Visit: Yes Status: Acute Assessment & Plan: Continue current treatment, improved. Code(s): J10.1 - FLU DUE TO OTH IDENT INFLUENZA VIRUS W OTH RESP MANIFEST (2) Pneumonia Current Visit: Yes Status: Acute Qualifiers: Pneumonia type: due to unspecified organism Laterality: left Lung location: lower lobe of lung Qualified Code(s): J18.1 - Lobar pneumonia, unspecified organism Assessment & Plan: continue antibiotics and nebs as needed Code(s): J18.9 - PNEUMONIA, UNSPECIFIED ORGANISM (3) History of pulmonary embolism Current Visit: No Status: Chronic Code(s): Z86.711 - PERSONAL HISTORY OF PULMONARY EMBOLISM (4) Weakness Current Visit: Yes Status: Acute Assessment & Plan: would like report from PT today; anticipate pt staying until Wednesday and can decide disposition then. Code(s): R53.1 - WEAKNESS (5) CKD (chronic kidney disease) stage 3, GFR 30-59 ml/min Current Visit: No Status: Chronic Code(s): N18.3 - CHRONIC KIDNEY DISEASE, STAGE 3 (MODERATE) (6) Chronic congestive heart failure Current Visit: No Status: Chronic Qualifiers: Qualified Code(s): I50.22 - Chronic systolic (congestive) heart failure Assessment & Plan: will add another bumex, crackles on exam today Code(s): I50.9 - HEART FAILURE, UNSPECIFIED (7) Diabetes type 2, controlled Current Visit: No Status: Chronic Qualifiers: Diabetes mellitus complication status: with kidney complications Diabetes mellitus complication detail: with chronic kidney disease Diabetes mellitus long-term insulin use: without middle or intermediate school principal use Chronic kidney disease stage: stage 3 (moderate) Qualified Code(s): E11.22 - Type 2 diabetes mellitus with diabetic chronic kidney disease; N18.3 - Chronic kidney disease, stage 3 ( moderate); N18.3 - Chronic kidney disease, stage 3 (moderate) Code(s): E11.9 - TYPE 2 DIABETES MELLITUS WITHOUT COMPLICATIONS
[2017-06-25] MEDS: Januvia 50 MG PO SCH (09:17)
[2017-06-25] MEDS: Lopressor 50 MG PO SCH ×2 (09:17→22:40)
[2017-06-25] MEDS: MAG-OX 400 PO SCH ×2 (09:17→22:39)
[2017-06-25] MEDS: ZYLOPRIM 300 MG PO SCH (09:17)
[2017-06-25] MEDS: ZOCOR 20MG PO SCH (09:17)
[2017-06-25] MEDS: ELIQUIS PO SCH ×2 (09:18→22:40)
[2017-06-25] MEDS: Zithromax 500 MG/ 250 ML NaCl Premix 500 MG/250 ML IVPB IV SCH (09:18)
[2017-06-25] MEDS: ROCEPHIN 1 Gm-D5w 50 ml Bag** 1 G/50 ML IVPB IV SCH (09:18)
[2017-06-25] MEDS: BUMEX 1 MG PO SCH ×2 (09:18→16:56)
[2017-06-25] MEDS: Klor Con 10 MEQ PO SCH ×2 (09:18→22:40)
[2017-06-25] MEDS: SYNTHROID 100 MCG PO SCH (09:18)
[2017-06-25] MEDS: Lantus Insulin SQ SCH (09:18)
[2017-06-25] MEDS ORDERED: Sodium Chloride 0.9% 10 ML FLUSH Syringe IV PRN (09:19)
[2017-06-25] MEDS: NovoLOG Insulin SQ PRN ×4 (09:19→22:42)
[2017-06-25] MEDS: ENTRESTO 49 MG-51 MG TABLET PO SCH ×2 (09:20→22:42)
[2017-06-25] MEDS: Sodium Chloride 0.9% 10 ML FLUSH Syringe IV SCH ×2 (11:45→22:41)
[2017-06-26] MEDS: solu-MEDROL 40 MG IV SCH ×2 (01:33→09:20)
[2017-06-26] MEDS: DUONEB 0.5-3 MG/3 ml Neb IH SCH ×6 (02:35→23:31)
[2017-06-26 06:28] LABS: Hematocrit 37.4 % (35-47); Hemoglobin 11.8 gm/dl (12.0-16.0); Mean Cell Volume 94.7 fl (78-100); Mean Corpuscular Hgb Concent. 31.6 g/dl (32-36); Mean Platelet Volume 11.7 fl (6-9.5); Platelet Count 189 K/mm3 (150-450); Red Blood Count 3.95 M/mm3 (4.1-5.4); Red Cell Distribution Width 15.7 % (11.5-14.0); White Blood Count 14.9 K/mm3 (4.0-10.5)
[2017-06-26 06:56] LABS: ANION GAP 14.4 MEQ/L (5-15); Calcium 8.3 mg/dL (8.5-10.1); Carbon Dioxide 25.8 mEq/L (21-32); Creatinine 1 1.22 mg/dl (0.55-1.30); Potassium 4.3 mEq/L (3.5-5.1)
[2017-06-26] MEDS: Sodium Chloride 0.9% 10 ML FLUSH Syringe IV SCH ×3 (07:01→22:22)
[2017-06-26 07:30] LABS: Mean Corpuscular Hemoglobin 29.8 pg (26-32)
[2017-06-26] MEDS: ROCEPHIN 1 Gm-D5w 50 ml Bag** 1 G/50 ML IVPB IV SCH (08:58)
[2017-06-26] MEDS: Lopressor 50 MG PO SCH ×2 (08:59→22:21)
[2017-06-26] MEDS: Januvia 50 MG PO SCH (08:59)
[2017-06-26] MEDS: Klor Con 10 MEQ PO SCH ×2 (08:59→22:21)
[2017-06-26] MEDS: BUMEX 1 MG PO SCH ×2 (08:59→16:40)
[2017-06-26] MEDS: MAG-OX 400 PO SCH ×2 (08:59→22:22)
[2017-06-26] MEDS: SYNTHROID 100 MCG PO SCH (09:02)
[2017-06-26] MEDS: Lantus Insulin SQ SCH (09:02)
[2017-06-26] MEDS: ZOCOR 20MG PO SCH (09:02)
[2017-06-26] MEDS: ELIQUIS PO SCH ×2 (09:02→22:20)
[2017-06-26] MEDS: ENTRESTO 49 MG-51 MG TABLET PO SCH ×2 (09:02→22:20)
[2017-06-26] MEDS: ZYLOPRIM 300 MG PO SCH (09:02)
[2017-06-26] MEDS: Zithromax 500 MG/ 250 ML NaCl Premix 500 MG/250 ML IVPB IV SCH (09:03)
[2017-06-26] MEDS: NovoLOG Insulin SQ PRN ×3 (09:03→22:23)
--- NOTE | 2017-06-26 13:22 | PCM.NOTE ---
Date and Time: 06/26/17 1317 Subjective Assessment: Per PT in the afternoon yesterday pt was a little hard to rouse but did very well walking. Per her son she has been sleepy this morning, not disoriented like yesterday. Adolfo po,but decreased appetite. She thinks her breathing is much better. - Review of Systems Constitutional: No Fever Respiratory: Cough, Short Of Breath Objective Exam General Appearance: no apparent distress, obese Neurologic Exam: alert, cooperative Skin Exam: normal color, warm, dry, No rash Ears, Nose, Throat Exam: moist mucous membranes Respiratory Exam: diminished breath sounds (fair air exchange), No crackles/ rales, No rhonchi, No wheezing Cardiovascular Exam: regular rate/rhythm, normal heart sounds, No murmur Extremity Exam: No pedal edema, No swelling OBJECTIVE DATA Vital Signs: Vital Signs - 24 hr Temp Pulse Resp BP Pulse Ox 06/26/17 11:42 98.1 F 99 H 20 123/77 93 L 06/26/17 10:00 100 H 20 93 L 06/26/17 07:56 98 F 20 06/26/17 06:00 101 H 18 93 L 06/26/17 04:00 98.5 F 95 H 18 127/67 92 L 06/26/17 02:36 93 H 20 96 06/26/17 00:00 97.9 F 102 H 20 146/79 95 06/25/17 21:51 94 H 20 95 06/25/17 20:00 98.2 F 91 H 16 121/73 94 L 06/25/17 18:06 106 H 16 94 L 06/25/17 16:30 98.7 F 93 H 20 123/73 96 06/25/17 16:00 98.7 F 93 H 20 123/73 96 06/25/17 14:00 93 H 16 95 Pain Assessment - Last Documented Pain Intensity 0 Pain Scale Used 0-10 Pain Scale Intake and Output: Intake & Output 06/24/17 06/25/17 06/26/17 06/27/17 11:59 11:59 11:59 11:59 Intake Total 2287 2067 1260 480 Output Total 300 1600 2200 Balance 1987 467 940 480 Weight 79.37 kg Lab Results: Accuchecks Date 06/26/17 Date 06/26/17 Date 06/25/17 Date 06/25/17 Time 11:30 Time 07:30 Time 22:00 Time 16:30 Accucheck Value: 463 Accucheck Value: 325 Accucheck Value: 261 Lab Results-Last 24 Hours 06/26/17 06/26/17 Range/Units 05:28 05:40 WBC 14.9 H (4.0-10.5) K/mm3 RBC 3.95 L (4.1-5.4) M/mm3 Hgb 11.8 L (12.0-16.0) gm/dl Hct 37.4 (35-47) % MCV 94.7 (78-100) fl MCH 29.8 (26-32) pg MCHC 31.6 L (32-36) g/dl RDW 15.7 H (11.5-14.0) % Plt Count 189 (150-450) K/mm3 MPV 11.7 H (6-9.5) fl Sodium 143 (136-145) mEq/L Potassium 4.3 (3.5-5.1) mEq/L Chloride 107 (98-107) mEq/L Carbon Dioxide 25.8 (21-32) mEq/L Anion Gap 14.4 (5-15) MEQ/L BUN 29 H (9-20) mg/dL Creatinine 1.22 (0.55-1.30) mg/dl Estimated GFR 45 ML/MIN Glucose 291 H (70-110) MG/DL Calcium 8.3 L (8.5-10.1) mg/dL Magnesium 2.2 (1.8-2.4) mg/dL Multi-Disciplinary Progress Notes: Multi-Disciplinary Progress Notes 06/25/17 17:20 Physical Therapy Note by Lexi Noble PATIENT ABLE TO MOVE MUCH BETTER TODAY. TRANSFERS AND GAIT WITH ROLLER WALKER AND ARM-HELD ASSIST +1. FACE WASHING AND TOILETING TASKS EXECUTED WITH SUPERVISION. PATIENT AMBULATED IN THE HALLWAY APPROX 150' ON ROOM AIR WITH O2 SAT > 93%. FUNCTIONAL MOBILITY WITH MORE CONFIDENCE TODAY. PATIENT STATES SHE FEELS BETTER.....ACUTE WEAKNESS DIMINISHED. WILL CONTINUE TO INCREASE ACTIVITY TOLERATED. Initialized on 06/25/17 17:20 - END OF NOTE Assessment/Plan (1) Influenza B Current Visit: Yes Status: Acute Assessment & Plan: Improving. Code(s): J10.1 - FLU DUE TO OTH IDENT INFLUENZA VIRUS W OTH RESP MANIFEST (2) Pneumonia Current Visit: Yes Status: Acute Qualifiers: Pneumonia type: due to unspecified organism Laterality: left Lung location: lower lobe of lung Qualified Code(s): J18.1 - Lobar pneumonia, unspecified organism Assessment & Plan: Day #3 of rocephin and zithromax. Stop zithromax tomorrow. Improved; decrease steroid (start po). Code(s): J18.9 - PNEUMONIA, UNSPECIFIED ORGANISM (3) History of pulmonary embolism Current Visit: No Status: Chronic Code(s): Z86.711 - PERSONAL HISTORY OF PULMONARY EMBOLISM (4) Weakness Current Visit: Yes Status: Acute Assessment & Plan: improved, doing well with walking; up and walk today. May be able to d/c tomorrow or Wednesday, and would plan to d/c to home. Code(s): R53.1 - WEAKNESS (5) CKD (chronic kidney disease) stage 3, GFR 30-59 ml/min Current Visit: No Status: Chronic Code(s): N18.3 - CHRONIC KIDNEY DISEASE, STAGE 3 (MODERATE) (6) Chronic congestive heart failure Current Visit: No Status: Chronic Qualifiers: Qualified Code(s): I50.22 - Chronic systolic (congestive) heart failure Assessment & Plan: stable Code(s): I50.9 - HEART FAILURE, UNSPECIFIED (7) Diabetes type 2, controlled Current Visit: No Status: Chronic Qualifiers: Diabetes mellitus complication status: with kidney complications Diabetes mellitus complication detail: with chronic kidney disease Diabetes mellitus intermediate insulin use: without intermediate use Chronic kidney disease stage: stage 3 (moderate) Qualified Code(s): E11.22 - Type 2 diabetes mellitus with diabetic chronic kidney disease; N18.3 - Chronic kidney disease, stage 3 ( moderate); N18.3 - Chronic kidney disease, stage 3 (moderate) Assessment & Plan: BS increased with her steroids; increase lantus from 10 units daily to 20 units daily. May need to decrease again on hospital discharge. Code(s): E11.9 - TYPE 2 DIABETES MELLITUS WITHOUT COMPLICATIONS
[2017-06-26] MEDS: DELTASONE 20 MG PO SCH (14:30)
[2017-06-27] MEDS: Sodium Chloride 0.9% 10 ML FLUSH Syringe IV SCH (06:46)
[2017-06-27] MEDS: DUONEB 0.5-3 MG/3 ml Neb IH SCH (06:56)
[2017-06-27] MEDS ORDERED: DUONEB 0.5-3 MG/3 ml Neb IH SCH (07:00)
[2017-06-27] MEDS: DELTASONE 20 MG PO SCH (07:51)
[2017-06-27] MEDS: Januvia 50 MG PO SCH (07:53)
[2017-06-27] MEDS: Lopressor 50 MG PO SCH (07:53)
[2017-06-27] MEDS: SYNTHROID 100 MCG PO SCH (07:54)
[2017-06-27] MEDS: Klor Con 10 MEQ PO SCH (07:54)
[2017-06-27] MEDS: MAG-OX 400 PO SCH (07:54)
[2017-06-27] MEDS: BUMEX 1 MG PO SCH (07:54)
[2017-06-27] MEDS: ELIQUIS PO SCH (07:54)
[2017-06-27] MEDS: ZOCOR 20MG PO SCH (07:54)
[2017-06-27] MEDS: ENTRESTO 49 MG-51 MG TABLET PO SCH (07:54)
[2017-06-27] MEDS: ZYLOPRIM 300 MG PO SCH (07:54)
[2017-06-27] MEDS: Lantus Insulin SQ SCH ×2 (07:58→09:48)
[2017-06-27] MEDS: NovoLOG Insulin SQ PRN ×2 (07:58→11:34)
[2017-06-27] MEDS: ROCEPHIN 1 Gm-D5w 50 ml Bag** 1 G/50 ML IVPB IV SCH (09:48)
[2017-06-27] MEDS: Zithromax 500 MG/ 250 ML NaCl Premix 500 MG/250 ML IVPB IV SCH (10:00)
--- NOTE | 2017-06-27 12:14 | PCM.DS ---
Discharge Summary Date of Admission: 06/24/17 08:47 Admitting Physician: FE BROWN Primary Care Provider: FE BROWN Allergies Allergies No Known Drug Allergies Allergy (Verified 03/19/17 18:18) Hospital Summary - Hospital Course Hospital Course: Pt's was dx with influenza B and pt was ill with cough as well; family called and she was extremely weak so was admitted from home. Her O2 sat at admission was 77% on RA. She was found to have pneumonia on CXR and was started on IV zithromax and rocephin. She improved steadily and after 24-36h was off the oxygen. She continued having some fatigue and weakness but has been up walking wiht nurses and PT and doing very well. Yesterday her steroid was changed from IV to po. She was somnolent yesterday morning but this morning is alert and looks great overall. Adolfo po well. Still having some cough. Blood sugars have been elevated. Her insulin is currently at 20units lantus/day , increased during this hospital stay from 10 units/d. - Vitals & Intake/Output Vital Signs: Vital Signs Temperature 97.8 F 06/27/17 07:18 Pulse Rate 78 06/27/17 07:18 Respiratory Rate 20 06/27/17 07:18 Blood Pressure 130/82 06/27/17 07:18 O2 Sat by Pulse Oximetry 93 L 06/27/17 07:18 Oxygen-Last Documented O2 Percentage 3 Liters = 32% Intake & Output: Intake & Output 06/25/17 06/26/17 06/27/17 06/28/17 11:59 11:59 11:59 11:59 Intake Total 2067 1260 1780 Output Total 1600 2200 3100 Balance 272 -173 -1320 - Lab Result Diagrams: 06/26/17 05:40 06/26/17 05:28 Lab Results-Last 24 Hrs: Accuchecks Date 06/27/17 Date 06/26/17 Time 07:30 Time 16:42 Accucheck Value: 261 Accucheck Value: 321 Accucheck Value: 401 Micro Results-Entire Visit: Microbiology 06/24/17 09:08 Urine Culture - Final Clean Catch Midstream Citrobacter Amalonaticus 06/23/17 15:10 Blood Culture - Preliminary Blood NO GROWTH TO DATE 06/23/17 14:50 Blood Culture - Preliminary Blood NO GROWTH TO DATE Accuchecks Date 06/27/17 Date 06/26/17 Time 07:30 Time 16:42 Accucheck Value: 261 Accucheck Value: 321 Accucheck Value: 401 - Procedures and Test Procedures and Tests throughout Hospitalization: Therapy Orders & Screens 06/23/17 14:31 Oxygen OXYMASK-LPM 4% Comment: 06/23/17 14:45 EKG STAT Comment: Diagnosis: Influenza A,weakness 06/24/17 08:52 PT Eval & Treat (MD Order) ROUTINE Reason for Eval:: weakness with flu; may not be able to start therapy yet d/ t weakness Diagnosis: Flu A 06/27/17 07:01 Respiratory Nebulizer BID Comment: Diagnosis: PNEUMONIA, INFLUENZA, UTI, FAILED OUTPATIENT Discharge Exam General Appearance: no apparent distress, alert Neurologic Exam: oriented x 3, cooperative Skin Exam: normal color, warm, dry, No rash Ears, Nose, Throat Exam: moist mucous membranes Neck Exam: normal inspection Respiratory Exam: lungs clear, diminished breath sounds, No crackles/rales, No rhonchi, No wheezing Cardiovascular Exam: regular rate/rhythm, normal heart sounds, No murmur Gastrointestinal/Abdomen Exam: soft, No tenderness, No distention Extremity Exam: normal inspection, No pedal edema, No swelling Final Diagnosis/Problem List - Final Discharge Diagnosis/Problem (1) Influenza B Current Visit: Yes Status: Acute Assessment & Plan: Much improved. Has not been on tamiflu. (2) UTI (urinary tract infection) Current Visit: Yes Status: Acute Assessment & Plan: resistant to rocephin. Will give 1 dose of levaquin here today then home on po levaquin. (3) Pneumonia Current Visit: Yes Status: Acute Assessment & Plan: Much improved. d/c home today on po levaquin. Finished 3d of IV zithromax. On day #4 of rocephin. (4) History of pulmonary embolism Current Visit: No Status: Chronic (5) Weakness Current Visit: Yes Status: Acute Assessment & Plan: much improved. D/c to home. (6) CKD (chronic kidney disease) stage 3, GFR 30-59 ml/min Current Visit: No Status: Chronic (7) Chronic congestive heart failure Current Visit: No Status: Chronic (8) Diabetes type 2, controlled Current Visit: No Status: Chronic - Discharge Disposition: Home, Self-Care Condition: Good Prescriptions: New Prednisone 20 mg [Deltasone 20 mg] 20 mg PO DAILY #14 tablet Levofloxacin [Levaquin] 250 mg PO DAILY #7 tablet Continue Allopurinol 300 mg [Zyloprim 300 mg] 300 mg PO DAILY Multivitamin W-Minerals/Lutein [Centrum Silver Tablet] 1 each PO DAILY Rosuvastatin Calcium [Crestor] 10 mg PO DAILY Levothyroxine Sodium 100 Mcg [Synthroid 100 Mcg] 100 mcg PO DAILY Polyvinyl Alcohol [Artificial Tears] 1 ml OP PRN PRN drops PRN Reason: Dry eyes Albuterol Common Canister [Proventil Common Canister] 2 puff IH Q4H PRN PRN #1 unit PRN Reason: Shortness Of Breath Oxybutynin Chloride 5 mg PO BID Sitagliptin Phosphate 50 MG [Januvia 50 MG] 100 mg PO DAILY Magnesium Oxide 400 mg [Mag-Ox 400] 400 mg PO BID Metoprolol Tartrate 50 mg [Lopressor 50 MG] 75 mg PO BID Apixaban [Eliquis] 5 mg PO BID #60 tablet Sacubitril/Valsartan [Entresto 49 mg-51 mg Tablet] 0.5 each PO BID #15 tablet Bumetanide 1 mg PO DAILY #30 tablet Potassium Chloride 10 Meq Tab* [Klor Con 10 MEQ] 10 meq PO BID #60 tab Amitriptyline HCl 25 mg [Elavil 25 mg] 50 mg PO HS #30 tablet Changed Insulin Glargine [Lantus Insulin] 20 unit SQ DAILY #3 pen Instructions: Flu Follow up with: FE BRONW [Primary Care Provider] - 1 Week Forms: Discharge Instructions
[2017-06-27 12:36] VITALS: BP 140/70; PULSE 88; O2SAT 97
[2017-06-27] MEDS ORDERED: Levofloxacin 500MG/100ML D5W 500 MG/100 ML BAG IV SCH (13:00)
[2017-06-28] MEDS ORDERED: Levofloxacin 250MG Tablet PO SCH (10:00)
== END 2017-06-27 13:12 | disposition home or self-care (01) | DRG 194 ==
LOC: MED SURG 08:47 → OBSVTOIN 06-24 08:47
PROVIDERS: ADMIT Family Medicine; ATTEND Family Medicine
DX: J18.1 Lobar pneumonia, unspecified organism (principal); N39.0 Urinary tract infection, site not specified; J18.9 Pneumonia, unspecified organism; Z86.711 Personal history of pulmonary embolism; I48.91 Unspecified atrial fibrillation; Z79.01 Long term (current) use of anticoagulants; I12.9 Hypertensive chronic kidney disease with stage 1 through stage 4 chronic kidney disease, or unspecified chronic kidney disease; E11.22 Type 2 diabetes mellitus with diabetic chronic kidney disease; N18.3 Chronic kidney disease, stage 3 (moderate); I50.9 Heart failure, unspecified; F41.9 Anxiety disorder, unspecified; I25.10 Atherosclerotic heart disease of native coronary artery without angina pectoris; E03.9 Hypothyroidism, unspecified; M19.90 Unspecified osteoarthritis, unspecified site; R06.03 Acute respiratory distress; R53.1 Weakness; Z79.899 Other long term (current) drug therapy
CPT/HCPCS: 36415; 71045; 80048; 80053; 81000; 82962; 83036; 83605; 83735; 83880; 84134; 84484; 85025; 85027; 87040; 87077; 87086; 87186; 93005; 94640; 94760; G0378; J0456; J0696; J2920; A9270-GY

== ENCOUNTER 2017-07-04 14:48 | Inpatient (IN) | payer MEDICARE, OTHER ==
[2017-07-04] MEDS ORDERED: Sodium Chloride 0.9% 1000 ML 1,000 ML IV SCH (15:30)
[2017-07-04 15:46] LABS: Hematocrit 38.5 % (35-47); Hemoglobin 12.5 gm/dl (12.0-16.0); Mean Corpuscular Hemoglobin 30.2 pg (26-32); Mean Corpuscular Hgb Concent. 32.5 g/dl (32-36); Mean Platelet Volume 11.6 fl (6-9.5); Platelet Count 197 K/mm3 (150-450); Red Blood Count 4.14 M/mm3 (4.1-5.4); Red Cell Distribution Width 15.7 % (11.5-14.0); White Blood Count 15.6 K/mm3 (4.0-10.5)
[2017-07-04 15:46] LABS: Appearance CLEAR (CLEAR); Bilirubin NEGATIVE (NEGATIVE); Blood NEGATIVE Ery/ul (0-5); Glucose 1000 mg/dL (NEGATIVE); Ketones NEGATIVE (NEGATIVE); Leukocyte Esterase NEGATIVE (NEGATIVE); Nitrite NEGATIVE (NEGATIVE); Protein,Urine Dip NEGATIVE (Negative); Specific Gravity 1.005 (1.005-1.025); Urobilinogen NORMAL mg/dL (0-1)
[2017-07-04 15:48] LABS: Lactic Acid 4.7 (0.4-2.0); VBG BASE EXCESS 5.1 (-2.0-2.0); VBG CARBOXYHEMOGLOBIN 2.8 % T HGB (0.0-6.9); VBG HCO3- 27.6 meq/L (22-28); VBG HEMOGLOBIN 13.1; VBG O2 SATURATION 75.9 (95-100); VBG PCO2 33 mm/Hg (42-55); VBG PO2 35 mm/Hg (25-40); VBG pH 7.53 (7.32-7.42)
[2017-07-04 15:49] LABS: Glucose,Critical Care 649 (70-110)
--- NOTE | 2017-07-04 15:49 | ERPHSYRPT ---
- History of Present Illness Time Seen by Provider: 07/04/17 15:10 Source: patient, family ( and son) Patient Subjective Stated Complaint: family states patient's blood sugar was 595 this am. gave patient an extra 10 units of her lantus insulin. Triage Nursing Assessment: to room per w/c. skin w/d, pale. resp noisy but family states this is normal for her. assisted to bed per son and staff. patient unable to stand on her own. Physician History: CC: high blood sugar hx: 81 y/o patient of Dr Soto with hx of DM and recent flu admission. She has high blood sugar. Recently finished prednisone and levaquin. She took extra lantus today but sugar still high. No fever or chills. Always feels little short of breath. No V/D. Normal urination. Timing/Duration: today Severity: moderate Allergies/Adverse Reactions: No Known Drug Allergies Allergy (Verified 07/04/17 16:31) Home Medications: Allopurinol 300 mg [Zyloprim 300 mg] 300 mg PO DAILY 09/30/12 [History] Multivitamin W-Minerals/Lutein [Centrum Silver Tablet] 1 each PO DAILY 10/02/14 [History] Levothyroxine Sodium 100 Mcg [Synthroid 100 Mcg] 100 mcg PO DAILY 08/17/16 [History] Rosuvastatin Calcium [Crestor] 10 mg PO DAILY 08/17/16 [History] Oxybutynin Chloride 5 mg PO BID 01/22/17 [History] Sitagliptin Phosphate 50 MG [Januvia 50 MG] 100 mg PO DAILY 01/22/17 [ History] Magnesium Oxide 400 mg [Mag-Ox 400] 400 mg PO BID 01/31/17 [History] Metoprolol Tartrate 50 mg [Lopressor 50 MG] 75 mg PO BID 02/08/17 [History ] Hx Tetanus, Diphtheria Vaccination/Date Given: No Hx Influenza Vaccination/Date Given: Yes Hx Pneumococcal Vaccination/Date Given: Yes - Review of Systems Constitutional: Malaise, No Fever, No Chills Eyes: No Symptoms Ears, Nose, & Throat: No Symptoms Respiratory: No Cough, No Dyspnea Cardiac: No Chest Pain Abdominal/Gastrointestinal: No Abdominal Pain, No Nausea, No Vomiting, No Diarrhea Genitourinary Symptoms: No Dysuria Skin: No Rash Neurological: No Headache All Other Systems: Reviewed and Negative - Past Medical History Pertinent Past Medical History: Yes Neurological History: No Pertinent History ENT History: Cataracts Cardiac History: Arrhythmia, Coronary Artery Disease, Hypertension Respiratory History: CHF Endocrine Medical History: Diabetes Type II, Hypothyroidism Musculoskeletal History: Arthritis, Fractures GI Medical History: No Pertinent History History: Renal Disease, Other Psycho-Social History: No Pertinent History Female Reproductive Disorders: No Pertinent History - Past Surgical History Past Surgical History: Yes Neuro Surgical History: No Pertinent History Cardiac: Internal Defibrillator, Pacemaker Respiratory: No Pertinent History Gastrointestinal: Appendectomy Genitourinary: No Pertinent History Musculoskeletal: Orthopedic Surgery Female Surgical History: Tubal Ligation - Social History Smoking Status: Never smoker Exposure to second hand smoke: No Alcohol Use: None Drug Use: none Patient Lives Alone: No Significant Family History: heart disease, hypertension - Nursing Vital Signs Nursing Vital Signs: Initial Vital Signs Temperature 99.3 F 07/04/17 15:17 Pulse Rate 99 H 07/04/17 15:17 Respiratory Rate 20 07/04/17 15:17 Blood Pressure 134/68 07/04/17 15:17 O2 Sat by Pulse Oximetry 99 07/04/17 15:17 Pain Scale Pain Intensity 0 - Physical Exam General Appearance: alert Eye Exam: PERRL/EOMI Ears, Nose, Throat Exam: dry mucous membranes Neck Exam: normal inspection, non-tender, supple Respiratory Exam: normal breath sounds Cardiovascular Exam: regular rate/rhythm Gastrointestinal/Abdomen Exam: soft, No tenderness, No distention Extremity Exam: pedal edema Neurologic Exam: alert, oriented x 3, cooperative, sensation nml, No motor deficits Skin Exam: warm, dry, No rash SpO2 Interpretation: normal SpO2: 99 Oxygen Delivery: Room Air - Course Nursing assessment & vital signs reviewed: Yes EKG Interpreted by Me: RATE (85 pacemaker ) - Radiology Exams cxr X-ray Interpretation: Reviewed by me (OSCAR, AICD, mild RLL infiltrates) Ordered Tests: Active Orders 24 hr Category Date Time Status Elevator Repairer Helper STAT Care 07/04/17 15:21 Active Catheter-[place] Husain STAT Care 07/04/17 15:20 Active EKG-ER Only STAT Care 07/04/17 15:20 Active IV Insertion STAT Care 07/04/17 15:20 Active Pulse Oximetry (ED) STAT Care 07/04/17 15:20 Active CHEST 1 VIEW (PORTABLE) Stat Exams 07/04/17 15:20 Taken BLOOD CULTURE Stat Lab 07/04/17 16:00 Ordered CBC W DIFF Stat Lab 07/04/17 15:40 Completed CMP Stat Lab 07/04/17 15:40 Completed Glucose,Critical Care Urgent Lab 07/04/17 15:20 Results Lactic Acid Urgent Lab 07/04/17 15:20 Results MAGNESIUM Stat Lab 07/04/17 15:40 Completed Manual Differential NC Stat Lab 07/04/17 15:40 Completed TROPONIN Q3H Lab 07/04/17 15:40 Completed TROPONIN Q3H Lab 07/04/17 18:30 Ordered TROPONIN Q3H Lab 07/04/17 21:30 Ordered TROPONIN Q3H Lab 07/05/17 00:30 Ordered TROPONIN Q3H Lab 07/05/17 03:30 Ordered UA W/RFX UR CULTURE Stat Lab 07/04/17 15:30 Completed VENOUS BLOOD GAS Urgent Lab 07/04/17 15:20 Results Medication Summary Generic Name Dose Route Start Last Admin Trade Name Freq PRN Reason Stop Dose Admin Sodium Chloride 1,000 mls @ 250 mls/hr 07/04/17 15:30 07/04/17 15:51 Sodium Chloride 0.9% 1000 Ml IV 08/03/17 15:29 250 mls/hr .Q4H RAMYA Administration Insulin Human Regular 100 101 mls @ 5.05 mls/hr 07/04/17 16:00 07/04/17 16:37 units/ Sodium Chloride IV 08/03/17 15:59 5 units/hr .Q20H RAMYA 5.05 mls/hr 5 UNITS/HR Administration Lactated Ringer's 1,000 mls @ 999 mls/hr 07/04/17 15:50 07/04/17 16:41 Lactated Ringers IV 07/04/17 16:50 999 mls/hr .Q1H1M ONE Administration Lactated Ringer's 1,000 mls @ 999 mls/hr 07/04/17 15:51 Lactated Ringers IV 07/04/17 16:51 .Q1H1M ONE Discontinued Medications Generic Name Dose Route Start Last Admin Trade Name Freq PRN Reason Stop Dose Admin Ceftriaxone Sodium/Dextrose 1 g in 50 mls @ 100 mls/hr 07/04/17 15:51 15:56 Rocephin 1 Gm-D5w 50 Ml Bag IV 07/04/17 16:20 100 mls/hr STAT STA Administration Ceftriaxone Sodium/Dextrose Confirm 07/04/17 15:53 Rocephin 1 Gm-D5w 50 Ml Bag Administered 07/04/17 15:54 Dose 1 g in 50 mls @ ud IV .STK-MED ONE Lactated Ringer's Confirm 07/04/17 16:40 Lactated Ringers Administered 07/04/17 16:41 Dose 2,000 mls @ ud IV .STK-MED ONE Lorazepam 0.5 mg 07/04/17 16:21 07/04/17 16:30 Ativan 2 Mg/1 Ml Vial SL 07/04/17 16:22 0.5 mg STAT ONE Administration Lorazepam Confirm 07/04/17 16:28 Ativan 2 Mg/1 Ml Vial Administered 07/04/17 16:29 Dose 2 mg .ROUTE .STK-MED ONE Lab/Rad Data: Laboratory Result Diagrams 07/04/17 15:40 07/04/17 15:40 Laboratory Results 07/04/17 07/04/17 07/04/17 Range/Units 15:40 15:40 15:40 WBC 15.6 H (4.0-10.5) K/mm3 RBC 4.14 (4.1-5.4) M/mm3 Hgb 12.5 (12.0-16.0) gm/dl Hct 38.5 (35-47) % MCV 93.0 (78-100) fl MCH 30.2 (26-32) pg MCHC 32.5 (32-36) g/dl RDW 15.7 H (11.5-14.0) % Plt Count 197 (150-450) K/mm3 MPV 11.6 H (6-9.5) fl Segmented Neutrophils 86 H (36.0-66.0) % Lymphocytes (Manual) 11 L (24-44) % Monocytes (Manual) 3 (0.0-12.0) % Differential Comment NORMAL Toxic Granulation 1+ Platelet Estimate NORMAL (NORMAL) Anisocytosis 1+ VBG pH (7.32-7.42) VBG pCO2 at Pat Temp (42-55) mm/Hg VBG pO2 at Pat Temp (25-40) mm/Hg VBG HCO3 (22-28) meq/L VBG O2 Sat (Shanon) (95-100) VBG Base Excess (-2.0-2.0) VBG Hemoglobin VBG Carboxyhemoglobin (0.0-6.9) % T HGB POC Potassium (3.5-5.1) Glucose 616 H (70-110) Sodium 136 L (137-145) mmol/L Potassium 4.8 (3.5-5.1) mmol/L Chloride 98 (98-107) mEq/L Carbon Dioxide 25 (22-30) mmol/L Anion Gap 17.8 H (5-15) MEQ/L BUN 41 H (7-17) mg/dl Creatinine 1.18 H (0.52-1.04) mg/dl Estimated GFR 47 ML/MIN Lactic Acid (0.4-2.0) Calcium 9.6 (8.4-10.2) mg/dL Magnesium 2.1 (1.6-2.3) mg/dL Total Bilirubin 0.50 (0.2-1.3) mg/d? AST 36 (14-36) U/L ALT 46 H (0-35) U/L Alkaline Phosphatase 104 (38-126) U/L Troponin I 0.019 (0.000-0.034) ng/ml Serum Total Protein 6.0 L (6.3-8.2) mg/dl Albumin 3.4 L (3.5-5.0) g/dl Ur Collection Type Urine Color (YELLOW) Urine Appearance (CLEAR) Urine pH (5-6) Ur Specific [place] (1.005-1.025) Urine Protein (Negative) Urine Ketones (NEGATIVE) Urine Blood (0-5) Allan/ul Urine Nitrite (NEGATIVE) Urine Bilirubin (NEGATIVE) Urine Urobilinogen (0-1) mg/dL Ur Leukocyte Esterase (NEGATIVE) Urine Culture Reflexed (NO) Urine Glucose (NEGATIVE) mg/dL Specimen Received 07/04/17 07/04/17 Range/Units 15:30 15:20 WBC (4.0-10.5) K/mm3 RBC (4.1-5.4) M/mm3 Hgb (12.0-16.0) gm/dl Hct (35-47) % MCV (78-100) fl MCH (26-32) pg MCHC (32-36) g/dl RDW (11.5-14.0) % Plt Count (150-450) K/mm3 MPV (6-9.5) fl Segmented Neutrophils (36.0-66.0) % Lymphocytes (Manual) (24-44) % Monocytes (Manual) (0.0-12.0) % Differential Comment Toxic Granulation Platelet Estimate (NORMAL) Anisocytosis VBG pH 7.53 H (7.32-7.42) VBG pCO2 at Pat Temp 33 L (42-55) mm/Hg VBG pO2 at Pat Temp 35 (25-40) mm/Hg VBG HCO3 27.6 (22-28) meq/L VBG O2 Sat (Shanon) 75.9 L (95-100) VBG Base Excess 5.1 H (-2.0-2.0) VBG Hemoglobin 13.1 VBG Carboxyhemoglobin 2.8 (0.0-6.9) % T HGB POC Potassium 5.0 (3.5-5.1) Glucose 649 H* (70-110) Sodium (137-145) mmol/L Potassium (3.5-5.1) mmol/L Chloride (98-107) mEq/L Carbon Dioxide (22-30) mmol/L Anion Gap (5-15) MEQ/L BUN (7-17) mg/dl Creatinine (0.52-1.04) mg/dl Estimated GFR ML/MIN Lactic Acid 4.7 H (0.4-2.0) Calcium (8.4-10.2) mg/dL Magnesium (1.6-2.3) mg/dL Total Bilirubin (0.2-1.3) mg/d? AST (14-36) U/L ALT (0-35) U/L Alkaline Phosphatase (38-126) U/L Troponin I (0.000-0.034) ng/ml Serum Total Protein (6.3-8.2) mg/dl Albumin (3.5-5.0) g/dl Ur Collection Type CATH Urine Color YELLOW (YELLOW) Urine Appearance CLEAR (CLEAR) Urine pH 7.0 (5-6) Ur Specific [place] 1.005 (1.005-1.025) Urine Protein NEGATIVE (Negative) Urine Ketones NEGATIVE (NEGATIVE) Urine Blood NEGATIVE (0-5) Allan/ul Urine Nitrite NEGATIVE (NEGATIVE) Urine Bilirubin NEGATIVE (NEGATIVE) Urine Urobilinogen NORMAL (0-1) mg/dL Ur Leukocyte Esterase NEGATIVE (NEGATIVE) Urine Culture Reflexed NO (NO) Urine Glucose 1000 (NEGATIVE) mg/dL Specimen Received 07/04/17 1530 - Progress Progress Note: 07/04/17 16:46 ?source of infection lung? She meets sepsis criteria. IVF bolus in progress. Insulin gtt started. Some of this may be prednisone effect. Called Dr Bond for ICU admission. Discussed with .: Varun Will see patient in: hospital (full admit) Counseled pt/family regarding: lab results, diagnosis, need for follow-up, rad results - Departure Time of Disposition: 16:47 Departure Disposition: In-patient Admission (ICU) Clinical Impression: Sepsis, Hyperglycemia, Anxiety Condition: Fair Critical Care Time: Yes Critical Care Time(excluding separately billable procedures): 30-74 minutes Referrals: FE SOTO [Primary Care Provider] -
[2017-07-04] MEDS ORDERED: Lactated Ringers 1,000 ML IV ONE ×2 (15:50→15:51)
[2017-07-04] MEDS ORDERED: ROCEPHIN 1 Gm-D5w 50 ml Bag** 1 G/50 ML IVPB IV STA (15:51)
[2017-07-04] MEDS ORDERED: ROCEPHIN 1 Gm-D5w 50 ml Bag** 1 G/50 ML IVPB IV ONE (15:53)
[2017-07-04] MEDS ORDERED: NOVOLIN R INSULIN (FOR DRIPS)** 100 UNITS in Sodium Chloride 0.9% 100 ML IVPB 100 ML IV SCH (16:00)
[2017-07-04 16:14] LABS: ALBUMIN 3.4 g/dl (3.5-5.0); ANION GAP 17.8 MEQ/L (5-15); BILIRUBIN,TOTAL 0.5 mg/d? (0.2-1.3); Calcium 9.6 mg/dL (8.4-10.2); Creatinine 1 1.18 mg/dl (0.52-1.04); Potassium 4.8 mmol/L (3.5-5.1)
[2017-07-04] MEDS ORDERED: Ativan 2 MG/1 ML VIAL SL ONE (16:21)
[2017-07-04 16:22] LABS: Lymphocytes 11 % (24-44); Monocyte 3 % (0.0-12.0); Neutrophils 86 % (36.0-66.0); Total Cells Counted 100
[2017-07-04 16:23] LABS: ANISOCYTOSIS 1+; Platelet Estimate NORMAL (NORMAL); Toxic Granulation 1+
[2017-07-04] MEDS ORDERED: Ativan 2 MG/1 ML VIAL ONE (16:28)
[2017-07-04] MEDS ORDERED: Lactated Ringers 2,000 ML IV ONE (16:40)
[2017-07-04] MEDS ORDERED: TYLENOL 325 MG PO PRN (18:43)
[2017-07-04 19:11] LABS: Lactic Acid 2.7 (0.4-2.0)
--- NOTE | 2017-07-04 20:39 | XRAY ---
Indication: Weakness. Comparison: June 23, 2017. Portable chest demonstrates minimal bibasilar infiltrates/atelectasis, borderline cardiomegaly, and left-sided AICD. No other bony, articular, or soft tissue abnormalities.
[2017-07-04] MEDS: SODIUM CHLORIDE 0.45% W/ 20 mEq KCL 1,000 ML IV SCH (21:55)
[2017-07-04] MEDS ORDERED: ENTRESTO 49 MG-51 MG TABLET PO ONE (22:00)
[2017-07-04] MEDS ORDERED: ELIQUIS PO ONE (22:00)
[2017-07-04] MEDS ORDERED: Lopressor 50 MG PO ONE (22:00)
[2017-07-04] MEDS ORDERED: ELAVIL 25 MG PO ONE (22:00)
[2017-07-04] MEDS ORDERED: MAG-OX 400 PO ONE (22:00)
[2017-07-04] MEDS ORDERED: Ditropan 5 MG PO ONE (22:00)
[2017-07-04] MEDS: NovoLOG Insulin SQ PRN (23:19)
[2017-07-05] MEDS: NovoLOG Insulin SQ PRN ×3 (00:18→22:11)
[2017-07-05 04:35] LABS: Hematocrit 35.2 % (35-47); Hemoglobin 11.3 gm/dl (12.0-16.0); Mean Cell Volume 92.4 fl (78-100); Mean Corpuscular Hgb Concent. 32.1 g/dl (32-36); Mean Platelet Volume 11.1 fl (6-9.5); Platelet Count 164 K/mm3 (150-450); Red Blood Count 3.81 M/mm3 (4.1-5.4); Red Cell Distribution Width 15.5 % (11.5-14.0); White Blood Count 13.9 K/mm3 (4.0-10.5)
[2017-07-05 04:42] LABS: ANION GAP 10.5 MEQ/L (5-15); BLOOD UREA NITROGEN 30 mg/dl (7-17); CHLORIDE 104 mEq/L (98-107); Calcium 8.9 mg/dL (8.4-10.2); Carbon Dioxide 28 mmol/L (22-30); Creatinine 1 0.82 mg/dl (0.52-1.04); Glucose 83 mg/dL (74-106); Potassium 3.9 mmol/L (3.5-5.1); SODIUM 139 mmol/L (137-145)
[2017-07-05 04:43] LABS: Mean Corpuscular Hemoglobin 29.6 pg (26-32)
[2017-07-05 07:34] LABS: Lymphocytes 12 % (24-44); Monocyte 4 % (0.0-12.0); Neutrophils 84 % (36.0-66.0); Platelet Estimate NORMAL (NORMAL); Total Cells Counted 100
[2017-07-05 07:35] LABS: Toxic Granulation 1+
--- NOTE | 2017-07-05 08:46 | PCM.HP ---
History of Present Illness - Chief Complaint Chief Complaint: Sepsis History of Present Illness: is a 81 year old female pt of mine from [facility] with CHF and DM ( uncontrolled) who was admitted through ER wtih BS > 500 and bilat lower lobe infiltrates. This morning it is difficult to wake her. BS down to 83. She is on IV rocephin. I spoke wiht her son, she had a fall due to weakness 3d ago. She has been getting her meds but may not have been eating well. Just her and her at home. - Review of Systems All Other Systems: Unable due to condition Medications & Allergies Home Medications: Home Medication List Allopurinol 300 mg [Zyloprim 300 mg] 300 mg PO DAILY 09/30/12 [History Confirmed 07/04/17] Multivitamin W-Minerals/Lutein [Centrum Silver Tablet] 1 each PO DAILY 10/02/14 [History Confirmed 07/04/17] Levothyroxine Sodium 100 Mcg [Synthroid 100 Mcg] 100 mcg PO DAILY 08/17/16 [History Confirmed 07/04/17] Rosuvastatin Calcium [Crestor] 10 mg PO DAILY 08/17/16 [History Confirmed ] Albuterol Common Canister [Proventil Common Canister] 2 puff IH Q4H PRN PRN #1 unit 12/07/16 [Rx Confirmed 07/04/17] Polyvinyl Alcohol [Artificial Tears] 1 ml OP PRN PRN drops 12/07/16 [Rx Confirmed 07/04/17] Oxybutynin Chloride 5 mg PO BID 01/22/17 [History Confirmed 07/04/17] Sitagliptin Phosphate 50 MG [Januvia 50 MG] 100 mg PO DAILY 01/22/17 [ History Confirmed 07/04/17] Magnesium Oxide 400 mg [Mag-Ox 400] 400 mg PO BID 01/31/17 [History Confirmed 07/04/17] Metoprolol Tartrate 50 mg [Lopressor 50 MG] 75 mg PO BID 02/08/17 [ History Confirmed 07/04/17] Apixaban [Eliquis] 5 mg PO BID #60 tablet 03/17/17 [Rx Confirmed 07/04/17] Sacubitril/Valsartan [Entresto 49 mg-51 mg Tablet] 0.5 each PO BID #15 tablet [Rx Confirmed 07/04/17] Amitriptyline HCl 25 mg [Elavil 25 mg] 50 mg PO HS #30 tablet 03/24/17 [ Rx Confirmed 07/04/17] Bumetanide 1 mg PO DAILY #30 tablet 03/24/17 [Rx Confirmed 07/04/17] Potassium Chloride 10 Meq Tab* [Klor Con 10 MEQ] 10 meq PO BID #60 tab [Rx Confirmed 07/04/17] Insulin Glargine [Lantus Insulin] 20 unit SQ DAILY #3 pen 06/27/17 [Rx Confirmed 07/04/17] Ferrous Sulfate [Iron] 325 mg PO BID 07/05/17 [History Confirmed 07/05/17] Allergies/Adverse Reactions: Allergies Allergy/AdvReac Type Severity Reaction Status Date / Time No Known Drug Allergies Allergy Verified 07/04/17 16:31 - Past Medical History Past Medical History: Yes Neurological History: No Pertinent History ENT History: Cataracts Cardiac History: Arrhythmia, Coronary Artery Disease, Hypertension Respiratory History: CHF Endocrine Medical History: Diabetes Type II, Hypothyroidism Musculoskelatal History: Arthritis, Fractures GI Medical History: No Pertinent History History: Renal Disease, Other Pyscho-Social History: No Pertinent History Reproductive Disorders: No Pertinent History Comment: 40 % kidney function - Past Surgical History Past Surgical History: Yes Neuro Surgical History: No Pertinent History Cardiac History: Internal Defibrillator, Pacemaker Respiratory Surgery: No Pertinent History GI Surgical History: Appendectomy Genitourinary Surgical Hx: No Pertinent History Musculskeletal Surgical Hx: Orthopedic Surgery Female Surgical History: Tubal Ligation Other Surgical History: right arm surgery - Social History Smoking Status: Never smoker Exposure to second hand smoke: No Alcohol: None Drug Use: none Significant Family History: heart disease, hypertension - Physical Exam Vital Signs: Vital Signs - 24 hr Temp Pulse Resp BP Pulse Ox 07/05/17 08:00 96.9 F 85 11 L 137/87 98 07/05/17 04:00 97.2 F 86 13 147/71 99 07/05/17 00:01 90 07/05/17 00:00 97.4 F 83 16 132/90 96 07/04/17 20:00 97.5 F 89 18 132/77 98 07/04/17 18:43 98.5 F 90 20 111/59 97 07/04/17 17:50 90 07/04/17 17:40 101 H 24 136/83 100 07/04/17 16:50 98.0 F 94 H 14 99 07/04/17 16:48 99 07/04/17 16:40 91 H 18 119/73 99 07/04/17 15:50 100 H 24 99 07/04/17 15:34 99 07/04/17 15:17 99.3 F 99 H 20 134/68 99 General Appearance: no apparent distress, other (somnolent; wakes very briefly to voice. she can follow simple command.) Eye Exam: eyes nml inspection Ears, Nose, Throat Exam: moist mucous membranes Respiratory Exam: lungs clear, diminished breath sounds, No crackles/rales, No rhonchi, No wheezing Cardiovascular Exam: regular rate/rhythm, normal heart sounds, No murmur Gastrointestinal/Abdomen Exam: soft, distention, No mass Extremity Exam: No pedal edema, No swelling Skin Exam: normal color, warm, dry, No rash Results - Labs Lab/Micro Results: Accuchecks Date 07/05/17 Date 07/05/17 Date 07/05/17 Date 07/05/17 Date 07/05/17 Date 07/05/17 Date 07/05/17 Date 07/04/17 Date 07/04/17 Date 07/04/17 Date 07/04/17 Time 08:11 Time 06:29 Time 06:00 Time 04:00 Time 02:00 Time 01:27 Time 00:14 Time 23:00 Time 22:10 Time 21:21 Time 20:00 Accucheck Value: 86 Accucheck Value: 82 Accucheck Value: 77 Accucheck Value: 81 Accucheck Value: 140 Accucheck Value: 181 Accucheck Value: 203 Accucheck Value: 192 Accucheck Value: 126 Accucheck Value: 130 Accucheck Value: 173 Lab Results-Last 24 Hours 07/04/17 07/04/17 07/04/17 Range/Units 18:42 19:07 22:14 WBC (4.0-10.5) K/mm3 RBC (4.1-5.4) M/mm3 Hgb (12.0-16.0) gm/dl Hct (35-47) % MCV (78-100) fl MCH (26-32) pg MCHC (32-36) g/dl RDW (11.5-14.0) % Plt Count (150-450) K/mm3 MPV (6-9.5) fl Segmented Neutrophils (36.0-66.0) % Lymphocytes (Manual) (24-44) % Monocytes (Manual) (0.0-12.0) % Differential Comment Toxic Granulation Platelet Estimate (NORMAL) Sodium (137-145) mmol/L Potassium (3.5-5.1) mmol/L Chloride (98-107) mEq/L Carbon Dioxide (22-30) mmol/L Anion Gap (5-15) MEQ/L BUN (7-17) mg/dl Creatinine (0.52-1.04) mg/dl Estimated GFR ML/MIN Glucose (74-106) mg/dL Lactic Acid 2.7 H (0.4-2.0) Calcium (8.4-10.2) mg/dL Troponin I 0.021 0.024 (0.000-0.034) ng/ml 07/04/17 07/05/17 07/05/17 Range/Units 23:00 01:03 04:00 WBC (4.0-10.5) K/mm3 RBC (4.1-5.4) M/mm3 Hgb (12.0-16.0) gm/dl Hct (35-47) % MCV (78-100) fl MCH (26-32) pg MCHC (32-36) g/dl RDW (11.5-14.0) % Plt Count (150-450) K/mm3 MPV (6-9.5) fl Segmented Neutrophils (36.0-66.0) % Lymphocytes (Manual) (24-44) % Monocytes (Manual) (0.0-12.0) % Differential Comment Toxic Granulation Platelet Estimate (NORMAL) Sodium (137-145) mmol/L Potassium (3.5-5.1) mmol/L Chloride (98-107) mEq/L Carbon Dioxide (22-30) mmol/L Anion Gap (5-15) MEQ/L BUN (7-17) mg/dl Creatinine (0.52-1.04) mg/dl Estimated GFR ML/MIN Glucose (74-106) mg/dL Lactic Acid 1.4 (0.4-2.0) Calcium (8.4-10.2) mg/dL Troponin I 0.024 0.026 (0.000-0.034) ng/ml 07/05/17 07/05/17 07/05/17 Range/Units 04:00 04:00 04:46 WBC 13.9 H (4.0-10.5) K/mm3 RBC 3.81 L (4.1-5.4) M/mm3 Hgb 11.3 L (12.0-16.0) gm/dl Hct 35.2 (35-47) % MCV 92.4 (78-100) fl MCH 29.6 (26-32) pg MCHC 32.1 (32-36) g/dl RDW 15.5 H (11.5-14.0) % Plt Count 164 (150-450) K/mm3 MPV 11.1 H (6-9.5) fl Segmented Neutrophils 84 H (36.0-66.0) % Lymphocytes (Manual) 12 L (24-44) % Monocytes (Manual) 4 (0.0-12.0) % Differential Comment NORMAL Toxic Granulation 1+ Platelet Estimate NORMAL (NORMAL) Sodium 139 (137-145) mmol/L Potassium 3.9 (3.5-5.1) mmol/L Chloride 104 (98-107) mEq/L Carbon Dioxide 28 (22-30) mmol/L Anion Gap 10.5 (5-15) MEQ/L BUN 30 H (7-17) mg/dl Creatinine 0.82 (0.52-1.04) mg/dl Estimated GFR > 60 ML/MIN Glucose 83 (74-106) mg/dL Lactic Acid 1.1 (0.4-2.0) Calcium 8.9 (8.4-10.2) mg/dL Troponin I (0.000-0.034) ng/ml Accuchecks Date 07/05/17 Date 07/05/17 Date 07/05/17 Date 07/05/17 Date 07/05/17 Date 07/05/17 Date 07/05/17 Date 07/04/17 Date 07/04/17 Date 07/04/17 Date 07/04/17 Time 08:11 Time 06:29 Time 06:00 Time 04:00 Time 02:00 Time 01:27 Time 00:14 Time 23:00 Time 22:10 Time 21:21 Time 20:00 Accucheck Value: 86 Accucheck Value: 82 Accucheck Value: 77 Accucheck Value: 81 Accucheck Value: 140 Accucheck Value: 181 Accucheck Value: 203 Accucheck Value: 192 Accucheck Value: 126 Accucheck Value: 130 Accucheck Value: 173 Assessment/Plan (1) Altered mental state Current Visit: Yes Status: Acute Qualifiers: Altered mental status type: somnolence Qualified Code(s): R40.0 - Somnolence Assessment & Plan: If not resolving over the next couple of hours will do CT head without contrast stat. Code(s): R41.82 - ALTERED MENTAL STATUS, UNSPECIFIED (2) Sepsis Current Visit: Yes Status: Acute Qualifiers: Sepsis type: sepsis due to unspecified organism Qualified Code(s): A41.9 - Sepsis, unspecified organism Assessment & Plan: Bld C x pending. ON IV rocephin currently. (3) Diabetes mellitus type 2 in obese Current Visit: Yes Status: Acute Assessment & Plan: uncontrolled. Hold lantus today, BS to 83 this morning. Code(s): E11.69 - TYPE 2 DIABETES MELLITUS WITH OTHER SPECIFIED COMPLICATION; E66.9 - OBESITY, UNSPECIFIED (4) Hyperglycemia Current Visit: Yes Status: Resolved Code(s): R73.9 - HYPERGLYCEMIA, UNSPECIFIED (5) Pneumonia Current Visit: No Status: Acute Qualifiers: Pneumonia type: due to unspecified organism Laterality: left Lung location: lower lobe of lung Qualified Code(s): J18.1 - Lobar pneumonia, unspecified organism Code(s): J18.9 - PNEUMONIA, UNSPECIFIED ORGANISM (6) Weakness Current Visit: No Status: Chronic Assessment & Plan: Will likely need rehab visit after her discharge. Code(s): R53.1 - WEAKNESS
[2017-07-05] MEDS ORDERED: PROVENTIL COMMON CANISTER IH PRN (09:45)
[2017-07-05] MEDS ORDERED: POLYVINYL ALCOHOL OP PRN (09:45)
[2017-07-05] MEDS ORDERED: Artificial Tears 15 ML OP PRN (09:53)
[2017-07-05] MEDS ORDERED: NON-FORMULARY ITEM (Rosuvastatin Calcium [Crestor] 10 MG) PO SCH (10:00)
[2017-07-05] MEDS ORDERED: ROCEPHIN 1 Gm-D5w 50 ml Bag** 1 G/50 ML IVPB IV SCH (10:00)
[2017-07-05] MEDS: Lopressor 25MG Tab PO SCH ×2 (10:52→21:25)
[2017-07-05] MEDS: SYNTHROID 100 MCG PO SCH (10:52)
[2017-07-05] MEDS: ENTRESTO 49 MG-51 MG TABLET PO SCH ×2 (10:53→21:26)
[2017-07-05] MEDS: Klor Con 10 MEQ PO SCH ×2 (10:53→21:26)
[2017-07-05] MEDS: Lopressor 50 MG PO SCH ×2 (10:53→21:25)
[2017-07-05] MEDS: ELIQUIS PO SCH ×2 (10:55→21:26)
[2017-07-05] MEDS: FEOSOL 325 MG PO SCH ×2 (10:55→21:25)
[2017-07-05] MEDS: MAG-OX 400 PO SCH ×2 (10:55→21:25)
[2017-07-05] MEDS: BUMEX 1 MG PO SCH (10:55)
[2017-07-05] MEDS: ZOCOR 20MG PO SCH (10:56)
[2017-07-05] MEDS: ZYLOPRIM 300 MG PO SCH (10:56)
[2017-07-05] MEDS: SODIUM CHLORIDE 0.45% W/ 20 mEq KCL 1,000 ML IV SCH (19:38)
[2017-07-05] MEDS ORDERED: ELAVIL 25 MG PO SCH (22:00)
[2017-07-06 05:58] LABS: Hematocrit 40.8 % (35-47); Hemoglobin 13.2 gm/dl (12.0-16.0); Mean Cell Volume 93.4 fl (78-100); Mean Corpuscular Hemoglobin 30.2 pg (26-32); Mean Corpuscular Hgb Concent. 32.4 g/dl (32-36); Mean Platelet Volume 11.1 fl (6-9.5); Platelet Count 156 K/mm3 (150-450); Red Blood Count 4.37 M/mm3 (4.1-5.4); Red Cell Distribution Width 15.9 % (11.5-14.0); White Blood Count 15.6 K/mm3 (4.0-10.5)
[2017-07-06 06:08] LABS: ALKALINE PHOSPHATASE 92 U/L (38-126); ANION GAP 10.5 MEQ/L (5-15); BLOOD UREA NITROGEN 22 mg/dL (7-17); CHLORIDE 103 mmol/L (98-107); Calcium 8.4 mg/dL (8.4-10.2); Carbon Dioxide 29 mmol/L (22-30); Creatinine 1 0.86 mg/dL (0.52-1.04); Glucose 119 mg/dL (74-106); SGOT/AST 55 U/L (14-36); SGPT/ALT 48 U/L (0-35); SODIUM 138 mmol/L (137-145); Total Protein 5.6 gm/dL (6.3-8.2)
[2017-07-06] MEDS ORDERED: Sodium Chloride 0.9% 250 ML 250 ML IV SCH ×3 (08:15→16:15)
--- NOTE | 2017-07-06 08:44 | PCM.NOTE ---
Date and Time: 07/06/17838 Subjective Assessment: Yesterday I called back at 10 am to check on patient, it was reported to me that she had woken up. I get a somewhat different story from the family this morning, that she was somewhat somnolent all day,would wake briefly but right back to sleep. She did eat some yogurt yesterday evening. This morning she ate about 30 % of her breakfast. She does open her eyes to voice this morning. Indicates no pain or complaints. Falls asleep before she can answer where she is. Family notes she seemed to have some trouble manipulating her food in her mouth last night, but seemed to do better this morning. Her BP down into the 90s at 2 separate times last night - otherwise fine. Then this morning had a bp of 81 systolic. - Review of Systems Constitutional: No Fever Objective Exam General Appearance: no apparent distress, other (somnolent) Neurologic Exam: cooperative (with chest exam), other (wakes briefly to voice, answers questions) Skin Exam: normal color, warm, dry, No rash Respiratory Exam: normal breath sounds, lungs clear, other (increased exp phase) , No crackles/rales, No rhonchi, No wheezing Cardiovascular Exam: normal heart sounds, irregular, No murmur Gastrointestinal/Abdomen Exam: soft, normal bowel sounds, No tenderness, No mass , No guarding, No rebound Extremity Exam: normal inspection, No pedal edema, No swelling Back Exam: normal inspection, No rash OBJECTIVE DATA Vital Signs: Vital Signs - 24 hr Temp Pulse Resp BP Pulse Ox 07/06/17 07:39 97.9 F 83 17 141/89 99 07/06/17 04:00 97.7 F 84 19 110/68 97 07/06/17 00:01 91 H 07/06/17 00:00 97.8 F 91 H 21 124/83 99 07/05/17 20:17 96/53 07/05/17 19:53 97.5 F 90 18 105/55 96 07/05/17 19:46 90 07/05/17 19:15 90 20 99 07/05/17 15:54 102 H 07/05/17 15:53 97.5 F 102 H 18 97/64 95 07/05/17 12:00 97.7 F 83 22 115/85 98 Pain Assessment - Last Documented Pain Intensity 0 Pain Scale Used 0-10 Pain Scale Intake and Output: Intake & Output 07/03/17 07/04/17 07/05/17 07/06/17 10:59 11:59 11:59 11:59 Intake Total 1203 1289 Output Total 1378 2400 Balance -1297 -1111 Weight 76 kg Lab Results: Accuchecks Date 07/06/17 Date 07/05/17 Date 07/05/17 Date 07/05/17 Time 05:59 Time 22:04 Time 16:13 Time 11:30 Accucheck Value: 113 Accucheck Value: 183 Accucheck Value: 155 Accucheck Value: 152 Lab Results-Last 24 Hours 07/06/17 07/06/17 07/06/17 Range/Units 05:30 05:40 05:40 WBC 15.6 H (4.0-10.5) K/mm3 RBC 4.37 (4.1-5.4) M/mm3 Hgb 13.2 (12.0-16.0) gm/dl Hct 40.8 (35-47) % MCV 93.4 (78-100) fl MCH 30.2 (26-32) pg MCHC 32.4 (32-36) g/dl RDW 15.9 H (11.5-14.0) % Plt Count 156 (150-450) K/mm3 MPV 11.1 H (6-9.5) fl Sodium 138 (137-145) mmol/L Potassium 4.0 (3.5-5.1) mmol/L Chloride 103 (98-107) mmol/L Carbon Dioxide 29 (22-30) mmol/L Anion Gap 10.5 (5-15) MEQ/L BUN 22 H (7-17) mg/dL Creatinine 0.86 (0.52-1.04) mg/dL Estimated GFR > 60 ML/MIN Glucose 119 H (74-106) mg/dL Calcium 8.4 (8.4-10.2) mg/dL Total Bilirubin 0.70 (0.2-1.3) mg/dL AST 55 H (14-36) U/L ALT 48 H (0-35) U/L Alkaline Phosphatase 92 (38-126) U/L Troponin I 0.025 (0.000-0.034) ng/mL Serum Total Protein 5.6 L (6.3-8.2) gm/dL Albumin 3.0 L (3.5-5.0) g/dL Radiology Exams: Radiology Procedures Category Date Time Status HEAD WITHOUT CONTRAST [CT] Urgent Exams 07/06/17 08:39 Ordered Multi-Disciplinary Progress Notes: Multi-Disciplinary Progress Notes 07/05/17 09:00 (created 07/05/17 14:17) Case Management Note by Zoie Mejia REFERRAL CALLED TO [facility], SPOKE WITH ANABELA. ANABELA REPORTS THAT PT HAD USED 69 SKILLED DAYS PRIOR TO DISCHARGE FROM REHAB. DOES AT THIS TIME HAVE 30 DAYS LEFT. Initialized on 07/05/17 14:17 - END OF NOTE Assessment/Plan (1) Hypotension Current Visit: Yes Status: Acute Qualifiers: Hypotension type: unspecified hypotension type Qualified Code(s): I95.9 - Hypotension, unspecified Assessment & Plan: Likely related to infection, bolus running now. Pt is DNR but would discuss pressors with family if BP does not improve with a couple of bolus (250mL NS x2) . Code(s): I95.9 - HYPOTENSION, UNSPECIFIED (2) Altered mental state Current Visit: Yes Status: Acute Qualifiers: Altered mental status type: somnolence Qualified Code(s): R40.0 - Somnolence Assessment & Plan: improved, but somewhat persistent. May be related to her illness. However, will check CT head without contrast this morning. Code(s): R41.82 - ALTERED MENTAL STATUS, UNSPECIFIED (3) Sepsis Current Visit: Yes Status: Acute Qualifiers: Sepsis type: sepsis due to unspecified organism Qualified Code(s): A41.9 - Sepsis, unspecified organism Assessment & Plan: On IV rocephin. Will change her abx to levaquin IV. (4) Diabetes mellitus type 2 in obese Current Visit: Yes Status: Acute Assessment & Plan: BS better here, but pt is not eating well currently. Code(s): E11.69 - TYPE 2 DIABETES MELLITUS WITH OTHER SPECIFIED COMPLICATION; E66.9 - OBESITY, UNSPECIFIED (5) Pneumonia Current Visit: No Status: Acute Qualifiers: Pneumonia type: due to unspecified organism Laterality: left Lung location: lower lobe of lung Qualified Code(s): J18.1 - Lobar pneumonia, unspecified organism Code(s): J18.9 - PNEUMONIA, UNSPECIFIED ORGANISM (6) Weakness Current Visit: No Status: Chronic Code(s): R53.1 - WEAKNESS
[2017-07-06] MEDS: Lopressor 50 MG PO SCH ×2 (09:00→21:05)
[2017-07-06] MEDS: Lopressor 25MG Tab PO SCH ×2 (09:00→21:05)
[2017-07-06] MEDS: BUMEX 1 MG PO SCH (09:01)
[2017-07-06] MEDS: LEVOFLOXACIN 750MG/150ML D5W 750 MG/150 ML BAG IV SCH (09:33)
[2017-07-06] MEDS: MAG-OX 400 PO SCH ×2 (09:34→21:04)
[2017-07-06] MEDS: FEOSOL 325 MG PO SCH ×2 (09:34→21:04)
[2017-07-06] MEDS: SYNTHROID 100 MCG PO SCH (09:34)
[2017-07-06] MEDS: ZOCOR 20MG PO SCH (09:34)
[2017-07-06] MEDS: Klor Con 10 MEQ PO SCH ×2 (09:34→21:04)
[2017-07-06] MEDS: ENTRESTO 49 MG-51 MG TABLET PO SCH ×2 (09:34→21:04)
[2017-07-06] MEDS: ELIQUIS PO SCH ×2 (09:34→21:04)
[2017-07-06] MEDS: ZYLOPRIM 300 MG PO SCH (09:35)
--- NOTE | 2017-07-06 09:39 | XRAY ---
Indication: Somnolence. Multiple contiguous axial images obtained through the head without contrast. Comparison: September 30, 2012. Again age-appropriate global atrophy. Increasing mild patchy low attenuations in the periventricular white matter bilaterally favoring degenerative micro-ischemia. No acute intracranial hemorrhage, abnormal extra-axial fluid collection, or mass effect. Fourth ventricle is midline without hydrocephalus. Bony calvarium intact. Visualized paranasal sinuses and mastoid air cells are clear. Impression: Nonacute senile brain. CT DI 92.69
[2017-07-06] MEDS: NovoLOG Insulin SQ PRN ×3 (11:36→21:46)
[2017-07-06] MEDS: SODIUM CHLORIDE 0.45% W/ 20 mEq KCL 1,000 ML IV SCH (18:09)
[2017-07-07] MEDS: SODIUM CHLORIDE 0.45% W/ 20 mEq KCL 1,000 ML IV SCH ×2 (04:37→19:01)
[2017-07-07] MEDS: Lopressor 50 MG PO SCH ×2 (08:06→22:13)
[2017-07-07] MEDS: Lopressor 25MG Tab PO SCH ×2 (08:06→22:13)
[2017-07-07] MEDS ORDERED: Lasix 20 MG/2 ML IV ONE (08:21)
[2017-07-07 08:23] LABS: BASOPHIL % 0.5 % (0.0-0.4); Basophil (Absolute #) 0.07 (0-0.4); Eosinophil % 0.8 % (0.00-5.0); Eosinophil (Absolute #) 0.12 (0-0.5); Granulocyte Absolute (ANC) 11.87 (1.4-6.9); Granulocytes % 79.8 % (36.0-66.0); Hematocrit 38.5 % (35-47); Hemoglobin 12.4 gm/dl (12.0-16.0); Lymphocyte (Absolute #) 1.61 (1.0-4.6); Lymphocytes % 10.8 % (24.0-44.0); Mean Cell Volume 93.7 fl (78-100); Mean Corpuscular Hemoglobin 30.2 pg (26-32); Mean Corpuscular Hgb Concent. 32.2 g/dl (32-36); Mean Platelet Volume 11.5 fl (6-9.5); Monocytes % 8.1 % (0.0-12.0); Platelet Count 126 K/mm3 (150-450); Red Blood Count 4.11 M/mm3 (4.1-5.4); Red Cell Distribution Width 16.1 % (11.5-14.0); White Blood Count 14.9 K/mm3 (4.0-10.5)
--- NOTE | 2017-07-07 08:28 | PCM.NOTE ---
Date and Time: 07/07/17821 Subjective Assessment: Pt has more of a wet cough. Her BP was low into the 60s systolic yesterday afternoon, and she was given 500cc total fluid bolus, in 2 parts. Her HR has been elevated. Her beta arnold has been held for the past 2 days. Objective Exam General Appearance: no apparent distress, other (wakes to voice. answers some questions. somnolent.) Neurologic Exam: cooperative Skin Exam: normal color, warm, dry, No rash Ears, Nose, Throat Exam: moist mucous membranes Neck Exam: normal inspection Respiratory Exam: diminished breath sounds, crackles/rales (bi basilar), wheezing (faint, scattered), No rhonchi Cardiovascular Exam: tachycardia, irregular, No murmur Extremity Exam: No pedal edema, No swelling Back Exam: normal inspection, No rash OBJECTIVE DATA Vital Signs: Vital Signs - 24 hr Temp Pulse Resp BP Pulse Ox 07/07/17 04:00 98.4 F 97 H 15 133/81 97 07/07/17 00:01 91 H 07/07/17 00:00 91 H 21 123/72 96 07/06/17 19:56 98.6 F 104 H 19 110/61 98 07/06/17 18:00 98.7 F 81 19 110/55 98 07/06/17 16:00 101 H 07/06/17 14:37 97 H 20 67/42 96 07/06/17 14:18 103 H 19 97 07/06/17 14:00 105 H 21 67/42 98 07/06/17 11:59 92 H 07/06/17 10:18 92 H 18 95/58 98 07/06/17 09:20 125/68 07/06/17 08:30 79/51 Pain Assessment - Last Documented Pain Intensity 0 Pain Scale Used 0-10 Pain Scale Intake and Output: Intake & Output 07/04/17 07/05/17 07/06/17 07/07/17 11:59 11:59 11:59 11:59 Intake Total 1203 1289 2422 Output Total 2500 2400 1340 Balance -1297 -1111 1082 Weight 76 kg Lab Results: Accuchecks Date 07/07/17 Date 07/06/17 Date 07/06/17 Date 07/06/17 Time 06:30 Time 21:30 Time 16:25 Time 11:28 Accucheck Value: 146 Accucheck Value: 163 Accucheck Value: 212 Accucheck Value: 199 Radiology Exams: Radiology Procedures Category Date Time Status CHEST 1 VIEW (PORTABLE) Urgent Exams 07/07/17 08:21 Ordered HEAD WITHOUT CONTRAST [CT] Urgent Exams 07/06/17 08:39 Completed Multi-Disciplinary Progress Notes: Multi-Disciplinary Progress Notes 07/06/17 10:58 Case Management Note by Jossie Blakely TALKED WITH FAMILY AND STILL PLAN TO GO TO [facility] AT DISCHARGE. Initialized on 07/06/17 10:58 - END OF NOTE 07/06/17 09:38 Case Management Note by Adeline Menon PAPERS LEVEL I WEB APPROVED, NO LEVEL II REQUIRED. PUT ON PAPER CHART. Initialized on 07/06/17 09:38 - END OF NOTE Assessment/Plan (1) Pneumonia Current Visit: No Status: Acute Qualifiers: Pneumonia type: due to unspecified organism Laterality: left Lung location: lower lobe of lung Qualified Code(s): J18.1 - Lobar pneumonia, unspecified organism Assessment & Plan: On admission she was started on IV rocephin. I changed this to levaquin yesterday when her BP started running lower. Code(s): J18.9 - PNEUMONIA, UNSPECIFIED ORGANISM (2) Hypotension Current Visit: Yes Status: Resolved Qualifiers: Hypotension type: unspecified hypotension type Qualified Code(s): I95.9 - Hypotension, unspecified Assessment & Plan: watch BP closely today. So far managed with 250 cc boluses. Code(s): I95.9 - HYPOTENSION, UNSPECIFIED (3) Altered mental state Current Visit: Yes Status: Acute Qualifiers: Altered mental status type: somnolence Qualified Code(s): R40.0 - Somnolence Assessment & Plan: somnolence; improved. CT head without contrast negative yesterday. I think likely just due to her current (and recent - influenza B with pneumonia) illness. Code(s): R41.82 - ALTERED MENTAL STATUS, UNSPECIFIED (4) Sepsis Current Visit: Yes Status: Acute Qualifiers: Sepsis type: sepsis due to unspecified organism Qualified Code(s): A41.9 - Sepsis, unspecified organism Assessment & Plan: Fluids as tolerated. She is on IV levaquin, day #2. (5) Diabetes mellitus type 2 in obese Current Visit: Yes Status: Acute Assessment & Plan: She came in with very high BS; she had been on lantus at home, and her had given her 10 extra units of lantus when her BS was high. After the last hospital stay she was sent home on po steroids; I expected the BS to be elevated but it had not been that high in the hospital on IV steroids. I had considered sending her home on regular insulin sliding scale but I was not confident in her or her 's ability to accurately administer it (their son Luis Enrique agrees). Code(s): E11.69 - TYPE 2 DIABETES MELLITUS WITH OTHER SPECIFIED COMPLICATION; E66.9 - OBESITY, UNSPECIFIED (6) Weakness Current Visit: No Status: Chronic Assessment & Plan: Is always worse when she is ill. Profoundly weak, currently. Code(s): R53.1 - WEAKNESS (7) code status Current Visit: Yes Status: Acute Assessment & Plan: I have discussed at length with son, Luis Enrique (other son Calvin reportedly in agreement per Luis Enrique). She has indicated that she doesn't want excessive measures at the end of life (no feeding tube, no ventilator). On the way to the hospital this episode she stated she was "tired and ready to go." We discussed pressors yesterday and the family are not against pressors if there is a fair chance that she may recover to some former level of functioning. At this time, she has only been here a few days, we just changed the antibiotic, and I think there is a fair chance that with rehab after this stay she may return to her previous level of functioning. If at any time we find that neurologically she is declining or there is otherwise a worsening in her condition, then it may be time to provide comfort care only. (8) Chronic congestive heart failure Current Visit: No Status: Chronic Qualifiers: Qualified Code(s): I50.22 - Chronic systolic (congestive) heart failure Assessment & Plan: Continue bumex; added one time dose of lasix 20mg IV today. Code(s): I50.9 - HEART FAILURE, UNSPECIFIED (9) CKD (chronic kidney disease) stage 3, GFR 30-59 ml/min Current Visit: No Status: Chronic Assessment & Plan: Yesterday, renal function was very good. Rechecking. Code(s): N18.3 - CHRONIC KIDNEY DISEASE, STAGE 3 (MODERATE) (10) History of pulmonary embolism Current Visit: No Status: Chronic Assessment & Plan: On eliquis. Code(s): Z86.711 - PERSONAL HISTORY OF PULMONARY EMBOLISM
[2017-07-07 08:33] LABS: ANION GAP 10.8 MEQ/L (5-15); BLOOD UREA NITROGEN 16 mg/dL (7-17); CHLORIDE 107 mmol/L (98-107); Calcium 8.3 mg/dL (8.4-10.2); Carbon Dioxide 24 mmol/L (22-30); Creatinine 1 0.86 mg/dL (0.52-1.04); Glucose 152 mg/dL (74-106); Potassium 4.8 mmol/L (3.5-5.1); SODIUM 137 mmol/L (137-145)
[2017-07-07 09:17] LABS: Lymphocytes 14 % (24-44); Monocyte 4 % (0.0-12.0); Neutrophils 82 % (36.0-66.0); Platelet Estimate NORMAL (NORMAL); Total Cells Counted 100
[2017-07-07] MEDS: LEVOFLOXACIN 750MG/150ML D5W 750 MG/150 ML BAG IV SCH (09:21)
--- NOTE | 2017-07-07 09:30 | XRAY ---
Indication: Cough. CHF. Comparison: July 04, 2017. Portable chest again demonstrates left-sided AICD with generator now obscuring left lung base. Suspect left base infiltrate/atelectasis/effusion. Right lung clear. Heart is not enlarged for AP portable technique.
[2017-07-07] MEDS: BUMEX 1 MG PO SCH (10:02)
[2017-07-07] MEDS: SYNTHROID 100 MCG PO SCH (10:02)
[2017-07-07] MEDS: ELIQUIS PO SCH ×2 (10:02→22:12)
[2017-07-07] MEDS: ENTRESTO 49 MG-51 MG TABLET PO SCH ×2 (10:02→22:12)
[2017-07-07] MEDS: FEOSOL 325 MG PO SCH ×2 (10:06→22:12)
[2017-07-07] MEDS: ZYLOPRIM 300 MG PO SCH (10:06)
[2017-07-07] MEDS: Klor Con 10 MEQ PO SCH ×2 (10:08→22:12)
[2017-07-07] MEDS: MAG-OX 400 PO SCH ×2 (10:08→22:13)
[2017-07-07] MEDS: ZOCOR 20MG PO SCH (10:08)
[2017-07-07] MEDS: NovoLOG Insulin SQ PRN ×3 (12:03→22:20)
[2017-07-08] MEDS ORDERED: Lasix 20 MG/2 ML IV ONE (07:51)
--- NOTE | 2017-07-08 07:53 | PCM.NOTE ---
Date and Time: 07/08/17 0752 Subjective Assessment: patient doing much better today per nursing and family, she is awake and conversant. bp is stable and normal, sats are good on room air. Objective Exam General Appearance: no apparent distress, alert Skin Exam: normal color, warm, dry Respiratory Exam: crackles/rales Cardiovascular Exam: regular rate/rhythm, normal heart sounds Gastrointestinal/Abdomen Exam: soft, No tenderness, No mass Extremity Exam: normal inspection, normal range of motion OBJECTIVE DATA Vital Signs: Vital Signs - 24 hr Temp Pulse Resp BP Pulse Ox 07/08/17 06:23 98 07/08/17 04:00 98.2 F 81 23 129/82 99 07/08/17 00:01 75 07/08/17 00:00 97.5 F 78 18 122/67 99 07/07/17 20:00 97.9 F 89 18 118/70 95 07/07/17 16:00 93 H 19 101/67 98 07/07/17 12:00 98.1 F 97 H 14 116/68 97 07/07/17 08:20 117 H 18 100 07/07/17 08:00 97.5 F 105 H 15 108/80 100 Pain Assessment - Last Documented Pain Intensity 0 Pain Scale Used 0-10 Pain Scale,FLACC Intake and Output: Intake & Output 07/05/17 07/06/17 07/07/17 07/08/17 11:59 11:59 11:59 11:59 Intake Total 1203 1289 2422 2383 Output Total 2500 2400 1340 3600 Balance -1297 -1111 1082 -1217 Weight 76 kg 77.8 kg Lab Results: Accuchecks Date 07/07/17 Time 21:42 Accucheck Value: 182 Accucheck Value: 170 Accucheck Value: 162 Accucheck Value: 197 Lab Results-Last 24 Hours 07/07/17 07/07/17 Range/Units 08:05 08:05 WBC 14.9 H (4.0-10.5) K/mm3 RBC 4.11 (4.1-5.4) M/mm3 Hgb 12.4 (12.0-16.0) gm/dl Hct 38.5 (35-47) % MCV 93.7 (78-100) fl MCH 30.2 (26-32) pg MCHC 32.2 (32-36) g/dl RDW 16.1 H (11.5-14.0) % Plt Count 126 L (150-450) K/mm3 MPV 11.5 H (6-9.5) fl Gran % 79.8 H (36.0-66.0) % Lymphocytes % 10.8 L (24.0-44.0) % Monocytes % 8.1 (0.0-12.0) % Eosinophils % 0.8 (0.00-5.0) % Basophils % 0.5 (0.0-0.4) % Segmented Neutrophils 82 H (36.0-66.0) % Lymphocytes (Manual) 14 L (24-44) % Monocytes (Manual) 4 (0.0-12.0) % Basophils # 0.07 (0-0.4) Differential Comment NORMAL Platelet Estimate NORMAL (NORMAL) Sodium 137 (137-145) mmol/L Potassium 4.8 (3.5-5.1) mmol/L Chloride 107 (98-107) mmol/L Carbon Dioxide 24 (22-30) mmol/L Anion Gap 10.8 (5-15) MEQ/L BUN 16 (7-17) mg/dL Creatinine 0.86 (0.52-1.04) mg/dL Estimated GFR > 60 ML/MIN Glucose 152 H (74-106) mg/dL Calcium 8.3 L (8.4-10.2) mg/dL Radiology Exams: Radiology Procedures Category Date Time Status CHEST 1 VIEW (PORTABLE) Urgent Exams 07/07/17 08:21 Completed HEAD WITHOUT CONTRAST [CT] Urgent Exams 07/06/17 08:39 Completed Multi-Disciplinary Progress Notes: Multi-Disciplinary Progress Notes 07/07/17 12:26 Case Management Note by Jossie Blakely from [facility] called for update on pt status, Plan to transition to [facility] at discharge. Initialized on 07/07/17 12:26 - END OF NOTE Assessment/Plan (1) Sepsis Current Visit: Yes Status: Acute Qualifiers: Sepsis type: sepsis due to unspecified organism Qualified Code(s): A41.9 - Sepsis, unspecified organism Assessment & Plan: improved at this time (2) Pneumonia Current Visit: No Status: Acute Qualifiers: Pneumonia type: due to unspecified organism Laterality: left Lung location: lower lobe of lung Qualified Code(s): J18.1 - Lobar pneumonia, unspecified organism Assessment & Plan: on Levaquin, improving. will continue current therapy Code(s): J18.9 - PNEUMONIA, UNSPECIFIED ORGANISM (3) Chronic congestive heart failure Current Visit: No Status: Chronic Qualifiers: Qualified Code(s): I50.22 - Chronic systolic (congestive) heart failure Assessment & Plan: add lasix 20mg iv x 1, send to med/surg today Code(s): I50.9 - HEART FAILURE, UNSPECIFIED
[2017-07-08] MEDS: NovoLOG Insulin SQ PRN ×4 (07:55→21:59)
[2017-07-08 09:32] LABS: Hematocrit 36.8 % (35-47); Hemoglobin 11.9 gm/dl (12.0-16.0); Mean Cell Volume 94.4 fl (78-100); Mean Corpuscular Hemoglobin 30.5 pg (26-32); Mean Corpuscular Hgb Concent. 32.3 g/dl (32-36); Mean Platelet Volume 11.9 fl (6-9.5); Platelet Count 142 K/mm3 (150-450); Red Cell Distribution Width 16.3 % (11.5-14.0); White Blood Count 13.1 K/mm3 (4.0-10.5)
[2017-07-08 09:35] LABS: Lymphocytes 21 % (24-44); Monocyte 4 % (0.0-12.0); Neutrophils 75 % (36.0-66.0); Platelet Estimate NORMAL (NORMAL); Total Cells Counted 100
[2017-07-08] MEDS: Klor Con 10 MEQ PO SCH ×2 (09:36→21:56)
[2017-07-08] MEDS: FEOSOL 325 MG PO SCH ×2 (09:36→21:56)
[2017-07-08] MEDS: ZOCOR 20MG PO SCH (09:36)
[2017-07-08] MEDS: MAG-OX 400 PO SCH ×2 (09:37→21:56)
[2017-07-08] MEDS: SYNTHROID 100 MCG PO SCH (09:37)
[2017-07-08] MEDS: BUMEX 1 MG PO SCH (09:37)
[2017-07-08] MEDS: ENTRESTO 49 MG-51 MG TABLET PO SCH ×2 (09:37→21:57)
[2017-07-08] MEDS: LEVOFLOXACIN 750MG/150ML D5W 750 MG/150 ML BAG IV SCH (09:37)
[2017-07-08] MEDS: Lopressor 25MG Tab PO SCH ×2 (09:37→21:56)
[2017-07-08] MEDS: Lopressor 50 MG PO SCH ×2 (09:38→21:56)
[2017-07-08] MEDS: ELIQUIS PO SCH ×2 (09:38→21:56)
[2017-07-08] MEDS: ZYLOPRIM 300 MG PO SCH (09:38)
[2017-07-08 10:15] LABS: ANION GAP 14.6 MEQ/L (5-15); Calcium 8.3 mg/dL (8.4-10.2); Creatinine 1 0.97 mg/dL (0.52-1.04); Potassium 4.3 mmol/L (3.5-5.1)
[2017-07-08] MEDS: SODIUM CHLORIDE 0.45% W/ 20 mEq KCL 1,000 ML IV SCH (16:45)
[2017-07-09 05:51] LABS: Hematocrit 38.7 % (35-47); Hemoglobin 12.2 gm/dl (12.0-16.0); Mean Cell Volume 95.8 fl (78-100); Mean Corpuscular Hgb Concent. 31.5 g/dl (32-36); Mean Platelet Volume 11.5 fl (6-9.5); Platelet Count 133 K/mm3 (150-450); Red Blood Count 4.04 M/mm3 (4.1-5.4); Red Cell Distribution Width 16.4 % (11.5-14.0); White Blood Count 10.9 K/mm3 (4.0-10.5)
[2017-07-09 05:59] LABS: Mean Corpuscular Hemoglobin 30.1 pg (26-32)
[2017-07-09 06:17] LABS: ANION GAP 13.4 MEQ/L (5-15); Calcium 8.5 mg/dL (8.4-10.2); Creatinine 1 1.15 mg/dL (0.52-1.04); Potassium 4.7 mmol/L (3.5-5.1)
[2017-07-09 07:31] LABS: BAND 6 % (0.0-2.0); Eosinophil 1 % (0.00-3.0); Lymphocytes 22 % (24-44); Monocyte 8 % (0.0-12.0); Neutrophils 63 % (36.0-66.0); Total Cells Counted 100
[2017-07-09 07:34] LABS: Hypochromia 1+; Platelet Estimate NORMAL (NORMAL)
[2017-07-09] MEDS: NovoLOG Insulin SQ PRN ×3 (07:35→21:39)
[2017-07-09] MEDS ORDERED: Lasix 20 MG/2 ML IV ONE (08:28)
--- NOTE | 2017-07-09 08:31 | PCM.NOTE ---
Date and Time: 07/09/17828 Subjective Assessment: patient feeling better today, no new complaints or concerns today. Objective Exam General Appearance: no apparent distress, alert Respiratory Exam: crackles/rales Cardiovascular Exam: regular rate/rhythm, normal heart sounds Gastrointestinal/Abdomen Exam: soft, No tenderness, No mass Extremity Exam: normal inspection, normal range of motion OBJECTIVE DATA Vital Signs: Vital Signs - 24 hr Temp Pulse Resp BP Pulse Ox 07/09/17 08:00 98.2 F 86 18 113/57 96 07/09/17 07:33 89 18 98 07/09/17 03:45 98.4 F 89 17 119/56 95 07/09/17 02:50 93 H 20 95 07/09/17 00:00 98.1 F 84 15 120/57 98 07/08/17 20:57 95 H 22 96 07/08/17 20:00 97.4 F 101 H 20 115/55 94 L 07/08/17 16:00 98.4 F 103 H 20 132/73 94 L 07/08/17 10:54 97.8 F 78 20 132/74 95 Pain Assessment - Last Documented Pain Intensity 0 Pain Scale Used 0-10 Pain Scale Intake and Output: Intake & Output 07/06/17 07/07/17 07/08/17 07/09/17 11:59 11:59 11:59 11:59 Intake Total 1289 2422 2503 1834 Output Total 2400 1340 3600 1999 Balance -1111 1082 -1097 -166 Weight 77.8 kg 79.7 kg Lab Results: Accuchecks Date 07/08/17 Time 21:30 Accucheck Value: 153 Accucheck Value: 212 Accucheck Value: 212 Accucheck Value: 195 Lab Results-Last 24 Hours 07/08/17 07/08/17 07/09/17 Range/Units 08:19 08:19 05:30 WBC 13.1 H 10.9 H (4.0-10.5) K/mm3 RBC 3.90 L 4.04 L (4.1-5.4) M/mm3 Hgb 11.9 L 12.2 (12.0-16.0) gm/dl Hct 36.8 38.7 (35-47) % MCV 94.4 95.8 (78-100) fl MCH 30.5 30.1 (26-32) pg MCHC 32.3 31.5 L (32-36) g/dl RDW 16.3 H 16.4 H (11.5-14.0) % Plt Count 142 L 133 L (150-450) K/mm3 MPV 11.9 H 11.5 H (6-9.5) fl Segmented Neutrophils 75 H 63 (36.0-66.0) % Band Neutrophils 6 H (0.0-2.0) % Lymphocytes (Manual) 21 L 22 L (24-44) % Monocytes (Manual) 4 8 (0.0-12.0) % Eosinophils (Manual) 1 (0.00-3.0) % Differential Comment NORMAL ABNORMAL Platelet Estimate NORMAL NORMAL (NORMAL) Hypochromasia 1+ Sodium 137 (137-145) mmol/L Potassium 4.3 (3.5-5.1) mmol/L Chloride 106 (98-107) mmol/L Carbon Dioxide 21 L (22-30) mmol/L Anion Gap 14.6 (5-15) MEQ/L BUN 15 (7-17) mg/dL Creatinine 0.97 (0.52-1.04) mg/dL Estimated GFR 58 ML/MIN Glucose 204 H (74-106) mg/dL Calcium 8.3 L (8.4-10.2) mg/dL 07/09/17 Range/Units 05:30 WBC (4.0-10.5) K/mm3 RBC (4.1-5.4) M/mm3 Hgb (12.0-16.0) gm/dl Hct (35-47) % MCV (78-100) fl MCH (26-32) pg MCHC (32-36) g/dl RDW (11.5-14.0) % Plt Count (150-450) K/mm3 MPV (6-9.5) fl Segmented Neutrophils (36.0-66.0) % Band Neutrophils (0.0-2.0) % Lymphocytes (Manual) (24-44) % Monocytes (Manual) (0.0-12.0) % Eosinophils (Manual) (0.00-3.0) % Differential Comment Platelet Estimate (NORMAL) Hypochromasia Sodium 141 (137-145) mmol/L Potassium 4.7 (3.5-5.1) mmol/L Chloride 105 (98-107) mmol/L Carbon Dioxide 26 (22-30) mmol/L Anion Gap 13.4 (5-15) MEQ/L BUN 17 (7-17) mg/dL Creatinine 1.15 H (0.52-1.04) mg/dL Estimated GFR 48 ML/MIN Glucose 167 H (74-106) mg/dL Calcium 8.5 (8.4-10.2) mg/dL Radiology Exams: Radiology Procedures Category Date Time Status CHEST 1 VIEW (PORTABLE) Urgent Exams 07/07/17 08:21 Completed Assessment/Plan (1) Sepsis Current Visit: Yes Status: Acute Qualifiers: Sepsis type: sepsis due to unspecified organism Qualified Code(s): A41.9 - Sepsis, unspecified organism (2) Pneumonia Current Visit: No Status: Acute Qualifiers: Pneumonia type: due to unspecified organism Laterality: left Lung location: lower lobe of lung Qualified Code(s): J18.1 - Lobar pneumonia, unspecified organism Assessment & Plan: continue IV abx Code(s): J18.9 - PNEUMONIA, UNSPECIFIED ORGANISM (3) Chronic congestive heart failure Current Visit: No Status: Chronic Qualifiers: Qualified Code(s): I50.22 - Chronic systolic (congestive) heart failure Assessment & Plan: give another dose of IV lasix today Code(s): I50.9 - HEART FAILURE, UNSPECIFIED
[2017-07-09] MEDS: LEVOFLOXACIN 750MG/150ML D5W 750 MG/150 ML BAG IV SCH (10:00)
[2017-07-09] MEDS: FEOSOL 325 MG PO SCH ×2 (10:01→21:36)
[2017-07-09] MEDS: ELIQUIS PO SCH ×2 (10:01→21:35)
[2017-07-09] MEDS: SYNTHROID 100 MCG PO SCH (10:01)
[2017-07-09] MEDS: Klor Con 10 MEQ PO SCH ×2 (10:01→21:36)
[2017-07-09] MEDS: ENTRESTO 49 MG-51 MG TABLET PO SCH ×2 (10:01→21:35)
[2017-07-09] MEDS: ZOCOR 20MG PO SCH (10:01)
[2017-07-09] MEDS: BUMEX 1 MG PO SCH (10:01)
[2017-07-09] MEDS: Lopressor 25MG Tab PO SCH ×2 (10:01→21:36)
[2017-07-09] MEDS: Lopressor 50 MG PO SCH ×2 (10:01→21:36)
[2017-07-09] MEDS: MAG-OX 400 PO SCH ×2 (10:01→21:36)
[2017-07-09] MEDS: ZYLOPRIM 300 MG PO SCH (10:01)
[2017-07-09] MEDS: SODIUM CHLORIDE 0.45% W/ 20 mEq KCL 1,000 ML IV SCH (22:24)
[2017-07-10] MEDS: NovoLOG Insulin SQ PRN (08:14)
[2017-07-10] MEDS: MAG-OX 400 PO SCH (09:47)
[2017-07-10] MEDS: ZYLOPRIM 300 MG PO SCH (09:47)
[2017-07-10] MEDS: BUMEX 1 MG PO SCH (09:47)
[2017-07-10] MEDS: Lopressor 25MG Tab PO SCH (09:47)
[2017-07-10] MEDS: FEOSOL 325 MG PO SCH (09:47)
[2017-07-10] MEDS: ZOCOR 20MG PO SCH (09:47)
[2017-07-10] MEDS: SYNTHROID 100 MCG PO SCH (09:48)
[2017-07-10] MEDS: ELIQUIS PO SCH (09:48)
[2017-07-10] MEDS: Klor Con 10 MEQ PO SCH (09:48)
[2017-07-10] MEDS: Lopressor 50 MG PO SCH (09:48)
[2017-07-10] MEDS: ENTRESTO 49 MG-51 MG TABLET PO SCH (09:49)
[2017-07-10] MEDS: LEVOFLOXACIN 750MG/150ML D5W 750 MG/150 ML BAG IV SCH (09:50)
[2017-07-10 11:29] LABS: Granulocyte Absolute (ANC) 7.71 (1.4-6.9); Hematocrit 36.5 % (35-47); Hemoglobin 11.5 gm/dl (12.0-16.0); Mean Cell Volume 96.3 fl (78-100); Mean Corpuscular Hemoglobin 30.3 pg (26-32); Mean Corpuscular Hgb Concent. 31.5 g/dl (32-36); Mean Platelet Volume 12.2 fl (6-9.5); Platelet Count 99 K/mm3 (150-450); Red Blood Count 3.79 M/mm3 (4.1-5.4); Red Cell Distribution Width 16.5 % (11.5-14.0); White Blood Count 10.5 K/mm3 (4.0-10.5)
[2017-07-10 12:04] LABS: ALBUMIN 2.8 g/dL (3.5-5.0); ANION GAP 13.2 MEQ/L (5-15); BILIRUBIN,TOTAL 0.6 mg/dL (0.2-1.3); Creatinine 1 1.15 mg/dL (0.52-1.04); Potassium 4.6 mmol/L (3.5-5.1); Total Protein 5.3 g/dL (6.3-8.2)
[2017-07-10 12:11] VITALS: BP 111/69; PULSE 85; O2SAT 98
--- NOTE | 2017-07-10 14:26 | PCM.DS ---
Discharge Summary Date of Admission: 07/04/17 18:22 Date of Discharge: 07/10/2017 Admitting Physician: FE BROWN Primary Care Provider: FE BROWN Allergies Allergies No Known Drug Allergies Allergy (Verified 07/04/17 16:31) Hospital Summary - Hospital Course Hospital Course: Mrs. Peres presented to the ED with uncontrolled blood sugar into the 500 range as well as weakness and had been on steroids she had fallen from weakness and was not eating well she was found to have pneumonia and admitted on Rocephin. She remained very somnolent would wake up to eat small amounts. Her BP was running lower and sbp dropped to 81 and small fluid boluses given and abx switched to levaquin on the on 07/06 her bp dropped further into the 60's but responded to boluses in 250 amounts. on 07/07 she began improving her blood pressure was better and tolerating po well. On 07/08 and 07/09 was doing well and on the [facility] floor on iv levaquin but still getting iv fluids in the left arm. She had Husain still for I/O measurement. On 07/10 she was very sleepy in the am but labs were improved vital signs had remained stable she ate all of her lunch and communicated well when awake. She was breathing well on room air. Her Husain was removed and iv fluids had been stopped and she was discharged to [facility] to complete 7 day coarse of the levaquin for the pneumonia and begin rehab therapy. - Vitals & Intake/Output Vital Signs: Vital Signs Temperature 98 F 07/10/17 12:00 Pulse Rate 85 07/10/17 12:00 Respiratory Rate 18 07/10/17 12:00 Blood Pressure 111/69 07/10/17 12:00 O2 Sat by Pulse Oximetry 98 07/10/17 12:00 Intake & Output: Intake & Output 07/08/17 07/09/17 07/10/17 07/11/17 11:59 11:59 11:59 11:59 Intake Total 2503 1834 2463 Output Total 3600 2000 2150 Balance -1097 -123 720 Weight 77.8 kg 79.7 kg 78.2 kg - Lab Result Diagrams: 07/10/17 11:10 07/10/17 11:10 Lab Results-Last 24 Hrs: Accuchecks Date 07/10/17 Date 03/17/18 Date 07/09/17 Date 07/09/17 Time 11:30 Time 07:30 Time 21:00 Time 16:07 Accucheck Value: 145 Accucheck Value: 159 Accucheck Value: 220 Accucheck Value: 97 Lab Results-Last 24 Hours 07/10/17 07/10/17 Range/Units 11:10 11:10 WBC 10.5 (4.0-10.5) K/mm3 RBC 3.79 L (4.1-5.4) M/mm3 Hgb 11.5 L (12.0-16.0) gm/dl Hct 36.5 (35-47) % MCV 96.3 (78-100) fl MCH 30.3 (26-32) pg MCHC 31.5 L (32-36) g/dl RDW 16.5 H (11.5-14.0) % Plt Count 99 L (150-450) K/mm3 MPV 12.2 H (6-9.5) fl Sodium 138 (137-145) mmol/L Potassium 4.6 (3.5-5.1) mmol/L Chloride 105 (98-107) mmol/L Carbon Dioxide 24 (22-30) mmol/L Anion Gap 13.2 (5-15) MEQ/L BUN 16 (7-17) mg/dL Creatinine 1.15 H (0.52-1.04) mg/dL Estimated GFR 48 ML/MIN Glucose 130 H (74-106) mg/dL Calcium 9.0 (8.4-10.2) mg/dL Total Bilirubin 0.60 (0.2-1.3) mg/dL AST 26 (14-36) U/L ALT 22 (0-35) U/L Alkaline Phosphatase 80 (38-126) U/L Serum Total Protein 5.3 L (6.3-8.2) g/dL Albumin 2.8 L (3.5-5.0) g/dL Micro Results-Entire Visit: Accucheck07/10/1707/10/1707/09/17 Date 07/09/17 Time 11:30 Time 07:30 Time 21:00 Time 16:07 Accucheck Value: 145 Accucheck Value: 159 Accucheck Value: 220 Accucheck Value: 97 - Procedures and Test Procedures and Tests throughout Hospitalization: Therapy Orders & Screens 07/05/17 07:00 Respiratory GABE UD Comment: ALB GABE Q4PRN Diagnosis: Sepsis 07/06/17 08:41 Speech Therapy Eval & Treat [ST Eval & Treat (MD Order)] .as ordered Comment: Physician Instructions: Reason For Exam: Evaluate: Yes Treat: Yes Reason for Eval: reports of pushing food out with her tongue like a baby - last night Diagnosis: Sepsis Discharge Exam General Appearance: no apparent distress, obese Skin Exam: warm, dry Eye Exam: No pale conjunctivae Ears, Nose, Throat Exam: moist mucous membranes Neck Exam: non-tender, supple Respiratory Exam: normal breath sounds, lungs clear Cardiovascular Exam: regular rate/rhythm, murmur Gastrointestinal/Abdomen Exam: soft, normal bowel sounds, No tenderness Extremity Exam: other (left upper extremity with pitting edema in arm with the IV. No other edema noted in the extremities today) - Discharge Discharge Date: 07/10/17 Disposition: Skilled Care @ [facility] Condition: Fair Prescriptions: New Sacubitril/Valsartan [Entresto 49 mg-51 mg Tablet] 0.5 tablet PO BID tablet Levofloxacin [Levaquin] 500 mg PO DAILY #2 tablet Acetaminophen 325 mg [Tylenol 325 mg] 650 mg PO Q4H PRN PRN tablet PRN Reason: Pain And/Or Fever Continue Allopurinol 300 mg [Zyloprim 300 mg] 300 mg PO DAILY Rosuvastatin Calcium [Crestor] 10 mg PO DAILY Levothyroxine Sodium 100 Mcg [Synthroid 100 Mcg] 100 mcg PO DAILY Polyvinyl Alcohol [Artificial Tears] 1 ml OP PRN PRN drops PRN Reason: Dry eyes Albuterol Common Canister [Proventil Common Canister] 2 puff IH Q4H PRN PRN #1 unit PRN Reason: Shortness Of Breath Sitagliptin Phosphate 50 MG [Januvia 50 MG] 100 mg PO DAILY Magnesium Oxide 400 mg [Mag-Ox 400] 400 mg PO BID Metoprolol Tartrate 50 mg [Lopressor 50 MG] 75 mg PO BID Apixaban [Eliquis] 5 mg PO BID #60 tablet Bumetanide 1 mg PO DAILY #30 tablet Potassium Chloride 10 Meq Tab* [Klor Con 10 MEQ] 10 meq PO BID #60 tab Amitriptyline HCl 25 mg [Elavil 25 mg] 50 mg PO HS #30 tablet Insulin Glargine [Lantus Insulin] 20 unit SQ DAILY #3 pen Ferrous Sulfate [Iron] 325 mg PO BID Discontinued Multivitamin W-Minerals/Lutein [Centrum Silver Tablet] 1 each PO DAILY Oxybutynin Chloride 5 mg PO BID Sacubitril/Valsartan [Entresto 49 mg-51 mg Tablet] 1 tab PO BID
[2017-07-10 14:28] LABS: Eosinophil 2 % (0.00-3.0); Lymphocytes 17 % (24-44); Monocyte 4 % (0.0-12.0); Neutrophils 77 % (36.0-66.0); Platelet Estimate DECREASED (NORMAL); Total Cells Counted 100
[2017-07-10 14:29] LABS: ANISOCYTOSIS 1+
== END 2017-07-10 15:00 | DRG 193 ==
LOC: ED 14:48 → ICU 18:22 → MED SURG 07-08 10:16
PROVIDERS: ADMIT Family Medicine; ATTEND Family Medicine
DX: J18.9 Pneumonia, unspecified organism (principal); A41.9 Sepsis, unspecified organism; G93.41 Metabolic encephalopathy; I50.20 Unspecified systolic (congestive) heart failure; F41.9 Anxiety disorder, unspecified; I95.9 Hypotension, unspecified; E11.65 Type 2 diabetes mellitus with hyperglycemia; R53.1 Weakness; Z91.81 History of falling; N18.3 Chronic kidney disease, stage 3 (moderate); Z86.711 Personal history of pulmonary embolism; E66.9 Obesity, unspecified; Z79.4 Long term (current) use of insulin; R41.82 Altered mental status, unspecified; Z79.899 Other long term (current) drug therapy
CPT/HCPCS: 36000; 36415; 51702; 70450; 71045; 80048; 80053; 81002; 82805; 82947; 82962; 83605; 83735; 84484; 85025; 85027; 87040; 93005; 93041; 94640; 94760; 96360; 96361; 96365; 99285; J0696; J1815; J1940; J1956; J2060; A9270-GY

== ENCOUNTER → 2017-07-27 | Emergency (ER) | payer MEDICARE, OTHER ==
[~2017-07-27] MED LIST: NovoLOG Insulin ONE; NovoLOG Insulin SQ ONE; Pepcid 20 MG VIAL IV ONE; SUBLIMAZE 100 MCG/2 ML IV ONE; SUBLIMAZE 100 MCG/2 ML ONE; Sodium Chloride 0.9% 1000 ML 1,000 ML IV SCH; Zosyn 3.375GM/100 Ml D5W 3.375 GM/100 ML IVPB IV ONE; Zosyn 3.375GM/100 Ml D5W 3.375 GM/100 ML IVPB IV STA
--- NOTE | 2017-07-27 13:52 | ERPHSYRPT ---
- History of Present Illness Time Seen by Provider: 07/27/17 13:10 Historian: patient, EMS, [facility] records Patient Subjective Stated Complaint: [facility] for [facility]/o mid-epigastric abdominal pain/chest paint that began at 0300 woke pt up out of sleep. Pt states pain radiates into back but also motions to abdomen. Pt also c/o SOB with her CP but denies N/V or any other sx. States her pain is better now but still rates 8/10 Triage Nursing Assessment: Pt respirations labored and tachypenic. Pt also tachycardic on monitor from 110's-120's. pt has pacemaker but is a poor historian. Mentions cardiac arrest but unable to say more. Physician History: CC: abd pain Hx: 81 y/o patient of Dr Soto from [facility] rehab. She has had sharp abd pain radiating to her back since 3AM. No injury. She is somewhat confused. Sometimes has chest pain. She has pacemaker and takes eliquis. Prior appendectomy. No vomiting. No blood in stool. Pt is poor historian. Allergies/Adverse Reactions: No Known Drug Allergies Allergy (Verified 07/04/17 16:31) Home Medications: Levothyroxine Sodium 100 Mcg [Synthroid 100 Mcg] 100 mcg PO DAILY 08/17/16 [History] Rosuvastatin Calcium [Crestor] 10 mg PO DAILY 08/17/16 [History] Sitagliptin Phosphate 50 MG [Januvia 50 MG] 100 mg PO DAILY 01/22/17 [ History] Magnesium Oxide 400 mg [Mag-Ox 400] 400 mg PO BID 01/31/17 [History] Metoprolol Tartrate 50 mg [Lopressor 50 MG] 75 mg PO BID 02/08/17 [History ] Ferrous Sulfate [Iron] 325 mg PO BID 07/05/17 [History] Benzonatate [Tessalon Perle] 200 mg PO TID 07/27/17 [History] Multivitamin W-Minerals/Lutein [Cerovite Silver Tablet] 1 tab PO DAILY 07/27/17 [History] Sacubitril/Valsartan [Entresto 49 mg-51 mg Tablet] 0.5 tablet PO BID 07/27/17 [ History] Hx Tetanus, Diphtheria Vaccination/Date Given: Yes Hx Influenza Vaccination/Date Given: Yes Hx Pneumococcal Vaccination/Date Given: Yes Immunizations Up to Date: Yes - Review of Systems Constitutional: No Fever, No Chills Eyes: No Symptoms Ears, Nose, & Throat: No Symptoms Respiratory: Dyspnea, No Cough Cardiac: Chest Pain Abdominal/Gastrointestinal: Abdominal Pain, No Nausea, No Vomiting, No Diarrhea Genitourinary Symptoms: No Dysuria Skin: No Rash Neurological: No Headache All Other Systems: Reviewed and Negative - Past Medical History Pertinent Past Medical History: Yes Neurological History: No Pertinent History ENT History: Cataracts Cardiac History: Arrhythmia, Coronary Artery Disease, Hypertension Respiratory History: CHF Endocrine Medical History: Diabetes Type II, Hypothyroidism Musculoskeletal History: Arthritis, Fractures GI Medical History: No Pertinent History History: Renal Disease, Other Psycho-Social History: No Pertinent History Female Reproductive Disorders: No Pertinent History Other Medical History: 40 % kidney function - Past Surgical History Past Surgical History: Yes Neuro Surgical History: No Pertinent History Cardiac: Internal Defibrillator, Pacemaker Respiratory: No Pertinent History Gastrointestinal: Appendectomy Genitourinary: No Pertinent History Musculoskeletal: Orthopedic Surgery Female Surgical History: Tubal Ligation Other Surgical History: right arm surgery - Social History Smoking Status: Never smoker Exposure to second hand smoke: No Alcohol Use: None Drug Use: none Patient Lives Alone: No Significant Family History: heart disease, hypertension - Female History Hx Last Menstrual Period: postmenopausal - Nursing Vital Signs Nursing Vital Signs: Initial Vital Signs Pulse Rate 117 H 07/27/17 13:03 Respiratory Rate 24 07/27/17 13:03 Blood Pressure 125/87 07/27/17 13:03 O2 Sat by Pulse Oximetry 97 07/27/17 13:03 Pain Scale Pain Intensity 4 - Physical Exam General Appearance: alert, other (pleasant lady) Eye Exam: PERRL/EOMI Ears, Nose, Throat Exam: dry mucous membranes Neck Exam: normal inspection, non-tender, supple Respiratory Exam: crackles/rales (bilateral) Cardiovascular Exam: irregular Gastrointestinal/Abdomen Exam: soft, tenderness (mild epigastric and RUQ), No distention Rectal Exam: normal rectal tone, other (brown stool) Back Exam: normal inspection, normal range of motion Extremity Exam: normal inspection, normal range of motion Neurologic Exam: alert, oriented x 3 (2017), cooperative Skin Exam: warm, dry SpO2 Interpretation: normal SpO2: 98 Oxygen Delivery: Room Air - Course Nursing assessment & vital signs reviewed: Yes EKG Interpreted by Me: RATE (112 irregular atrial fibrillation with intermittent pacemaker) - Radiology Exams cxr X-ray Interpretation: Teleradiologist Report (minimal left base A/I unchanged, borderline CM, left sided AICD. No new abnl.) - CT Exams abd/pelvis CT Interpretation: Tele-radiologist Report (distended GB with densesludge and stones. right mid renal mass. CM with small effusion) Ordered Tests: Active Orders 24 hr Category Date Time Status Cath for Specimen-Straight STAT Care 07/27/17 13:23 Active EKG-ER Only STAT Care 07/27/17 13:22 Active IV Insertion STAT Care 07/27/17 13:22 Active NPO (ED) STAT Care 07/27/17 13:22 Active ABDOMEN AND PELVIS W/0 CONTRAS [CT] Stat Exams 07/27/17 13:22 Completed CHEST 1 VIEW (PORTABLE) Stat Exams 07/27/17 13:22 Completed GALLBLADDER [US] Stat Exams 07/27/17 14:34 Completed BLOOD CULTURE Stat Lab 07/27/17 14:00 Received CBC W DIFF Stat Lab 07/27/17 13:50 Completed CMP Stat Lab 07/27/17 13:50 Completed CULTURE,URINE Stat Lab 07/27/17 14:25 Received Glucose,Critical Care Urgent Lab 07/27/17 13:57 Completed LIPASE Stat Lab 07/27/17 13:50 Completed Lactic Acid Stat Lab 07/27/17 13:57 Completed Lactic Acid Stat Lab 07/27/17 16:02 Results NT PRO BNP Stat Lab 07/27/17 13:50 Completed Occult Blood,Stool Other Stat Lab 07/27/17 13:41 Completed TROPONIN Q3H Lab 07/27/17 13:50 Completed TROPONIN Q3H Lab 07/27/17 16:37 Received TROPONIN Q3H Lab 07/27/17 19:30 Ordered TROPONIN Q3H Lab 07/27/17 22:30 Ordered TROPONIN Q3H Lab 07/28/17 01:30 Ordered UA W/ MICROSCOPIC Stat Lab 07/27/17 14:25 Completed VENOUS BLOOD GAS Stat Lab 07/27/17 13:57 Completed Medication Summary Generic Name Dose Route Start Last Admin Trade Name Freq PRN Reason Stop Dose Admin Sodium Chloride 1,000 mls @ 100 mls/hr 07/27/17 13:30 07/27/17 13:41 Sodium Chloride 0.9% 1000 Ml IV 08/26/17 13:29 100 mls/hr .Q10H RAMYA Administration Discontinued Medications Generic Name Dose Route Start Last Admin Trade Name Yesica PRN Reason Stop Dose Admin Famotidine 20 mg 07/27/17 13:22 07/27/17 13:41 Pepcid 20 Mg Vial IV 07/27/17 13:23 20 mg STAT ONE Administration Famotidine Confirm 07/27/17 13:38 Pepcid 20 Mg Vial Administered 07/27/17 13:39 Dose 20 mg IV .STK-MED ONE Piperacillin Sod/Tazobactam Sod 3.375 gm in 100 mls @ 200 mls/hr 07/27/17 14: 34 07/27/17 15:10 Zosyn 3.375gm/100 Ml D5w IV 07/27/17 15:03 200 mls/hr STAT STA Administration Piperacillin Sod/Tazobactam Sod Confirm 07/27/17 14:44 Zosyn 3.375gm/100 Ml D5w Administered 07/27/17 14:45 Dose 3.375 gm in 100 mls @ ud IV .STK-MED ONE Lab/Rad Data: Laboratory Result Diagrams 07/27/17 13:50 07/27/17 13:50 Laboratory Results 07/27/17 07/27/17 07/27/17 Range/Units 16:02 14:25 13:57 WBC (4.0-10.5) K/mm3 RBC (4.1-5.4) M/mm3 Hgb (12.0-16.0) gm/dl Hct (35-47) % MCV (78-100) fl MCH (26-32) pg MCHC (32-36) g/dl RDW (11.5-14.0) % Plt Count (150-450) K/mm3 MPV (6-9.5) fl Gran % (36.0-66.0) % Eos # (Auto) (0-0.5) Absolute Lymphs (auto) (1.0-4.6) Absolute Monos (auto) (0.0-1.3) Lymphocytes % (24.0-44.0) % Monocytes % (0.0-12.0) % Eosinophils % (0.00-5.0) % Basophils % (0.0-0.4) % Absolute Granulocytes (1.4-6.9) Basophils # (0-0.4) pO2/FiO2 Ratio % VBG pH (7.32-7.42) VBG pCO2 at Pat Temp (42-55) mm/Hg VBG pO2 at Pat Temp (25-40) mm/Hg VBG HCO3 (22-28) meq/L VBG O2 Sat (Shanon) (95-100) VBG Base Excess (-2.0-2.0) VBG Hemoglobin VBG Carboxyhemoglobin (0.0-6.9) % T HGB POC Potassium (3.5-5.1) Sodium (137-145) mmol/L Potassium (3.5-5.1) mmol/L Chloride (98-107) mmol/L Carbon Dioxide (22-30) mmol/L Anion Gap (5-15) MEQ/L BUN (7-17) mg/dL Creatinine (0.52-1.04) mg/dL Estimated GFR ML/MIN Glucose 459 H (74-106) mg/dL Lactic Acid 2.2 H (0.4-2.0) Calcium (8.4-10.2) mg/dL Total Bilirubin (0.2-1.3) mg/dL AST (14-36) U/L ALT (0-35) U/L Alkaline Phosphatase (38-126) U/L Troponin I (0.000-0.034) ng/mL NT-Pro-B Natriuret Pep (0-1800) pg/mL Serum Total Protein (6.3-8.2) g/dL Albumin (3.5-5.0) g/dL Lipase (23-300) U/L Ur Collection Type CATH Urine Color YELLOW (YELLOW) Urine Appearance CLOUDY (CLEAR) Urine pH 5.0 (5-6) Ur Specific [place] 1.010 (1.005-1.025) Urine Protein TRACE (Negative) Urine Ketones TRACE (NEGATIVE) Urine Blood 5-10 (0-5) Allan/ul Urine Nitrite NEGATIVE (NEGATIVE) Urine Bilirubin NEGATIVE (NEGATIVE) Urine Urobilinogen NORMAL (0-1) mg/dL Ur Leukocyte Esterase 2+ (NEGATIVE) Urine Microscopic RBC 2-5 (0-2) /HPF Urine Microscopic WBC >100 (0-5) /HPF Ur Epithelial Cells FEW (FEW) /HPF Urine Bacteria MANY (NEGATIVE) /HPF Urine Culture Reflexed YES (NO) Urine Glucose 500 (NEGATIVE) mg/dL Stool Occult Blood (Negative) Slides for Path Review Specimen Received 07/27/17 1426 07/27/17 07/27/17 07/27/17 Range/Units 13:57 13:57 13:50 WBC (4.0-10.5) K/mm3 RBC (4.1-5.4) M/mm3 Hgb (12.0-16.0) gm/dl Hct (35-47) % MCV (78-100) fl MCH (26-32) pg MCHC (32-36) g/dl RDW (11.5-14.0) % Plt Count (150-450) K/mm3 MPV (6-9.5) fl Gran % (36.0-66.0) % Eos # (Auto) (0-0.5) Absolute Lymphs (auto) (1.0-4.6) Absolute Monos (auto) (0.0-1.3) Lymphocytes % (24.0-44.0) % Monocytes % (0.0-12.0) % Eosinophils % (0.00-5.0) % Basophils % (0.0-0.4) % Absolute Granulocytes (1.4-6.9) Basophils # (0-0.4) pO2/FiO2 Ratio 21.0 % VBG pH 7.42 (7.32-7.42) VBG pCO2 at Pat Temp 40 L (42-55) mm/Hg VBG pO2 at Pat Temp 35 (25-40) mm/Hg VBG HCO3 25.9 (22-28) meq/L VBG O2 Sat (Shanon) 70.5 L (95-100) VBG Base Excess 1.3 (-2.0-2.0) VBG Hemoglobin 13.0 VBG Carboxyhemoglobin 2.6 (0.0-6.9) % T HGB POC Potassium 5.2 H (3.5-5.1) Sodium (137-145) mmol/L Potassium (3.5-5.1) mmol/L Chloride (98-107) mmol/L Carbon Dioxide (22-30) mmol/L Anion Gap (5-15) MEQ/L BUN (7-17) mg/dL Creatinine (0.52-1.04) mg/dL Estimated GFR ML/MIN Glucose (74-106) mg/dL Lactic Acid 3.6 H (0.4-2.0) Calcium (8.4-10.2) mg/dL Total Bilirubin (0.2-1.3) mg/dL AST (14-36) U/L ALT (0-35) U/L Alkaline Phosphatase (38-126) U/L Troponin I < 0.012 (0.000-0.034) ng/mL NT-Pro-B Natriuret Pep (0-1800) pg/mL Serum Total Protein (6.3-8.2) g/dL Albumin (3.5-5.0) g/dL Lipase (23-300) U/L Ur Collection Type Urine Color (YELLOW) Urine Appearance (CLEAR) Urine pH (5-6) Ur Specific [place] (1.005-1.025) Urine Protein (Negative) Urine Ketones (NEGATIVE) Urine Blood (0-5) Allan/ul Urine Nitrite (NEGATIVE) Urine Bilirubin (NEGATIVE) Urine Urobilinogen (0-1) mg/dL Ur Leukocyte Esterase (NEGATIVE) Urine Microscopic RBC (0-2) /HPF Urine Microscopic WBC (0-5) /HPF Ur Epithelial Cells (FEW) /HPF Urine Bacteria (NEGATIVE) /HPF Urine Culture Reflexed (NO) Urine Glucose (NEGATIVE) mg/dL Stool Occult Blood (Negative) Slides for Path Review Specimen Received 07/27/17 07/27/17 07/27/17 Range/Units 13:50 13:50 13:41 WBC 9.7 (4.0-10.5) K/mm3 RBC 4.12 (4.1-5.4) M/mm3 Hgb 12.3 (12.0-16.0) gm/dl Hct 38.5 (35-47) % MCV 93.4 (78-100) fl MCH 29.9 (26-32) pg MCHC 31.9 L (32-36) g/dl RDW 15.9 H (11.5-14.0) % Plt Count 300 (150-450) K/mm3 MPV 10.9 H (6-9.5) fl Gran % 87.4 H (36.0-66.0) % Eos # (Auto) 0.01 (0-0.5) Absolute Lymphs (auto) 0.61 L (1.0-4.6) Absolute Monos (auto) 0.57 (0.0-1.3) Lymphocytes % 6.3 L (24.0-44.0) % Monocytes % 5.9 (0.0-12.0) % Eosinophils % 0.1 (0.00-5.0) % Basophils % 0.3 (0.0-0.4) % Absolute Granulocytes 8.43 H (1.4-6.9) Basophils # 0.03 (0-0.4) pO2/FiO2 Ratio % VBG pH (7.32-7.42) VBG pCO2 at Pat Temp (42-55) mm/Hg VBG pO2 at Pat Temp (25-40) mm/Hg VBG HCO3 (22-28) meq/L VBG O2 Sat (Shanon) (95-100) VBG Base Excess (-2.0-2.0) VBG Hemoglobin VBG Carboxyhemoglobin (0.0-6.9) % T HGB POC Potassium (3.5-5.1) Sodium 137 (137-145) mmol/L Potassium 5.2 H (3.5-5.1) mmol/L Chloride 98 (98-107) mmol/L Carbon Dioxide 24 (22-30) mmol/L Anion Gap 19.8 H (5-15) MEQ/L BUN 18 H (7-17) mg/dL Creatinine 1.21 H (0.52-1.04) mg/dL Estimated GFR 45.3 ML/MIN Glucose 433 H (74-106) mg/dL Lactic Acid (0.4-2.0) Calcium 9.6 (8.4-10.2) mg/dL Total Bilirubin 2.30 H (0.2-1.3) mg/dL AST 570 H (14-36) U/L ALT 201 H (0-35) U/L Alkaline Phosphatase 360 H (38-126) U/L Troponin I (0.000-0.034) ng/mL NT-Pro-B Natriuret Pep 4340 H (0-1800) pg/mL Serum Total Protein 6.9 (6.3-8.2) g/dL Albumin 3.8 (3.5-5.0) g/dL Lipase 7351 H (23-300) U/L Ur Collection Type Urine Color (YELLOW) Urine Appearance (CLEAR) Urine pH (5-6) Ur Specific [place] (1.005-1.025) Urine Protein (Negative) Urine Ketones (NEGATIVE) Urine Blood (0-5) Allan/ul Urine Nitrite (NEGATIVE) Urine Bilirubin (NEGATIVE) Urine Urobilinogen (0-1) mg/dL Ur Leukocyte Esterase (NEGATIVE) Urine Microscopic RBC (0-2) /HPF Urine Microscopic WBC (0-5) /HPF Ur Epithelial Cells (FEW) /HPF Urine Bacteria (NEGATIVE) /HPF Urine Culture Reflexed (NO) Urine Glucose (NEGATIVE) mg/dL Stool Occult Blood NEGATIVE (Negative) Slides for Path Review YES Specimen Received - Progress Progress Note: 07/27/17 15:41 Pt fairly comfortable. HR in 100's. No fever. Cultures sent. IV zosyn given. She has acute gallstone pancreatitis. She has UTI. Called [facility] and [facility] and no GI with [facility] building construction estimator. Calling [facility] to see about transfer. Pt sees Dr Phillip Ruiz from cardiology. 07/27/17 16:05 [facility] unable to accommodate pt. Will call Wend[facility]. 07/27/17 16:[address] Pantoja hospitalist at [facility] and Dr Brunilda CARRASCO. They accept transfer to [facility]. Await bed. Counseled pt/family regarding: lab results, diagnosis, need for follow-up, rad results - Departure Time of Disposition: 16:47 Departure Disposition: Transfer ([facility]) Clinical Impression: Acute gallstone pancreatitis, UTI (urinary tract infection), Sepsis Condition: Fair Critical Care Time: No Referrals: FE SOTO [Primary Care Provider] -
[2017-07-27 14:05] LABS: Lactic Acid 3.6 (0.4-2.0)
[2017-07-27 14:07] LABS: VBG BASE EXCESS 1.3 (-2.0-2.0); VBG CARBOXYHEMOGLOBIN 2.6 % T HGB (0.0-6.9); VBG HCO3- 25.9 meq/L (22-28); VBG O2 SATURATION 70.5 (95-100); VBG POTASSIUM 5.2 (3.5-5.1); VBG pH 7.42 (7.32-7.42)
[2017-07-27 14:12] LABS: BASOPHIL % 0.3 % (0.0-0.4); Basophil (Absolute #) 0.03 (0-0.4); Eosinophil % 0.1 % (0.00-5.0); Eosinophil (Absolute #) 0.01 (0-0.5); Granulocyte Absolute (ANC) 8.43 (1.4-6.9); Granulocytes % 87.4 % (36.0-66.0); Hematocrit 38.5 % (35-47); Hemoglobin 12.3 gm/dl (12.0-16.0); Lymphocyte (Absolute #) 0.61 (1.0-4.6); Lymphocytes % 6.3 % (24.0-44.0); Mean Cell Volume 93.4 fl (78-100); Mean Corpuscular Hemoglobin 29.9 pg (26-32); Mean Corpuscular Hgb Concent. 31.9 g/dl (32-36); Mean Platelet Volume 10.9 fl (6-9.5); Monocyte (Absolute #) 0.57 (0.0-1.3); Monocytes % 5.9 % (0.0-12.0); Platelet Count 300 K/mm3 (150-450); Red Blood Count 4.12 M/mm3 (4.1-5.4); Red Cell Distribution Width 15.9 % (11.5-14.0); White Blood Count 9.7 K/mm3 (4.0-10.5)
--- NOTE | 2017-07-27 14:32 | XRAY ---
Indication: Chest pain. Abnormal lung sounds. Comparison: July 07, 2017. Portable chest unchanged again demonstrating minimal left base infiltrate/atelectasis/effusion, borderline cardiomegaly, and left-sided AICD. No new cardiopulmonary abnormalities.
[2017-07-27 14:33] LABS: ALBUMIN 3.8 g/dL (3.5-5.0); ANION GAP 19.8 MEQ/L (5-15); BILIRUBIN,TOTAL 2.3 mg/dL (0.2-1.3); Calcium 9.6 mg/dL (8.4-10.2); Creatinine 1 1.21 mg/dL (0.52-1.04); Potassium 5.2 mmol/L (3.5-5.1); Total Protein 6.9 g/dL (6.3-8.2)
--- NOTE | 2017-07-27 14:35 | XRAY ---
Indication: Upper abdominal pain. Multiple contiguous axial images obtained through the abdomen and pelvis without contrast as ordered. Comparison: None Lung bases demonstrates bibasilar atelectasis/scarring and tiny left effusion. Heart is enlarged with small pericardial effusion and AICD leads. Small hiatal hernia. Noncontrasted stomach and bowel loops appear nonobstructed. Normal appendix. Scattered colonic diverticulosis, greatest in the sigmoid colon. No free fluid/air. Gallbladder abnormally distended with dense intraluminal sludge and gallstones, largest 1.9 cm. No abnormal biliary distention. A few bilateral renal cysts, largest left lower pole measuring 3.2 cm. Right mid renal 1.2 cm round mass slightly more dense than a simple cyst. No hydronephrosis or hydroureter. Fatty-replaced pancreas. Remaining liver, spleen, adrenal glands, ureters, bladder, and uterus appear unremarkable for noncontrast exam. Moderate aortoiliac calcifications without AAA. Osseous structures intact with mild/moderate multilevel degenerative spondylosis and mild dextrorotoscoliosis centered at L2-L3 level. Impression: 1. Abnormally distended gallbladder with dense intraluminal sludge and gallstones. Gallbladder sonogram may yield further information. 2. Colonic diverticulosis without diverticulitis. 3. Bilateral renal cysts. A 1.2 cm right mid renal mass more dense than simple cyst possibly viscous/hemorrhagic cyst versus solid mass. Sonogram may yield further information. 3. Small hiatal hernia. 4. Cardiomegaly with small pericardial effusion. CT DI 22.40
[2017-07-27 15:27] LABS: Appearance CLOUDY (CLEAR); Leukocyte Esterase 2+ (NEGATIVE)
[2017-07-27 15:28] LABS: Bilirubin NEGATIVE (NEGATIVE); Glucose 500 mg/dL (NEGATIVE); Ketones TRACE (NEGATIVE); Nitrite NEGATIVE (NEGATIVE); Protein,Urine Dip TRACE (Negative); Urobilinogen NORMAL mg/dL (0-1)
[2017-07-27 15:29] LABS: Bacteria MANY /HPF (NEGATIVE); Epithelial Cells FEW /HPF (FEW); WBC >100 /HPF (0-5)
[2017-07-27 15:34] LABS: Slide Review 1 YES
--- NOTE | 2017-07-27 15:58 | XRAY ---
Indication: Abnormal gallbladder on same-day CT abdomen/pelvis exam. Right upper quadrant pain. Two-dimensional right upper quadrant abdominal sonogram performed. Comparison: None Gallbladder is distended with intraluminal sludge and gallstones. Gallbladder wall is thickened measuring 2.3 mm. No pericholecystic fluid. Common bile duct measures 5.1 mm. No intrahepatic biliary distention. Fatty replaced echogenic pancreas without focal solid/cystic mass. Remaining visualized portions of the liver unremarkable. Right kidney measures 8.8 x 4.6 x 4.7 cm and demonstrates cysts, largest midpole measuring 1.9 cm. Smaller 1.2 cm midpole cyst with low-level internal echoes felt to correspond to the CT finding. No hydronephrosis or perinephric fluid. Impression: 1. Abnormal gallbladder with dense sludge, gallstones, and wall thickening. Rule out chronic cholecystitis. 2. Right renal cysts. 1.2 cm midpole cyst probably corresponds to the CT dense mass. 3. Fatty pancreas.
[2017-07-27 16:38] LABS: Lactic Acid 2.2 (0.4-2.0)
[2017-07-27 16:55] VITALS: O2SAT 94
[2017-07-27 19:30] VITALS: BP 115/84; PULSE 122
== END ==
LOC: ED 13:01
DX: K85.10 Biliary acute pancreatitis without necrosis or infection (principal); N39.0 Urinary tract infection, site not specified; A41.9 Sepsis, unspecified organism; E11.65 Type 2 diabetes mellitus with hyperglycemia; I48.91 Unspecified atrial fibrillation; R41.0 Disorientation, unspecified; R07.9 Chest pain, unspecified; Z95.0 Presence of cardiac pacemaker; Z79.01 Long term (current) use of anticoagulants; Z79.899 Other long term (current) drug therapy
CPT/HCPCS: 36000; 36415; 71045; 74176; 76705; 80053; 81000; 82272; 82805; 82947; 82962; 83605; 83690; 83880; 84484; 85025; 87040; 87077; 87086; 87186; 93005; 96360; 96361; 96365; 96372; 96374; 96375; 99285; P9612; J2543; J3010; A9270-GY

== ENCOUNTER 2017-08-19 13:42 | Inpatient (IN) | payer MEDICARE, OTHER ==
[2017-08-19] MEDS ORDERED: DUONEB 0.5-3 MG/3 ml Neb IH ONE ×2 (14:23→14:45)
[2017-08-19 14:52] LABS: BASOPHIL % 1.2 % (0.0-0.4); Basophil (Absolute #) 0.08 (0-0.4); Eosinophil % 4.1 % (0.00-5.0); Eosinophil (Absolute #) 0.28 (0-0.5); Granulocyte Absolute (ANC) 4.57 (1.4-6.9); Granulocytes % 67.3 % (36.0-66.0); Hematocrit 38.3 % (35-47); Hemoglobin 11.6 gm/dl (12.0-16.0); Lymphocyte (Absolute #) 1.23 (1.0-4.6); Lymphocytes % 18.1 % (24.0-44.0); Mean Cell Volume 99.7 fl (78-100); Mean Corpuscular Hemoglobin 30.2 pg (26-32); Mean Corpuscular Hgb Concent. 30.3 g/dl (32-36); Mean Platelet Volume 11.4 fl (6-9.5); Monocyte (Absolute #) 0.63 (0.0-1.3); Monocytes % 9.3 % (0.0-12.0); Platelet Count 348 K/mm3 (150-450); Red Blood Count 3.84 M/mm3 (4.1-5.4); Red Cell Distribution Width 18.3 % (11.5-14.0); White Blood Count 6.8 K/mm3 (4.0-10.5)
[2017-08-19 14:58] LABS: A-aADO2 37; ABG HEMOGLOBIN 11.2; ABG POTASSIUM 4.2 (3.5-5.1); ARTERIAL BLD GAS O2 SATURATION 94.5 % (95-100); ARTERIAL BLOOD GAS BASE EXCESS 9.6 (-2.0-2.0); ARTERIAL BLOOD GAS FIO2 21 %; ARTERIAL BLOOD GAS PCO2 46 mmHg (35-45); ARTERIAL BLOOD GAS PO2 55 mmHg (75-100); ARTERIAL BLOOD GAS pH 7.48 (7.35-7.45); CARBOXYHEMOGLOBIN 2.2 % THgb (0.0-6.9); HCO3- 34.3 (22-28); Methhemoglobin 1.5 % (1.4-1.5)
--- NOTE | 2017-08-19 14:58 | ERPHSYRPT ---
- History of Present Illness Time Seen by Provider: 08/19/17 14:07 Source: patient, EMS Exam Limitations: clinical condition Patient Subjective Stated Complaint: SOB beginning this morning. EMS states they were told by NH of possible aspiration, pt denies. Triage Nursing Assessment: Pt presents to the ED with complaints of SOB, denies pain. Pt states hx of pneumonia. Pt states no other complaints at this time. Pt is alert but appears sleepy, no distress noted. Physician History: Pt is asleep, easy to arouse, slightly lethargic. She developed shortness of breath since this morning, [facility] nurse reported aspiration, however patient denies it. She denies cough, chest pain, nausea, vomiting, fever, other complaints., She has a history of DM, CHF, takes Bumex. Timing/Duration: today Activities at Onset: none Severity of Dyspnea-Max: moderate Severity of Dyspnea-Current: moderate Possible Cause: frequent episodes Modifying Factors: Improves With: nothing Associated Symptoms: denies symptoms Allergies/Adverse Reactions: No Known Drug Allergies Allergy (Verified 07/04/17 16:31) Home Medications: Levothyroxine Sodium 100 Mcg [Synthroid 100 Mcg] 100 mcg PO DAILY 08/17/16 [History] Rosuvastatin Calcium [Crestor] 10 mg PO DAILY 08/17/16 [History] Sitagliptin Phosphate 50 MG [Januvia 50 MG] 100 mg PO DAILY 01/22/17 [ History] Magnesium Oxide 400 mg [Mag-Ox 400] 400 mg PO BID 01/31/17 [History] Metoprolol Tartrate 50 mg [Lopressor 50 MG] 75 mg PO BID 02/08/17 [History ] Ferrous Sulfate [Iron] 325 mg PO BID 07/05/17 [History] Benzonatate [Tessalon Perle] 200 mg PO TID 07/27/17 [History] Multivitamin W-Minerals/Lutein [Cerovite Silver Tablet] 1 tab PO DAILY 07/27/17 [History] Sacubitril/Valsartan [Entresto 49 mg-51 mg Tablet] 0.5 tablet PO BID 07/27/17 [ History] Allopurinol [Allopurinol] 300 mg PO DAILY 08/19/17 [History] Hx Tetanus, Diphtheria Vaccination/Date Given: Yes Hx Influenza Vaccination/Date Given: Yes Hx Pneumococcal Vaccination/Date Given: Yes Immunizations Up to Date: Yes - Review of Systems Constitutional: No Symptoms Respiratory: Dyspnea All Other Systems: Reviewed and Negative - Past Medical History Pertinent Past Medical History: Yes Neurological History: No Pertinent History ENT History: Cataracts Cardiac History: Arrhythmia, Coronary Artery Disease, Hypertension Respiratory History: CHF Endocrine Medical History: Diabetes Type II, Hypothyroidism Musculoskeletal History: Arthritis, Fractures GI Medical History: No Pertinent History History: Renal Disease, Other Psycho-Social History: No Pertinent History Female Reproductive Disorders: No Pertinent History Other Medical History: 40 % kidney function - Past Surgical History Past Surgical History: Yes Neuro Surgical History: No Pertinent History Cardiac: Internal Defibrillator, Pacemaker Respiratory: No Pertinent History Gastrointestinal: Appendectomy Genitourinary: No Pertinent History Musculoskeletal: Orthopedic Surgery Female Surgical History: Tubal Ligation Other Surgical History: right arm surgery - Social History Smoking Status: Never smoker Exposure to second hand smoke: No Alcohol Use: None Drug Use: none Patient Lives Alone: No Significant Family History: heart disease, hypertension - Female History Hx Now: No - Nursing Vital Signs Nursing Vital Signs: Initial Vital Signs Temperature 97.6 F 08/19/17 13:47 Pulse Rate 90 08/19/17 13:47 Respiratory Rate 16 08/19/17 13:47 Blood Pressure 103/62 08/19/17 13:47 O2 Sat by Pulse Oximetry 97 08/19/17 13:47 Pain Scale Pain Intensity 0 - Physical Exam General Appearance: no apparent distress Eye Exam: eyes nml inspection Ears, Nose, Throat Exam: normal ENT inspection Neck Exam: normal inspection, non-tender, supple, No carotid bruit, No JVD Respiratory Exam: airway intact, diminished breath sounds, rhonchi (expiratory rhonchy bilateral bases), No chest tenderness, No respiratory distress Cardiovascular/Chest Exam: normal heart sounds, regular rate/rhythm, normal peripheral pulses, No murmur, No edema, No JVD Abdominal/Gastrointestinal Exam: soft, normal bowel sounds, No tenderness Peripheral Pulses Exam: dorsalis-pedis (R): 2+, dorsalis-pedis (L): 2+ Neurologic Exam: alert, oriented x 3 Skin Exam: normal color, warm, dry, No rash Lymphatic Exam: No adenopathy SpO2 Interpretation: normal SpO2: 96 Oxygen Delivery: Room Air - Course Nursing assessment & vital signs reviewed: Yes EKG Interpreted by Me: RATE (66/min), Other (paced rhythm) - Radiology Exams Chest X-ray Interpretation: Reviewed by me, Other (cardiomegaly, minimal left base infiltrate/atelectasis/effusion) Ordered Tests: Active Orders 24 hr Category Date Time Status Tire Classifier STAT Care 08/19/17 14:24 Active EKG-ER Only STAT Care 08/19/17 14:23 Active IV Insertion STAT Care 08/19/17 14:23 Active Oxygen-ED Only NASAL CANNULA 2 lpm Care 08/19/17 14:23 Active CHEST 1 VIEW (PORTABLE) Stat Exams 08/19/17 14:24 Completed ARTERIAL BLOOD GASES Stat Lab 08/19/17 14:55 Completed BLOOD CULTURE Stat Lab 08/19/17 16:25 Received CBC W DIFF Stat Lab 08/19/17 14:51 Completed CMP Routine Lab 08/19/17 14:51 Completed Lactic Acid Stat Lab 08/19/17 14:50 Completed MAGNESIUM Routine Lab 08/19/17 14:51 Completed NT PRO BNP Routine Lab 08/19/17 14:51 Completed PROTIME WITH INR Stat Lab 08/19/17 14:51 Completed PTT Stat Lab 08/19/17 14:51 Completed TROPONIN Q3H Lab 08/19/17 14:51 Completed TROPONIN Q3H Lab 08/19/17 17:30 Ordered TROPONIN Q3H Lab 08/19/17 20:30 Ordered TROPONIN Q3H Lab 08/19/17 23:30 Ordered TROPONIN Q3H Lab 08/20/17 02:30 Ordered Respiratory Nebulizer STAT RT 08/19/17 14:25 Completed Medication Summary Generic Name Dose Route Start Last Admin Trade Name Freq PRN Reason Stop Dose Admin Vancomycin HCl 1 gm in 250 mls @ 167 mls/hr 08/19/17 15:44 08/19/17 16:55 Vancomycin 1gm/ Ns 250ml IV 08/19/17 17:13 167 mls/hr STAT ONE Administration Discontinued Medications Generic Name Dose Route Start Last Admin Trade Name Freq PRN Reason Stop Dose Admin Albuterol/Ipratropium 3 ml 08/19/17 14:23 08/19/17 15:00 Duoneb 0.5-3 Mg/3 Ml Neb IH 08/19/17 14:24 3 ml STAT ONE Administration Albuterol/Ipratropium Confirm 08/19/17 14:45 Duoneb 0.5-3 Mg/3 Ml Neb Administered 08/19/17 14:46 Dose 3 ml IH .STK-MED ONE Piperacillin Sod/Tazobactam Sod 3.375 gm in 100 mls @ 200 mls/hr 08/19/17 15: 44 08/19/17 15:56 Zosyn 3.375gm/100 Ml D5w IV 08/19/17 16:13 200 mls/hr STAT STA Administration Piperacillin Sod/Tazobactam Sod Confirm 08/19/17 15:53 Zosyn 3.375gm/100 Ml D5w Administered 08/19/17 15:54 Dose 3.375 gm in 100 mls @ ud IV .STK-MED ONE Vancomycin HCl Confirm 08/19/17 15:54 Vancomycin 1gm/ Ns 250ml Administered 08/19/17 15:55 Dose 250 mls @ ud IV .STK-MED ONE Lab/Rad Data: Laboratory Result Diagrams 08/19/17 14:51 08/19/17 14:51 Laboratory Results 08/19/17 08/19/17 08/19/17 Range/Units 14:55 14:51 14:51 WBC (4.0-10.5) K/mm3 RBC (4.1-5.4) M/mm3 Hgb (12.0-16.0) gm/dl Hct (35-47) % MCV (78-100) fl MCH (26-32) pg MCHC (32-36) g/dl RDW (11.5-14.0) % Plt Count (150-450) K/mm3 MPV (6-9.5) fl Gran % (36.0-66.0) % Eos # (Auto) (0-0.5) Absolute Lymphs (auto) (1.0-4.6) Absolute Monos (auto) (0.0-1.3) Lymphocytes % (24.0-44.0) % Monocytes % (0.0-12.0) % Eosinophils % (0.00-5.0) % Basophils % (0.0-0.4) % Absolute Granulocytes (1.4-6.9) Basophils # (0-0.4) PT (9.95-12.35) SECONDS INR (0.8-3.0) APTT (25.3-37.0) SECONDS Puncture Site LEFT RADIAL pCO2 46 H (35-45) mmHg pO2 55 L (75-100) mmHg Base Excess 9.6 H (-2.0-2.0) O2 Saturation 91.0 L (94-100) g/dF ABG pH 7.48 H (7.35-7.45) ABG HCO3 34.3 H* (22-28) ABG O2 Sat (Measured) 94.5 L (95-100) % Yosvany Test YES A-a Gradient 37 a/A Ratio 0.60 Hemoglobin 11.2 Carboxyhemoglobin 2.2 (0.0-6.9) % THgb Methemoglobin 1.5 (1.4-1.5) % Temperature 37.0 C POC O2 Flow Rate 21 % Sodium 143 (137-145) mmol/L Potassium 4.2 4.7 (3.5-5.1) mmol/L Chloride 100 (98-107) mmol/L Carbon Dioxide 33 H (22-30) mmol/L Anion Gap 14.3 (5-15) MEQ/L BUN 17 (7-17) mg/dL Creatinine 0.95 (0.52-1.04) mg/dL Estimated GFR 59.7 ML/MIN Glucose 162 H (74-106) mg/dL Lactic Acid (0.4-2.0) Calcium 9.2 (8.4-10.2) mg/dL Magnesium 2.1 (1.6-2.3) mg/dL Total Bilirubin 0.50 (0.2-1.3) mg/dL AST 51 H (14-36) U/L ALT 21 (0-35) U/L Alkaline Phosphatase 125 (38-126) U/L Troponin I < 0.012 (0.000-0.034) ng/mL NT-Pro-B Natriuret Pep 1310 (0-1800) pg/mL Serum Total Protein 7.1 (6.3-8.2) g/dL Albumin 3.6 (3.5-5.0) g/dL Influenza Type A Ag NEGATIVE (NEGATIVE) Influenza Type B Ag NEGATIVE (NEGATIVE) RSV (PCR) NEGATIVE (Negative) 08/19/17 08/19/17 08/19/17 Range/Units 14:51 14:51 14:50 WBC 6.8 (4.0-10.5) K/mm3 RBC 3.84 L (4.1-5.4) M/mm3 Hgb 11.6 L (12.0-16.0) gm/dl Hct 38.3 (35-47) % MCV 99.7 (78-100) fl MCH 30.2 (26-32) pg MCHC 30.3 L (32-36) g/dl RDW 18.3 H (11.5-14.0) % Plt Count 348 (150-450) K/mm3 MPV 11.4 H (6-9.5) fl Gran % 67.3 H (36.0-66.0) % Eos # (Auto) 0.28 (0-0.5) Absolute Lymphs (auto) 1.23 (1.0-4.6) Absolute Monos (auto) 0.63 (0.0-1.3) Lymphocytes % 18.1 L (24.0-44.0) % Monocytes % 9.3 (0.0-12.0) % Eosinophils % 4.1 (0.00-5.0) % Basophils % 1.2 (0.0-0.4) % Absolute Granulocytes 4.57 (1.4-6.9) Basophils # 0.08 (0-0.4) PT 21.6 H (9.95-12.35) SECONDS INR 1.93 (0.8-3.0) APTT 33.7 (25.3-37.0) SECONDS Puncture Site pCO2 (35-45) mmHg pO2 (75-100) mmHg Base Excess (-2.0-2.0) O2 Saturation (94-100) g/dF ABG pH (7.35-7.45) ABG HCO3 (22-28) ABG O2 Sat (Measured) (95-100) % Yosvany Test A-a Gradient a/A Ratio Hemoglobin Carboxyhemoglobin (0.0-6.9) % THgb Methemoglobin (1.4-1.5) % Temperature C POC O2 Flow Rate % Sodium (137-145) mmol/L Potassium (3.5-5.1) mmol/L Chloride (98-107) mmol/L Carbon Dioxide (22-30) mmol/L Anion Gap (5-15) MEQ/L BUN (7-17) mg/dL Creatinine (0.52-1.04) mg/dL Estimated GFR ML/MIN Glucose (74-106) mg/dL Lactic Acid 1.1 (0.4-2.0) Calcium (8.4-10.2) mg/dL Magnesium (1.6-2.3) mg/dL Total Bilirubin (0.2-1.3) mg/dL AST (14-36) U/L ALT (0-35) U/L Alkaline Phosphatase (38-126) U/L Troponin I (0.000-0.034) ng/mL NT-Pro-B Natriuret Pep (0-1800) pg/mL Serum Total Protein (6.3-8.2) g/dL Albumin (3.5-5.0) g/dL Influenza Type A Ag (NEGATIVE) Influenza Type B Ag (NEGATIVE) RSV (PCR) (Negative) - Progress Progress: improved Air Movement: fair Progress Note: 08/19/17 17:08 pt has been stable, O2 sat: 95% on room air, afebrile, no sign of pain or difficulty breathing, improved, her family at the bedside, she is responding to them. I called Dr Soto, discussed this case in details as well as patient's current condition, she agreed to admit her to Telemetry, family and patient were informed, they agreed. Blood Culture(s) Obtained: Yes Antibiotics given: Yes Discussed with : Charles Will see patient in: hospital (full admit) Counseled pt/family regarding: lab results, diagnosis, rad results - Departure Time of Disposition: 17:10 Departure Disposition: In-patient Admission Clinical Impression: Pneumonia Qualifiers: Pneumonia type: due to unspecified organism Laterality: left Lung location: lower lobe of lung Qualified Code(s): J18.1 - Lobar pneumonia, unspecified organism Condition: Fair Critical Care Time: No Referrals: FRANCOIS TRIVEDI [Primary Care Provider] -
[2017-08-19 14:59] LABS: ABG SITE LEFT RADIAL; ALLEN TEST OK? YES
--- NOTE | 2017-08-19 15:14 | XRAY ---
Indication: Dyspnea. Aspiration. Comparison: July 27, 2017. Portable chest unchanged again demonstrating minimal left base infiltrate/atelectasis/effusion, cardiomegaly, and left-sided AICD. No new cardiopulmonary abnormalities.
[2017-08-19 15:20] LABS: ALBUMIN 3.6 g/dL (3.5-5.0); ALKALINE PHOSPHATASE 125 U/L (38-126); ANION GAP 14.3 MEQ/L (5-15); BLOOD UREA NITROGEN 17 mg/dL (7-17); CHLORIDE 100 mmol/L (98-107); Calcium 9.2 mg/dL (8.4-10.2); Carbon Dioxide 33 mmol/L (22-30); Creatinine 1 0.95 mg/dL (0.52-1.04); Glucose 162 mg/dL (74-106); Potassium 4.7 mmol/L (3.5-5.1); SGOT/AST 51 U/L (14-36); SGPT/ALT 21 U/L (0-35); SODIUM 143 mmol/L (137-145); Total Protein 7.1 g/dL (6.3-8.2)
[2017-08-19 15:23] LABS: INR 1.93 (0.8-3.0)
[2017-08-19 15:26] LABS: PTT 33.7 SECONDS (25.3-37.0)
[2017-08-19 15:29] LABS: NT PRO BNP 1310 pg/mL (0-1800)
[2017-08-19 15:34] LABS: TROPONIN < 0.012 ng/mL (0.000-0.034)
[2017-08-19] MEDS ORDERED: Zosyn 3.375GM/100 Ml D5W 3.375 GM/100 ML IVPB IV STA (15:44)
[2017-08-19] MEDS ORDERED: Vancomycin 1GM/ Ns 250ML*** 1 GM/250 ML IVPB IV ONE (15:44)
[2017-08-19 15:51] LABS: INFLUENZA A NEGATIVE (NEGATIVE)
[2017-08-19 15:52] LABS: INFLUENZA B NEGATIVE (NEGATIVE); RESPIRATORY SYNCTIAL VIRUS NEGATIVE (Negative)
[2017-08-19] MEDS ORDERED: Zosyn 3.375GM/100 Ml D5W 3.375 GM/100 ML IVPB IV ONE (15:53)
[2017-08-19] MEDS ORDERED: Vancomycin 1GM/ Ns 250ML*** 250 ML IV ONE (15:54)
[2017-08-19] MEDS ORDERED: TYLENOL 325 MG PO PRN (17:11)
[2017-08-19] MEDS ORDERED: DUONEB 0.5-3 MG/3 ml Neb IH PRN (17:11)
[2017-08-19] MEDS ORDERED: Sodium Chloride 0.9% 1000 ML 1,000 ML ONE (17:18)
[2017-08-19] MEDS: Sodium Chloride 0.9% 1000 ML 1,000 ML IV SCH (17:25)
[2017-08-19] MEDS: Zosyn 3.375GM/100 Ml D5W 3.375 GM/100 ML IVPB IV SCH (19:50)
[2017-08-20] MEDS: Zosyn 3.375GM/100 Ml D5W 3.375 GM/100 ML IVPB IV SCH ×2 (00:35→05:03)
[2017-08-20] MEDS: Sodium Chloride 0.9% 1000 ML 1,000 ML IV SCH ×2 (05:42→15:35)
[2017-08-20 05:50] LABS: BASOPHIL % 1.1 % (0.0-0.4); Basophil (Absolute #) 0.08 (0-0.4); Eosinophil % 3.7 % (0.00-5.0); Eosinophil (Absolute #) 0.26 (0-0.5); Granulocyte Absolute (ANC) 4.87 (1.4-6.9); Granulocytes % 68.7 % (36.0-66.0); Hematocrit 35.4 % (35-47); Hemoglobin 10.8 gm/dl (12.0-16.0); Lymphocyte (Absolute #) 1.24 (1.0-4.6); Lymphocytes % 17.5 % (24.0-44.0); Mean Cell Volume 99.2 fl (78-100); Mean Corpuscular Hgb Concent. 30.5 g/dl (32-36); Mean Platelet Volume 11.3 fl (6-9.5); Monocyte (Absolute #) 0.64 (0.0-1.3); Platelet Count 261 K/mm3 (150-450); Red Blood Count 3.57 M/mm3 (4.1-5.4); Red Cell Distribution Width 18.1 % (11.5-14.0); White Blood Count 7.1 K/mm3 (4.0-10.5)
[2017-08-20 06:01] LABS: Mean Corpuscular Hemoglobin 30.2 pg (26-32)
[2017-08-20 06:08] LABS: BLOOD UREA NITROGEN 16 mg/dL (7-17); CHLORIDE 105 mmol/L (98-107); Carbon Dioxide 31 mmol/L (22-30); Creatinine 1 0.86 mg/dL (0.52-1.04); Glucose 137 mg/dL (74-106); SODIUM 144 mmol/L (137-145)
--- NOTE | 2017-08-20 08:46 | PCM.HP ---
History of Present Illness - Chief Complaint Chief Complaint: SOB, Pneumonia History of Present Illness: is a 82 year old female pt of mine from [facility] with PMHx CHF who came to ER from [place] with SOB and weakness yesterday. She is a poor historian and doesn't remember what happened yesterday; her who is with her is a better historian. Pt has had a cough for several days. no fever. Was not eating well yesterday; while in dining room she had pocketed food in her mouth, and they thought she aspirated ("junky" breath sounds in lower bases) . O2 sat 98% but lethargic, bp decreased. In ER her CXR had infiltrate vs atelectasis vs effusion in the L base. She was started on vancomycin and zosyn. Over the weekend, she had exacerbation of her anxiety and was started on 0.25mg xanax po BID. Her thinks she is weaker since this happened. - Review of Systems Constitutional: Weakness Respiratory: Cough, Short Of Breath Psychological: Anxiety All Other Systems: Reviewed and Negative (as possible; pt very poor historian) Medications & Allergies Home Medications: Home Medication List Levothyroxine Sodium 100 Mcg [Synthroid 100 Mcg] 100 mcg PO DAILY 08/17/16 [History Confirmed 08/19/17] Rosuvastatin Calcium [Crestor] 10 mg PO HS 08/17/16 [History Confirmed 08/19/17] Albuterol Common Canister [Proventil Common Canister] 2 puff IH Q4H PRN PRN #1 unit 12/07/16 [Rx Confirmed 08/19/17] Polyvinyl Alcohol [Artificial Tears] 1 ml OP PRN PRN drops 12/07/16 [Rx Confirmed 08/19/17] Sitagliptin Phosphate 50 MG [Januvia 50 MG] 100 mg PO DAILY 01/22/17 [ History Confirmed 08/19/17] Apixaban [Eliquis] 5 mg PO BID #60 tablet 03/17/17 [Rx Confirmed 08/19/17] Amitriptyline HCl 25 mg [Elavil 25 mg] 50 mg PO HS #30 tablet 03/24/17 [ Rx Confirmed 08/19/17] Bumetanide 1 mg PO DAILY #30 tablet 03/24/17 [Rx Confirmed 08/19/17] Acetaminophen 325 mg [Tylenol 325 mg] 650 mg PO Q4H PRN PRN tablet [Rx Confirmed 08/19/17] Benzonatate [Tessalon Perle] 200 mg PO TID 07/27/17 [History Confirmed 08/19/17] Multivitamin W-Minerals/Lutein [Cerovite Silver Tablet] 1 tab PO DAILY 07/27/17 [History Confirmed 08/19/17] Sacubitril/Valsartan [Entresto 49 mg-51 mg Tablet] 0.5 tablet PO BID 07/27/17 [ History Confirmed 08/19/17] Allopurinol [Allopurinol] 300 mg PO DAILY 08/19/17 [History Confirmed 08/19/17] Potassium Chloride 10 Meq Tab* [Klor Con 10 MEQ] 10 meq PO QAM 08/19/17 [ History Confirmed 08/19/17] Allergies/Adverse Reactions: Allergies Allergy/AdvReac Type Severity Reaction Status Date / Time No Known Drug Allergies Allergy Verified 07/04/17 16:31 - Past Medical History Past Medical History: Yes Neurological History: No Pertinent History ENT History: Cataracts Cardiac History: Arrhythmia, Coronary Artery Disease, Hypertension Respiratory History: CHF Endocrine Medical History: Diabetes Type II, Hypothyroidism Musculoskelatal History: Arthritis, Fractures GI Medical History: Gallbladder Disease History: Renal Disease, Other Pyscho-Social History: No Pertinent History Reproductive Disorders: No Pertinent History Comment: 40 % kidney function - Female History Are you now?: No - Past Surgical History Past Surgical History: Yes Neuro Surgical History: No Pertinent History Cardiac History: Internal Defibrillator, Pacemaker Respiratory Surgery: No Pertinent History GI Surgical History: Appendectomy, Other Genitourinary Surgical Hx: No Pertinent History Musculskeletal Surgical Hx: Orthopedic Surgery Female Surgical History: Tubal Ligation Other Surgical History: right arm surgery. ERCP with bile duct stent. - Social History Smoking Status: Never smoker Exposure to second hand smoke: No Alcohol: None Drug Use: none Significant Family History: heart disease, hypertension - Physical Exam Vital Signs: Vital Signs - 24 hr Temp Pulse Resp BP Pulse Ox 08/20/17 07:35 98.4 F 94 H 20 131/75 94 L 08/20/17 07:22 96 H 20 95 08/20/17 04:00 98.1 F 97 H 24 128/71 99 08/20/17 00:00 97.7 F 98 H 18 109/70 94 L 08/19/17 21:04 98.0 F 88 20 135/63 97 08/19/17 20:00 98.0 F 88 20 135/63 97 08/19/17 18:47 97 H 18 98 08/19/17 17:11 96 08/19/17 16:55 100 H 22 134/67 97 08/19/17 15:57 90 16 123/71 96 08/19/17 14:58 92 H 16 105/63 91 L 08/19/17 14:49 85 16 105/63 96 08/19/17 14:25 88 18 95 08/19/17 14:06 18 96 08/19/17 13:47 97.6 F 90 16 103/62 97 Oxygen-Last 24 hours O2 Percentage 2 Liters = 28% General Appearance: no apparent distress, alert Neurologic Exam: oriented x 3, cooperative Eye Exam: eyes nml inspection Respiratory Exam: lungs clear, diminished breath sounds, wheezing (faint, WING), No crackles/rales, No rhonchi Cardiovascular Exam: regular rate/rhythm, normal heart sounds, No murmur Gastrointestinal/Abdomen Exam: soft, normal bowel sounds, No tenderness, No distention, No mass, No guarding, No rebound Extremity Exam: swelling (trace LE edema) Skin Exam: normal color, warm, dry, No rash Results - Labs Lab/Micro Results: Accuchecks Date 08/20/17 Date 08/19/17 Time 02:22 Time 20:16 Accucheck Value: 162 Accucheck Value: 162 Lab Results-Last 24 Hours 08/20/17 08/20/17 08/20/17 Range/Units 05:15 05:15 05:15 WBC 7.1 (4.0-10.5) K/mm3 RBC 3.57 L (4.1-5.4) M/mm3 Hgb 10.8 L (12.0-16.0) gm/dl Hct 35.4 (35-47) % MCV 99.2 (78-100) fl MCH 30.2 (26-32) pg MCHC 30.5 L (32-36) g/dl RDW 18.1 H (11.5-14.0) % Plt Count 261 (150-450) K/mm3 MPV 11.3 H (6-9.5) fl Gran % 68.7 H (36.0-66.0) % Eos # (Auto) 0.26 (0-0.5) Absolute Lymphs (auto) 1.24 (1.0-4.6) Absolute Monos (auto) 0.64 (0.0-1.3) Lymphocytes % 17.5 L (24.0-44.0) % Monocytes % 9.0 (0.0-12.0) % Eosinophils % 3.7 (0.00-5.0) % Basophils % 1.1 (0.0-0.4) % Absolute Granulocytes 4.87 (1.4-6.9) Basophils # 0.08 (0-0.4) Sodium 144 (137-145) mmol/L Potassium 4.0 (3.5-5.1) mmol/L Chloride 105 (98-107) mmol/L Carbon Dioxide 31 H (22-30) mmol/L Anion Gap 12.0 (5-15) MEQ/L BUN 16 (7-17) mg/dL Creatinine 0.86 (0.52-1.04) mg/dL Estimated GFR > 60.0 ML/MIN Glucose 137 H (74-106) mg/dL Calcium 9.0 (8.4-10.2) mg/dL Troponin I < 0.012 (0.000-0.034) ng/mL Accuchecks Date 08/20/17 Date 08/19/17 Time 02:22 Time 20:16 Accucheck Value: 162 Accucheck Value: 162 - Radiology Impressions Radiology Exams & Impressions: Radiology Procedures Category Date Time Status CHEST 2 VIEWS (PA AND LAT) Routine Exams 08/20/17 Ordered - Other Procedures and Tests Respiratory Therapy 08/19/17 18:47 Respiratory Nebulizer PRN Assessment/Plan (1) Pneumonia Current Visit: Yes Status: Acute Qualifiers: Pneumonia type: aspiration pneumonia Laterality: left Lung location: lower lobe of lung Assessment & Plan: Although the LLL is an unusual spot in which to aspirate, she does [facility] a [facility] Will stay on zosyn and vancomycin for now - day #2 of both. She does feel better today. I anticipate she may need several days of antibiotics. Code(s): J18.9 - PNEUMONIA, UNSPECIFIED ORGANISM (2) Anxiety Current Visit: No Status: Acute Assessment & Plan: She is on buspar with no real improvement. At basline is quite anxious but I think this is worse in the L[facility]. Will try starting her on paxil, low dose. Decreasing her elavil to 25mg qhs from 50 mg qhs. Code(s): F41.9 - ANXIETY DISORDER, UNSPECIFIED (3) CKD (chronic kidney disease) stage 3, GFR 30-59 ml/min Current Visit: No Status: Chronic Assessment & Plan: kidney funciton is good currently. Code(s): N18.3 - CHRONIC KIDNEY DISEASE, STAGE 3 (MODERATE) (4) Diabetes type 2, controlled Current Visit: No Status: Chronic Qualifiers: Diabetes mellitus termite control representative insulin use: without care home use Diabetes mellitus complication status: with kidney complications Diabetes mellitus complication detail: with chronic kidney disease Chronic kidney disease stage : stage 3 (moderate) Qualified Code(s): E11.22 - Type 2 diabetes mellitus with diabetic chronic kidney disease; N18.3 - Chronic kidney disease, stage 3 ( moderate); N18.3 - Chronic kidney disease, stage 3 (moderate) Code(s): E11.9 - TYPE 2 DIABETES MELLITUS WITHOUT COMPLICATIONS (5) Weakness Current Visit: No Status: Chronic Assessment & Plan: I think likely due to the xanax. d/c that. Code(s): R53.1 - WEAKNESS (6) Hypertension Current Visit: Yes Status: Chronic Qualifiers: Hypertension type: essential hypertension Qualified Code(s): I10 - Essential (primary) hypertension Code(s): I10 - ESSENTIAL (PRIMARY) HYPERTENSION
[2017-08-20] MEDS ORDERED: PROVENTIL COMMON CANISTER IH PRN (09:26)
[2017-08-20] MEDS ORDERED: POLYVINYL ALCOHOL OP PRN (09:26)
--- NOTE | 2017-08-20 09:28 | XRAY ---
Indication: Cough. Pneumonia. Comparison: One day earlier. Portable AP/lateral chest demonstrates slighty diminished cardiomegaly with stable left AICD. Mild bibasilar infiltrates/atelectasis/effusions not well seen on previous AP chest. Remaining heart and lungs unremarkable.
[2017-08-20] MEDS ORDERED: Artificial Tears 15 ML OP PRN (09:33)
[2017-08-20] MEDS: Januvia 50 MG PO SCH (10:04)
[2017-08-20] MEDS: BUMEX 1 MG PO SCH (10:04)
[2017-08-20] MEDS: Paxil 20 MG PO SCH (10:04)
[2017-08-20] MEDS: ENTRESTO 49 MG-51 MG TABLET PO SCH ×2 (10:05→21:41)
[2017-08-20] MEDS: Tessalon Perles 100 MG PO SCH ×3 (10:05→21:39)
[2017-08-20] MEDS: Klor Con 10 MEQ PO SCH (10:05)
[2017-08-20] MEDS: ZYLOPRIM 300 MG PO SCH (10:05)
[2017-08-20] MEDS: SYNTHROID 100 MCG PO SCH (10:05)
[2017-08-20] MEDS: ELIQUIS 5 MG TABLET PO SCH ×2 (10:05→21:39)
[2017-08-20] MEDS: Zosyn 2.25 GM 2.25 GM in D5w 100ML Mini Bag 100 ML 100 ML IV SCH ×3 (11:37→23:37)
[2017-08-20] MEDS: ELAVIL 25 MG PO SCH (21:39)
[2017-08-20] MEDS: ZOCOR 20MG PO SCH (21:39)
[2017-08-20] MEDS ORDERED: NON-FORMULARY ITEM (Rosuvastatin Calcium [Crestor] 10 MG) PO SCH (22:00)
[2017-08-20] MEDS: NovoLOG Insulin SQ PRN (23:37)
[2017-08-21] MEDS: Sodium Chloride 0.9% 1000 ML 1,000 ML IV SCH (02:33)
[2017-08-21] MEDS: Zosyn 2.25 GM 2.25 GM in D5w 100ML Mini Bag 100 ML 100 ML IV SCH ×3 (05:18→17:49)
[2017-08-21] MEDS: ELIQUIS 5 MG TABLET PO SCH ×2 (08:45→22:03)
[2017-08-21] MEDS: Tessalon Perles 100 MG PO SCH ×3 (08:45→23:00)
[2017-08-21] MEDS: Januvia 50 MG PO SCH (08:45)
[2017-08-21] MEDS: ZYLOPRIM 300 MG PO SCH (08:45)
[2017-08-21] MEDS: BUMEX 1 MG PO SCH (08:45)
[2017-08-21] MEDS: ENTRESTO 49 MG-51 MG TABLET PO SCH ×2 (08:46→22:04)
[2017-08-21] MEDS: Paxil 20 MG PO SCH (08:46)
[2017-08-21] MEDS: SYNTHROID 100 MCG PO SCH (08:46)
[2017-08-21] MEDS: Klor Con 10 MEQ PO SCH (08:46)
--- NOTE | 2017-08-21 12:03 | PCM.NOTE ---
Date and Time: 08/21/17 1203 Subjective Assessment: she is eating today feeling much better still with some coughing no choking now son at bedside and notes her improvement as well. Objective Exam General Appearance: no apparent distress, alert, obese Neurologic Exam: alert, oriented x 3, cooperative, normal mood/affect, nml cerebellar function, sensation nml, No motor deficits Skin Exam: normal color, warm, dry Eye Exam: PERRL, EOMI, eyes nml inspection Ears, Nose, Throat Exam: normal ENT inspection, pharynx normal, moist mucous membranes Neck Exam: normal inspection, non-tender, supple, full range of motion Respiratory Exam: crackles/rales (bibasilar), No respiratory distress Cardiovascular Exam: murmur Gastrointestinal/Abdomen Exam: soft, No tenderness, No mass Extremity Exam: normal inspection, normal range of motion Back Exam: normal inspection, normal range of motion, No CVA tenderness, No vertebral tenderness Pelvic Exam: deferred Rectal Exam: deferred OBJECTIVE DATA Vital Signs: Vital Signs - 24 hr Temp Pulse Resp BP Pulse Ox 08/21/17 11:06 97.8 F 76 20 140/80 95 08/21/17 09:26 87 20 94 L 08/21/17 08:00 20 08/21/17 07:28 97.9 F 87 20 136/80 96 08/21/17 04:20 97.8 F 95 H 18 145/82 95 08/21/17 04:00 18 08/21/17 00:00 18 08/20/17 23:43 98.5 F 91 H 18 119/59 96 08/20/17 20:52 99 H 18 93 L 08/20/17 20:20 98.6 F 96 H 20 127/61 93 L 08/20/17 20:00 20 08/20/17 16:00 98.4 F 89 16 132/75 94 L Pain Assessment - Last Documented Pain Intensity 0 Pain Scale Used 0-10 Pain Scale,FLACC Intake and Output: Intake & Output 08/19/17 08/20/17 08/21/17 08/22/17 11:59 11:59 11:59 11:59 Intake Total 2166 1571 Output Total 1000 750 Balance 1166 821 Weight 79.1 kg 79.1 kg Lab Results: Accuchecks Date 08/21/17 Date 08/20/17 Date 08/20/17 Time 07:30 Time 22:00 Time 14:29 Accucheck Value: 122 Accucheck Value: 165 Radiology Exams: Radiology Procedures Category Date Time Status CHEST 2 VIEWS (PA AND LAT) Routine Exams 08/20/17 09:08 Completed Assessment/Plan (1) Pneumonia Current Visit: Yes Status: Acute Onset Date: ~08/20/17 Qualifiers: Pneumonia type: aspiration pneumonia Laterality: left Lung location: lower lobe of lung Assessment & Plan: with the facility associated she is on the vancomycin and zosyn with good coverage cultures negative improving well consider de-esclaation with the good improvement in the next 48 hours getting rales now [place] will stop iv fluids with her hx of chf Code(s): J18.9 - PNEUMONIA, UNSPECIFIED ORGANISM (2) Diabetes mellitus type 2 in obese Current Visit: Yes Status: Chronic Code(s): E11.69 - TYPE 2 DIABETES MELLITUS WITH OTHER SPECIFIED COMPLICATION; E66.9 - OBESITY, UNSPECIFIED (3) Hypertension Current Visit: Yes Status: Chronic Onset Date: ~08/20/17 Qualifiers: Hypertension type: essential hypertension Qualified Code(s): I10 - Essential (primary) hypertension Code(s): I10 - ESSENTIAL (PRIMARY) HYPERTENSION (4) History of pulmonary embolism Current Visit: Yes Status: Chronic Code(s): Z86.711 - PERSONAL HISTORY OF PULMONARY EMBOLISM (5) Chronic congestive heart failure Current Visit: Yes Status: Chronic Qualifiers: Qualified Code(s): I50.22 - Chronic systolic (congestive) heart failure Code(s): I50.9 - HEART FAILURE, UNSPECIFIED (6) CKD (chronic kidney disease) stage 3, GFR 30-59 ml/min Current Visit: Yes Status: Chronic Code(s): N18.3 - CHRONIC KIDNEY DISEASE, STAGE 3 (MODERATE)
[2017-08-21] MEDS: NovoLOG Insulin SQ PRN ×2 (12:42→16:54)
[2017-08-21] MEDS: Sodium Chloride 0.9% 10 ML FLUSH Syringe IV SCH (22:03)
[2017-08-21] MEDS: ZOCOR 20MG PO SCH (22:03)
[2017-08-21] MEDS: ELAVIL 25 MG PO SCH (22:03)
[2017-08-22] MEDS: Zosyn 2.25 GM 2.25 GM in D5w 100ML Mini Bag 100 ML 100 ML IV SCH ×4 (00:02→17:51)
[2017-08-22] MEDS: Sodium Chloride 0.9% 10 ML FLUSH Syringe IV SCH ×3 (06:15→22:29)
[2017-08-22] MEDS: NovoLOG Insulin SQ PRN ×4 (07:31→22:32)
[2017-08-22] MEDS ORDERED: LOPRESSOR 5 MG/5 ML INJECTION IV ONE ×3 (08:03→10:00)
--- NOTE | 2017-08-22 08:10 | PCM.NOTE ---
Date and Time: 08/22/17803 Subjective Assessment: she is feeling ok but was unable to sleep woke up at 9 pm and has been up all night her heart rate has trended up starting yesterday afternoon and now is running in the 120's to 140's she is not having any chest pain or shortness of breath at this time. Objective Exam General Appearance: alert, obese Neurologic Exam: alert, oriented x 3, cooperative, normal mood/affect, nml cerebellar function, sensation nml, No motor deficits Skin Exam: normal color, warm, dry Eye Exam: PERRL, EOMI, eyes nml inspection Ears, Nose, Throat Exam: normal ENT inspection, pharynx normal, moist mucous membranes Neck Exam: normal inspection, non-tender, supple, full range of motion Respiratory Exam: crackles/rales, No respiratory distress Cardiovascular Exam: tachycardia, irregular Gastrointestinal/Abdomen Exam: soft, No tenderness, No mass Extremity Exam: normal inspection, normal range of motion Back Exam: normal inspection, normal range of motion, No CVA tenderness, No vertebral tenderness Pelvic Exam: deferred Rectal Exam: deferred OBJECTIVE DATA Vital Signs: Vital Signs - 24 hr Temp Pulse Resp BP Pulse Ox 08/22/17 07:39 97.8 F 94 H 20 130/68 08/22/17 07:11 128 H 24 95 08/22/17 04:00 98.7 F 110 H 24 128/76 96 08/22/17 00:00 98.4 F 115 H 22 144/83 94 L 08/21/17 22:49 98 H 20 96 08/21/17 19:57 99 F 107 H 20 160/74 96 08/21/17 16:00 20 08/21/17 15:10 97.6 F 66 20 118/58 95 08/21/17 12:00 20 08/21/17 11:06 97.8 F 76 20 140/80 95 08/21/17 09:26 87 20 94 L Pain Assessment - Last Documented Pain Intensity 0 Pain Scale Used 0-10 Pain Scale Intake and Output: Intake & Output 08/19/17 08/20/17 08/21/17 08/22/17 11:59 11:59 11:59 11:59 Intake Total 2166 1571 2240 Output Total 1000 750 500 Balance 3827 884 3716 Weight 79.1 kg 79.1 kg Lab Results: Accuchecks Date 08/21/17 Date 08/21/17 Time 16:30 Time 11:30 Accucheck Value: 119 Accucheck Value: 203 Accucheck Value: 222 Radiology Exams: Radiology Procedures Category Date Time Status CHEST 2 VIEWS (PA AND LAT) Routine Exams 08/20/17 09:08 Completed Assessment/Plan (1) Atrial fibrillation with RVR Current Visit: Yes Status: Acute Assessment & Plan: at last discharge she was on metropolol 75 mg po bid but this was not on her medication list recently from [facility] unclear when it was stopped now having the rvr. give 1 dose of 5mg iv metoprolol and repeat as bp allows as needed for total of up to 3 doses then restart po metoprolol checking cbc, cmp, mag and tsh Code(s): I48.91 - UNSPECIFIED ATRIAL FIBRILLATION (2) Pneumonia Current Visit: Yes Status: Acute Onset Date: ~08/20/17 Qualifiers: Pneumonia type: aspiration pneumonia Laterality: left Lung location: lower lobe of lung Assessment & Plan: on vancomycin and zosyn with health care associated and concern of possible aspiration Code(s): J18.9 - PNEUMONIA, UNSPECIFIED ORGANISM (3) Diabetes mellitus type 2 in obese Current Visit: Yes Status: Chronic Code(s): E11.69 - TYPE 2 DIABETES MELLITUS WITH OTHER SPECIFIED COMPLICATION; E66.9 - OBESITY, UNSPECIFIED (4) Hypertension Current Visit: Yes Status: Chronic Onset Date: ~08/20/17 Qualifiers: Hypertension type: essential hypertension Qualified Code(s): I10 - Essential (primary) hypertension Code(s): I10 - ESSENTIAL (PRIMARY) HYPERTENSION (5) History of pulmonary embolism Current Visit: Yes Status: Chronic Code(s): Z86.711 - PERSONAL HISTORY OF PULMONARY EMBOLISM (6) Chronic congestive heart failure Current Visit: Yes Status: Chronic Qualifiers: Qualified Code(s): I50.22 - Chronic systolic (congestive) heart failure Code(s): I50.9 - HEART FAILURE, UNSPECIFIED (7) CKD (chronic kidney disease) stage 3, GFR 30-59 ml/min Current Visit: Yes Status: Chronic Code(s): N18.3 - CHRONIC KIDNEY DISEASE, STAGE 3 (MODERATE)
[2017-08-22 08:25] LABS: BASOPHIL % 0.6 % (0.0-0.4); Basophil (Absolute #) 0.05 (0-0.4); Eosinophil % 2.1 % (0.00-5.0); Eosinophil (Absolute #) 0.18 (0-0.5); Granulocyte Absolute (ANC) 6.58 (1.4-6.9); Granulocytes % 77.4 % (36.0-66.0); Hematocrit 34.1 % (35-47); Hemoglobin 10.5 gm/dl (12.0-16.0); Lymphocyte (Absolute #) 0.98 (1.0-4.6); Lymphocytes % 11.5 % (24.0-44.0); Mean Cell Volume 97.2 fl (78-100); Mean Corpuscular Hemoglobin 29.9 pg (26-32); Mean Corpuscular Hgb Concent. 30.8 g/dl (32-36); Mean Platelet Volume 10.6 fl (6-9.5); Monocyte (Absolute #) 0.71 (0.0-1.3); Monocytes % 8.4 % (0.0-12.0); Platelet Count 264 K/mm3 (150-450); Red Blood Count 3.51 M/mm3 (4.1-5.4); Red Cell Distribution Width 17.8 % (11.5-14.0); White Blood Count 8.5 K/mm3 (4.0-10.5)
[2017-08-22 08:36] LABS: ALBUMIN 3.3 g/dL (3.5-5.0); ALKALINE PHOSPHATASE 118 U/L (38-126); BLOOD UREA NITROGEN 12 mg/dL (7-17); CHLORIDE 105 mmol/L (98-107); Calcium 8.6 mg/dL (8.4-10.2); Carbon Dioxide 26 mmol/L (22-30); Creatinine 1 0.76 mg/dL (0.52-1.04); Glucose 175 mg/dL (74-106); SGOT/AST 30 U/L (14-36); SGPT/ALT 18 U/L (0-35); Total Protein 6.4 g/dL (6.3-8.2)
[2017-08-22 08:38] LABS: SODIUM 140 mmol/L (137-145)
[2017-08-22] MEDS: ELIQUIS 5 MG TABLET PO SCH ×2 (09:40→22:27)
[2017-08-22] MEDS: Tessalon Perles 100 MG PO SCH ×3 (09:40→22:30)
[2017-08-22] MEDS: BUMEX 1 MG PO SCH (09:40)
[2017-08-22] MEDS: SYNTHROID 100 MCG PO SCH (09:40)
[2017-08-22] MEDS: Januvia 50 MG PO SCH (09:40)
[2017-08-22] MEDS: Klor Con 10 MEQ PO SCH (09:40)
[2017-08-22] MEDS: ZYLOPRIM 300 MG PO SCH (09:40)
[2017-08-22] MEDS: Paxil 20 MG PO SCH (09:41)
[2017-08-22] MEDS: ENTRESTO 49 MG-51 MG TABLET PO SCH ×2 (09:41→22:28)
[2017-08-22] MEDS: Magnesium 1 Gm / 100 Ml D5W*** 100 ML IV SCH ×2 (10:27→11:21)
[2017-08-22] MEDS ORDERED: Lanoxin 0.125MG TABLET PO ONE (12:25)
[2017-08-22] MEDS: TYLENOL 325 MG PO PRN ×2 (12:46→22:31)
[2017-08-22] MEDS: Lopressor 50 MG PO SCH ×2 (14:06→22:29)
[2017-08-22] MEDS ORDERED: Lactated Ringers 500 ML IV SCH (17:00)
[2017-08-22] MEDS ORDERED: Lactated Ringers 250 ML IV ONE (21:00)
--- NOTE | 2017-08-22 21:03 | XRAY ---
Indication: Chest pain. Comparison: August 20, 2017. Portable chest unchanged again demonstrating cardiomegaly with bibasilar infiltrates/atelectasis/effusion and left-sided AICD. No new cardiopulmonary abnormalities. Comment: Preliminary interpretation was made by [facility]. No critical discrepancy.
[2017-08-22] MEDS: ELAVIL 25 MG PO SCH (22:27)
[2017-08-22] MEDS: ZOCOR 20MG PO SCH (22:29)
[2017-08-23] MEDS: Zosyn 2.25 GM 2.25 GM in D5w 100ML Mini Bag 100 ML 100 ML IV SCH ×3 (00:02→11:48)
[2017-08-23] MEDS: Sodium Chloride 0.9% 10 ML FLUSH Syringe IV SCH (05:53)
[2017-08-23 06:02] LABS: Hematocrit 34.5 % (35-47); Hemoglobin 10.5 gm/dl (12.0-16.0); Mean Cell Volume 97.5 fl (78-100); Mean Corpuscular Hgb Concent. 30.4 g/dl (32-36); Mean Platelet Volume 11.2 fl (6-9.5); Platelet Count 232 K/mm3 (150-450); Red Blood Count 3.54 M/mm3 (4.1-5.4); Red Cell Distribution Width 17.8 % (11.5-14.0); White Blood Count 8.9 K/mm3 (4.0-10.5)
[2017-08-23 06:05] LABS: Mean Corpuscular Hemoglobin 29.6 pg (26-32)
[2017-08-23 06:18] LABS: ANION GAP 12.8 MEQ/L (5-15); BLOOD UREA NITROGEN 12 mg/dL (7-17); CHLORIDE 100 mmol/L (98-107); Calcium 8.9 mg/dL (8.4-10.2); Carbon Dioxide 29 mmol/L (22-30); Creatinine 1 0.78 mg/dL (0.52-1.04); Glucose 122 mg/dL (74-106); Potassium 3.7 mmol/L (3.5-5.1); SODIUM 138 mmol/L (137-145)
[2017-08-23 06:25] LABS: NT PRO BNP 3550 pg/mL (0-1800)
[2017-08-23] MEDS: Tessalon Perles 100 MG PO SCH ×2 (07:59→16:22)
[2017-08-23] MEDS: SYNTHROID 100 MCG PO SCH (08:01)
[2017-08-23] MEDS: Paxil 20 MG PO SCH (08:01)
[2017-08-23] MEDS: ELIQUIS 5 MG TABLET PO SCH (08:01)
[2017-08-23] MEDS: ENTRESTO 49 MG-51 MG TABLET PO SCH (08:02)
[2017-08-23] MEDS: Januvia 50 MG PO SCH (08:02)
[2017-08-23] MEDS: Lopressor 50 MG PO SCH (08:02)
[2017-08-23] MEDS: ZYLOPRIM 300 MG PO SCH (08:02)
[2017-08-23] MEDS: NovoLOG Insulin SQ PRN ×3 (08:03→16:49)
--- NOTE | 2017-08-23 09:00 | PCM.DS ---
Discharge Summary Date of Admission: 08/19/17 17:49 Admitting Physician: FE BROWN Primary Care Provider: ELMIRA Allergies Allergies No Known Drug Allergies Allergy (Verified 07/04/17 16:31) Hospital Summary - Hospital Course Hospital Course: Pt is 82 yo female pt of mine who lives at [facility] and was brought in after a likely episode of aspirating. She has been treated for pneumonia with zosyn and vancomycin initially, decreased to zosyn only before discharge. CXR with chronic changes and bibasilar infltrates. From hospital day #2 she has felt much better. Tolerating po. Yesterday her afib had a rapid ventricular response with HR into th 140s. Apparently last admission she had come in on metoprolol but it was discontinued at some point and she was not admitted on it this time. Blood cultures are negative x 2. Yesterday she required a total of 0.5mg digoxin. Her rate is under control this morning, on metoprolol 50mg po BID. If her HR stays wnl, will d/c to LTCF today on toprol and augmentin. - Vitals & Intake/Output Vital Signs: Vital Signs Temperature 97.9 F 08/23/17 07:01 Pulse Rate 92 H 08/23/17 07:01 Respiratory Rate 20 08/23/17 08:00 Blood Pressure 138/80 08/23/17 07:01 O2 Sat by Pulse Oximetry 95 08/23/17 07:01 Oxygen-Last Documented O2 Percentage 2 Liters = 28% Intake & Output: Intake & Output 08/20/17 08/21/17 08/22/17 08/23/17 11:59 11:59 11:59 11:59 Intake Total 2166 1571 2240 560 Output Total 1000 750 500 400 Balance 1800 071 1027 160 Weight 79.1 kg 79.1 kg - Lab Result Diagrams: 08/23/17 05:03 08/23/17 05:03 Lab Results-Last 24 Hrs: Accuchecks Date 08/23/17 Date 08/22/17 Time 07:30 Time 11:30 Accucheck Value: 164 Accucheck Value: 263 Accucheck Value: 298 Accucheck Value: 178 Lab Results-Last 24 Hours 04/29/18 04/29/18 04/29/18 Range/Units 08:13 08:13 13:07 WBC (4.0-10.5) K/mm3 RBC (4.1-5.4) M/mm3 Hgb (12.0-16.0) gm/dl Hct (35-47) % MCV (78-100) fl MCH (26-32) pg MCHC (32-36) g/dl RDW (11.5-14.0) % Plt Count (150-450) K/mm3 MPV (6-9.5) fl Sodium 140 (137-145) mmol/L Potassium 4.0 (3.5-5.1) mmol/L Chloride 105 (98-107) mmol/L Carbon Dioxide 26 (22-30) mmol/L Anion Gap 9.0 (5-15) MEQ/L BUN 12 (7-17) mg/dL Creatinine 0.76 (0.52-1.04) mg/dL Estimated GFR > 60.0 ML/MIN Glucose 175 H (74-106) mg/dL Calcium 8.6 (8.4-10.2) mg/dL Magnesium 1.5 L (1.6-2.3) mg/dL Total Bilirubin 0.70 (0.2-1.3) mg/dL AST 30 (14-36) U/L ALT 18 (0-35) U/L Alkaline Phosphatase 118 (38-126) U/L Troponin I 0.013 (0.000-0.034) ng/mL NT-Pro-B Natriuret Pep (0-1800) pg/mL Serum Total Protein 6.4 (6.3-8.2) g/dL Albumin 3.3 L (3.5-5.0) g/dL TSH 3rd Generation 1.890 (0.47-4.68) mIU/L 08/23/17 08/23/17 08/23/17 Range/Units 05:03 05:03 05:03 WBC 8.9 (4.0-10.5) K/mm3 RBC 3.54 L (4.1-5.4) M/mm3 Hgb 10.5 L (12.0-16.0) gm/dl Hct 34.5 L (35-47) % MCV 97.5 (78-100) fl MCH 29.6 (26-32) pg MCHC 30.4 L (32-36) g/dl RDW 17.8 H (11.5-14.0) % Plt Count 232 (150-450) K/mm3 MPV 11.2 H (6-9.5) fl Sodium 138 (137-145) mmol/L Potassium 3.7 (3.5-5.1) mmol/L Chloride 100 (98-107) mmol/L Carbon Dioxide 29 (22-30) mmol/L Anion Gap 12.8 (5-15) MEQ/L BUN 12 (7-17) mg/dL Creatinine 0.78 (0.52-1.04) mg/dL Estimated GFR > 60.0 ML/MIN Glucose 122 H (74-106) mg/dL Calcium 8.9 (8.4-10.2) mg/dL Magnesium 2.0 (1.6-2.3) mg/dL Total Bilirubin (0.2-1.3) mg/dL AST (14-36) U/L ALT (0-35) U/L Alkaline Phosphatase (38-126) U/L Troponin I (0.000-0.034) ng/mL NT-Pro-B Natriuret Pep 3550 H (0-1800) pg/mL Serum Total Protein (6.3-8.2) g/dL Albumin (3.5-5.0) g/dL TSH 3rd Generation (0.47-4.68) mIU/L Micro Results-Entire Visit: Accuchecks Date 08/23/17 Date 08/22/17 Time 07:30 Time 11:30 Accucheck Value: 164 Accucheck Value: 263 Accucheck Value: 298 Accucheck Value: 178 - Radiology Exams Ordered Rad Exams-Entire Visit: Radiology Procedures Category Date Time Status CHEST 1 VIEW (PORTABLE) Stat Exams 08/22/17 12:54 Completed - Procedures and Test Procedures and Tests throughout Hospitalization: Therapy Orders & Screens 08/19/17 18:47 Respiratory Nebulizer PRN Comment: Diagnosis: Shortness of Breath 08/22/17 12:55 EKG STAT Comment: chest pain. Diagnosis: SOB, Pneumonia 08/23/17 08:54 PT Eval & Treat ( Order) ROUTINE Reason for Eval:: deconditioning Diagnosis: SOB, Pneumonia Discharge Exam General Appearance: no apparent distress, alert Neurologic Exam: oriented x 3, cooperative Skin Exam: normal color, warm, dry, No rash Respiratory Exam: lungs clear, diminished breath sounds, No crackles/rales, No rhonchi, No wheezing Cardiovascular Exam: regular rate/rhythm, normal heart sounds, No murmur Gastrointestinal/Abdomen Exam: soft, normal bowel sounds, No tenderness, No distention Extremity Exam: normal inspection, No pedal edema, No swelling Back Exam: normal inspection, No rash Final Diagnosis/Problem List - Final Discharge Diagnosis/Problem (1) Pneumonia Current Visit: Yes Status: Acute Onset Date: ~08/20/17 Assessment & Plan: Doing much better, will d/c to LTCF on augmentin pending HR today. (2) Atrial fibrillation with RVR Current Visit: Yes Status: Acute Assessment & Plan: will monitor HR today, if stable d/c on metoprolol 50mg po BID. (3) Anxiety Current Visit: No Status: Chronic Assessment & Plan: started SSRI here. (4) CKD (chronic kidney disease) stage 3, GFR 30-59 ml/min Current Visit: Yes Status: Chronic (5) Diabetes type 2, controlled Current Visit: No Status: Resolved (6) Weakness Current Visit: No Status: Chronic (7) Hypertension Current Visit: Yes Status: Chronic Onset Date: ~08/20/17 - Discharge Disposition: Skilled Care @ [facility] HR Condition: Stable Prescriptions: New Amoxicillin/Potassium Clav [Augmentin 875-125 Tablet] 1 each PO BID #20 tablet Amitriptyline HCl 25 mg [Elavil 25 mg] 25 mg PO HS #30 tablet Metoprolol Tartrate 50 mg [Lopressor 50 MG] 50 mg PO BID #60 tablet Paroxetine HCl 20 mg [Paxil 20 MG] 10 mg PO DAILY #30 tablet Continue Rosuvastatin Calcium [Crestor] 10 mg PO HS Levothyroxine Sodium 100 Mcg [Synthroid 100 Mcg] 100 mcg PO DAILY Polyvinyl Alcohol [Artificial Tears] 1 ml OP PRN PRN drops PRN Reason: Dry eyes Albuterol Common Canister [Proventil Common Canister] 2 puff IH Q4H PRN PRN #1 unit PRN Reason: Shortness Of Breath Sitagliptin Phosphate 50 MG [Januvia 50 MG] 100 mg PO DAILY Apixaban [Eliquis] 5 mg PO BID #60 tablet Bumetanide 1 mg PO DAILY #30 tablet Acetaminophen 325 mg [Tylenol 325 mg] 650 mg PO Q4H PRN PRN tablet PRN Reason: Pain And/Or Fever Benzonatate [Tessalon Perle] 200 mg PO TID Multivitamin W-Minerals/Lutein [Cerovite Silver Tablet] 1 tab PO DAILY Sacubitril/Valsartan [Entresto 49 mg-51 mg Tablet] 0.5 tablet PO BID Allopurinol 300 mg PO DAILY Potassium Chloride 10 Meq Tab* [Klor Con 10 MEQ] 10 meq PO QAM Discontinued Amitriptyline HCl 25 mg [Elavil 25 mg] 50 mg PO HS #30 tablet Additional Instructions: Patient is to follow up with for stent removal at bile duct around gallbladder on August at 0845 our time. Follow up with: FRANCOIS TRIVEDI [Primary Care Provider] - 1 Week
[2017-08-23] MEDS ORDERED: Lanoxin 0.125MG TABLET PO ONE ×2 (11:45→21:00)
[2017-08-23 16:59] VITALS: BP 142/78; PULSE 86; O2SAT 97
== END 2017-08-23 17:12 | DRG 194 ==
LOC: ED 13:42 → MED SURG 17:49
PROVIDERS: ADMIT Family Medicine; ATTEND Family Medicine
DX: J18.9 Pneumonia, unspecified organism (principal); I50.22 Chronic systolic (congestive) heart failure; I50.84 End stage heart failure; I48.91 Unspecified atrial fibrillation; F41.9 Anxiety disorder, unspecified; I12.9 Hypertensive chronic kidney disease with stage 1 through stage 4 chronic kidney disease, or unspecified chronic kidney disease; N18.3 Chronic kidney disease, stage 3 (moderate); R53.1 Weakness; J18.1 Lobar pneumonia, unspecified organism; E11.69 Type 2 diabetes mellitus with other specified complication; E66.9 Obesity, unspecified; I25.10 Atherosclerotic heart disease of native coronary artery without angina pectoris; I10 Essential (primary) hypertension; Z79.01 Long term (current) use of anticoagulants; I50.9 Heart failure, unspecified; Z86.711 Personal history of pulmonary embolism; E11.9 Type 2 diabetes mellitus without complications; E03.9 Hypothyroidism, unspecified; M19.90 Unspecified osteoarthritis, unspecified site; N28.9 Disorder of kidney and ureter, unspecified; Z95.810 Presence of automatic (implantable) cardiac defibrillator; Z79.899 Other long term (current) drug therapy
CPT/HCPCS: 36000; 36415; 36600; 71045; 71046; 80048; 80053; 82375; 82803; 82962; 83605; 83735; 83880; 84443; 84484; 85025; 85027; 85610; 85730; 87040; 87631; 93005; 93041; 94640; 94760; 96365; 96366; 96374; 96375; 99285; J2543; J3370; J3475; A9270-GY

== ENCOUNTER 2017-09-06 09:48 | Inpatient (IN) | payer MEDICARE, OTHER ==
[2017-09-06 10:08] LABS: A-aADO2 70; ABG HEMOGLOBIN 10.6; ABG POTASSIUM 3.6 (3.5-5.1); ARTERIAL BLD GAS O2 SATURATION 96.4 % (95-100); ARTERIAL BLOOD GAS FIO2 32 %; ARTERIAL BLOOD GAS PO2 73 mmHg (75-100); ARTERIAL BLOOD GAS pH 7.44 (7.35-7.45); CARBOXYHEMOGLOBIN 2.2 % THgb (0.0-6.9); HCO3- 46.2 (22-28); HGB O2 SAT 93.4 g/dF (94-100); Lactic Acid 0.9 (0.4-2.0); Methhemoglobin 0.9 % (1.4-1.5); paO2 pAO1 0.51
[2017-09-06 10:09] LABS: ABG SITE LEFT RADIAL; ARTERIAL BLOOD GAS PCO2 68 mmHg (35-45)
--- NOTE | 2017-09-06 10:16 | ERPHSYRPT ---
- History of Present Illness Time Seen by Provider: 09/06/17 10:03 Source: family, EMS, [facility] records Exam Limitations: clinical condition Physician History: The patient is an 82-year-old female from [place] brought in by ambulance with a nursing report states that she was acting differently last night, wanting to take off her clothes all night, not sleeping all night, and then being unresponsive this morning. Her son states that pt was complaining that she did not feel well yesterday. Her oxygen saturation was was 90% and was placed on 3 L by nasal cannula. She has had 3 falls in the last 2 weeks. Last month she had a recent UTI. Her past medical history is significant for hypertension, A. fib, pulmonary embolism, congestive heart failure, cardiac pacemaker, diabetes, high cholesterol, chronic kidney disease, and high cholesterol. She is DO NOT RESUSCITATE. Timing/Duration: today Severity: severe Modifying Factors: Improves With: nothing Associated Symptoms: weakness Allergies/Adverse Reactions: No Known Drug Allergies Allergy (Verified 09/06/17 10:28) Home Medications: Levothyroxine Sodium 100 Mcg [Synthroid 100 Mcg] 100 mcg PO DAILY 08/17/16 [History] Rosuvastatin Calcium [Crestor] 10 mg PO HS 08/17/16 [History] Sitagliptin Phosphate 50 MG [Januvia 50 MG] 100 mg PO DAILY 01/22/17 [ History] Benzonatate [Tessalon Perle] 200 mg PO TID 07/27/17 [History] Multivitamin W-Minerals/Lutein [Cerovite Silver Tablet] 1 tab PO DAILY 07/27/17 [History] Sacubitril/Valsartan [Entresto 49 mg-51 mg Tablet] 0.5 tablet PO BID 07/27/17 [ History] Allopurinol 300 mg PO DAILY 08/19/17 [History] Potassium Chloride 10 Meq Tab* [Klor Con 10 MEQ] 10 meq PO QAM 08/19/17 [ History] Buspirone HCl 5 mg [Buspar 5 mg] 5 mg PO DAILY 09/06/17 [History] Ferrous Sulfate 325 mg PO BID 09/06/17 [History] Insulin Aspart [NovoLOG Insulin] 1 unit SQ UD 09/06/17 [History] Insulin Glargine [Lantus Insulin] 100 unit SQ UD 09/06/17 [History] Hx Tetanus, Diphtheria Vaccination/Date Given: Yes Hx Influenza Vaccination/Date Given: Yes Hx Pneumococcal Vaccination/Date Given: Yes - Review of Systems Constitutional: Weakness Eyes: No Symptoms Ears, Nose, & Throat: No Symptoms Respiratory: No Cough, No Dyspnea Cardiac: No Chest Pain, No Edema, No Syncope Abdominal/Gastrointestinal: No Abdominal Pain, No Nausea, No Vomiting, No Diarrhea Genitourinary Symptoms: No Dysuria Musculoskeletal: No Back Pain, No Neck Pain Skin: No Rash Neurological: Other (unresponsive) Psychological: No Symptoms Endocrine: No Symptoms Hematologic/Lymphatic: No Symptoms Immunological/Allergic: No Symptoms All Other Systems: Reviewed and Negative - Past Medical History Pertinent Past Medical History: Yes Neurological History: No Pertinent History ENT History: Cataracts Cardiac History: Arrhythmia, Coronary Artery Disease, Hypertension Respiratory History: CHF Endocrine Medical History: Diabetes Type II, Hypothyroidism Musculoskeletal History: Arthritis, Fractures GI Medical History: Gallbladder Disease History: Renal Disease, Other Psycho-Social History: No Pertinent History Female Reproductive Disorders: No Pertinent History Other Medical History: 40 % kidney function - Past Surgical History Past Surgical History: Yes Neuro Surgical History: No Pertinent History Cardiac: Internal Defibrillator, Pacemaker Respiratory: No Pertinent History Gastrointestinal: Appendectomy, Other Genitourinary: No Pertinent History Musculoskeletal: Orthopedic Surgery Female Surgical History: Tubal Ligation Other Surgical History: right arm surgery. ERCP with bile duct stent. - Social History Smoking Status: Never smoker Exposure to second hand smoke: No Alcohol Use: None Drug Use: none Patient Lives Alone: No Significant Family History: heart disease, hypertension - Nursing Vital Signs Nursing Vital Signs: Initial Vital Signs Temperature 98.3 F 09/06/17 09:53 Pulse Rate 96 H 09/06/17 09:53 Respiratory Rate 18 09/06/17 09:53 Blood Pressure 161/94 09/06/17 09:53 O2 Sat by Pulse Oximetry 99 09/06/17 09:53 Pain Scale Pain Intensity 0 - Physical Exam General Appearance: other (unresponsive) Eye Exam: PERRL/EOMI, eyes nml inspection Ears, Nose, Throat Exam: other (dry mucous membranes) Respiratory Exam: diminished breath sounds, accessory muscle use, prolonged expirations Cardiovascular Exam: regular rate/rhythm, normal heart sounds, normal peripheral pulses Gastrointestinal/Abdomen Exam: soft, normal bowel sounds, No tenderness, No mass Pelvic Exam: not done Rectal Exam: not done Extremity Exam: pedal edema Neurologic Exam: other (unresponsive) Skin Exam: dry Lymphatic Exam: No adenopathy SpO2 Interpretation: borderline oxygenation Oxygen Delivery: Nasal Cannula - Course EKG Interpreted by Me: RATE, Other (AV cardiac paced) - Radiology Exams Chest X-ray Interpretation: Reviewed by me, Teleradiologist Report, Other ( cardiomegaly with new vascular congestion and worsening bibasilar infiltrates/ atelectasis/effusion per Dr Mcfadden) - CT Exams Head CT Interpretation: Tele-radiologist Report, No/Intracranial Hemorrhag, Other ( grossly stable nonacute senile brain per Dr Mcfadden) Chest CT Interpretation: Tele-radiologist Report, No PE, Other (moderate bilateral pleural effusions with cardiomegaly per Dr Mcfadden) Ordered Tests: Active Orders 24 hr Category Date Time Status Catheter-[place] STAT Care 09/06/17 10:04 Active EKG-ER Only STAT Care 09/06/17 10:04 Active IV Insertion STAT Care 09/06/17 10:04 Active Pulse Oximetry (ED) STAT Care 09/06/17 10:07 Active CHEST 1 VIEW (PORTABLE) Stat Exams 09/06/17 10:05 Completed CHEST WITH CONTRAST [CT] Stat Exams 09/06/17 11:36 Completed HEAD WITHOUT CONTRAST [CT] Stat Exams 09/06/17 10:09 Completed ABG [ARTERIAL BLOOD GASES] Urgent Lab 09/06/17 10:07 Completed CBC W DIFF Stat Lab 09/06/17 10:22 Completed CMP Routine Lab 09/06/17 10:22 Completed CULTURE,URINE Stat Lab 09/06/17 10:26 Received D-DIMER QUANTITATION Stat Lab 09/06/17 10:22 Completed Lactic Acid Urgent Lab 09/06/17 10:07 Completed NT PRO BNP Stat Lab 09/06/17 10:22 Completed TROPONIN Q3H Lab 09/06/17 10:22 Completed TROPONIN Q3H Lab 09/06/17 13:20 Received TROPONIN Q3H Lab 09/06/17 16:15 Ordered TROPONIN Q3H Lab 09/06/17 19:15 Ordered TROPONIN Q3H Lab 09/06/17 22:15 Ordered UA W/ MICROSCOPIC Stat Lab 09/06/17 10:26 Completed Medication Summary Discontinued Medications Generic Name Dose Route Start Last Admin Trade Name Yesica PRN Reason Stop Dose Admin Furosemide 40 mg 09/06/17 11:02 09/06/17 11:06 Lasix 40 Mg/4 Ml IV 09/06/17 11:03 40 mg STAT ONE Administration Furosemide Confirm 09/06/17 11:04 Lasix 40 Mg/4 Ml Administered 09/06/17 11:05 Dose 40 mg .ROUTE .STK-MED ONE Lab/Rad Data: Laboratory Result Diagrams 09/06/17 10:22 09/06/17 10:22 Laboratory Results 09/06/17 09/06/17 09/06/17 Range/Units 10:26 10:22 10:22 WBC (4.0-10.5) K/mm3 RBC (4.1-5.4) M/mm3 Hgb (12.0-16.0) gm/dl Hct (35-47) % MCV (78-100) fl MCH (26-32) pg MCHC (32-36) g/dl RDW (11.5-14.0) % Plt Count (150-450) K/mm3 MPV (6-9.5) fl Gran % (36.0-66.0) % Eos # (Auto) (0-0.5) Absolute Lymphs (auto) (1.0-4.6) Absolute Monos (auto) (0.0-1.3) Lymphocytes % (24.0-44.0) % Monocytes % (0.0-12.0) % Eosinophils % (0.00-5.0) % Basophils % (0.0-0.4) % Absolute Granulocytes (1.4-6.9) Basophils # (0-0.4) D-Dimer (215-500) ng/mL Puncture Site pCO2 (35-45) mmHg pO2 (75-100) mmHg Base Excess (-2.0-2.0) O2 Saturation (94-100) g/dF ABG pH (7.35-7.45) ABG HCO3 (22-28) ABG O2 Sat (Measured) (95-100) % Yosvany Test A-a Gradient a/A Ratio Hemoglobin Carboxyhemoglobin (0.0-6.9) % THgb Methemoglobin (1.4-1.5) % Potassium 3.7 (3.5-5.1) Temperature C POC O2 Flow Rate % Sodium 144 (137-145) mmol/L Chloride 94 L (98-107) mmol/L Carbon Dioxide 42 H (22-30) mmol/L BUN 31 H (7-17) mg/dL Creatinine 0.98 (0.52-1.04) mg/dL Estimated GFR 57.6 ML/MIN Glucose 168 H (74-106) mg/dL Lactic Acid (0.4-2.0) Calcium 8.7 (8.4-10.2) mg/dL Total Bilirubin 0.40 (0.2-1.3) mg/dL AST 26 (14-36) U/L ALT 16 (0-35) U/L Alkaline Phosphatase 135 H (38-126) U/L Troponin I < 0.012 (0.000-0.034) ng/mL NT-Pro-B Natriuret Pep 4530 H (0-1800) pg/mL Serum Total Protein 6.2 L (6.3-8.2) g/dL Albumin 3.1 L (3.5-5.0) g/dL Ur Collection Type VOID Urine Color YELLOW (YELLOW) Urine Appearance CLEAR (CLEAR) Urine pH 5.0 (5-6) Ur Specific [place] 1.020 (1.005-1.025) Urine Protein 1+ (Negative) Urine Ketones NEGATIVE (NEGATIVE) Urine Blood 250 (0-5) Allan/ul Urine Nitrite NEGATIVE (NEGATIVE) Urine Bilirubin NEGATIVE (NEGATIVE) Urine Urobilinogen NORMAL (0-1) mg/dL Ur Leukocyte Esterase TRACE (NEGATIVE) Urine Microscopic RBC 2-5 (0-2) /HPF Urine Microscopic WBC 5-10 (0-5) /HPF Ur Epithelial Cells FEW (FEW) /HPF Urine Bacteria FEW (NEGATIVE) /HPF Hyaline Casts 2-5 (0-2) /LPF Urine Mucus SLIGHT (NEGATIVE) /HPF Urine Culture Reflexed YES (NO) Urine Glucose NEGATIVE (NEGATIVE) mg/dL Specimen Received 09/06/17 1015 09/06/17 09/06/17 09/06/17 Range/Units 10:22 10:22 10:07 WBC 13.2 H (4.0-10.5) K/mm3 RBC 3.62 L (4.1-5.4) M/mm3 Hgb 10.6 L (12.0-16.0) gm/dl Hct 36.1 (35-47) % MCV 99.7 (78-100) fl MCH 29.2 (26-32) pg MCHC 29.4 L (32-36) g/dl RDW 17.6 H (11.5-14.0) % Plt Count 406 (150-450) K/mm3 MPV 11.1 H (6-9.5) fl Gran % 85.5 H (36.0-66.0) % Eos # (Auto) 0.03 (0-0.5) Absolute Lymphs (auto) 0.86 L (1.0-4.6) Absolute Monos (auto) 0.97 (0.0-1.3) Lymphocytes % 6.5 L (24.0-44.0) % Monocytes % 7.3 (0.0-12.0) % Eosinophils % 0.2 (0.00-5.0) % Basophils % 0.5 (0.0-0.4) % Absolute Granulocytes 11.27 H (1.4-6.9) Basophils # 0.07 (0-0.4) D-Dimer 3788.90 H* (215-500) ng/mL Puncture Site LEFT RADIAL pCO2 68 H* (35-45) mmHg pO2 73 L (75-100) mmHg Base Excess 19.0 H (-2.0-2.0) O2 Saturation 93.4 L (94-100) g/dF ABG pH 7.44 (7.35-7.45) ABG HCO3 46.2 H* (22-28) ABG O2 Sat (Measured) 96.4 (95-100) % Yosvany Test NOT APPLICABLE A-a Gradient 70 a/A Ratio 0.51 Hemoglobin 10.6 Carboxyhemoglobin 2.2 (0.0-6.9) % THgb Methemoglobin 0.9 L (1.4-1.5) % Potassium 3.6 (3.5-5.1) Temperature 37.0 C POC O2 Flow Rate 32 % Sodium (137-145) mmol/L Chloride (98-107) mmol/L Carbon Dioxide (22-30) mmol/L BUN (7-17) mg/dL Creatinine (0.52-1.04) mg/dL Estimated GFR ML/MIN Glucose (74-106) mg/dL Lactic Acid 0.9 (0.4-2.0) Calcium (8.4-10.2) mg/dL Total Bilirubin (0.2-1.3) mg/dL AST (14-36) U/L ALT (0-35) U/L Alkaline Phosphatase (38-126) U/L Troponin I (0.000-0.034) ng/mL NT-Pro-B Natriuret Pep (0-1800) pg/mL Serum Total Protein (6.3-8.2) g/dL Albumin (3.5-5.0) g/dL Ur Collection Type Urine Color (YELLOW) Urine Appearance (CLEAR) Urine pH (5-6) Ur Specific [place] (1.005-1.025) Urine Protein (Negative) Urine Ketones (NEGATIVE) Urine Blood (0-5) Allan/ul Urine Nitrite (NEGATIVE) Urine Bilirubin (NEGATIVE) Urine Urobilinogen (0-1) mg/dL Ur Leukocyte Esterase (NEGATIVE) Urine Microscopic RBC (0-2) /HPF Urine Microscopic WBC (0-5) /HPF Ur Epithelial Cells (FEW) /HPF Urine Bacteria (NEGATIVE) /HPF Hyaline Casts (0-2) /LPF Urine Mucus (NEGATIVE) /HPF Urine Culture Reflexed (NO) Urine Glucose (NEGATIVE) mg/dL Specimen Received - Progress Progress: improved Discussed with : Varun Will see patient in: hospital (observation) Counseled pt/family regarding: lab results, diagnosis, rad results - Departure Time of Disposition: 13:40 Departure Disposition: Observation (per Dr Bond) Clinical Impression: CHF (congestive heart failure) Condition: Stable Critical Care Time: No Referrals: FRANCOIS TRIVEDI [LOCATION] - Instructions: Heart Failure
[2017-09-06 10:35] LABS: BASOPHIL % 0.5 % (0.0-0.4); Basophil (Absolute #) 0.07 (0-0.4); Eosinophil % 0.2 % (0.00-5.0); Eosinophil (Absolute #) 0.03 (0-0.5); Granulocyte Absolute (ANC) 11.27 (1.4-6.9); Granulocytes % 85.5 % (36.0-66.0); Hematocrit 36.1 % (35-47); Hemoglobin 10.6 gm/dl (12.0-16.0); Lymphocyte (Absolute #) 0.86 (1.0-4.6); Lymphocytes % 6.5 % (24.0-44.0); Mean Cell Volume 99.7 fl (78-100); Mean Corpuscular Hemoglobin 29.2 pg (26-32); Mean Corpuscular Hgb Concent. 29.4 g/dl (32-36); Mean Platelet Volume 11.1 fl (6-9.5); Monocyte (Absolute #) 0.97 (0.0-1.3); Monocytes % 7.3 % (0.0-12.0); Platelet Count 406 K/mm3 (150-450); Red Blood Count 3.62 M/mm3 (4.1-5.4); Red Cell Distribution Width 17.6 % (11.5-14.0); White Blood Count 13.2 K/mm3 (4.0-10.5)
[2017-09-06 10:37] LABS: Appearance CLEAR (CLEAR); Leukocyte Esterase TRACE (NEGATIVE); Nitrite NEGATIVE (NEGATIVE)
[2017-09-06 10:38] LABS: Bacteria FEW /HPF (NEGATIVE); Bilirubin NEGATIVE (NEGATIVE); Blood 250 Ery/ul (0-5); Epithelial Cells FEW /HPF (FEW); Glucose NEGATIVE (NEGATIVE); Ketones NEGATIVE (NEGATIVE); Mucus SLIGHT /HPF (NEGATIVE); Protein,Urine Dip 1+ (Negative); Urobilinogen NORMAL mg/dL (0-1)
--- NOTE | 2017-09-06 10:53 | XRAY ---
Indication: Unresponsive. Comparison: August 22, 2017. Portable chest again demonstrates cardiomegaly and left AICD with now vascular congestion and interval worsening bibasilar infiltrates/atelectasis/effusion, left greater than right, concerning for cardiac decompensation. Superimposed pneumonia not completely excluded.
--- NOTE | 2017-09-06 10:56 | XRAY ---
Indication: Unresponsive. Multiple contiguous axial images obtained through the head without contrast. Comparison: July 06, 2017. Several images slightly degraded by motion artifact. Stable age-appropriate global atrophy and mild periventricular degenerative micro-ischemia bilaterally. No acute intracranial hemorrhage, abnormal extra-axial fluid collection, or mass effect. Fourth ventricle is midline without hydrocephalus. Bony calvarium intact. Visualized paranasal sinuses and mastoid air cells are clear. Impression: 1. Mild motion artifact. 2. Grossly stable nonacute senile brain. CT DI 69.38
[2017-09-06] MEDS ORDERED: Lasix 40 MG/4 ML IV ONE (11:02)
[2017-09-06] MEDS ORDERED: Lasix 40 MG/4 ML ONE (11:04)
[2017-09-06 11:15] LABS: ALBUMIN 3.1 g/dL (3.5-5.0); ALKALINE PHOSPHATASE 135 U/L (38-126); BLOOD UREA NITROGEN 31 mg/dL (7-17); CHLORIDE 94 mmol/L (98-107); Calcium 8.7 mg/dL (8.4-10.2); Creatinine 1 0.98 mg/dL (0.52-1.04); Glucose 168 mg/dL (74-106); Potassium 3.7 mmol/L (3.5-5.1); SGOT/AST 26 U/L (14-36); SGPT/ALT 16 U/L (0-35); SODIUM 144 mmol/L (137-145); Total Protein 6.2 g/dL (6.3-8.2)
[2017-09-06 11:28] LABS: Carbon Dioxide 42 mmol/L (22-30); TROPONIN < 0.012 ng/mL (0.000-0.034)
--- NOTE | 2017-09-06 12:33 | XRAY ---
Indication: Short of breath. Elevated d-dimer. Multiple contiguous axial images obtained through the chest using 80 cc Isovue 370 contrast and PE protocol. Comparison: None There is satisfactory opacification of the pulmonary arteries including the lobar and segmental branches. No filling defect or pulmonary embolus. Heart is enlarged with small pericardial effusion and left-sided AICD. Aorta is mildly arteriosclerotic without aneurysm/dissection. Small mediastinal lymph nodes, largest anterior to the arch measuring 7 x 15 mm. No pathologic mediastinal/hilar lymphadenopathy. Small hiatal hernia. Examination of the lung parenchyma demonstrates moderate bilateral pleural effusions occupying at least 50% of the hemithorax with near-complete left lower lobe and lesser degree right lower lobe compressive atelectasis. Mild right middle and lingular subsegmental atelectasis. Bony thorax intact with mild flowing osteophytes throughout the spine. Limited upper abdomen is unremarkable. Impression: 1. Negative pulmonary embolus. 2. Cardiomegaly with moderate bilateral pleural effusions and atelectasis favoring cardiac decompensation. 3. Small hiatal hernia. CT DI 32.09
[2017-09-06] MEDS ORDERED: Zofran 4 MG/2 ML VIAL IV PRN (14:23)
[2017-09-06] MEDS ORDERED: TYLENOL 325 MG PO PRN ×2 (14:23→17:30)
[2017-09-06] MEDS: ROCEPHIN 1 Gm-D5w 50 ml Bag** 1 G/50 ML IVPB IV SCH (15:36)
[2017-09-06] MEDS ORDERED: zyPREXA 5MG TABLET PO PRN (15:41)
[2017-09-06] MEDS: Lasix 40 MG/4 ML IV SCH (17:07)
[2017-09-06] MEDS ORDERED: PROVENTIL COMMON CANISTER IH PRN (17:24)
[2017-09-06] MEDS ORDERED: POLYVINYL ALCOHOL OP PRN (17:24)
--- NOTE | 2017-09-06 17:24 | PCM.HP ---
History of Present Illness - Chief Complaint Chief Complaint: chf, UTI History of Present Illness: is a 82 year old female who presented to the ER due to altered mental status, she has been short of breath and extremely confused removing her clothing at the [facility] and overall doing poorly. . - Review of Systems Constitutional: No Fever, No Chills Respiratory: Short Of Breath, No Cough Cardiac: No Chest Pain, No Edema, No Syncope All Other Systems: Unable due to condition Medications & Allergies Home Medications: Home Medication List Levothyroxine Sodium 100 Mcg [Synthroid 100 Mcg] 100 mcg PO DAILY 08/17/16 [History Confirmed 09/06/17] Rosuvastatin Calcium [Crestor] 10 mg PO HS 08/17/16 [History Confirmed 09/06/17] Albuterol Common Canister [Proventil Common Canister] 2 puff IH Q4H PRN PRN #1 unit 12/07/16 [Rx Confirmed 09/06/17] Sitagliptin Phosphate 50 MG [Januvia 50 MG] 100 mg PO DAILY 01/22/17 [ History Confirmed 09/06/17] Bumetanide 1 mg PO DAILY #30 tablet 03/24/17 [Rx Confirmed 09/06/17] Acetaminophen 325 mg [Tylenol 325 mg] 650 mg PO Q4H PRN PRN tablet [Rx Confirmed 09/06/17] Benzonatate [Tessalon Perle] 200 mg PO TID PRN 07/27/17 [History Confirmed 09/06] Multivitamin W-Minerals/Lutein [Cerovite Silver Tablet] 1 tab PO DAILY 07/27/17 [History Confirmed 09/06/17] Sacubitril/Valsartan [Entresto 49 mg-51 mg Tablet] 1 tablet PO BID 07/27/17 [ History Confirmed 09/06/17] Allopurinol 300 mg PO DAILY 08/19/17 [History Confirmed 09/06/17] Potassium Chloride 10 Meq Tab* [Klor Con 10 MEQ] 10 meq PO QAM 08/19/17 [ History Confirmed 09/06/17] Alprazolam 0.25 mg [xanAX 0.25 MG] 0.25 mg PO BID 09/06/17 [History Confirmed 09/06/17] Amitriptyline HCl [Amitriptyline HCl] 25 mg PO HS 09/06/17 [History Confirmed ] Apixaban [Eliquis 5 mg Tablet] 5 mg PO BID 09/06/17 [History Confirmed ] Buspirone HCl 5 mg [Buspar 5 mg] 10 mg PO BID 09/06/17 [History Confirmed 09/06/17] Ferrous Sulfate 325 mg PO BID 09/06/17 [History Confirmed 09/06/17] Insulin Aspart [NovoLOG Insulin] 1 unit SQ UD 09/06/17 [History Confirmed ] Insulin Glargine [Lantus Insulin] 30 unit SQ DAILY 09/06/17 [History Confirmed 09/06/17] Magnesium Hydroxide 30 ml [Milk of Magnesia 30 ml] 30 ml PO DAILY PRN PRN 09/06/17 [History Confirmed 09/06/17] Magnesium Oxide [Mag-Oxide Magnesium] 400 mg PO BID 09/06/17 [History Confirmed 09/06/17] Metoprolol Tartrate 50 mg [Lopressor 50 MG] 75 mg PO BID 09/06/17 [ History Confirmed 09/06/17] Paroxetine HCl [Paxil] 10 mg PO DAILY 09/06/17 [History Confirmed 09/06/17] Polyvinyl Alcohol [Artificial Tears] 1 ml OP BID PRN PRN 09/06/17 [History Confirmed 09/06/17] Allergies/Adverse Reactions: Allergies Allergy/AdvReac Type Severity Reaction Status Date / Time No Known Drug Allergies Allergy Verified 09/06/17 10:28 - Past Medical History Past Medical History: Yes Neurological History: No Pertinent History, Dementia ENT History: Cataracts Cardiac History: Arrhythmia, Coronary Artery Disease, Hypertension Respiratory History: CHF Endocrine Medical History: Diabetes Type II, Hypothyroidism Musculoskelatal History: Arthritis, Fractures GI Medical History: Gallbladder Disease History: Renal Disease, Other Pyscho-Social History: No Pertinent History Reproductive Disorders: No Pertinent History Comment: 40 % kidney function - Female History Hx Last Menstrual Period: post Are you now?: No - Past Surgical History Past Surgical History: Yes Neuro Surgical History: No Pertinent History Cardiac History: Internal Defibrillator, Pacemaker Respiratory Surgery: No Pertinent History GI Surgical History: Appendectomy, Other Genitourinary Surgical Hx: No Pertinent History Musculskeletal Surgical Hx: Orthopedic Surgery Female Surgical History: Tubal Ligation Other Surgical History: right arm surgery. ERCP with bile duct stent. bilateral shoulder repair - Social History Smoking Status: Never smoker Exposure to second hand smoke: No Alcohol: None Drug Use: none Significant Family History: heart disease, hypertension - Physical Exam Vital Signs: Vital Signs - 24 hr Temp Pulse Pulse Resp BP Pulse Ox 09/06/17 15:51 96 09/06/17 15:31 99 09/06/17 14:57 97.9 F 96 H 16 170/88 09/06/17 14:23 94 L 09/06/17 14:22 97.8 F 96 H 20 170/88 92 L 09/06/17 13:50 97.8 F 96 H 20 170/88 92 L 09/06/17 13:01 87 20 129/83 99 09/06/17 12:21 95 H 20 129/83 97 09/06/17 11:39 86 20 123/77 100 09/06/17 10:43 98 H 20 97 09/06/17 10:24 100 09/06/17 09:53 98.3 F 87 96 H 18 161/94 99 Oxygen-Last 24 hours O2 Percentage 3 Liters = 32% O2 Percentage 3 Liters = 32% O2 Percentage 2 Liters = 28% O2 Percentage 2 Liters = 28% General Appearance: mild distress Eye Exam: PERRL/EOMI, eyes nml inspection Respiratory Exam: crackles/rales Cardiovascular Exam: regular rate/rhythm, normal heart sounds, normal peripheral pulses Gastrointestinal/Abdomen Exam: soft, normal bowel sounds, No tenderness, No mass Extremity Exam: pedal edema Skin Exam: normal color, warm, dry, No rash Results - Labs Lab/Micro Results: Lab Results-Last 24 Hours 09/06/17 Range/Units 16:24 Troponin I < 0.012 (0.000-0.034) ng/mL Assessment/Plan (1) CHF (congestive heart failure) Current Visit: Yes Status: Acute Assessment & Plan: diuresis ordered, acute on chronic systolic heart failure. patient has florid chf and mental status is poor. prognosis is guarded, patient is SCO and would not be unexpected due to advanced chf Code(s): I50.9 - HEART FAILURE, UNSPECIFIED (2) UTI (urinary tract infection) Current Visit: Yes Status: Acute Assessment & Plan: on rocephin Code(s): N39.0 - URINARY TRACT INFECTION, SITE NOT SPECIFIED (3) Altered mental status Current Visit: Yes Status: Acute Assessment & Plan: zyprexa zyordanis prn Code(s): R41.82 - ALTERED MENTAL STATUS, UNSPECIFIED (4) Diabetes mellitus type 2 in obese Current Visit: No Status: Chronic Code(s): E11.69 - TYPE 2 DIABETES MELLITUS WITH OTHER SPECIFIED COMPLICATION; E66.9 - OBESITY, UNSPECIFIED (5) CKD (chronic kidney disease) stage 3, GFR 30-59 ml/min Current Visit: No Status: Chronic Code(s): N18.3 - CHRONIC KIDNEY DISEASE, STAGE 3 (MODERATE)
[2017-09-06] MEDS ORDERED: NovoLOG Insulin SQ SCH (17:30)
[2017-09-06] MEDS ORDERED: Tessalon Perles 100 MG PO PRN (17:30)
[2017-09-06] MEDS ORDERED: Artificial Tears 15 ML OP PRN (17:43)
[2017-09-06] MEDS: D50W 50 ml Abboject IV PRN (20:42)
[2017-09-06] MEDS ORDERED: MAGNESIUM OXIDE 400 MG PO SCH (22:00)
[2017-09-06] MEDS: BUSPAR 5 MG PO SCH (23:43)
[2017-09-06] MEDS: ELAVIL 25 MG PO SCH (23:44)
[2017-09-06] MEDS: Lopressor 50 MG PO SCH (23:44)
[2017-09-06] MEDS: ENTRESTO 49 MG-51 MG TABLET PO SCH (23:44)
[2017-09-06] MEDS: FEOSOL 325 MG PO SCH (23:44)
[2017-09-06] MEDS: ELIQUIS 5 MG TABLET PO SCH (23:44)
[2017-09-06] MEDS: xanAX 0.25 MG PO SCH (23:45)
[2017-09-06] MEDS: MAG-OX 400 PO SCH (23:45)
[2017-09-07 05:57] LABS: Hematocrit 38.1 % (35-47); Hemoglobin 11.2 gm/dl (12.0-16.0); Mean Cell Volume 100.8 fl (78-100); Mean Corpuscular Hemoglobin 29.6 pg (26-32); Mean Corpuscular Hgb Concent. 29.4 g/dl (32-36); Mean Platelet Volume 10.7 fl (6-9.5); Platelet Count 391 K/mm3 (150-450); Red Blood Count 3.78 M/mm3 (4.1-5.4); Red Cell Distribution Width 17.7 % (11.5-14.0); White Blood Count 12.1 K/mm3 (4.0-10.5)
[2017-09-07 06:04] LABS: BLOOD UREA NITROGEN 26 mg/dL (7-17); CHLORIDE 96 mmol/L (98-107); Calcium 8.8 mg/dL (8.4-10.2); Creatinine 1 0.85 mg/dL (0.52-1.04); Potassium 3.1 mmol/L (3.5-5.1); SODIUM 147 mmol/L (137-145)
[2017-09-07 06:11] LABS: NT PRO BNP 3090 pg/mL (0-1800)
[2017-09-07 06:25] LABS: ANION GAP 9.1 MEQ/L (5-15); Carbon Dioxide 45 mmol/L (22-30); Glucose 49 mg/dL (74-106)
[2017-09-07] MEDS: D50W 50 ml Abboject IV PRN (06:27)
--- NOTE | 2017-09-07 06:59 | PCM.NOTE ---
Date and Time: 09/07/17 0657 Subjective Assessment: patient very sleepy this morning, had zyprexa last evening due to agitation and has slept. didn't eat dinner so blood sugar was 60's this am, was given glucose and now 120's. Objective Exam General Appearance: mild distress Respiratory Exam: crackles/rales Cardiovascular Exam: regular rate/rhythm, normal heart sounds Gastrointestinal/Abdomen Exam: soft, No tenderness, No mass OBJECTIVE DATA Vital Signs: Vital Signs - 24 hr Temp Pulse Pulse Resp BP Pulse Ox 09/07/17 04:00 97.5 F 82 20 142/80 98 09/07/17 00:00 97.5 F 75 18 124/58 100 09/06/17 19:55 97.6 F 97 H 22 134/73 09/06/17 18:39 100 H 18 94 L 09/06/17 15:51 96 09/06/17 15:31 99 09/06/17 14:57 97.9 F 96 H 16 170/88 09/06/17 14:23 94 L 09/06/17 14:22 97.8 F 96 H 20 170/88 92 L 09/06/17 13:50 97.8 F 96 H 20 170/88 92 L 09/06/17 13:01 87 20 129/83 99 09/06/17 12:21 95 H 20 129/83 97 09/06/17 11:39 86 20 123/77 100 09/06/17 10:43 98 H 20 97 09/06/17 10:24 100 09/06/17 09:53 98.3 F 87 96 H 18 161/94 99 Oxygen-Last 24 hours O2 Percentage 2 Liters = 28% O2 Percentage 2 Liters = 28% O2 Percentage 2 Liters = 28% O2 Percentage 3 Liters = 32% O2 Percentage 3 Liters = 32% O2 Percentage 2 Liters = 28% O2 Percentage 2 Liters = 28% Pain Assessment - Last Documented Pain Intensity 0 Pain Scale Used FLACC Intake and Output: Intake & Output 09/04/17 09/05/17 09/06/17 09/07/17 11:59 11:59 11:59 11:59 Intake Total 0 Output Total 2850 Balance -2850 Weight 75.7 kg Lab Results: Lab Results-Last 24 Hours 09/06/17 09/06/17 09/06/17 Range/Units 16:24 19:25 22:41 WBC (4.0-10.5) K/mm3 RBC (4.1-5.4) M/mm3 Hgb (12.0-16.0) gm/dl Hct (35-47) % MCV (78-100) fl MCH (26-32) pg MCHC (32-36) g/dl RDW (11.5-14.0) % Plt Count (150-450) K/mm3 MPV (6-9.5) fl Sodium (137-145) mmol/L Potassium (3.5-5.1) mmol/L Chloride (98-107) mmol/L Carbon Dioxide (22-30) mmol/L Anion Gap (5-15) MEQ/L BUN (7-17) mg/dL Creatinine (0.52-1.04) mg/dL Estimated GFR ML/MIN Glucose (74-106) mg/dL Calcium (8.4-10.2) mg/dL Troponin I < 0.012 < 0.012 0.012 (0.000-0.034) ng/mL NT-Pro-B Natriuret Pep (0-1800) pg/mL 09/07/17 09/07/17 Range/Units 05:20 05:20 WBC 12.1 H (4.0-10.5) K/mm3 RBC 3.78 L (4.1-5.4) M/mm3 Hgb 11.2 L (12.0-16.0) gm/dl Hct 38.1 (35-47) % MCV 100.8 H (78-100) fl MCH 29.6 (26-32) pg MCHC 29.4 L (32-36) g/dl RDW 17.7 H (11.5-14.0) % Plt Count 391 (150-450) K/mm3 MPV 10.7 H (6-9.5) fl Sodium 147 H (137-145) mmol/L Potassium 3.1 L (3.5-5.1) mmol/L Chloride 96 L (98-107) mmol/L Carbon Dioxide 45 H (22-30) mmol/L Anion Gap 9.1 (5-15) MEQ/L BUN 26 H (7-17) mg/dL Creatinine 0.85 (0.52-1.04) mg/dL Estimated GFR > 60.0 ML/MIN Glucose 49 L* (74-106) mg/dL Calcium 8.8 (8.4-10.2) mg/dL Troponin I (0.000-0.034) ng/mL NT-Pro-B Natriuret Pep 3090 H (0-1800) pg/mL Assessment/Plan (1) CHF (congestive heart failure) Current Visit: Yes Status: Acute Assessment & Plan: good output, continue lasix. increase potassium, prognosis remains poor Code(s): I50.9 - HEART FAILURE, UNSPECIFIED (2) UTI (urinary tract infection) Current Visit: Yes Status: Acute Assessment & Plan: on rocephin, c and s pending Code(s): N39.0 - URINARY TRACT INFECTION, SITE NOT SPECIFIED (3) Altered mental status Current Visit: Yes Status: Acute Code(s): R41.82 - ALTERED MENTAL STATUS, UNSPECIFIED (4) Diabetes mellitus type 2 in obese Current Visit: No Status: Chronic Code(s): E11.69 - TYPE 2 DIABETES MELLITUS WITH OTHER SPECIFIED COMPLICATION; E66.9 - OBESITY, UNSPECIFIED (5) CKD (chronic kidney disease) stage 3, GFR 30-59 ml/min Current Visit: No Status: Chronic Code(s): N18.3 - CHRONIC KIDNEY DISEASE, STAGE 3 (MODERATE)
[2017-09-07] MEDS: BUMEX 1 MG PO SCH (09:56)
[2017-09-07] MEDS: Klor Con 10 MEQ PO SCH ×2 (09:56→22:19)
[2017-09-07] MEDS: Paxil 20 MG PO SCH (09:56)
[2017-09-07] MEDS: Lopressor 50 MG PO SCH ×2 (09:56→22:19)
[2017-09-07] MEDS: ELIQUIS 5 MG TABLET PO SCH ×2 (09:57→22:18)
[2017-09-07] MEDS: ZYLOPRIM 300 MG PO SCH (09:57)
[2017-09-07] MEDS: ROCEPHIN 1 Gm-D5w 50 ml Bag** 1 G/50 ML IVPB IV SCH (09:57)
[2017-09-07] MEDS: FEOSOL 325 MG PO SCH ×2 (09:57→22:19)
[2017-09-07] MEDS: SYNTHROID 100 MCG PO SCH (09:57)
[2017-09-07] MEDS: BUSPAR 5 MG PO SCH ×2 (09:57→22:18)
[2017-09-07] MEDS: Lasix 40 MG/4 ML IV SCH ×2 (09:57→17:06)
[2017-09-07] MEDS: MAG-OX 400 PO SCH ×2 (09:57→22:18)
[2017-09-07] MEDS: ENTRESTO 49 MG-51 MG TABLET PO SCH ×2 (09:58→22:20)
[2017-09-07] MEDS ORDERED: Klor Con 10 MEQ PO SCH (10:00)
[2017-09-07] MEDS ORDERED: Lantus Insulin SQ SCH (10:00)
[2017-09-07] MEDS ORDERED: NON-FORMULARY ITEM (Paroxetine Hcl [Paxil] 10 MG) PO SCH (10:00)
[2017-09-07] MEDS: xanAX 0.25 MG PO SCH ×2 (10:09→22:19)
[2017-09-07] MEDS ORDERED: Sodium Chloride 0.9% 10 ML FLUSH Syringe IV PRN (10:24)
[2017-09-07] MEDS: NovoLOG Insulin SQ PRN ×3 (11:57→22:20)
[2017-09-07] MEDS: Sodium Chloride 0.9% 10 ML FLUSH Syringe IV SCH ×2 (17:06→22:20)
[2017-09-07] MEDS: ELAVIL 25 MG PO SCH (22:18)
[2017-09-08 05:35] LABS: Hematocrit 33.6 % (35-47); Mean Corpuscular Hgb Concent. 29.8 g/dl (32-36); Mean Platelet Volume 10.8 fl (6-9.5); Platelet Count 354 K/mm3 (150-450); Red Blood Count 3.36 M/mm3 (4.1-5.4); Red Cell Distribution Width 17.8 % (11.5-14.0); White Blood Count 10.3 K/mm3 (4.0-10.5)
[2017-09-08 05:46] LABS: Mean Corpuscular Hemoglobin 29.7 pg (26-32)
[2017-09-08 05:59] LABS: BLOOD UREA NITROGEN 24 mg/dL (7-17); CHLORIDE 95 mmol/L (98-107); Calcium 8.4 mg/dL (8.4-10.2); Creatinine 1 0.77 mg/dL (0.52-1.04); Glucose 73 mg/dL (74-106); Potassium 3.9 mmol/L (3.5-5.1); SODIUM 141 mmol/L (137-145)
[2017-09-08 06:08] LABS: NT PRO BNP 2070 pg/mL (0-1800)
[2017-09-08 06:12] LABS: Carbon Dioxide 41 mmol/L (22-30)
[2017-09-08 06:14] LABS: ANION GAP 8.9 MEQ/L (5-15)
[2017-09-08] MEDS: Sodium Chloride 0.9% 10 ML FLUSH Syringe IV SCH ×3 (06:32→21:28)
[2017-09-08 06:56] LABS: BAND 2 % (0.0-2.0); Eosinophil 2 % (0.00-3.0); Lymphocytes 7 % (24-44); Monocyte 4 % (0.0-12.0); Neutrophils 85 % (36.0-66.0); Total Cells Counted 100
[2017-09-08 06:59] LABS: Platelet Estimate NORMAL (NORMAL)
--- NOTE | 2017-09-08 09:12 | PCM.NOTE ---
Date and Time: 09/08/17910 Subjective Assessment: patient still minimally repsonive, sleeping, in no distress. helped feed her a little this morning Objective Exam General Appearance: lethargy Skin Exam: normal color, warm, dry Respiratory Exam: crackles/rales Cardiovascular Exam: regular rate/rhythm, normal heart sounds Gastrointestinal/Abdomen Exam: soft, No tenderness, No mass Extremity Exam: normal inspection, normal range of motion OBJECTIVE DATA Vital Signs: Vital Signs - 24 hr Temp Pulse Resp BP Pulse Ox 09/08/17 07:32 78 20 93 L 09/08/17 07:26 97.8 F 91 H 20 112/76 92 L 09/08/17 04:01 97.6 F 86 16 104/56 98 09/07/17 23:32 97.8 F 90 18 111/63 99 09/07/17 21:51 115 H 15 97 09/07/17 19:54 97.5 F 100 H 20 110/54 96 09/07/17 15:51 97.6 F 95 H 20 136/54 99 09/07/17 11:49 82 18 97 09/07/17 11:07 98.1 F 73 18 115/52 97 Oxygen-Last 24 hours O2 Percentage 2 Liters = 28% O2 Percentage 2 Liters = 28% O2 Percentage 2 Liters = 28% O2 Percentage 2 Liters = 28% O2 Percentage 2 Liters = 28% O2 Percentage 2 Liters = 28% Pain Assessment - Last Documented Pain Intensity 0 Pain Scale Used FLACC Intake and Output: Intake & Output 09/05/17 09/06/17 09/07/17 09/08/17 11:59 11:59 11:59 11:59 Intake Total 120 780 Output Total 2850 875 Balance -2730 -95 Weight 75.7 kg 76 kg Lab Results: Accuchecks Date 09/07/17 Date 09/07/17 Accucheck Value: 214 Accucheck Value: 193 Accucheck Value: 197 Lab Results-Last 24 Hours 09/08/17 09/08/17 Range/Units 05:18 05:18 WBC 10.3 (4.0-10.5) K/mm3 RBC 3.36 L (4.1-5.4) M/mm3 Hgb 10.0 L (12.0-16.0) gm/dl Hct 33.6 L (35-47) % MCV 100.0 (78-100) fl MCH 29.7 (26-32) pg MCHC 29.8 L (32-36) g/dl RDW 17.8 H (11.5-14.0) % Plt Count 354 (150-450) K/mm3 MPV 10.8 H (6-9.5) fl Segmented Neutrophils 85 H (36.0-66.0) % Band Neutrophils 2 (0.0-2.0) % Lymphocytes (Manual) 7 L (24-44) % Monocytes (Manual) 4 (0.0-12.0) % Eosinophils (Manual) 2 (0.00-3.0) % Platelet Estimate NORMAL (NORMAL) RBC Morphology NORMAL Sodium 141 (137-145) mmol/L Potassium 3.9 (3.5-5.1) mmol/L Chloride 95 L (98-107) mmol/L Carbon Dioxide 41 H (22-30) mmol/L Anion Gap 8.9 (5-15) MEQ/L BUN 24 H (7-17) mg/dL Creatinine 0.77 (0.52-1.04) mg/dL Estimated GFR > 60.0 ML/MIN Glucose 73 L (74-106) mg/dL Calcium 8.4 (8.4-10.2) mg/dL NT-Pro-B Natriuret Pep 2070 H (0-1800) pg/mL Assessment/Plan (1) CHF (congestive heart failure) Current Visit: Yes Status: Acute Onset Date: ~09/06/17 Assessment & Plan: continue diuresis at this time. Code(s): I50.9 - HEART FAILURE, UNSPECIFIED (2) UTI (urinary tract infection) Current Visit: Yes Status: Acute Onset Date: ~09/06/17 Assessment & Plan: urine culture negative, chest ct with no obvious pneumonia. Code(s): N39.0 - URINARY TRACT INFECTION, SITE NOT SPECIFIED (3) Altered mental status Current Visit: Yes Status: Acute Onset Date: ~09/06/17 Code(s): R41.82 - ALTERED MENTAL STATUS, UNSPECIFIED (4) Diabetes mellitus type 2 in obese Current Visit: No Status: Chronic Code(s): E11.69 - TYPE 2 DIABETES MELLITUS WITH OTHER SPECIFIED COMPLICATION; E66.9 - OBESITY, UNSPECIFIED (5) CKD (chronic kidney disease) stage 3, GFR 30-59 ml/min Current Visit: No Status: Chronic Code(s): N18.3 - CHRONIC KIDNEY DISEASE, STAGE 3 (MODERATE)
[2017-09-08] MEDS: ELIQUIS 5 MG TABLET PO SCH ×2 (09:40→21:27)
[2017-09-08] MEDS: ZYLOPRIM 300 MG PO SCH (09:40)
[2017-09-08] MEDS: Klor Con 10 MEQ PO SCH ×2 (09:40→21:27)
[2017-09-08] MEDS: SYNTHROID 100 MCG PO SCH (09:40)
[2017-09-08] MEDS: Lopressor 50 MG PO SCH ×2 (09:40→21:27)
[2017-09-08] MEDS: Paxil 20 MG PO SCH (09:40)
[2017-09-08] MEDS: Lasix 40 MG/4 ML IV SCH ×2 (09:40→17:14)
[2017-09-08] MEDS: MAG-OX 400 PO SCH ×2 (09:40→21:27)
[2017-09-08] MEDS: FEOSOL 325 MG PO SCH ×2 (09:41→21:28)
[2017-09-08] MEDS: BUMEX 1 MG PO SCH (09:41)
[2017-09-08] MEDS: ENTRESTO 49 MG-51 MG TABLET PO SCH ×2 (09:42→21:27)
[2017-09-08] MEDS: ROCEPHIN 1 Gm-D5w 50 ml Bag** 1 G/50 ML IVPB IV SCH (09:42)
[2017-09-08] MEDS: NovoLOG Insulin SQ PRN ×2 (17:14→21:28)
[2017-09-09] MEDS: Sodium Chloride 0.9% 10 ML FLUSH Syringe IV SCH ×3 (05:34→22:01)
[2017-09-09 05:51] LABS: BASOPHIL % 0.7 % (0.0-0.4); Basophil (Absolute #) 0.07 (0-0.4); Eosinophil % 2.2 % (0.00-5.0); Eosinophil (Absolute #) 0.22 (0-0.5); Granulocyte Absolute (ANC) 7.72 (1.4-6.9); Granulocytes % 75.5 % (36.0-66.0); Hematocrit 36.1 % (35-47); Hemoglobin 10.5 gm/dl (12.0-16.0); Lymphocyte (Absolute #) 1.11 (1.0-4.6); Lymphocytes % 10.9 % (24.0-44.0); Mean Cell Volume 102.3 fl (78-100); Mean Corpuscular Hemoglobin 29.7 pg (26-32); Mean Corpuscular Hgb Concent. 29.1 g/dl (32-36); Mean Platelet Volume 10.9 fl (6-9.5); Monocyte (Absolute #) 1.09 (0.0-1.3); Monocytes % 10.7 % (0.0-12.0); Platelet Count 366 K/mm3 (150-450); Red Blood Count 3.53 M/mm3 (4.1-5.4); Red Cell Distribution Width 17.9 % (11.5-14.0); White Blood Count 10.2 K/mm3 (4.0-10.5)
[2017-09-09 06:03] LABS: Calcium 8.5 mg/dL (8.4-10.2); Creatinine 1 0.99 mg/dL (0.52-1.04); Potassium 4.5 mmol/L (3.5-5.1)
[2017-09-09 06:17] LABS: ANION GAP 13.5 MEQ/L (5-15)
[2017-09-09] MEDS: NovoLOG Insulin SQ PRN ×4 (08:09→21:23)
--- NOTE | 2017-09-09 08:27 | PCM.NOTE ---
Date and Time: 09/09/17 0756 Subjective Assessment: patient alert, eating breakfast this morning. she is alert and oriented, states she is feeling pretty good today Objective Exam General Appearance: no apparent distress, alert Skin Exam: normal color, warm, dry Respiratory Exam: normal breath sounds, lungs clear, No respiratory distress Cardiovascular Exam: regular rate/rhythm, normal heart sounds Gastrointestinal/Abdomen Exam: soft, No tenderness, No mass OBJECTIVE DATA Vital Signs: Vital Signs - 24 hr Temp Pulse Resp BP Pulse Ox 09/09/17 07:24 97.8 F 78 20 138/88 95 09/09/17 04:10 97.9 F 99 H 23 114/75 96 09/09/17 00:20 98.7 F 98 H 22 114/59 95 09/08/17 20:14 99 H 19 95 09/08/17 19:58 97.9 F 98 H 20 102/58 96 09/08/17 16:00 98.3 F 96 H 18 109/64 96 09/08/17 11:28 98 F 80 20 148/78 96 Oxygen-Last 24 hours O2 Percentage 2 Liters = 28% O2 Percentage 2 Liters = 28% O2 Percentage 2 Liters = 28% O2 Percentage 2 Liters = 28% O2 Percentage 2 Liters = 28% O2 Percentage 2 Liters = 28% Pain Assessment - Last Documented Pain Intensity 0 Pain Scale Used 0-10 Pain Scale,FLACC Intake and Output: Intake & Output 09/06/17 09/07/17 09/08/17 09/09/17 11:59 11:59 11:59 11:59 Intake Total 120 1020 860 Output Total 875 1125 Balance 120 145 -265 Weight 76 kg 78.6 kg Lab Results: Accuchecks Date 09/08/17 Date 09/08/17 Date 09/08/17 Time 21:42 Time 16:30 Time 11:30 Accucheck Value: 174 Accucheck Value: 168 Accucheck Value: 149 Lab Results-Last 24 Hours 09/09/17 09/09/17 Range/Units 05:20 05:20 WBC 10.2 (4.0-10.5) K/mm3 RBC 3.53 L (4.1-5.4) M/mm3 Hgb 10.5 L (12.0-16.0) gm/dl Hct 36.1 (35-47) % MCV 102.3 H (78-100) fl MCH 29.7 (26-32) pg MCHC 29.1 L (32-36) g/dl RDW 17.9 H (11.5-14.0) % Plt Count 366 (150-450) K/mm3 MPV 10.9 H (6-9.5) fl Gran % 75.5 H (36.0-66.0) % Eos # (Auto) 0.22 (0-0.5) Absolute Lymphs (auto) 1.11 (1.0-4.6) Absolute Monos (auto) 1.09 (0.0-1.3) Lymphocytes % 10.9 L (24.0-44.0) % Monocytes % 10.7 (0.0-12.0) % Eosinophils % 2.2 (0.00-5.0) % Basophils % 0.7 (0.0-0.4) % Absolute Granulocytes 7.72 H (1.4-6.9) Basophils # 0.07 (0-0.4) Sodium 141 (137-145) mmol/L Potassium 4.5 (3.5-5.1) mmol/L Chloride 92 L (98-107) mmol/L Carbon Dioxide 46 H (22-30) mmol/L Anion Gap 13.5 (5-15) MEQ/L BUN 25 H (7-17) mg/dL Creatinine 0.99 (0.52-1.04) mg/dL Estimated GFR 56.9 ML/MIN Glucose 152 H (74-106) mg/dL Calcium 8.5 (8.4-10.2) mg/dL Multi-Disciplinary Progress Notes: Multi-Disciplinary Progress Notes 09/08/17 10:00 (created 09/08/17 14:11) Case Management Note by Zoie Mejia DISCHARGE PLAN REVIEWED, AT BEDSIDE. PLAN FOR PT TO RETURN TO HALF-WAY ON DISCHARGE. NO OTHER NEEDS IDENTIFIED AT PRESENT. WILL FOLLOW FOR ALL DC NEEDS. Initialized on 09/08/17 14:11 - END OF NOTE Assessment/Plan (1) CHF (congestive heart failure) Current Visit: Yes Status: Acute Onset Date: ~09/06/17 Assessment & Plan: continue IV lasix Code(s): I50.9 - HEART FAILURE, UNSPECIFIED (2) UTI (urinary tract infection) Current Visit: Yes Status: Acute Onset Date: ~09/06/17 Assessment & Plan: ruled out, will d/c doc Code(s): N39.0 - URINARY TRACT INFECTION, SITE NOT SPECIFIED (3) Altered mental status Current Visit: Yes Status: Acute Onset Date: ~09/06/17 Code(s): R41.82 - ALTERED MENTAL STATUS, UNSPECIFIED (4) Diabetes mellitus type 2 in obese Current Visit: No Status: Chronic Code(s): E11.69 - TYPE 2 DIABETES MELLITUS WITH OTHER SPECIFIED COMPLICATION; E66.9 - OBESITY, UNSPECIFIED (5) CKD (chronic kidney disease) stage 3, GFR 30-59 ml/min Current Visit: No Status: Chronic Code(s): N18.3 - CHRONIC KIDNEY DISEASE, STAGE 3 (MODERATE)
[2017-09-09] MEDS: Paxil 20 MG PO SCH (08:28)
[2017-09-09] MEDS: ELIQUIS 5 MG TABLET PO SCH ×2 (08:29→21:22)
[2017-09-09] MEDS: Klor Con 10 MEQ PO SCH ×2 (08:29→21:22)
[2017-09-09] MEDS: Lopressor 50 MG PO SCH ×2 (08:29→21:22)
[2017-09-09] MEDS: FEOSOL 325 MG PO SCH ×2 (08:29→21:22)
[2017-09-09] MEDS: MAG-OX 400 PO SCH ×2 (08:29→21:23)
[2017-09-09] MEDS: BUMEX 1 MG PO SCH (08:29)
[2017-09-09] MEDS: ZYLOPRIM 300 MG PO SCH (08:30)
[2017-09-09] MEDS: SYNTHROID 100 MCG PO SCH (08:30)
[2017-09-09] MEDS: ENTRESTO 49 MG-51 MG TABLET PO SCH ×2 (08:33→21:22)
[2017-09-09] MEDS: Lasix 40 MG/4 ML IV SCH ×2 (08:34→17:18)
--- NOTE | 2017-09-09 08:52 | XRAY ---
Indication: Follow-up CHF. Comparison: September 06, 2017. Portable chest again demonstrates cardiomegaly and central vascular congestion with minimally worsening bibasilar infiltrates/atelectasis/effusions. Again left-sided AICD. No new cardiopulmonary abnormalities.
[2017-09-09 23:48] VITALS: O2SAT 97
[2017-09-10 05:40] LABS: Granulocyte Absolute (ANC) 9.86 (1.4-6.9); Hematocrit 36.9 % (35-47); Hemoglobin 10.8 gm/dl (12.0-16.0); Mean Cell Volume 100.8 fl (78-100); Mean Corpuscular Hemoglobin 29.5 pg (26-32); Mean Corpuscular Hgb Concent. 29.3 g/dl (32-36); Mean Platelet Volume 10.6 fl (6-9.5); Platelet Count 366 K/mm3 (150-450); Red Blood Count 3.66 M/mm3 (4.1-5.4); Red Cell Distribution Width 17.8 % (11.5-14.0); White Blood Count 12.3 K/mm3 (4.0-10.5)
[2017-09-10] MEDS: Sodium Chloride 0.9% 10 ML FLUSH Syringe IV SCH (05:53)
[2017-09-10 06:04] LABS: BLOOD UREA NITROGEN 24 mg/dL (7-17); CHLORIDE 92 mmol/L (98-107); Calcium 8.8 mg/dL (8.4-10.2); Creatinine 1 0.86 mg/dL (0.52-1.04); Glucose 165 mg/dL (74-106); Potassium 4.6 mmol/L (3.5-5.1); SODIUM 142 mmol/L (137-145)
[2017-09-10 06:13] LABS: NT PRO BNP 3010 pg/mL (0-1800)
[2017-09-10 06:52] LABS: Carbon Dioxide 41 mmol/L (22-30)
[2017-09-10 06:53] LABS: ANION GAP 13.6 MEQ/L (5-15)
[2017-09-10 07:33] VITALS: BP 136/78; PULSE 106
[2017-09-10 07:53] LABS: BAND 6 % (0.0-2.0); Lymphocytes 7 % (24-44); Monocyte 10 % (0.0-12.0); Neutrophils 77 % (36.0-66.0); Total Cells Counted 100
[2017-09-10 07:55] LABS: Platelet Estimate NORMAL (NORMAL); Polychromasia 1+
[2017-09-10 07:56] LABS: ANISOCYTOSIS 1+; Basophilic Stippling 1+
--- NOTE | 2017-09-10 08:21 | PCM.DS ---
Discharge Summary Date of Admission: 09/07/17 06:57 Admitting Physician: LANCE CARLSON Primary Care Provider: FE BROWN Allergies Allergies No Known Drug Allergies Allergy (Verified 09/06/17 10:28) Hospital Summary - Hospital Course Hospital Course: patient was admitted with lethargy, shortness of breath. was treated for UTI initially but culture negative. found to have florid chf, improved with diuresis and doing well at this time. - Vitals & Intake/Output Vital Signs: Vital Signs Temperature 97.9 F 09/10/17 07:31 Pulse Rate 106 H 09/10/17 07:31 Respiratory Rate 28 H 09/10/17 07:31 Blood Pressure 136/78 09/10/17 07:31 O2 Sat by Pulse Oximetry 97 09/10/17 07:31 Oxygen-Last Documented O2 Percentage 2 Liters = 28% Intake & Output: Intake & Output 09/07/17 09/08/17 09/09/17 09/10/17 11:59 11:59 11:59 11:59 Intake Total 120 1020 1100 980 Output Total 875 1125 2750 Balance 120 Weight 76 kg 78.6 kg 79 kg - Lab Result Diagrams: 09/10/17 05:13 09/10/17 05:13 Lab Results-Last 24 Hrs: Accuchecks Date 09/09/17 Time 11:30 Accucheck Value: 177 Accucheck Value: 176 Accucheck Value: 158 Lab Results-Last 24 Hours 09/10/17 09/10/17 Range/Units 05:13 05:13 WBC 12.3 H (4.0-10.5) K/mm3 RBC 3.66 L (4.1-5.4) M/mm3 Hgb 10.8 L (12.0-16.0) gm/dl Hct 36.9 (35-47) % MCV 100.8 H (78-100) fl MCH 29.5 (26-32) pg MCHC 29.3 L (32-36) g/dl RDW 17.8 H (11.5-14.0) % Plt Count 366 (150-450) K/mm3 MPV 10.6 H (6-9.5) fl Absolute Granulocytes 9.86 H (1.4-6.9) Segmented Neutrophils 77 H (36.0-66.0) % Band Neutrophils 6 H (0.0-2.0) % Lymphocytes (Manual) 7 L (24-44) % Monocytes (Manual) 10 (0.0-12.0) % Platelet Estimate NORMAL (NORMAL) RBC Morphology ABNORMAL Polychromasia 1+ Basophilic Stippling 1+ Anisocytosis 1+ Sodium 142 (137-145) mmol/L Potassium 4.6 (3.5-5.1) mmol/L Chloride 92 L (98-107) mmol/L Carbon Dioxide 41 H (22-30) mmol/L Anion Gap 13.6 (5-15) MEQ/L BUN 24 H (7-17) mg/dL Creatinine 0.86 (0.52-1.04) mg/dL Estimated GFR > 60.0 ML/MIN Glucose 165 H (74-106) mg/dL Calcium 8.8 (8.4-10.2) mg/dL NT-Pro-B Natriuret Pep 3010 H (0-1800) pg/mL Micro Results-Entire Visit: Accuchecks Date 09/09/17 Time 11:30 Accucheck Value: 177 Accucheck Value: 176 Accucheck Value: 158 - Radiology Exams Ordered Rad Exams-Entire Visit: Radiology Procedures Category Date Time Status CHEST 1 VIEW (PORTABLE) Routine Exams 09/09/17 08:44 Completed Discharge Exam General Appearance: no apparent distress, alert Skin Exam: normal color, warm, dry Respiratory Exam: normal breath sounds, lungs clear Cardiovascular Exam: regular rate/rhythm, normal heart sounds Gastrointestinal/Abdomen Exam: soft, No tenderness, No mass Extremity Exam: normal inspection, normal range of motion Final Diagnosis/Problem List - Final Discharge Diagnosis/Problem (1) CHF (congestive heart failure) Current Visit: Yes Status: Acute Onset Date: ~09/06/17 Assessment & Plan: improved, back to baseline at this time (2) UTI (urinary tract infection) Current Visit: Yes Status: Acute Onset Date: ~09/06/17 (3) Altered mental status Current Visit: Yes Status: Acute Onset Date: ~09/06/17 (4) Diabetes mellitus type 2 in obese Current Visit: No Status: Chronic (5) CKD (chronic kidney disease) stage 3, GFR 30-59 ml/min Current Visit: No Status: Chronic - Discharge Disposition: Skilled Care @ [facility] Condition: Stable Prescriptions: Continue Rosuvastatin Calcium [Crestor] 10 mg PO HS Levothyroxine Sodium 100 Mcg [Synthroid 100 Mcg] 100 mcg PO DAILY Albuterol Common Canister [Proventil Common Canister] 2 puff IH Q4H PRN PRN #1 unit PRN Reason: Shortness Of Breath Sitagliptin Phosphate 50 MG [Januvia 50 MG] 100 mg PO DAILY Bumetanide 1 mg PO DAILY #30 tablet Acetaminophen 325 mg [Tylenol 325 mg] 650 mg PO Q4H PRN PRN tablet PRN Reason: Pain And/Or Fever Benzonatate [Tessalon Perle] 200 mg PO TID PRN Multivitamin W-Minerals/Lutein [Cerovite Silver Tablet] 1 tab PO DAILY Sacubitril/Valsartan [Entresto 49 mg-51 mg Tablet] 1 tablet PO BID Allopurinol 300 mg PO DAILY Potassium Chloride 10 Meq Tab* [Klor Con 10 MEQ] 10 meq PO QAM Insulin Glargine [Lantus Insulin] 30 unit SQ DAILY Insulin Aspart [NovoLOG Insulin] 1 unit SQ UD Ferrous Sulfate 325 mg PO BID Buspirone HCl 5 mg [Buspar 5 mg] 10 mg PO BID Alprazolam 0.25 mg [xanAX 0.25 MG] 0.25 mg PO BID Apixaban [Eliquis 5 mg Tablet] 5 mg PO BID Metoprolol Tartrate 50 mg [Lopressor 50 MG] 75 mg PO BID Paroxetine HCl [Paxil] 10 mg PO DAILY Amitriptyline HCl 25 mg PO HS Magnesium Hydroxide 30 ml [Milk of Magnesia 30 ml] 30 ml PO DAILY PRN PRN PRN Reason: Constipation Polyvinyl Alcohol [Artificial Tears] 1 ml OP BID PRN PRN PRN Reason: Dry eyes Magnesium Oxide [Mag-Oxide Magnesium] 400 mg PO BID Follow up with: FE BROWN [Primary Care Provider] - 1 Week FRANCOIS TRIVEDI [Family Provider] - 1 Week
[2017-09-10] MEDS: Lasix 40 MG/4 ML IV SCH (09:38)
[2017-09-10] MEDS: Paxil 20 MG PO SCH (09:40)
[2017-09-10] MEDS: Klor Con 10 MEQ PO SCH (09:40)
[2017-09-10] MEDS: SYNTHROID 100 MCG PO SCH (09:40)
[2017-09-10] MEDS: ZYLOPRIM 300 MG PO SCH (09:40)
[2017-09-10] MEDS: MAG-OX 400 PO SCH (09:40)
[2017-09-10] MEDS: BUMEX 1 MG PO SCH (09:40)
[2017-09-10] MEDS: ELIQUIS 5 MG TABLET PO SCH (09:41)
[2017-09-10] MEDS: Lopressor 50 MG PO SCH (09:41)
[2017-09-10] MEDS: FEOSOL 325 MG PO SCH (09:41)
[2017-09-10] MEDS: ENTRESTO 49 MG-51 MG TABLET PO SCH (09:46)
== END 2017-09-10 11:27 | DRG 292 ==
LOC: ED 09:48 → MED SURG 14:10 → OBSVTOIN 09-07 06:57
PROVIDERS: ADMIT Family Medicine; ATTEND Family Medicine
DX: I50.9 Heart failure, unspecified (principal); N39.0 Urinary tract infection, site not specified; R41.82 Altered mental status, unspecified; E11.69 Type 2 diabetes mellitus with other specified complication; I25.10 Atherosclerotic heart disease of native coronary artery without angina pectoris; E11.9 Type 2 diabetes mellitus without complications; E66.9 Obesity, unspecified; Z79.4 Long term (current) use of insulin; N18.3 Chronic kidney disease, stage 3 (moderate); M19.90 Unspecified osteoarthritis, unspecified site; Z79.01 Long term (current) use of anticoagulants; I12.9 Hypertensive chronic kidney disease with stage 1 through stage 4 chronic kidney disease, or unspecified chronic kidney disease; N18.9 Chronic kidney disease, unspecified; E03.9 Hypothyroidism, unspecified; I48.91 Unspecified atrial fibrillation; E78.00 Pure hypercholesterolemia, unspecified; Z79.899 Other long term (current) drug therapy; Z95.810 Presence of automatic (implantable) cardiac defibrillator; Z86.711 Personal history of pulmonary embolism
CPT/HCPCS: 36000; 36415; 36600; 51702; 70450; 71045; 71260; 80048; 80053; 81000; 82375; 82803; 83605; 83880; 84484; 85025; 85027; 85379; 87086; 93005; 93268; 94760; 94761; 96374; 99285; J0696; J1940; A9270-GY; G0378

== ENCOUNTER 2017-09-13 09:48 | Inpatient (IN) | payer MEDICARE, OTHER ==
--- NOTE | 2017-09-13 10:47 | ERPHSYRPT ---
- History of Present Illness Time Seen by Provider: 09/13/17 10:43 Source: family, EMS Exam Limitations: clinical condition Patient Subjective Stated Complaint: pt was dc from hospital wednesday-nh and reports that pt is not better and states that he can tell pt does not feel well Triage Nursing Assessment: pt pink warm and dry-not answering questions-resp nonlabored-radial pulse regular and strong Physician History: The patient is an 82-year-old female with her family brought in by ambulance from [facility] with a family complains that she is not responding well to them and she is weak. She was discharged from the hospital on Wednesday where she had an exacerbation of congestive heart failure. The alf thought she had a low O2 sat and put her on oxygen. Her past medical history is significant for congestive heart failure, diabetes, obesity, pulmonary embolism, chronic kidney disease, atrial fibrillation. Timing/Duration: week(s) (1) Severity: mild Associated Symptoms: malaise, weakness Allergies/Adverse Reactions: No Known Drug Allergies Allergy (Verified 09/13/17 10:03) Home Medications: Levothyroxine Sodium 100 Mcg [Synthroid 100 Mcg] 100 mcg PO DAILY 08/17/16 [History] Rosuvastatin Calcium [Crestor] 10 mg PO HS 08/17/16 [History] Sitagliptin Phosphate 50 MG [Januvia 50 MG] 100 mg PO DAILY 01/22/17 [ History] Multivitamin W-Minerals/Lutein [Cerovite Silver Tablet] 1 tab PO DAILY 07/27/17 [History] Sacubitril/Valsartan [Entresto 49 mg-51 mg Tablet] 1 tablet PO BID 07/27/17 [ History] Allopurinol 300 mg PO DAILY 08/19/17 [History] Potassium Chloride 10 Meq Tab* [Klor Con 10 MEQ] 10 meq PO QAM 08/19/17 [ History] Alprazolam 0.25 mg [xanAX 0.25 MG] 0.25 mg PO BID 09/06/17 [History] Apixaban [Eliquis 5 mg Tablet] 5 mg PO BID 09/06/17 [History] Buspirone HCl 5 mg [Buspar 5 mg] 10 mg PO BID 09/06/17 [History] Ferrous Sulfate 325 mg PO BID 09/06/17 [History] Insulin Aspart [NovoLOG Insulin] 1 unit SQ UD 09/06/17 [History] Insulin Glargine [Lantus Insulin] 30 unit SQ DAILY 09/06/17 [History] Magnesium Hydroxide 30 ml [Milk of Magnesia 30 ml] 30 ml PO DAILY PRN PRN 09/06/17 [History] Magnesium Oxide [Mag-Oxide Magnesium] 400 mg PO BID 09/06/17 [History] Metoprolol Tartrate 50 mg [Lopressor 50 MG] 75 mg PO BID 09/06/17 [History ] Polyvinyl Alcohol [Artificial Tears] 1 ml OP BID PRN PRN 09/06/17 [History] Hx Tetanus, Diphtheria Vaccination/Date Given: Yes Hx Influenza Vaccination/Date Given: Yes Hx Pneumococcal Vaccination/Date Given: Yes Immunizations Up to Date: Yes - Review of Systems Constitutional: Malaise, Weakness Eyes: No Symptoms Ears, Nose, & Throat: No Symptoms Respiratory: No Cough, No Dyspnea Cardiac: No Chest Pain, No Edema, No Syncope Abdominal/Gastrointestinal: No Abdominal Pain, No Nausea, No Vomiting, No Diarrhea Genitourinary Symptoms: No Dysuria Musculoskeletal: No Back Pain, No Neck Pain Skin: No Rash Neurological: No Dizziness, No Focal Weakness, No Sensory Changes Psychological: No Symptoms Endocrine: No Symptoms Hematologic/Lymphatic: No Symptoms Immunological/Allergic: No Symptoms All Other Systems: Reviewed and Negative - Past Medical History Pertinent Past Medical History: Yes Neurological History: No Pertinent History, Dementia ENT History: Cataracts Cardiac History: Arrhythmia, Coronary Artery Disease, Hypertension Respiratory History: CHF Endocrine Medical History: Diabetes Type II, Hypothyroidism Musculoskeletal History: Arthritis, Fractures GI Medical History: Gallbladder Disease History: Renal Disease, Other Psycho-Social History: No Pertinent History Female Reproductive Disorders: No Pertinent History Other Medical History: 40 % kidney function - Past Surgical History Past Surgical History: Yes Neuro Surgical History: No Pertinent History Cardiac: Internal Defibrillator, Pacemaker Respiratory: No Pertinent History Gastrointestinal: Appendectomy, Other Genitourinary: No Pertinent History Musculoskeletal: Orthopedic Surgery Female Surgical History: Tubal Ligation Other Surgical History: right arm surgery. ERCP with bile duct stent. bilateral shoulder repair - Social History Smoking Status: Never smoker Exposure to second hand smoke: No Alcohol Use: None Drug Use: none Patient Lives Alone: No Significant Family History: heart disease, hypertension - Female History Hx Now: No - Nursing Vital Signs Nursing Vital Signs: Initial Vital Signs Temperature 97.4 F 09/13/17 09:50 Pulse Rate 106 H 09/13/17 09:50 Respiratory Rate 18 09/13/17 09:50 Blood Pressure 147/93 09/13/17 09:50 O2 Sat by Pulse Oximetry 100 09/13/17 09:50 Pain Scale Pain Intensity 0 - Physical Exam General Appearance: obese Eye Exam: PERRL/EOMI, eyes nml inspection Ears, Nose, Throat Exam: normal ENT inspection, TMs normal, pharynx normal, moist mucous membranes Neck Exam: normal inspection, non-tender, supple, full range of motion Respiratory Exam: normal breath sounds, lungs clear, No respiratory distress Cardiovascular Exam: regular rate/rhythm, normal heart sounds, normal peripheral pulses Gastrointestinal/Abdomen Exam: soft, normal bowel sounds, No tenderness, No mass Pelvic Exam: not done Rectal Exam: not done Back Exam: normal inspection, normal range of motion, No CVA tenderness, No vertebral tenderness Extremity Exam: normal inspection, normal range of motion, pelvis stable Neurologic Exam: other (somulent) Skin Exam: normal color, warm, dry, No rash Lymphatic Exam: No adenopathy SpO2 Interpretation: normal SpO2: 100 Oxygen Delivery: Room Air - Radiology Exams Chest X-ray Interpretation: Reviewed by me, Teleradiologist Report, Other (worsening bibasilar effusions per Dr Lo.) Ordered Tests: Active Orders 24 hr Category Date Time Status Cath for Specimen-Straight STAT Care 09/13/17 11:23 Active EKG-ER Only STAT Care 09/13/17 11:22 Active IV Insertion STAT Care 09/13/17 11:22 Active CHEST 1 VIEW (PORTABLE) Stat Exams 09/13/17 11:22 Completed BLOOD CULTURE Stat Lab 09/13/17 11:45 Received CBC W DIFF Stat Lab 09/13/17 11:35 Completed CMP Stat Lab 09/13/17 11:35 Completed CULTURE,URINE Stat Lab 09/13/17 11:59 Received LIPASE Stat Lab 09/13/17 11:35 Completed Lactic Acid Stat Lab 09/13/17 11:40 Completed NT PRO BNP Stat Lab 09/13/17 11:35 Completed TROPONIN Q3H Lab 09/13/17 11:35 Completed TROPONIN Q3H Lab 09/13/17 14:30 Ordered TROPONIN Q3H Lab 09/13/17 17:30 Ordered TROPONIN Q3H Lab 09/13/17 20:30 Ordered TROPONIN Q3H Lab 09/13/17 23:30 Ordered UA W/ MICROSCOPIC Stat Lab 09/13/17 11:59 Completed Lab/Rad Data: Laboratory Result Diagrams 09/13/17 11:35 09/13/17 11:35 Laboratory Results 09/13/17 09/13/17 09/13/17 Range/Units 11:59 11:40 11:35 WBC (4.0-10.5) K/mm3 RBC (4.1-5.4) M/mm3 Hgb (12.0-16.0) gm/dl Hct (35-47) % MCV (78-100) fl MCH (26-32) pg MCHC (32-36) g/dl RDW (11.5-14.0) % Plt Count (150-450) K/mm3 MPV (6-9.5) fl Gran % (36.0-66.0) % Eos # (Auto) (0-0.5) Absolute Lymphs (auto) (1.0-4.6) Absolute Monos (auto) (0.0-1.3) Lymphocytes % (24.0-44.0) % Monocytes % (0.0-12.0) % Eosinophils % (0.00-5.0) % Basophils % (0.0-0.4) % Absolute Granulocytes (1.4-6.9) Basophils # (0-0.4) Sodium (137-145) mmol/L Potassium (3.5-5.1) mmol/L Chloride (98-107) mmol/L Carbon Dioxide (22-30) mmol/L Anion Gap (5-15) MEQ/L BUN (7-17) mg/dL Creatinine (0.52-1.04) mg/dL Estimated GFR ML/MIN Glucose (74-106) mg/dL Lactic Acid 1.5 (0.4-2.0) Calcium (8.4-10.2) mg/dL Total Bilirubin (0.2-1.3) mg/dL AST (14-36) U/L ALT (0-35) U/L Alkaline Phosphatase (38-126) U/L Troponin I (0.000-0.034) ng/mL NT-Pro-B Natriuret Pep 4310 H (0-1800) pg/mL Serum Total Protein (6.3-8.2) g/dL Albumin (3.5-5.0) g/dL Lipase (23-300) U/L Ur Collection Type CLEAN CATCH Urine Color YELLOW (YELLOW) Urine Appearance CLOUDY (CLEAR) Urine pH 6.5 (5-6) Ur Specific [place] 1.015 (1.005-1.025) Urine Protein 30 (Negative) Urine Ketones NEGATIVE (NEGATIVE) Urine Blood 50 (0-5) Allan/ul Urine Nitrite NEGATIVE (NEGATIVE) Urine Bilirubin NEGATIVE (NEGATIVE) Urine Urobilinogen NORMAL (0-1) mg/dL Ur Leukocyte Esterase 2+ (NEGATIVE) Urine Microscopic RBC 5-10 (0-2) /HPF Urine Microscopic WBC >100 (0-5) /HPF Ur Epithelial Cells MODERATE (FEW) /HPF Urine Bacteria MODERATE (NEGATIVE) /HPF Urine Culture Reflexed YES (NO) Urine Glucose NEGATIVE (NEGATIVE) mg/dL Specimen Received 09/13/17 1200 09/13/17 09/13/17 09/13/17 Range/Units 11:35 11:35 11:35 WBC 7.8 (4.0-10.5) K/mm3 RBC 3.86 L (4.1-5.4) M/mm3 Hgb 11.3 L (12.0-16.0) gm/dl Hct 38.8 (35-47) % MCV 100.5 H (78-100) fl MCH 29.2 (26-32) pg MCHC 29.1 L (32-36) g/dl RDW 17.8 H (11.5-14.0) % Plt Count 343 (150-450) K/mm3 MPV 10.8 H (6-9.5) fl Gran % 76.5 H (36.0-66.0) % Eos # (Auto) 0.08 (0-0.5) Absolute Lymphs (auto) 0.86 L (1.0-4.6) Absolute Monos (auto) 0.84 (0.0-1.3) Lymphocytes % 11.1 L (24.0-44.0) % Monocytes % 10.8 (0.0-12.0) % Eosinophils % 1.0 (0.00-5.0) % Basophils % 0.6 (0.0-0.4) % Absolute Granulocytes 5.94 (1.4-6.9) Basophils # 0.05 (0-0.4) Sodium 147 H (137-145) mmol/L Potassium 4.6 (3.5-5.1) mmol/L Chloride 95 L (98-107) mmol/L Carbon Dioxide 40 H (22-30) mmol/L Anion Gap 16.6 H (5-15) MEQ/L BUN 30 H (7-17) mg/dL Creatinine 1.00 (0.52-1.04) mg/dL Estimated GFR 56.3 ML/MIN Glucose 205 H (74-106) mg/dL Lactic Acid (0.4-2.0) Calcium 9.2 (8.4-10.2) mg/dL Total Bilirubin 0.40 (0.2-1.3) mg/dL AST 22 (14-36) U/L ALT 14 (0-35) U/L Alkaline Phosphatase 127 H (38-126) U/L Troponin I < 0.012 (0.000-0.034) ng/mL NT-Pro-B Natriuret Pep (0-1800) pg/mL Serum Total Protein 6.6 (6.3-8.2) g/dL Albumin 3.2 L (3.5-5.0) g/dL Lipase 37 (23-300) U/L Ur Collection Type Urine Color (YELLOW) Urine Appearance (CLEAR) Urine pH (5-6) Ur Specific [place] (1.005-1.025) Urine Protein (Negative) Urine Ketones (NEGATIVE) Urine Blood (0-5) Allan/ul Urine Nitrite (NEGATIVE) Urine Bilirubin (NEGATIVE) Urine Urobilinogen (0-1) mg/dL Ur Leukocyte Esterase (NEGATIVE) Urine Microscopic RBC (0-2) /HPF Urine Microscopic WBC (0-5) /HPF Ur Epithelial Cells (FEW) /HPF Urine Bacteria (NEGATIVE) /HPF Urine Culture Reflexed (NO) Urine Glucose (NEGATIVE) mg/dL Specimen Received - Progress Progress: unchanged Discussed with DrYanique: Joseluis Will see patient in: hospital (observation) (for Dr Soto) Counseled pt/family regarding: lab results, diagnosis, rad results - Departure Time of Disposition: 13:04 Departure Disposition: Observation (Dr Huggins for Dr Soto) Clinical Impression: CHF (congestive heart failure), UTI (urinary tract infection) Condition: Stable Critical Care Time: No Referrals: FE SOTO [Primary Care Provider] - Instructions: Heart Failure
--- NOTE | 2017-09-13 11:42 | XRAY ---
Indication: Weakness and short of breath. Comparison: September 09, 2017. Portable chest again demonstrates cardiomegaly with a left-sided AICD and moderate bibasilar infiltrates/atelectasis/effusions worsened on the right favoring worsening cardiac decompensation. Superimposed pneumonia not completely excluded.
[2017-09-13 12:03] LABS: BASOPHIL % 0.6 % (0.0-0.4); Basophil (Absolute #) 0.05 (0-0.4); Eosinophil (Absolute #) 0.08 (0-0.5); Granulocyte Absolute (ANC) 5.94 (1.4-6.9); Granulocytes % 76.5 % (36.0-66.0); Hematocrit 38.8 % (35-47); Hemoglobin 11.3 gm/dl (12.0-16.0); Lymphocyte (Absolute #) 0.86 (1.0-4.6); Lymphocytes % 11.1 % (24.0-44.0); Mean Cell Volume 100.5 fl (78-100); Mean Corpuscular Hgb Concent. 29.1 g/dl (32-36); Mean Platelet Volume 10.8 fl (6-9.5); Monocyte (Absolute #) 0.84 (0.0-1.3); Monocytes % 10.8 % (0.0-12.0); Platelet Count 343 K/mm3 (150-450); Red Blood Count 3.86 M/mm3 (4.1-5.4); Red Cell Distribution Width 17.8 % (11.5-14.0); White Blood Count 7.8 K/mm3 (4.0-10.5)
[2017-09-13 12:15] LABS: Mean Corpuscular Hemoglobin 29.2 pg (26-32)
[2017-09-13 12:29] LABS: Appearance CLOUDY (CLEAR); Bacteria MODERATE /HPF (NEGATIVE); Bilirubin NEGATIVE (NEGATIVE); Blood 50 Ery/ul (0-5); Epithelial Cells MODERATE /HPF (FEW); Glucose NEGATIVE (NEGATIVE); Ketones NEGATIVE (NEGATIVE); Leukocyte Esterase 2+ (NEGATIVE); Nitrite NEGATIVE (NEGATIVE); Ph 6.5 (5-6); Protein,Urine Dip 30 (Negative); Specific Gravity 1.015 (1.005-1.025); Urobilinogen NORMAL mg/dL (0-1); WBC >100 /HPF (0-5)
[2017-09-13 12:29] LABS: ALBUMIN 3.2 g/dL (3.5-5.0); BILIRUBIN,TOTAL 0.4 mg/dL (0.2-1.3); Calcium 9.2 mg/dL (8.4-10.2); Potassium 4.6 mmol/L (3.5-5.1); Total Protein 6.6 g/dL (6.3-8.2)
[2017-09-13 12:40] LABS: ANION GAP 16.6 MEQ/L (5-15)
[2017-09-13] MEDS ORDERED: TYLENOL 325 MG PO PRN (14:53)
[2017-09-13] MEDS ORDERED: Zofran 4 MG/2 ML VIAL IV PRN (14:53)
[2017-09-13] MEDS: Lasix 40 MG/4 ML IV SCH (15:27)
[2017-09-13] MEDS: ROCEPHIN 1 Gm-D5w 50 ml Bag** 1 G/50 ML IVPB IV SCH (15:27)
[2017-09-13] MEDS ORDERED: POLYVINYL ALCOHOL OP PRN (17:09)
[2017-09-13] MEDS ORDERED: PROVENTIL COMMON CANISTER IH PRN (17:09)
[2017-09-13] MEDS ORDERED: MILK OF MAGNESIA 30 ML PO PRN (17:09)
[2017-09-13] MEDS ORDERED: Artificial Tears 15 ML OP PRN (17:17)
[2017-09-13] MEDS: ENOXAPARIN SODIUM SQ SCH (17:42)
[2017-09-13] MEDS: NovoLOG Insulin SQ PRN (17:43)
[2017-09-13] MEDS ORDERED: ENOXAPARIN SODIUM SQ SCH (18:00)
[2017-09-13] MEDS: Lopressor 50 MG PO SCH (21:21)
[2017-09-13] MEDS: ENTRESTO 49 MG-51 MG TABLET PO SCH (21:21)
[2017-09-14] MEDS: Lasix 40 MG/4 ML IV SCH ×4 (00:02→22:03)
[2017-09-14 05:53] LABS: BASOPHIL % 0.7 % (0.0-0.4); Basophil (Absolute #) 0.06 (0-0.4); Eosinophil % 0.9 % (0.00-5.0); Eosinophil (Absolute #) 0.07 (0-0.5); Granulocyte Absolute (ANC) 6.34 (1.4-6.9); Granulocytes % 78.9 % (36.0-66.0); Hemoglobin 10.8 gm/dl (12.0-16.0); Lymphocyte (Absolute #) 0.82 (1.0-4.6); Lymphocytes % 10.2 % (24.0-44.0); Mean Cell Volume 100.3 fl (78-100); Mean Corpuscular Hgb Concent. 29.2 g/dl (32-36); Mean Platelet Volume 10.5 fl (6-9.5); Monocyte (Absolute #) 0.75 (0.0-1.3); Monocytes % 9.3 % (0.0-12.0); Platelet Count 302 K/mm3 (150-450); Red Blood Count 3.69 M/mm3 (4.1-5.4); Red Cell Distribution Width 17.7 % (11.5-14.0)
[2017-09-14 06:04] LABS: ALBUMIN 2.9 g/dL (3.5-5.0); BILIRUBIN,TOTAL 0.4 mg/dL (0.2-1.3); Calcium 8.8 mg/dL (8.4-10.2); Creatinine 1 0.96 mg/dL (0.52-1.04); Potassium 4.3 mmol/L (3.5-5.1)
[2017-09-14 06:11] LABS: Mean Corpuscular Hemoglobin 29.2 pg (26-32)
[2017-09-14 06:35] LABS: ANION GAP 14.3 MEQ/L (5-15)
[2017-09-14 07:54] LABS: Slide Review 1 YES
--- NOTE | 2017-09-14 09:03 | HP ---
CHIEF COMPLAINT: Decreasing loss of consciousness. HISTORY OF PRESENT ILLNESS: The patient is an 82 year-old white female who has been in the hospital recently for congestive heart failure. She was released to [facility] for rehab. Apparently after three months the patient was doing reasonably well at home but over the past three months she has been deteriorating in health and has had apparently several admissions in and out of the hospital and the alf. Apparently she has become unarousable at [facility] and was sent to the emergency room where she was found to be congestive heart failure again and now also with urinary tract infection. PENITENTIARY MEDICATIONS: Include acetaminophen, Albuterol, Allopurinol, Alprazolam, Eliquis, Bumex, buspirone, iron, insulin, levothyroxine, magnesium, metoprolol, multivitamins, artificial tears, potassium, Crestor, Entresto, Januvia. ALLERGIES: NKDA. PHYSICAL EXAMINATION: Revealed an elderly white female who is minimally responsive to my evaluation. She would open her eyes and then just back to sleep again. The patient is wearing a Husain catheter. VITAL SIGNS: Vital signs showed temperature 97.4F, pulse 106, respiratory rate 18, blood pressure 142/93. O2 saturation 100% on supplemental oxygen. HEENT: Appeared to be normocephalic, atraumatic. Pupils equal round reactive to light. Extraocular movements appear to be intact. Oropharynx is dry. NECK: Supple without lymphadenopathy, thyromegaly or JVD. CHEST: Clear to auscultation. HEART: Regular rate and rhythm without significant murmurs, rubs or gallops. ABDOMEN: Soft. No palpable masses were felt. EXTREMITIES: Without significant clubbing, cyanosis or edema. NEUROLOGIC: The patient is obtunded although she appears to be move all four extremities equally. LAB DATA AND TESTS: Sugar 205, BUN 30, creatinine 1, sodium 147, potassium normal. Liver enzymes were normal. White blood cell count was 7,800, hemoglobin 11.3, PLT count 343,000. The patient had a troponin less than 0.012. UA showed white blood cells greater than 100 with negative nitrite however specific gravity 1.015. Lactic acid 1.5. Magnesium 2.2. ProBNP was 4,310. X-ray showed cardiomegaly with ICD and moderate bibasilar atelectasis, superimposed pneumonia was not excluded. ASSESSMENT: A patient with decreasing loss of consciousness. She has been admitted to the hospital treated empirically with IV Rocephin for urinary tract infection and with cultures pending. She has been diuresed with IV Lasix 40 mg every 12 hours. There was some discussion with the family about making the patient a Hospice patient and she has already been made a No Code.
[2017-09-14] MEDS: Lopressor 50 MG PO SCH ×2 (09:22→22:02)
[2017-09-14] MEDS: ENOXAPARIN SODIUM SQ SCH (09:22)
[2017-09-14] MEDS: ROCEPHIN 1 Gm-D5w 50 ml Bag** 1 G/50 ML IVPB IV SCH (09:22)
[2017-09-14] MEDS: SYNTHROID 100 MCG PO SCH (09:22)
[2017-09-14] MEDS: ENTRESTO 49 MG-51 MG TABLET PO SCH ×2 (09:23→22:02)
[2017-09-14] MEDS: NovoLOG Insulin SQ PRN ×3 (12:04→22:04)
--- NOTE | 2017-09-15 08:24 | PCM.NOTE ---
Date and Time: 09/15/17817 Subjective Assessment: Pt found to have VRE in the urine, resistant to everything but linezolid. She is complaining of pain "all over." In general states she is doing "no good." Her breathing is "not good" -has been on O2 at [place] and is currently on 2L NC here. She is eating well. Has trivedi catheter. Had a BM yesterday. - Review of Systems Constitutional: No Fever Abdominal/Gastrointestinal: No Vomiting Objective Exam General Appearance: alert, other (appears chronically ill) Neurologic Exam: cooperative, other (anxious) Skin Exam: normal color, warm, dry, No rash Respiratory Exam: lungs clear, diminished breath sounds, No crackles/rales, No rhonchi, No wheezing Cardiovascular Exam: normal heart sounds, irregular, No murmur Gastrointestinal/Abdomen Exam: soft, No tenderness, No distention Extremity Exam: swelling (trace LE edema bilat) OBJECTIVE DATA Vital Signs: Vital Signs - 24 hr Temp Pulse Resp BP Pulse Ox 09/15/17 07:14 98.6 F 115 H 22 129/78 92 L 09/15/17 04:00 97.9 F 59 L 26 H 132/79 99 09/14/17 23:48 97.9 F 77 31 H 119/71 97 09/14/17 20:00 97.9 F 101 H 21 112/66 96 09/14/17 19:49 98 09/14/17 19:44 103 H 18 98 09/14/17 16:00 98.2 F 95 H 18 118/67 95 09/14/17 14:53 95 09/14/17 11:54 98.5 F 99 H 18 127/84 99 Oxygen-Last 24 hours O2 Percentage 2 Liters = 28% O2 Percentage 2 Liters = 28% O2 Percentage 2 Liters = 28% O2 Percentage 2 Liters = 28% O2 Percentage 3 Liters = 32% O2 Percentage 2 Liters = 28% Pain Assessment - Last Documented Pain Intensity 0 Pain Scale Used 0-10 Pain Scale Intake and Output: Intake & Output 09/12/17 09/13/17 09/14/17 09/15/17 11:59 11:59 11:59 11:59 Intake Total 60 820 Output Total 1250 850 Balance -1190 -30 Weight 77 kg 78 kg Lab Results: Accuchecks Date 09/15/17 Date 09/14/17 Date 09/14/17 Date 09/14/17 Time 07:13 Time 22:00 Accucheck Value: 183 Accucheck Value: 236 Accucheck Value: 296 Accucheck Value: 259 Radiology Exams: Radiology Procedures Category Date Time Status CHEST 1 VIEW (PORTABLE) Routine Exams 09/15/17 06:00 Taken ECHO W/2D AND DOPPLER [US] Routine Exams 09/13/17 17:55 Taken Assessment/Plan (1) VRE (vancomycin resistant enterococcus) culture positive Current Visit: Yes Status: Acute Assessment & Plan: Discontinued rocephin and started linezolid 600 mg IV BID. After several days plan to transition to po if clinically she is doing better. Tx course will be 14-21 days overall. Code(s): Z22.39 - CARRIER OF OTHER SPECIFIED BACTERIAL DISEASES (2) DNR no code (do not resuscitate) Current Visit: Yes Status: Acute Assessment & Plan: I spoke to the son about hospice care, I agree with returning to the [facility] on hosp[facility] at discharge. Her health overall has declined quite a bit in the past 1 year due to her chronic CHF, chronic renal failure, atrial fibrillation, recurrent infections, and generalized weakness. (3) CHF (congestive heart failure) Current Visit: Yes Status: Acute Onset Date: ~09/06/17 Qualifiers: Heart failure type: systolic Heart failure chronicity: acute on chronic Qualified Code(s): I50.23 - Acute on chronic systolic (congestive) heart failure Assessment & Plan: On IV lasix 40mg BID. Code(s): I50.9 - HEART FAILURE, UNSPECIFIED (4) UTI (urinary tract infection) Current Visit: Yes Status: Acute Onset Date: ~09/06/17 Qualifiers: Urinary tract infection type: acute cystitis Hematuria presence: without hematuria Qualified Code(s): N30.00 - Acute cystitis without hematuria Code(s): N39.0 - URINARY TRACT INFECTION, SITE NOT SPECIFIED (5) Anxiety Current Visit: No Status: Chronic Code(s): F41.9 - ANXIETY DISORDER, UNSPECIFIED (6) CKD (chronic kidney disease) stage 3, GFR 30-59 ml/min Current Visit: No Status: Chronic Assessment & Plan: recheck labs today. Code(s): N18.3 - CHRONIC KIDNEY DISEASE, STAGE 3 (MODERATE) (7) Diabetes mellitus type 2 in obese Current Visit: No Status: Chronic Assessment & Plan: day 1 her BS were in the 100s, yesterday were in the 200s, most recently 183 - will increase lantus if necessary. Code(s): E11.69 - TYPE 2 DIABETES MELLITUS WITH OTHER SPECIFIED COMPLICATION; E66.9 - OBESITY, UNSPECIFIED (8) Weakness Current Visit: No Status: Chronic Assessment & Plan: acutely worsened with this UTI. Code(s): R53.1 - WEAKNESS (9) Atrial fibrillation Current Visit: Yes Status: Chronic Qualifiers: Atrial fibrillation type: chronic Qualified Code(s): I48.2 - Chronic atrial fibrillation Assessment & Plan: On Eliquis at home. On lovenox here. Plan to restart Eliquis at discharge. If her heart rate increases would change metoprolol from 50mg po BID to 75mg po BID. Code(s): I48.91 - UNSPECIFIED ATRIAL FIBRILLATION
[2017-09-15] MEDS: Zyvox 600 MG IV PREMIX*** 300 ML IV SCH ×2 (08:38→21:19)
--- NOTE | 2017-09-15 08:38 | XRAY ---
Indication: CHF. Comparison: September 13, 2017. Pleural chest demonstrates minimal improvement in the bibasilar infiltrates/atelectasis/effusions, especially on the right. Stable cardiomegaly, central vascular congestion, and left-sided AICD. No new cardiopulmonary abnormalities.
[2017-09-15] MEDS: Lopressor 50 MG PO SCH ×2 (08:39→21:19)
[2017-09-15] MEDS: SYNTHROID 100 MCG PO SCH (08:39)
[2017-09-15] MEDS: Lasix 40 MG/4 ML IV SCH ×2 (08:39→21:19)
[2017-09-15] MEDS: ENOXAPARIN SODIUM SQ SCH (08:39)
[2017-09-15] MEDS: ENTRESTO 49 MG-51 MG TABLET PO SCH ×2 (08:40→21:19)
[2017-09-15 10:21] LABS: BASOPHIL % 0.6 % (0.0-0.4); Basophil (Absolute #) 0.06 (0-0.4); Eosinophil % 1.3 % (0.00-5.0); Eosinophil (Absolute #) 0.12 (0-0.5); Granulocyte Absolute (ANC) 7.21 (1.4-6.9); Hematocrit 37.4 % (35-47); Hemoglobin 10.8 gm/dl (12.0-16.0); Lymphocyte (Absolute #) 0.92 (1.0-4.6); Lymphocytes % 9.9 % (24.0-44.0); Mean Cell Volume 100.3 fl (78-100); Mean Corpuscular Hgb Concent. 28.9 g/dl (32-36); Mean Platelet Volume 12.3 fl (6-9.5); Monocyte (Absolute #) 0.94 (0.0-1.3); Monocytes % 10.2 % (0.0-12.0); Platelet Count 190 K/mm3 (150-450); Red Blood Count 3.73 M/mm3 (4.1-5.4); Red Cell Distribution Width 17.7 % (11.5-14.0); White Blood Count 9.3 K/mm3 (4.0-10.5)
[2017-09-15 10:27] LABS: Mean Corpuscular Hemoglobin 28.9 pg (26-32)
[2017-09-15 10:59] LABS: Slide Review 1 YES
[2017-09-15 11:09] LABS: ALKALINE PHOSPHATASE 113 U/L (38-126); ANION GAP 18.4 MEQ/L (5-15); BLOOD UREA NITROGEN 24 mg/dL (7-17); CHLORIDE 93 mmol/L (98-107); Calcium 8.4 mg/dL (8.4-10.2); Carbon Dioxide 36 mmol/L (22-30); Creatinine 1 0.78 mg/dL (0.52-1.04); Glucose 281 mg/dL (74-106); Potassium 4.3 mmol/L (3.5-5.1); SGOT/AST 54 U/L (14-36); SGPT/ALT 11 U/L (0-35); SODIUM 144 mmol/L (137-145); Total Protein 6.1 g/dL (6.3-8.2)
[2017-09-15] MEDS: NovoLOG Insulin SQ PRN ×2 (11:27→21:20)
--- NOTE | 2017-09-16 09:07 | PCM.NOTE ---
Date and Time: 09/16/17 09 Subjective Assessment: BP last night got down to 99 systolic. Pt has been more somnolent this morning. C/o "I just hurt all over" but indicates it's better than yesterday. She ate about 50% of her breakfast this morning. Yesterday she ate well all day. - Review of Systems Constitutional: No Fever Abdominal/Gastrointestinal: No Vomiting Objective Exam General Appearance: no apparent distress, other (somnolent) Neurologic Exam: cooperative, disoriented (oriented to place but not to time) Skin Exam: normal color, warm, diaphoresis (mild, on her back), No rash Eye Exam: eyes nml inspection Respiratory Exam: lungs clear, diminished breath sounds, No crackles/rales, No rhonchi, No wheezing Cardiovascular Exam: regular rate/rhythm, other (distant heart sounds), No murmur Gastrointestinal/Abdomen Exam: soft, normal bowel sounds, No tenderness, No distention, No mass, No guarding, No rebound Extremity Exam: No pedal edema, No swelling Back Exam: normal inspection, No rash OBJECTIVE DATA Vital Signs: Vital Signs - 24 hr Temp Pulse Resp BP Pulse Ox 09/16/17 07:37 98.1 F 102 H 22 145/89 95 09/16/17 04:00 98.1 F 91 H 28 H 133/81 97 09/16/17 00:00 97.9 F 71 16 122/72 100 09/15/17 19:54 97.7 F 101 H 17 117/74 96 09/15/17 19:27 96 09/15/17 19:25 101 H 17 96 09/15/17 18:48 96 09/15/17 16:00 98.3 F 96 H 18 99/64 96 09/15/17 11:27 98.4 F 110 H 22 122/62 93 L 09/15/17 11:25 101 H 20 98 Oxygen-Last 24 hours O2 Percentage 2 Liters = 28% O2 Percentage 2 Liters = 28% O2 Percentage 2 Liters = 28% O2 Percentage 2 Liters = 28% O2 Percentage 2 Liters = 28% Pain Assessment - Last Documented Pain Scale Used [facility] Intake and Output: Intake & Output 09/13/17 09/14/17 09/15/17 09/16/17 11:59 11:59 11:59 11:59 Intake Total 300 860 Output Total 2250 Balance 300 -1390 Weight 77 kg Lab Results: Accuchecks Date 09/15/17 Date 09/15/17 Date 09/15/17 Time 21:00 Time 16:18 Time 11:27 Accucheck Value: 231 Accucheck Value: 280 Accucheck Value: 302 Lab Results-Last 24 Hours 09/15/17 09/15/17 Range/Units 09:45 09:45 WBC 9.3 (4.0-10.5) K/mm3 RBC 3.73 L (4.1-5.4) M/mm3 Hgb 10.8 L (12.0-16.0) gm/dl Hct 37.4 (35-47) % MCV 100.3 H (78-100) fl MCH 28.9 (26-32) pg MCHC 28.9 L (32-36) g/dl RDW 17.7 H (11.5-14.0) % Plt Count 190 (150-450) K/mm3 MPV 12.3 H (6-9.5) fl Gran % 78.0 H (36.0-66.0) % Eos # (Auto) 0.12 (0-0.5) Absolute Lymphs (auto) 0.92 L (1.0-4.6) Absolute Monos (auto) 0.94 (0.0-1.3) Lymphocytes % 9.9 L (24.0-44.0) % Monocytes % 10.2 (0.0-12.0) % Eosinophils % 1.3 (0.00-5.0) % Basophils % 0.6 (0.0-0.4) % Absolute Granulocytes 7.21 H (1.4-6.9) Basophils # 0.06 (0-0.4) Sodium 144 (137-145) mmol/L Potassium 4.3 (3.5-5.1) mmol/L Chloride 93 L (98-107) mmol/L Carbon Dioxide 36 H (22-30) mmol/L Anion Gap 18.4 H (5-15) MEQ/L BUN 24 H (7-17) mg/dL Creatinine 0.78 (0.52-1.04) mg/dL Estimated GFR > 60.0 ML/MIN Glucose 281 H (74-106) mg/dL Calcium 8.4 (8.4-10.2) mg/dL Total Bilirubin 0.50 (0.2-1.3) mg/dL AST 54 H (14-36) U/L ALT 11 (0-35) U/L Alkaline Phosphatase 113 (38-126) U/L Serum Total Protein 6.1 L (6.3-8.2) g/dL Albumin 3.0 L (3.5-5.0) g/dL Slides for Path Review YES Multi-Disciplinary Progress Notes: Multi-Disciplinary Progress Notes 09/15/17 09:57 Case Management Note by Vivian Beltran [facility] CONTACTED AT [phone] TO SET UP HOSPICE TO FOLLOW PATIENT AT [facility]. THEY VERIFIED UNDERSTANDING. FACESHEET AND ORDER FAXED TO THEM AT [phone]. THEY WILL BE IN CONTACT AND WILL NEED DC INFO FAXED TO THEM UPON DC. Initialized on 09/15/17 09:57 - END OF NOTE Assessment/Plan (1) VRE (vancomycin resistant enterococcus) culture positive Current Visit: Yes Status: Acute Onset Date: ~09/15/17 Assessment & Plan: On linezolid IV q12h. I have restarted IV fluids at 50cc/hr, being cautious in light of her CHF exacerbation. Code(s): Z22.39 - CARRIER OF OTHER SPECIFIED BACTERIAL DISEASES (2) Generalized pain Current Visit: Yes Status: Acute Assessment & Plan: will make her tylenol scheduled. Would like to avoid sedating pain meds. Code(s): R52 - PAIN, UNSPECIFIED (3) CHF (congestive heart failure) Current Visit: Yes Status: Acute Onset Date: ~09/06/17 Qualifiers: Heart failure type: systolic Heart failure chronicity: acute on chronic Qualified Code(s): I50.23 - Acute on chronic systolic (congestive) heart failure Assessment & Plan: lasix 40mg IV daily. clinically seems to be doing well. Code(s): I50.9 - HEART FAILURE, UNSPECIFIED (4) Somnolence Current Visit: Yes Status: Acute Assessment & Plan: Improved after she sat up (with assistance) for her lung exam. She has had hypersomnolence before when she has an infection, so it is my hope it will improve with the change in antibiotics yesterday and with the starting of IV fluids. (5) DNR no code (do not resuscitate) Current Visit: Yes Status: Acute Onset Date: ~09/15/17 (6) UTI (urinary tract infection) Current Visit: Yes Status: Acute Onset Date: ~09/06/17 Qualifiers: Urinary tract infection type: acute cystitis Hematuria presence: without hematuria Qualified Code(s): N30.00 - Acute cystitis without hematuria Code(s): N39.0 - URINARY TRACT INFECTION, SITE NOT SPECIFIED (7) Anxiety Current Visit: No Status: Chronic Code(s): F41.9 - ANXIETY DISORDER, UNSPECIFIED (8) CKD (chronic kidney disease) stage 3, GFR 30-59 ml/min Current Visit: No Status: Chronic Code(s): N18.3 - CHRONIC KIDNEY DISEASE, STAGE 3 (MODERATE) (9) Diabetes mellitus type 2 in obese Current Visit: No Status: Chronic Code(s): E11.69 - TYPE 2 DIABETES MELLITUS WITH OTHER SPECIFIED COMPLICATION; E66.9 - OBESITY, UNSPECIFIED (10) Weakness Current Visit: No Status: Chronic Code(s): R53.1 - WEAKNESS (11) Atrial fibrillation Current Visit: Yes Status: Chronic Onset Date: ~09/15/17 Qualifiers: Atrial fibrillation type: chronic Qualified Code(s): I48.2 - Chronic atrial fibrillation Code(s): I48.91 - UNSPECIFIED ATRIAL FIBRILLATION
[2017-09-16] MEDS: ENOXAPARIN SODIUM SQ SCH (10:00)
[2017-09-16] MEDS: Lasix 40 MG/4 ML IV SCH ×2 (10:00→21:46)
[2017-09-16] MEDS: SYNTHROID 100 MCG PO SCH (10:00)
[2017-09-16] MEDS: Zyvox 600 MG IV PREMIX*** 300 ML IV SCH ×2 (10:01→21:45)
[2017-09-16] MEDS: ENTRESTO 49 MG-51 MG TABLET PO SCH ×2 (10:01→21:46)
[2017-09-16] MEDS: Lopressor 50 MG PO SCH ×2 (10:01→21:46)
[2017-09-16] MEDS: TYLENOL 325 MG PO SCH ×3 (10:01→23:43)
[2017-09-16] MEDS: NovoLOG Insulin SQ PRN ×3 (11:59→21:47)
[2017-09-17] MEDS: TYLENOL 325 MG PO SCH ×2 (06:56→11:33)
--- NOTE | 2017-09-17 08:51 | PCM.NOTE ---
Date and Time: 09/17/17 0845 Subjective Assessment: Not feeling well this morning, c/o stomach pain. Was up talking a lot last night. - Review of Systems Abdominal/Gastrointestinal: Abdominal Pain, No Vomiting Objective Exam General Appearance: obese, other (somnolent) Neurologic Exam: cooperative Skin Exam: normal color, warm, dry, No rash Respiratory Exam: diminished breath sounds, No crackles/rales, No rhonchi, No wheezing Cardiovascular Exam: normal heart sounds, irregular, No murmur Gastrointestinal/Abdomen Exam: soft, normal bowel sounds, tenderness (LLQ, epigastrum), No distention, No mass, No guarding, No rebound Extremity Exam: No pedal edema, No swelling Back Exam: normal inspection, No rash OBJECTIVE DATA Vital Signs: Vital Signs - 24 hr Temp Pulse Resp BP Pulse Ox 09/17/17 07:54 97.5 F 92 H 20 154/82 96 09/17/17 07:04 95 H 18 96 09/17/17 04:00 98.4 F 91 H 20 131/74 98 09/17/17 00:00 97.9 F 57 L 14 135/72 94 L 09/16/17 20:00 97.9 F 93 H 23 112/65 94 L 09/16/17 19:00 90 18 95 09/16/17 16:00 97.6 F 84 20 136/64 93 L 09/16/17 11:17 97.6 F 95 H 22 130/69 97 Oxygen-Last 24 hours O2 Percentage 2 Liters = 28% O2 Percentage 2 Liters = 28% O2 Percentage 2 Liters = 28% O2 Percentage 2 Liters = 28% O2 Percentage 2 Liters = 28% O2 Percentage 2 Liters = 28% Pain Assessment - Last Documented Pain Intensity 4 Pain Scale Used 0-10 Pain Scale Intake and Output: Intake & Output 09/14/17 09/15/17 09/16/17 09/17/17 11:59 11:59 11:59 11:59 Intake Total 300 860 600 Output Total 2250 1500 Balance 300 -1390 -900 Weight 77 kg 77 kg Lab Results: Accuchecks Date 09/16/17 Date 09/16/17 Date 09/16/17 Time 16:30 Time 11:30 Accucheck Value: 274 Accucheck Value: 357 Accucheck Value: 307 Multi-Disciplinary Progress Notes: Multi-Disciplinary Progress Notes 09/16/17 10:25 (created 09/16/17 13:48) Case Management Note by Vivian Beltran SPOKE WITH SON CARYL, EDUCATED THAT HOSPICE IS SET UP FOR DC, HE DENIES THE NEED FOR ANY NEW SERVICES NEEDS. NO CHANGE IN DC PLANS AT THIS TIME Initialized on 09/16/17 13:48 - END OF NOTE Assessment/Plan (1) VRE (vancomycin resistant enterococcus) culture positive Current Visit: Yes Status: Acute Onset Date: ~09/15/17 Assessment & Plan: On linezolid IV day #3. Clinically has not had much improvement; however she was supposed to have IV fluids all day yesterday and last night and they were never hung (incident report pending). Labs are being drawn now. Code(s): Z22.39 - CARRIER OF OTHER SPECIFIED BACTERIAL DISEASES (2) Generalized pain Current Visit: Yes Status: Acute Code(s): R52 - PAIN, UNSPECIFIED (3) CHF (congestive heart failure) Current Visit: Yes Status: Acute Onset Date: ~09/06/17 Qualifiers: Heart failure type: systolic Heart failure chronicity: acute on chronic Qualified Code(s): I50.23 - Acute on chronic systolic (congestive) heart failure Code(s): I50.9 - HEART FAILURE, UNSPECIFIED (4) Somnolence Current Visit: Yes Status: Acute (5) DNR no code (do not resuscitate) Current Visit: Yes Status: Acute Onset Date: ~09/15/17 (6) UTI (urinary tract infection) Current Visit: Yes Status: Acute Onset Date: ~09/06/17 Qualifiers: Urinary tract infection type: acute cystitis Hematuria presence: without hematuria Qualified Code(s): N30.00 - Acute cystitis without hematuria Code(s): N39.0 - URINARY TRACT INFECTION, SITE NOT SPECIFIED (7) Anxiety Current Visit: No Status: Chronic Code(s): F41.9 - ANXIETY DISORDER, UNSPECIFIED (8) CKD (chronic kidney disease) stage 3, GFR 30-59 ml/min Current Visit: No Status: Chronic Code(s): N18.3 - CHRONIC KIDNEY DISEASE, STAGE 3 (MODERATE) (9) Diabetes mellitus type 2 in obese Current Visit: No Status: Chronic Assessment & Plan: add Lantus Code(s): E11.69 - TYPE 2 DIABETES MELLITUS WITH OTHER SPECIFIED COMPLICATION; E66.9 - OBESITY, UNSPECIFIED (10) Weakness Current Visit: No Status: Chronic Code(s): R53.1 - WEAKNESS (11) Atrial fibrillation Current Visit: Yes Status: Chronic Onset Date: ~09/15/17 Qualifiers: Atrial fibrillation type: chronic Qualified Code(s): I48.2 - Chronic atrial fibrillation Code(s): I48.91 - UNSPECIFIED ATRIAL FIBRILLATION
[2017-09-17 08:54] LABS: BASOPHIL % 0.7 % (0.0-0.4); Basophil (Absolute #) 0.06 (0-0.4); Eosinophil % 2.2 % (0.00-5.0); Eosinophil (Absolute #) 0.19 (0-0.5); Granulocyte Absolute (ANC) 6.87 (1.4-6.9); Granulocytes % 78.1 % (36.0-66.0); Hematocrit 37.9 % (35-47); Hemoglobin 11.1 gm/dl (12.0-16.0); Lymphocyte (Absolute #) 0.89 (1.0-4.6); Lymphocytes % 10.1 % (24.0-44.0); Mean Cell Volume 99.5 fl (78-100); Mean Corpuscular Hemoglobin 29.1 pg (26-32); Mean Corpuscular Hgb Concent. 29.3 g/dl (32-36); Mean Platelet Volume 10.6 fl (6-9.5); Monocyte (Absolute #) 0.78 (0.0-1.3); Monocytes % 8.9 % (0.0-12.0); Platelet Count 305 K/mm3 (150-450); Red Blood Count 3.81 M/mm3 (4.1-5.4); Red Cell Distribution Width 17.4 % (11.5-14.0); White Blood Count 8.8 K/mm3 (4.0-10.5)
[2017-09-17 09:22] LABS: BLOOD UREA NITROGEN 15 mg/dL (7-17); CHLORIDE 93 mmol/L (98-107); Calcium 8.5 mg/dL (8.4-10.2); Creatinine 1 0.74 mg/dL (0.52-1.04); Glucose 154 mg/dL (74-106); Potassium 4.5 mmol/L (3.5-5.1); SODIUM 141 mmol/L (137-145)
[2017-09-17 09:30] LABS: Carbon Dioxide 41 mmol/L (22-30)
[2017-09-17 09:31] LABS: ANION GAP 11.5 MEQ/L (5-15)
[2017-09-17] MEDS: Lopressor 50 MG PO SCH ×2 (09:42→22:18)
[2017-09-17] MEDS: ENOXAPARIN SODIUM SQ SCH (09:42)
[2017-09-17] MEDS: SYNTHROID 100 MCG PO SCH (09:42)
[2017-09-17] MEDS: Lantus Insulin SQ SCH (09:42)
[2017-09-17] MEDS: Lasix 40 MG/4 ML IV SCH ×2 (09:42→22:18)
[2017-09-17] MEDS: Zyvox 600 MG IV PREMIX*** 300 ML IV SCH ×2 (09:42→22:06)
[2017-09-17] MEDS: Sodium Chloride 0.9% 1000 ML 1,000 ML IV SCH (09:42)
[2017-09-17] MEDS: ENTRESTO 49 MG-51 MG TABLET PO SCH ×2 (09:43→22:17)
[2017-09-17] MEDS: NovoLOG Insulin SQ PRN ×2 (12:33→17:22)
[2017-09-17] MEDS ORDERED: NORCO 5/325 MG PO PRN (16:17)
[2017-09-17] MEDS: NORCO 5/325 MG PO SCH ×2 (17:22→23:46)
[2017-09-18] MEDS: NORCO 5/325 MG PO SCH ×5 (00:55→22:51)
[2017-09-18] MEDS: Lantus Insulin SQ SCH (08:03)
[2017-09-18] MEDS: NovoLOG Insulin SQ PRN ×2 (08:03→16:04)
[2017-09-18] MEDS: Sodium Chloride 0.9% 1000 ML 1,000 ML IV SCH (08:08)
[2017-09-18] MEDS: Zyvox 600 MG IV PREMIX*** 300 ML IV SCH ×2 (10:01→21:40)
[2017-09-18] MEDS: Lasix 40 MG/4 ML IV SCH ×2 (10:01→21:39)
[2017-09-18] MEDS: ENOXAPARIN SODIUM SQ SCH (10:01)
[2017-09-18] MEDS: ENTRESTO 49 MG-51 MG TABLET PO SCH ×4 (10:02→21:39)
[2017-09-18] MEDS: SYNTHROID 100 MCG PO SCH ×3 (10:02→12:37)
[2017-09-18] MEDS: Lopressor 50 MG PO SCH ×4 (10:02→21:39)
[2017-09-18] MEDS ORDERED: Sodium Chloride 0.9% 10 ML FLUSH Syringe IV PRN (11:41)
[2017-09-18] MEDS: Sodium Chloride 0.9% 10 ML FLUSH Syringe IV SCH ×2 (14:52→21:39)
[2017-09-19] MEDS: Sodium Chloride 0.9% 10 ML FLUSH Syringe IV SCH ×3 (05:46→21:48)
[2017-09-19] MEDS: NORCO 5/325 MG PO SCH ×4 (05:47→23:53)
[2017-09-19 06:02] LABS: Hematocrit 37.8 % (35-47); Hemoglobin 11.2 gm/dl (12.0-16.0); Mean Cell Volume 98.7 fl (78-100); Mean Corpuscular Hemoglobin 29.2 pg (26-32); Mean Corpuscular Hgb Concent. 29.6 g/dl (32-36); Mean Platelet Volume 12.5 fl (6-9.5); Platelet Count 193 K/mm3 (150-450); Red Blood Count 3.83 M/mm3 (4.1-5.4); Red Cell Distribution Width 17.1 % (11.5-14.0); White Blood Count 7.8 K/mm3 (4.0-10.5)
[2017-09-19 06:17] LABS: ANION GAP 10.6 MEQ/L (5-15); BLOOD UREA NITROGEN 13 mg/dL (7-17); CHLORIDE 97 mmol/L (98-107); Calcium 8.5 mg/dL (8.4-10.2); Carbon Dioxide 36 mmol/L (22-30); Creatinine 1 0.61 mg/dL (0.52-1.04); Glucose 114 mg/dL (74-106); SODIUM 139 mmol/L (137-145)
[2017-09-19] MEDS: Lantus Insulin SQ SCH (07:54)
[2017-09-19] MEDS: ENOXAPARIN SODIUM SQ SCH (10:11)
[2017-09-19] MEDS: Zyvox 600 MG IV PREMIX*** 300 ML IV SCH ×2 (10:11→21:46)
[2017-09-19] MEDS: Lasix 40 MG/4 ML IV SCH ×2 (10:11→21:47)
[2017-09-19] MEDS: NYSTOP POWDER 15 GM TP SCH ×2 (10:11→21:46)
[2017-09-19] MEDS: Lopressor 50 MG PO SCH ×3 (10:28→21:46)
[2017-09-19] MEDS: SYNTHROID 100 MCG PO SCH ×2 (10:28→11:46)
[2017-09-19] MEDS: ENTRESTO 49 MG-51 MG TABLET PO SCH ×3 (10:28→21:47)
[2017-09-19] MEDS: NovoLOG Insulin SQ PRN (22:35)
[2017-09-20] MEDS: Sodium Chloride 0.9% 10 ML FLUSH Syringe IV SCH (05:56)
[2017-09-20] MEDS: NORCO 5/325 MG PO SCH ×2 (05:57→12:28)
[2017-09-20] MEDS: Lantus Insulin SQ SCH (07:40)
[2017-09-20] MEDS ORDERED: ZYVOX PO SCH (10:00)
[2017-09-20] MEDS: ENOXAPARIN SODIUM SQ SCH (10:33)
[2017-09-20] MEDS: Lasix 40 MG/4 ML IV SCH (10:33)
[2017-09-20] MEDS: ENTRESTO 49 MG-51 MG TABLET PO SCH (10:33)
[2017-09-20] MEDS: Lopressor 50 MG PO SCH (10:34)
[2017-09-20] MEDS: NYSTOP POWDER 15 GM TP SCH (10:34)
[2017-09-20] MEDS: SYNTHROID 100 MCG PO SCH (10:34)
[2017-09-20] MEDS: NovoLOG Insulin SQ PRN (12:02)
[2017-09-20] MEDS ORDERED: Lasix 40 MG PO ONE (12:15)
[2017-09-20 12:20] VITALS: BP 158/61; PULSE 85; O2SAT 93
--- NOTE | 2017-09-20 12:27 | PCM.DS ---
Discharge Summary Date of Admission: 09/15/17 08:18 Date of Discharge: 09/20/17 Admitting Physician: FE BROWN Primary Care Provider: FE BROWN Allergies Allergies No Known Drug Allergies Allergy (Verified 09/13/17 10:03) Hospital Summary - Hospital Course Hospital Course: Mrs. Peres presented from [facility]. She has been having increasing weakness and recurrent hospital admissions over the last year and was doing rehab therapy. She was noted to be more somnolent with altered mental status. She was admitted and found to have UTI secondary to VRE she was initially treated with emperic therapy but the VRE was not sensitive to these and she was transitioned to iv linezolid which she tolerated well. Her buspirone was d/c with this. She was also treated with iv lasix and intermittently given iv fluids as well due to fluctuations in blood pressures. She was improving at time of discharge still weak as she has had chronic increase in her weakness but was tolerating eating and drinking well and had no specific complaints and her and her family were prepered for discharge today to [facility]. Her IV infiltrated early am on 09/20 and her iv lasix was switched to po at that time. - Vitals & Intake/Output Vital Signs: Vital Signs Temperature 98.0 F 09/20/17 12:00 Pulse Rate 85 09/20/17 12:00 Respiratory Rate 18 09/20/17 12:00 Blood Pressure 158/61 09/20/17 12:00 O2 Sat by Pulse Oximetry 93 L 09/20/17 12:00 Oxygen-Last Documented O2 Percentage 3 Liters = 32% Intake & Output: Intake & Output 09/18/17 09/19/17 09/20/17 09/21/17 11:59 11:59 11:59 11:59 Intake Total 1336 1654 1143 Output Total 575 Balance 761 1654 1143 Weight 77.6 kg 77.4 kg 77.6 kg - Lab Result Diagrams: 09/19/17 05:20 09/19/17 05:20 Lab Results-Last 24 Hrs: Accuchecks Date 09/20/17 Time 07:26 Accucheck Value: 122 Accucheck Value: 223 Accucheck Value: 238 Micro Results-Entire Visit: Accuchecks Date 09/20/17 Time 07:26 Accucheck Value: 122 Accucheck Value: 223 Accucheck Value: 238 Discharge Exam General Appearance: no apparent distress, alert, obese Neurologic Exam: alert, oriented x 3, cooperative Skin Exam: normal color, warm, dry Eye Exam: PERRL, EOMI, eyes nml inspection Ears, Nose, Throat Exam: normal ENT inspection, pharynx normal, moist mucous membranes Neck Exam: normal inspection, non-tender, supple, full range of motion Respiratory Exam: normal breath sounds, lungs clear, No respiratory distress Cardiovascular Exam: regular rate/rhythm, normal heart sounds Gastrointestinal/Abdomen Exam: soft, No tenderness, No mass Extremity Exam: normal inspection, normal range of motion Back Exam: normal inspection, normal range of motion, No CVA tenderness, No vertebral tenderness Pelvic Exam: deferred Rectal Exam: deferred Final Diagnosis/Problem List - Final Discharge Diagnosis/Problem (1) VRE (vancomycin resistant enterococcus) culture positive Current Visit: Yes Status: Acute Onset Date: ~09/15/17 Assessment & Plan: vre uti (2) UTI (urinary tract infection) Current Visit: Yes Status: Acute Onset Date: ~09/06/17 (3) Atrial fibrillation Current Visit: Yes Status: Chronic Onset Date: ~09/15/17 (4) Anxiety Current Visit: Yes Status: Chronic (5) Diabetes mellitus type 2 in obese Current Visit: Yes Status: Chronic (6) Hypertension Current Visit: Yes Status: Chronic Onset Date: ~08/20/17 (7) History of pulmonary embolism Current Visit: Yes Status: Chronic (8) Chronic congestive heart failure Current Visit: Yes Status: Chronic (9) CKD (chronic kidney disease) stage 3, GFR 30-59 ml/min Current Visit: Yes Status: Chronic - Discharge Discharge Date: 09/20/17 Disposition: Skilled Care @ [facility] Condition: Stable Prescriptions: New Nystatin Powder 15 gm [Nystop Powder 15 gm] 1 gm TP BID powder Linezolid [Zyvox] 600 mg PO BID #28 tablet Continue Rosuvastatin Calcium [Crestor] 10 mg PO HS Levothyroxine Sodium 100 Mcg [Synthroid 100 Mcg] 100 mcg PO DAILY Albuterol Common Canister [Proventil Common Canister] 2 puff IH Q4H PRN PRN #1 unit PRN Reason: Shortness Of Breath Sitagliptin Phosphate 50 MG [Januvia 50 MG] 100 mg PO DAILY Bumetanide 1 mg PO DAILY #30 tablet Acetaminophen 325 mg [Tylenol 325 mg] 650 mg PO Q4H PRN PRN tablet PRN Reason: Pain And/Or Fever Multivitamin W-Minerals/Lutein [Cerovite Silver Tablet] 1 tab PO DAILY Sacubitril/Valsartan [Entresto 49 mg-51 mg Tablet] 1 tablet PO BID Allopurinol 300 mg PO DAILY Potassium Chloride 10 Meq Tab* [Klor Con 10 MEQ] 10 meq PO QAM Insulin Glargine [Lantus Insulin] 30 unit SQ DAILY Insulin Aspart [NovoLOG Insulin] 1 unit SQ UD Ferrous Sulfate 325 mg PO BID Alprazolam 0.25 mg [xanAX 0.25 MG] 0.25 mg PO BID Apixaban [Eliquis 5 mg Tablet] 5 mg PO BID Metoprolol Tartrate 50 mg [Lopressor 50 MG] 75 mg PO BID Magnesium Hydroxide 30 ml [Milk of Magnesia 30 ml] 30 ml PO DAILY PRN PRN PRN Reason: Constipation Polyvinyl Alcohol [Artificial Tears] 1 ml OP BID PRN PRN PRN Reason: Dry eyes Magnesium Oxide [Mag-Oxide Magnesium] 400 mg PO BID Discontinued Buspirone HCl 5 mg [Buspar 5 mg] 10 mg PO BID Additional Instructions: consult to hospice services Follow up with: FE BROWN [Primary Care Provider] - 1 Week
--- NOTE | 2017-09-20 12:36 | PCM.DCORD ---
- Discharge Discharge Date: 09/20/17 Disposition: Skilled Care @ [facility] Condition: Stable Prescriptions: New Nystatin Powder 15 gm [Nystop Powder 15 gm] 1 gm TP BID powder Linezolid [Zyvox] 600 mg PO BID #28 tablet Continue Rosuvastatin Calcium [Crestor] 10 mg PO HS Levothyroxine Sodium 100 Mcg [Synthroid 100 Mcg] 100 mcg PO DAILY Albuterol Common Canister [Proventil Common Canister] 2 puff IH Q4H PRN PRN #1 unit PRN Reason: Shortness Of Breath Sitagliptin Phosphate 50 MG [Januvia 50 MG] 100 mg PO DAILY Bumetanide 1 mg PO DAILY #30 tablet Acetaminophen 325 mg [Tylenol 325 mg] 650 mg PO Q4H PRN PRN tablet PRN Reason: Pain And/Or Fever Multivitamin W-Minerals/Lutein [Cerovite Silver Tablet] 1 tab PO DAILY Sacubitril/Valsartan [Entresto 49 mg-51 mg Tablet] 1 tablet PO BID Allopurinol 300 mg PO DAILY Potassium Chloride 10 Meq Tab* [Klor Con 10 MEQ] 10 meq PO QAM Insulin Glargine [Lantus Insulin] 30 unit SQ DAILY Insulin Aspart [NovoLOG Insulin] 1 unit SQ UD Ferrous Sulfate 325 mg PO BID Alprazolam 0.25 mg [xanAX 0.25 MG] 0.25 mg PO BID Apixaban [Eliquis 5 mg Tablet] 5 mg PO BID Metoprolol Tartrate 50 mg [Lopressor 50 MG] 75 mg PO BID Magnesium Hydroxide 30 ml [Milk of Magnesia 30 ml] 30 ml PO DAILY PRN PRN PRN Reason: Constipation Polyvinyl Alcohol [Artificial Tears] 1 ml OP BID PRN PRN PRN Reason: Dry eyes Magnesium Oxide [Mag-Oxide Magnesium] 400 mg PO BID Discontinued Buspirone HCl 5 mg [Buspar 5 mg] 10 mg PO BID Additional Instructions: consult to hospice services Follow up with: FE BROWN [Primary Care Provider] - 1 Week
[2017-09-20] MEDS ORDERED: ZYVOX PO ONE (13:15)
--- NOTE | 2017-09-21 14:25 | ECHO ---
Transthoracic echocardiographic examination and color Doppler was done on 09/13/2017. INDICATION: Congestive heart failure. IMPRESSION: 1) GLOBAL LEFT VENTRICULAR HYPOKINESIA, EJECTION FRACTION BETWEEN 30 AND 40%. 2) MODERATE MITRAL REGURGITATION. 3) MODERATE TO SEVERE TRICUSPID REGURGITATION. RIGHT VENTRICULAR SYSTOLIC PRESSURE OF 38 MM OF MERCURY. 4) LEFT VENTRICULAR HYPERTROPHY. 5) RIGHT ATRIAL ENLARGEMENT. 6) LEFT ATRIAL ENLARGEMENT. 7) MILDLY DILATED RIGHT SIDED CHAMBERS. 8) MILD PULMONIC INSUFFICIENCY. 9) LEFT VENTRICULAR DIASTOLIC DYSFUNCTION. The left ventricle is visualized and demonstrated global-type of hypokinesia. Ejection fraction around 30 to 40%. There is mild left ventricular hypertrophy. The mitral valve is seen and this opens adequately. There is moderate mitral regurgitation. Left atrium is normal. The aortic valve is sclerotic but opens adequately. The right side chambers are mildly dilated. Right atrium is mildly enlarged. There is a pacemaker defibrillator electrode in the right ventricle. There is moderate to severe tricuspid regurgitation. The right ventricular systolic pressure of 38 mm of Mercury. There is also mild pulmonic insufficiency. Tissue Doppler study of the lateral mitral annulus suggestive of left ventricular diastolic dysfunction.
== END 2017-09-20 14:00 | DRG 689 ==
LOC: ED 09:48 → MED SURG 14:35 → OBSVTOIN 09-15 08:18
PROVIDERS: ADMIT Family Medicine; ATTEND Family Medicine
DX: I50.9 Heart failure, unspecified (principal); I50.23 Acute on chronic systolic (congestive) heart failure; I50.84 End stage heart failure; B95.2 Enterococcus as the cause of diseases classified elsewhere; Z16.21 Resistance to vancomycin; Z22.39 Carrier of other specified bacterial diseases; I48.2 Chronic atrial fibrillation; F41.9 Anxiety disorder, unspecified; E11.69 Type 2 diabetes mellitus with other specified complication; N39.0 Urinary tract infection, site not specified; N28.9 Disorder of kidney and ureter, unspecified; I10 Essential (primary) hypertension; E11.9 Type 2 diabetes mellitus without complications; Z79.4 Long term (current) use of insulin; N18.3 Chronic kidney disease, stage 3 (moderate); R40.0 Somnolence; R53.1 Weakness; R52 Pain, unspecified; I12.9 Hypertensive chronic kidney disease with stage 1 through stage 4 chronic kidney disease, or unspecified chronic kidney disease; N18.9 Chronic kidney disease, unspecified; F03.90 Unspecified dementia, unspecified severity, without behavioral disturbance, psychotic disturbance, mood disturbance, and anxiety; E03.9 Hypothyroidism, unspecified; M19.90 Unspecified osteoarthritis, unspecified site; E66.9 Obesity, unspecified; I25.10 Atherosclerotic heart disease of native coronary artery without angina pectoris; Z79.01 Long term (current) use of anticoagulants; Z79.899 Other long term (current) drug therapy; Z86.711 Personal history of pulmonary embolism
CPT/HCPCS: 36000; 36415; 71045; 80048; 80053; 81000; 83605; 83690; 83735; 83880; 84484; 85025; 85027; 87040; 87077; 87086; 87186; 93005; 93268; 93306; 94640; 94760; 99285; P9612; J0696; J1650; J1940; J2020; J2405; A9270-GY; G0378